=== PATIENT | female | born 1960 | race Caucasian/White ===

== ENCOUNTER 2023-02-13 11:02 | Emergency (ER) | payer BC, SELFPAY ==
[2023-02-13 11:02] VITALS: BP 150/76; PULSE 71; RESP 18; TEMP 36.7; O2SAT 100; BMI 29.8
--- NOTE | 2023-02-13 11:21 | XR_ITS ---
FINAL REPORT CLINICAL HISTORY: Shortness of breath COMPARISON: None FINDINGS: Two views of the chest were obtained. The heart size and pulmonary vascularity are within normal limits. The mediastinum is normal. No acute pulmonary abnormality is identified. There is no pneumothorax. The bony thorax is intact. Postoperative changes in the lower cervical spine and lower lumbar spine. IMPRESSION: No active cardiopulmonary disease. Reviewed, Interpreted and Dictated by Tahir Brooks III, MD Transcribed by Letha Cohn Authenticated and [facility]
--- NOTE | 2023-02-13 11:21 | EXP.UTC ---
Discharge Plan Disposition Patient Disposition: Home, Self-Care Condition: Good Prescriptions Prescriptions: New methylprednisolone 4 mg Tablets,Dose Pack 4 mg PO DIRECTED Qty: 21 0RF guaifenesin [Mucinex] 600 mg tablet extended release 12hr 600 - 1,200 mg PO BIDP PRN (Reason: Congestion) Qty: 30 0RF azithromycin [Zithromax] 250 mg tablet 250 mg PO UD DOSE PK Qty: 6 0RF Rx Instructions: Take two (2) tablets today, then one (1) tablet days #2 thru #5 benzonatate [benzonatate] 100 mg capsule 100 mg PO TIDP PRN (Reason: Cough) Qty: 30 0RF Referrals Follow up/Referrals: Provider,Referral, MD [Primary Care Provider] - See instructions Activity Restrictions/Add. Instructions Additional Instructions/Restrictions: Drink plenty of fluids. Take tylenol or ibuprofen for pain or fever. Take the medications as directed. Follow up with your regular doctor. GO TO THE ER FOR ANY WORSENING SYMPTOMS Clinical Impressions Clinical Impression: Acute bronchitis Instructions Patient Instructions: Acute Bronchitis, DI for Acute Bronchitis Discharge ED [place] Eugenio Rom[place] [facility] [place] General Stated complaint: lung pain Time Seen by Provider: 02/13/23 11:21 History of Present Illness Provider Complaint: She states that for the past 1 week she has had sinus congestion and chest congestion. She denies fever and chills. She states that when she breathes in deeply she has pleuritic type pain. Related Data Previous Rx's Medication Instructions Recorded azithromycin 250 mg tablet 250 mg PO UD DOSE PK #6 tabs 02/13/23 (Zithromax) benzonatate 100 mg capsule 100 mg PO TIDP PRN Cough #30 caps 02/13/23 guaifenesin 600 mg tablet, 600 - 1,200 mg PO BIDP PRN 02/13/23 extended release 12 hr (Mucinex) Congestion #30 tabs methylprednisolone 4 mg tablets in 4 mg PO DIRECTED #21 tabs 02/13/23 a dose pack Allergies Allergy/AdvReac Type Severity Reaction Status Date / Time diclofenac [From Voltaren] Allergy Verified 02/13/23 11:25 prednisone Allergy Verified 02/13/23 11:25 [facility] Disclaimer: The information contained in this section may have been updated after the patient was seen, as this information can be updated by other users. Social History Smoking Status: Former smoker alcohol intake: never current occupational status: retired Travel in the last 8 weeks: None ROS Obtained: Yes All systems reviewed & no additional complaints except as documented Constitutional Constitutional: Denies chills and Denies fever(s) Eyes Eyes: Denies eye discharge ENT Ears, Nose, Mouth, and Throat: Denies dizziness, Denies otalgia and Denies sore throat Cardiovascular Cardiovascular: Denies chest pain Respiratory Respiratory: Denies shortness of breath, Reports chest congestion, Reports cough, Denies stridor and Denies wheezing Gastrointestinal Gastrointestingal: Denies nausea or vomiting Musculoskeletal Musculoskeletal: Reports system reviewed and no additional complaints, except as documented and Denies arthralgias Integumentary/Breasts Skin/Breast: Denies rash Neurologic Neurologic: Denies dizziness and Denies paresthesias Allergic/Immunologic Allergic/Immunologic: Denies wheezing Physical Exam General General appearance: alert and in no apparent distress Head Head exam: atraumatic, normocephalic and normal inspection Eye Eye exam: Present normal appearance, PERRL and EOMI ENT ENT exam: Present normal exam, normal oropharynx, mucous membranes moist, TM's normal bilaterally and normal external ear exam Neck Neck exam: Present normal inspection, full ROM and trachea midline; Absent meningismus or lymphadenopathy Chest Chest inspection: Present normal inspection and symmetric chest wall rise; Absent tenderness Respiratory Respiratory exam: Present normal lung sounds bilaterally; Absent respiratory distress Cardiovascular Cardiovascular exam: Present regular rate and normal
[2023-02-13 11:55] VITALS: BP 150/76; PULSE 71; RESP 18; TEMP 36.7; O2SAT 100
== END 2023-02-13 11:56 | disposition home or self-care (01) ==
PROVIDERS: Emergency Provider Nurse Practitioner Family
DX: J20.9 Acute bronchitis, unspecified (principal); R07.1 Chest pain on breathing; Z87.891 Personal history of nicotine dependence
CPT/HCPCS: 71046; 99204; 99212; G0463

== ENCOUNTER → 2023-03-10 15:04 | Outpatient (CLI) | payer BC, SELFPAY ==
--- NOTE | 2023-03-10 15:07 | XR_ITS ---
FINAL REPORT CLINICAL HISTORY: l wrist pain FINDINGS: Left wrist Three views were obtained. There is no acute fracture or dislocation. The joint spaces appear normal. No soft tissue abnormality is identified. IMPRESSION: No acute process. Reviewed, Interpreted and Dictated by Tahir Brooks III, MD Transcribed by Lali Miller Authenticated and [facility]
[2023-03-10 18:31] LABS: Basophils # 0.1 K/mm3 (0-0.2); Basophils % 0.8 % (0.1-2.0); Eosinophils # 0.2 K/mm3 (0.0-0.4); Hematocrit 43.9 % (37.0-47.0); Hemoglobin 14.4 g/dL (12.2-16.2); Lymphocytes # 2.4 K/mm3 (0.7-4.5); Lymphocytes % 29.9 % (10-50); Mean Corpuscular HGB Conc 32.9 g/dL (31.8-35.4); Mean Corpuscular Volume 82.1 fl (81-99); Mean Platelet Volume 8.6 fl (7.4-10.4); Monocytes # 0.3 K/mm3 (0.1-1.0); Monocytes % 3.7 % (1.7-9.3); Neutrophils % 62.5 % (37.0-80.0); Platelet Count 338 K/mm3 (142-424); Red Blood Count 5.35 M/mm3 (4.20-5.40); Red Cell Distribution Width 14.2 % (11.5-17.5); White Blood Count 7.9 K/mm3 (4.8-10.8)
[2023-03-10 19:07] LABS: Alanine Aminotransferase 14 U/L (12-78); Albumin Level 4.6 g/dl (3.5-5.0); Albumin/Globulin Ratio 1.8 (1.1-1.8); Alkaline Phosphatase 107 U/L (38-126); Anion Gap 13.2 mEq/L (5-15); Aspartate Amino Transferase 28 U/L (14-36); Bilirubin,Total 0.7 mg/dl (0.2-1.3); Blood Urea Nitrogen 19 mg/dl (7-17); Calcium 9.9 mg/dl (8.4-10.2); Carbon Dioxide 27 mmol/L (22.0-30.0); Chloride 105 mmol/L (98-107); Chol/HDL Ratio 3.8 (1-3.5); Cholesterol 312 mg/dl (140-200); Estimated Glomerular Filt Rate 102 ml/min (>60); GFR (African American) 123 ML/MIN (>60); Globulin 2.6 g/dL (1.3-3.2); Glucose 92 mg/dl (74-100); HDL Cholesterol 82 mg/dl (40-60); Potassium 5.2 mmoL/L (3.5-5.1); Sodium 140 mmol/L (136-145); Total Protein,Serum 7.2 g/dl (6.3-8.2); Triglycerides 174 mg/dl (30-150); VLDL Cholesterol 35 mg/dL (0-40)
[2023-03-10 19:18] LABS: Direct LDL Cholesterol 169.16 mg/dL (100-129)
[2023-03-10 19:22] LABS: 25-OH Vitamin D, Total 24.3 ng/mL (30-100)
[2023-03-10 19:36] LABS: Thyroid Stimulating Hormone 3.28 uIU/mL (0.465-4.68)
== END ==
PROVIDERS: PCP Student in an Organized Health Care Education/Training Program; Visit Provider Student in an Organized Health Care Education/Training Program
DX: R07.1 Chest pain on breathing (principal); M25.532 Pain in left wrist; R53.83 Other fatigue; E55.9 Vitamin D deficiency, unspecified; Z79.899 Other long term (current) drug therapy
CPT/HCPCS: 73110; 80053; 80061; 82306; 84443; 85025

== ENCOUNTER → 2023-03-16 15:40 | Outpatient (CLI) | payer BC, SELFPAY ==
--- NOTE | 2023-03-16 15:40 | MM_ITS ---
PROCEDURE INFORMATION: Exam: MG Bilateral Screening 3D Mammography Exam date and time: 03/16/2023 3:49 PM Age: 62 years old Clinical indication: Screening examination TECHNIQUE: Imaging protocol: Bilateral Screening tomosynthesis and 2D mammography including computer-aided detection (CAD) when performed. COMPARISON: MG LUX scrn mammo BI 08/20/2019 8:26 AM FINDINGS: MAMMOGRAPHY: Breast composition: The breasts are heterogeneously dense, which may obscure small masses. Mass: None. Architectural distortion: None. Calcifications: No suspicious calcifications. Asymmetric density: None. Skin thickening: None. Axillary adenopathy: None. IMPRESSION: No mammographic evidence of malignancy. Annual screening is recommended unless otherwise clinically indicated. ASSESSMENT: BI-RADS Category 1: Negative
== END ==
PROVIDERS: PCP Student in an Organized Health Care Education/Training Program; Visit Provider Student in an Organized Health Care Education/Training Program
DX: Z12.31 Encounter for screening mammogram for malignant neoplasm of breast (principal)
CPT/HCPCS: 77063; 77067

== ENCOUNTER 2023-03-24 14:45 | Emergency (ER) | payer BC, SELFPAY ==
[2023-03-24] VITALS (8 sets, daily range): BP systolic 135–175; BP diastolic 64–94; PULSE 65–79; RESP 18–20; TEMP 36.6–36.8; O2SAT 97–100; BMI 28.7
--- NOTE | 2023-03-24 15:10 | HMH.EDGENADL ---
Discharge Plan Disposition Patient Disposition: Home, Self-Care Prescriptions Prescriptions: New doxycycline hyclate 100 mg capsule 100 mg PO BID 7 Days Qty: 14 0RF No Action tizanidine 2 mg tablet 2 mg PO TID citalopram 20 mg tablet 20 mg PO DAILY naproxen 500 mg tablet 500 mg PO BID Qty: 20 0RF sumatriptan succinate 50 mg tablet 50 mg PO PRN Patient Comments: TAKE 1 TABLET BY MOUTH NEEDED FOR HEADACHE albuterol sulfate 90 mcg/actuation HFA aerosol inhaler 2 puff inhalation Q6H PRN pravastatin 40 mg tablet 40 mg PO DAILY Qty: 30 2RF cholecalciferol (vitamin D3) 25 mcg (1,000 unit) capsule 25 mcg PO DAILY Qty: 30 3RF Referrals Follow up/Referrals: Vannesa Mata PA [Primary Care Provider] - See instructions Activity Restrictions/Add. Instructions Additional Instructions/Restrictions: At this time it was felt you are safe to be discharged home. If new or worsening symptoms please do not hesitate to return the emergency department. Please take your medication as prescribed. Please follow-up with your family doctor in 1 week should symptoms persist. Clinical Impressions Clinical Impression: Acute bronchitis Discharge ED Provider: Jae Ch General Adult HPI General Chief complaint: Upper Respiratory Infection Stated complaint: pain when breathes and coughing up blood Time Seen by Provider: 03/24/23 15:04 Mode of Arrival: Ambulatory Source of Information: Patient Limitations: No Limitations Description of Symptoms (Recalled from ER Triage Doc. by RN): pt has been dealing with a cough/bronchitis for the last month has been on a round of mucinex and tessalon pearles, has been seen here in ER and at PCP office. pt states over the last 4 days she has noted red/blood tinge sputum. pcp sent pt here History of Present Illness HPI narrative: Patient is 62-year-old female with past medical history of previous pulmonary nodule, previous bronchitis who presents to the emergency department for evaluation of hemoptysis. Patient states that over the last week she has had a cough with associated pain with taking a deep breath along her inferior thoracic cage. Cough is productive, greenish sputum, tinged blood over the last 4 days. She is concerned because she has a history of a pulmonary nodule that was last mentioned as stable in 2017 per her report. Patient denies other acute complaints at this time. Related Data Home Medications Medication Instructions Recorded Confirmed citalopram 20 mg tablet 20 mg PO DAILY 03/10/23 03/24/23 tizanidine 2 mg tablet 2 mg PO TID 03/10/23 03/24/23 albuterol sulfate 90 mcg/actuation 2 puff inhalation Q6H PRN 03/24/23 03/24/23 aerosol inhaler sumatriptan succinate 50 mg tablet 50 mg PO PRN 03/24/23 03/24/23 Previous Rx's Medication Instructions Recorded naproxen 500 mg tablet 500 mg PO BID #20 tabs 03/10/23 doxycycline hyclate 100 mg capsule 100 mg PO BID 7 days #14 caps 03/24/23 cholecalciferol (vitamin D3) 25 25 mcg PO DAILY #30 caps 03/26/23 mcg (1,000 unit) capsule pravastatin 40 mg tablet 40 mg PO DAILY #30 tabs 03/26/23 Allergies Allergy/AdvReac Type Severity Reaction Status Date / Time diclofenac [From Voltaren] Allergy Verified 03/24/23 14:05 prednisone Allergy Verified 03/24/23 14:05 [facility] Disclaimer: The information contained in this section may have been updated after the patient was seen, as this information can be updated by other users. Social History Smoking Status: Never smoker alcohol intake: never current occupational status: retired Travel in the last 8 weeks: None ROS Obtained: Yes Systems reviewed as appropriate & no additional complaints except as documented Physical Exam General General appearance: alert and in no apparent distress Head Head exam: atraumatic and normocephalic Eye Eye exam: Present PERRL an
--- NOTE | 2023-03-24 15:32 | CT_ITS ---
PROCEDURE INFORMATION: Exam: CTA Chest With Contrast Exam date and time: 03/24/2023 5:22 PM Age: 62 years old Clinical indication: Abnormal findings; Lung mass or nodule; Not specified; Additional info: Previous lung nodule, hemoptysis TECHNIQUE: Imaging protocol: Computed tomographic angiography of the chest with contrast. Exam focused on the arteries. 3D rendering (Not supervised by radiologist): MIP and/or 3D reconstructed images were created by the technologist. Radiation optimization: All CT scans at this facility use at least one of these dose optimization techniques: automated exposure control; mA and/or kV adjustment per patient size (includes targeted exams where dose is matched to clinical indication); or iterative reconstruction. Contrast material: ISOVUE 370; Contrast volume: 100 ml; Contrast route: INTRAVENOUS (IV); REPORTING DATA: Count of CT and Cardiac NM exams in prior 12 months: This patient has received 0 known CTs and 0 known cardiac nuclear medicine studies in the 12 months prior to the current study. COMPARISON: CR XR CHEST 2V 02/13/2023 11:19 AM FINDINGS: Pulmonary arteries: Normal. No pulmonary emboli. Aorta: Mild to moderate atherosclerotic changes of the aorta without aneurysmal dilatation. Lungs: Minimal tree-in-bud opacities within the lateral right middle lobe. No consolidation. No masses. Pleural spaces: Unremarkable. No pneumothorax. No pleural effusion. Heart: Minimal aortic valvular calcification. Trace pericardial effusion. Lymph nodes: Unremarkable. No enlarged lymph nodes. Bones/joints: Lower cervical ACDF. No acute osseous findings. Degenerative changes of the spine and shoulders. Soft tissues: Unremarkable. IMPRESSION: 1. No pulmonary artery embolism. 2. Minimal tree-in-bud opacities within the right middle lobe which may represent an infectious or inflammatory bronchiolitis in the acute setting.
--- NOTE | 2023-03-24 15:51 | ECG_ITS ---
APPROVED REPORT Exam: Resting ECG HR:69 bpm ECG Measurements Heart Rate 69 AXES SD 171 P -5 QRSd 90 QRS 21 QT 394 T 11 QTc 414 Conclusion SINUS RHYTHM NORMAL ECG UNCONFIRMED REPORT Electronically signed by : Momo Ramirez MD 03/25/2023 21:01:54
[2023-03-24 15:55] LABS: Coronavirus 19, PCR Not Detected (NotDetected); Influenza A, PCR Not Detected (NotDetected); Influenza B, PCR Not Detected (NotDetected)
[2023-03-24 15:57] LABS: Basophils # 0.1 K/mm3 (0-0.2); Basophils % 0.8 % (0.1-2.0); Eosinophils # 0.3 K/mm3 (0.0-0.4); Eosinophils % 3.3 % (0.1-12.0); Hematocrit 45.5 % (37.0-47.0); Hemoglobin 14.6 g/dL (12.2-16.2); Lymphocytes # 2.6 K/mm3 (0.7-4.5); Lymphocytes % 28.6 % (10-50); Mean Corpuscular HGB Conc 32.2 g/dL (31.8-35.4); Mean Corpuscular Hemoglobin 26.9 pg (27.0-31.2); Mean Corpuscular Volume 83.5 fl (81-99); Mean Platelet Volume 7.9 fl (7.4-10.4); Monocytes # 0.3 K/mm3 (0.1-1.0); Neutrophils # 5.8 K/mm3 (1.8-7.8); Neutrophils % 64.4 % (37.0-80.0); Platelet Count 317 K/mm3 (142-424); Red Blood Count 5.44 M/mm3 (4.20-5.40); Red Cell Distribution Width 14.2 % (11.5-17.5)
[2023-03-24 16:03] LABS: Chloride 101 mmol/L (98-107); Potassium 4.2 mmoL/L (3.5-5.1); Sodium 137 mmol/L (136-145)
[2023-03-24 16:06] LABS: Alanine Aminotransferase 17 U/L (12-78); Albumin Level 4.2 g/dl (3.5-5.0); Albumin/Globulin Ratio 1.4 (1.1-1.8); Alkaline Phosphatase 111 U/L (38-126); Anion Gap 12.2 mEq/L (5-15); Aspartate Amino Transferase 28 U/L (14-36); Bilirubin,Total 0.7 mg/dl (0.2-1.3); Carbon Dioxide 28 mmol/L (22.0-30.0); Globulin 2.9 g/dL (1.3-3.2); Total Protein,Serum 7.1 g/dl (6.3-8.2)
[2023-03-24 16:07] LABS: Calcium 9.9 mg/dl (8.4-10.2); Glucose 91 mg/dl (74-100)
[2023-03-24 16:23] LABS: Troponin I < 0.01 ng/ml (0.00-0.034)
[2023-03-24 16:27] LABS: Creatinine Clearance Estimated 109 mL/min (50-200); Estimated Glomerular Filt Rate 102 ml/min (>60); GFR (African American) 123 ML/MIN (>60)
[2023-03-24 16:40] LABS: Blood Urea Nitrogen 23 mg/dl (7-17)
[2023-03-24 18:29] LABS: Troponin I < 0.01 ng/ml (0.00-0.034)
== END 2023-03-24 19:01 | disposition home or self-care (01) ==
PROVIDERS: Emergency Provider Emergency Medicine; PCP Student in an Organized Health Care Education/Training Program
DX: J20.9 Acute bronchitis, unspecified (principal); R07.1 Chest pain on breathing; R04.2 Hemoptysis
CPT/HCPCS: 71275; 80053; 84484; 85025; 87636; 93005; 99285; Q9967

== ENCOUNTER 2023-05-01 10:56 | Emergency (ER) | payer BC, SELFPAY ==
--- NOTE | 2023-05-01 10:57 | XR_ITS ---
FINAL REPORT CLINICAL HISTORY: FALL x 10 days ago COMPARISON: None FINDINGS: AP, oblique, and lateral views of the right ankle were obtained. There is no prior exam for comparison. There is no fracture or dislocation. The ankle mortise is intact. Lateral soft tissue swelling is noted. IMPRESSION: No acute osseous abnormality of the right ankle. Reviewed, Interpreted and Dictated by Shelley Cardona MD Transcribed by Kristie Pulliam Authenticated and [facility]
[2023-05-01 11:30] VITALS: BP 138/84; PULSE 70; RESP 18; TEMP 36.8; O2SAT 98; BMI 27.6
--- NOTE | 2023-05-01 11:57 | EXP.UTC ---
Discharge Plan Disposition Patient Disposition: Home, Self-Care Condition: Good Prescriptions Prescriptions: No Action tizanidine 2 mg tablet 2 mg PO TID PRN (Reason: Pain) citalopram 20 mg tablet 20 mg PO DAILY Qty: 30 1RF pravastatin 40 mg tablet 40 mg PO HS Patient Comments: TAKE 1 TABLET BY MOUTH ONCE DAILY sumatriptan succinate [Imitrex] 25 mg Tablet 25 mg PO DAILY PRN (Reason: Migraine Headache) Rx Instructions: do not exceed 8 doses per 24 hrs cholecalciferol (vitamin D3) [Vitamin D3] 25 mcg (1,000 unit) capsule 25 mcg PO DAILY Patient Comments: TAKE 1 CAPSULE BY MOUTH ONCE DAILY Referrals Follow up/Referrals: Vannesa Mata PA [Primary Care Provider] - See instructions Activity Restrictions/Add. Instructions Additional Instructions/Restrictions: *weight bearing as tolerated *RICE, Rest the extremity, Ice 15-20 minutes 3-4 times daily, Compress- wear the fransico wrap as discussed as much as possible to help reduce swelling and pain, Elevate the extremity when at rest *Fransico wrap is for support and help control swelling, use it except in the shower. Be sure that is not to tight but not to loose either *Elevate when resting? *Ibuprofen 600-800mg every 6-8 hours as needed for pain an inflammation. If need something more can take Tylenol in between doses of Ibuprofen to help Immediately follow up with your family doctor for new or worsening of symptoms, or no noticeable improvement over the next 3-5 days Clinical Impressions Clinical Impression: Ankle sprain Qualifiers: Encounter type: initial encounter Involved ligament of ankle: unspecified ligament Laterality: right Qualified Code(s): S93.401A - Sprain of unspecified ligament of right ankle, initial encounter Instructions Patient Instructions: How To Perform RICE (Rest, Ice, Compress, Elevate), How to Apply an Fransico Wrap Discharge ED Provider: Susan Chase [facility] General Stated complaint: [id number]/15@home, pain in Rt ankle Mode of Arrival: Ambulatory Source of Information: Patient Limitations: No Limitations Time Seen by Provider: 05/01/23 11:57 Description of Symptoms (Recalled from Triage Doc. by RN): PATIENT C/O RIGHT ANKLE PAIN AFTER STEPPING IN A HOLE AND ROLLING IT 10 DAYS AGO HEENT Symptoms (Recalled from RN notes): No Resp Symptoms (Recalled from RN notes): No Skin Symptoms (Recalled from RN notes): No MS Symptoms (Recalled from RN notes): Yes Functional Status (Recalled from RN notes): WNL History of Present Illness Provider Complaint: Patient states that she has been having pain in her right ankle for the last 10 days after she stepped a hole and rolled her right ankle States that she has been having pain and swelling ever since Related Data Home Medications Medication Instructions Recorded Confirmed tizanidine 2 mg tablet 2 mg PO TID PRN Pain 03/10/23 05/01/23 cholecalciferol (vitamin D3) 25 25 mcg PO DAILY Supplement 05/01/23 05/01/23 mcg (1,000 unit) capsule (Vitamin D3) pravastatin 40 mg tablet 40 mg PO HS Cholesterol 05/01/23 05/01/23 sumatriptan succinate 25 mg tablet 25 mg PO DAILY PRN Migraine 05/01/23 05/01/23 (Imitrex) Headache Previous Rx's Medication Instructions Recorded citalopram 20 mg tablet 20 mg PO DAILY Depression #30 tabs 04/19/23 Allergies Allergy/AdvReac Type Severity Reaction Status Date / Time diclofenac [From Voltaren] Allergy Verified 03/24/23 14:05 prednisone Allergy Verified 03/24/23 14:05 Worker's Comp Is this a Worker's Comp case?: No [facility] Disclaimer: The information contained in this section may have been updated after the patient was seen, as this information can be updated by other users. Medical History (Updated 05/01/23 @ 12:27 by Susan Chase APRN) Elevated blood pressure reading H/O abnormal mammogram History of colon polyps History of solitary pulmonary nodule HLD (hyperlipidemia) Mood disorder Scaphoid
[2023-05-01 12:26] VITALS: BP 138/84; PULSE 70; RESP 18; TEMP 36.8; O2SAT 98
== END 2023-05-01 12:31 | disposition home or self-care (01) ==
PROVIDERS: Emergency Provider Nurse Practitioner; PCP Student in an Organized Health Care Education/Training Program
DX: S93.401A Sprain of unspecified ligament of right ankle, initial encounter (principal); E78.5 Hyperlipidemia, unspecified; E55.9 Vitamin D deficiency, unspecified; F39 Unspecified mood [affective] disorder; W17.2XXA Fall into hole, initial encounter
CPT/HCPCS: 73610; 99212; 99214; G0463

== ENCOUNTER 2023-06-23 13:30 | Emergency (ER) | payer BC, SELFPAY ==
[2023-06-23 13:45] VITALS: BP 138/88; PULSE 73; RESP 18; TEMP 36.9; O2SAT 99; BMI 29.2
--- NOTE | 2023-06-23 13:51 | XR_ITS ---
FINAL REPORT CLINICAL HISTORY: PAIN AND SWELLING FINDINGS: RIGHT FOOT 3 views of the right foot were obtained. There is no acute fracture or dislocation. Visualized joint spaces are normally aligned. Soft tissues are unremarkable. IMPRESSION: No acute bony abnormality. Reviewed, Interpreted and Dictated by Donn Monroe MD Transcribed by Maria Luisa Phillips Authenticated and [facility]
--- NOTE | 2023-06-23 14:17 | EXP.UTC ---
Discharge Plan Disposition Patient Disposition: Home, Self-Care Condition: Good Prescriptions Prescriptions: No Action tizanidine 2 mg tablet 2 mg PO TID PRN (Reason: Pain) citalopram 20 mg tablet 20 mg PO DAILY Qty: 30 1RF pravastatin 40 mg tablet 40 mg PO HS Patient Comments: TAKE 1 TABLET BY MOUTH ONCE DAILY sumatriptan succinate [Imitrex] 25 mg Tablet 25 mg PO DAILY PRN (Reason: Migraine Headache) Rx Instructions: do not exceed 8 doses per 24 hrs cholecalciferol (vitamin D3) [Vitamin D3] 25 mcg (1,000 unit) capsule 25 mcg PO DAILY Patient Comments: TAKE 1 CAPSULE BY MOUTH ONCE DAILY Referrals Follow up/Referrals: Vannesa Mata PA [Primary Care Provider] - See instructions Alice Maddox DPM [Staff Physician] - See instructions (call office for appointment) Activity Restrictions/Add. Instructions Additional Instructions/Restrictions: *weight bearing as tolerated *RICE, Rest the extremity, Ice 15-20 minutes 3-4 times daily, Compress- wear the fransico wrap as discussed as much as possible to help reduce swelling and pain, Elevate the extremity when at rest *Fransico wrap is for support and help control swelling, use it except in the shower. Be sure that is not to tight but not to loose either *Elevate when resting? *Ibuprofen 600-800mg every 6-8 hours as needed for pain an inflammation. If need something more can take Tylenol in between doses of Ibuprofen to help Immediately follow up with your family doctor for new or worsening of symptoms, or no noticeable improvement over the next 3-5 days Clinical Impressions Clinical Impression: Foot pain Qualifiers: Laterality: right Qualified Code(s): M79.671 - Pain in right foot Instructions Patient Instructions: DI for Foot Pain, How to Apply an Fransico Wrap Discharge ED Provider: Susan Chase [facility] General Stated complaint: [id number] right foot pain Mode of Arrival: Ambulatory Source of Information: Patient Limitations: No Limitations Time Seen by Provider: 06/23/23 14:17 Description of Symptoms (Recalled from Triage Doc. by RN): PATIENT C/O PAIN AND SWELLING IN RIGHT FOOT HEENT Symptoms (Recalled from RN notes): No Resp Symptoms (Recalled from RN notes): No Skin Symptoms (Recalled from RN notes): No MS Symptoms (Recalled from RN notes): Yes Functional Status (Recalled from RN notes): WNL History of Present Illness Provider Complaint: Patient states that she twisted her ankle in Apr and was seen and got xrays and didnt find anything but she wasnt having any pain in her foot States that for the last couple of weeks she has been having pain and swelling in the top of her right foot and hurts when she walks on it States that she doesnt recall doing anything to hurt it or anything so today when she was still having pain she came in to get it checked Related Data Home Medications Medication Instructions Recorded Confirmed tizanidine 2 mg tablet 2 mg PO TID PRN Pain 03/10/23 05/01/23 cholecalciferol (vitamin D3) 25 25 mcg PO DAILY Supplement 05/01/23 05/01/23 mcg (1,000 unit) capsule (Vitamin D3) pravastatin 40 mg tablet 40 mg PO HS Cholesterol 05/01/23 05/01/23 sumatriptan succinate 25 mg tablet 25 mg PO DAILY PRN Migraine 05/01/23 05/01/23 (Imitrex) Headache Previous Rx's Medication Instructions Recorded citalopram 20 mg tablet 20 mg PO DAILY Depression #30 tabs 06/21/23 Allergies Allergy/AdvReac Type Severity Reaction Status Date / Time cephalexin [From Keflex] Allergy Verified 06/23/23 14:04 diclofenac [From Voltaren] Allergy Verified 03/24/23 14:05 fluconazole Allergy Verified 06/23/23 14:04 prednisone Allergy Verified 03/24/23 14:05 Worker's Comp Is this a Worker's Comp case?: No [facility] Disclaimer: The information contained in this section may have been updated after the patient was seen, as this information can be updated by other users. Medical History (Updated 1
[2023-06-23 16:00] VITALS: BP 138/88; PULSE 73; RESP 18; TEMP 36.9; O2SAT 99
== END 2023-06-23 16:02 | disposition home or self-care (01) ==
PROVIDERS: Emergency Provider Nurse Practitioner; PCP Student in an Organized Health Care Education/Training Program
DX: M79.671 Pain in right foot (principal); R22.41 Localized swelling, mass and lump, right lower limb; E78.5 Hyperlipidemia, unspecified; E55.9 Vitamin D deficiency, unspecified
CPT/HCPCS: 73630; 99212; 99214; G0463

== ENCOUNTER 2023-11-23 11:33 | Outpatient (CLI) | payer BC, SELFPAY ==
[2023-11-23 18:21] LABS: Chol/HDL Ratio 4.5 (1-3.5); Cholesterol 306 mg/dl (140-200); HDL Cholesterol 68 mg/dl (40-60); Triglycerides 123 mg/dl (30-150); VLDL Cholesterol 25 mg/dL (0-40)
[2023-11-23 18:31] LABS: Direct LDL Cholesterol 184.57 mg/dL (100-129)
== END 2023-11-23 23:59 ==
LOC: LAB.DROPOF 11-24 11:33
PROVIDERS: PCP Student in an Organized Health Care Education/Training Program; Visit Provider Student in an Organized Health Care Education/Training Program
DX: E78.5 Hyperlipidemia, unspecified (principal)
CPT/HCPCS: 80061

== ENCOUNTER 2023-12-20 16:39 | Emergency (ER) | payer BC, SELFPAY ==
[2023-12-20] VITALS (8 sets, daily range): BP systolic 140–205; BP diastolic 71–103; PULSE 64–80; RESP 13–20; TEMP 36.6–37; O2SAT 95–98; BMI 29.0; BMI 29.5
--- NOTE | 2023-12-20 17:09 | EXP.UTC ---
Discharge Plan Disposition Patient Disposition: Still a Patient Condition: Good Prescriptions Prescriptions: No Action doxycycline hyclate 100 mg tablet 100 mg PO DAILY Qty: 2 0RF amoxicillin-pot clavulanate 875-125 mg tablet 1 tab PO BID 10 Days Qty: 20 0RF ofloxacin 0.3 % drops 10 drp otic (ear) DAILY 7 Days Qty: 5 0RF tizanidine 2 mg tablet 2 mg PO TID PRN (Reason: Pain) atorvastatin 40 mg tablet 40 mg PO DAILY Qty: 90 0RF citalopram 20 mg tablet 20 mg PO DAILY Qty: 30 1RF sumatriptan succinate [Imitrex] 25 mg Tablet 25 mg PO DAILY PRN (Reason: Migraine Headache) Rx Instructions: do not exceed 8 doses per 24 hrs cholecalciferol (vitamin D3) [Vitamin D3] 25 mcg (1,000 unit) capsule 25 mcg PO DAILY Patient Comments: TAKE 1 CAPSULE BY MOUTH ONCE DAILY Referrals Follow up/Referrals: Vannesa Mata PA [Primary Care Provider] - See instructions Discharge ED Provider: Yoselin Brown [facility] General Stated complaint: chronic headache,and swelling in the tenriism Mode of Arrival: Ambulatory Source of Information: Patient Limitations: No Limitations Time Seen by Provider: 12/20/23 17:09 Description of Symptoms (Recalled from Triage Doc. by RN): PATIENT C/O SEVERE HEADACHE TO TEMPORAL AREA X 4 DAYS. SHE STATES THIS HEADACHE IS WORSE THAN HER NORMAL MIGRAINES AND IS WORSE ON THE LEFT SIDE. SHE STATES SHE FEELS THAT HER LEFT ZOROASTRIANISM IS SWOLLEN AND STATES THERE IS A SORE TO THAT AREA. PATIENT ALSO C/O BLURRY VISION, DIZZINESS, NAUSEA AND BODY ACHES. HEENT Symptoms (Recalled from RN notes): Yes Resp Symptoms (Recalled from RN notes): No Skin Symptoms (Recalled from RN notes): No MS Symptoms (Recalled from RN notes): No Functional Status (Recalled from RN notes): WNL History of Present Illness Provider Complaint: Patient states that she typically has migraines but for the last 4 days she has had a severe migraine that is not like others she has had in the past States that typically she has a migraine on one side of her head but this one is all over and in both temples but worse on the left and she feels like her left tenriism is swollen, her vision has been blurry and she just doesnt feel well so today when it wasnt any better and seemed to be getting worse she came in Related Data Home Medications Medication Instructions Recorded Confirmed tizanidine 2 mg tablet 2 mg PO TID PRN Pain 03/10/23 11/23/23 cholecalciferol (vitamin D3) 25 25 mcg PO DAILY Supplement 05/01/23 11/23/23 mcg (1,000 unit) capsule (Vitamin D3) sumatriptan succinate 25 mg tablet 25 mg PO DAILY PRN Migraine 05/01/23 11/23/23 (Imitrex) Headache Previous Rx's Medication Instructions Recorded amoxicillin 875 mg-potassium 1 tab PO BID 10 days #20 tabs 11/23/23 clavulanate 125 mg tablet atorvastatin 40 mg tablet 40 mg PO DAILY #90 tabs 11/23/23 doxycycline hyclate 100 mg tablet 100 mg PO DAILY #2 tabs 11/23/23 ofloxacin 0.3 % ear drops 10 drp otic (ear) DAILY 7 days #5 11/23/23 mL citalopram 20 mg tablet 20 mg PO DAILY Depression #30 tabs 12/13/23 Allergies Allergy/AdvReac Type Severity Reaction Status Date / Time cephalexin [From Keflex] Allergy Verified 11/23/23 11:29 diclofenac [From Voltaren] Allergy Verified 11/23/23 11:29 fluconazole Allergy Verified 11/23/23 11:29 prednisone Allergy Verified 11/23/23 11:29 Worker's Comp Is this a Worker's Comp case?: No [facility] Disclaimer: The information contained in this section may have been updated after the patient was seen, as this information can be updated by other users. Medical History Mood disorder TMJ dysfunction Scaphoid fracture of wrist L wrist 2019 Vitamin D deficiency HLD (hyperlipidemia) Elevated blood pressure reading History of solitary pulmonary nodule History of colon polyps H/O abnormal mammogram Surgical History Hx of lumpectomy 1998 Family History Family/Other No significant family history Social History Smoking Status: Never smoker alcohol intake: never current occupational status: retired Travel in the last 8 weeks: None ROS Obtained: Yes All systems reviewed & no additional complaints except as documented and Yes Systems reviewed as appropriate & no additional complaints except as documented Constitutional Constitutional: Reports system reviewed and no additional complaints, except as documented, Reports as per HPI, Reports body ache and Reports headache(s) Eyes Eyes: Reports system reviewed and no additional complaints, except as documented, Reports as per HPI and Reports blurry vision ENT Ears, Nose, Mouth, and Throat: Reports system reviewed and no additional complaints, except as documented, Reports as per HPI and Reports headache(s) Cardiovascular Cardiovascular: Reports system reviewed and no additional complaints, except as documented and Reports as per HPI Respiratory Respiratory: Reports system reviewed and no additional complaints, except as documented and Reports as per HPI Gastrointestinal Gastrointestingal: Reports system reviewed and no additional complaints, except as documented, as per HPI and nausea Neurologic Neurologic: Reports headache(s) Physical Exam General General appearance: alert and in no apparent distress Expanded Head Exam Head image: 1. abrasion like area noted denies known injury reports sore to the touch Eye Eye exam: Present normal appearance and PERRL Respiratory Respiratory exam: Present normal lung sounds bilaterally; Absent respiratory distress or wheezes Cardiovascular Cardiovascular exam: Present regular rate, normal rhythm and normal heart sounds Neurological Exam Neurological exam: Present alert, oriented X3 and normal gait Medical Decision Making Homar Inquiry Pt receiving controlled substance: No Homar was queried for this patient: No Vital Signs: 12/20/23 17:00 Temperature 98.2 F Temperature Source Oral Pulse Rate [Left Brachial] 74 Respiratory Rate 20 Blood Pressure [Left Arm] 205/103 H Blood Pressure Mean [Left Arm] 137 Blood Pressure Source [Left Arm] Automatic Cuff Blood Pressure Position [Left Arm] Sitting 02 Sat by Pulse Oximetry 98 Oxygen Delivery Method Room Air Medical Decision Narrative: Patient reports worse headache of her life and unlike others she has had in the past with severe pain in her left temporal area and feels like it swollen, having blurry vision and states over doesnt feel right Patient blood pressure found to be elevated discussed with patient and will transfer to the ED for furhter work up and evaluation and she agreed Patient moved to the ED
--- NOTE | 2023-12-20 17:17 | PC.NURSE ---
PT ARRIVED TO ED FROM [facility] VIA WHEELCHAIR
--- NOTE | 2023-12-20 17:27 | CT_ITS ---
PROCEDURE INFORMATION: Exam: CT Head Without Contrast Exam date and time: 12/20/2023 5:49 PM Age: 63 years old Clinical indication: Pain; Headache; Additional info: Headache, new features TECHNIQUE: Imaging protocol: Computed tomography of the head without contrast. Radiation optimization: All CT scans at this facility use at least one of these dose optimization techniques: automated exposure control; mA and/or kV adjustment per patient size (includes targeted exams where dose is matched to clinical indication); or iterative reconstruction. COMPARISON: No relevant prior studies available. FINDINGS: Brain: Normal. No hemorrhage. Unremarkable white matter. No mass effect. Cerebral ventricles: No ventriculomegaly. Paranasal sinuses: Right maxillary sinus inflammatory changes. Mastoid air cells: Visualized mastoid air cells are well aerated. Bones: Postoperative changes bilateral temporomandibular joints with evidence of joint prosthesis. Soft tissues: Unremarkable. IMPRESSION: 1. No evidence of acute osseous injury. 2. Bilateral TMJ arthroplasty
[2023-12-20 17:36] LABS: Basophils # 0.1 K/mm3 (0-0.2); Basophils % 1.6 % (0.1-2.0); Eosinophils # 0.4 K/mm3 (0.0-0.4); Eosinophils % 5.5 % (0.1-12.0); Hemoglobin 15.5 g/dL (12.2-16.2); Lymphocytes # 2.9 K/mm3 (0.7-4.5); Lymphocytes % 37.2 % (10-50); Mean Corpuscular Hemoglobin 28.7 pg (27.0-31.2); Mean Corpuscular Volume 86.7 fl (81-99); Mean Platelet Volume 7.7 fl (7.4-10.4); Monocytes # 0.3 K/mm3 (0.1-1.0); Monocytes % 3.3 % (1.7-9.3); Neutrophils # 4.1 K/mm3 (1.8-7.8); Neutrophils % 52.2 % (37.0-80.0); Platelet Count 320 K/mm3 (142-424); Red Blood Count 5.42 M/mm3 (4.20-5.40); Red Cell Distribution Width 14.2 % (11.5-17.5); White Blood Count 7.8 K/mm3 (4.8-10.8)
[2023-12-20 17:37] LABS: Chloride 101 mmol/L (98-107); Potassium 4.1 mmoL/L (3.5-5.1); Sodium 138 mmol/L (136-145)
[2023-12-20 17:39] LABS: Alanine Aminotransferase 16 U/L (12-78); Aspartate Amino Transferase 35 U/L (14-36); Blood Urea Nitrogen 17 mg/dl (7-17); Creatinine Clearance Estimated 66 mL/min (50-200); Estimated Glomerular Filt Rate 85 ml/min (>60); GFR (African American) 103 ML/MIN (>60)
[2023-12-20 17:40] LABS: Albumin Level 4.8 g/dl (3.5-5.0); Albumin/Globulin Ratio 1.5 (1.1-1.8); Alkaline Phosphatase 79 U/L (38-126); Anion Gap 11.1 mEq/L (5-15); Bilirubin,Total 0.7 mg/dl (0.2-1.3); Calcium 10.3 mg/dl (8.4-10.2); Carbon Dioxide 30 mmol/L (22.0-30.0); Globulin 3.1 g/dL (1.3-3.2); Glucose 99 mg/dl (74-100); Total Protein,Serum 7.9 g/dl (6.3-8.2)
--- NOTE | 2023-12-20 17:41 | ECG_ITS ---
APPROVED REPORT Exam: Resting ECG HR:70 bpm ECG Measurements Heart Rate 70 AXES VT 131 P 74 QRSd 91 QRS 65 QT 382 T 49 QTc 403 Conclusion SINUS RHYTHM NORMAL ECG Electronically signed by : AMY SHIN, 12/20/2023 23:14:57
[2023-12-20] MEDS: PROCHLORPERAZINE 10MG/2ML VIAL 5 MG IV (17:43)
[2023-12-20] MEDS: KETOROLAC 30MG/ML VIAL 15 MG IV (17:43)
[2023-12-20] MEDS: ACETAMINOPHEN 1,000MG/100ML VIAL 1000 MG IV (17:45)
--- NOTE | 2023-12-20 18:05 | PC.NURSE ---
COVID SWAB SENT TO LAB
[2023-12-20 18:07] LABS: Coronavirus 19, PCR Not Detected (NotDetected); Influenza A, PCR Not Detected (NotDetected); Influenza B, PCR Not Detected (NotDetected)
[2023-12-20 18:14] LABS: Erythrocyte Sedimentation Rate 8 mm/hr (0-30)
--- NOTE | 2023-12-20 18:14 | HMH.EDGENADL ---
Discharge Plan Disposition Patient Disposition: Home, Self-Care Condition: Good Prescriptions Prescriptions: No Action doxycycline hyclate 100 mg tablet 100 mg PO DAILY Qty: 2 0RF amoxicillin-pot clavulanate 875-125 mg tablet 1 tab PO BID 10 Days Qty: 20 0RF ofloxacin 0.3 % drops 10 drp otic (ear) DAILY 7 Days Qty: 5 0RF tizanidine 2 mg tablet 2 mg PO TID PRN (Reason: Pain) atorvastatin 40 mg tablet 40 mg PO DAILY Qty: 90 0RF citalopram 20 mg tablet 20 mg PO DAILY Qty: 30 1RF sumatriptan succinate [Imitrex] 25 mg Tablet 25 mg PO DAILY PRN (Reason: Migraine Headache) Rx Instructions: do not exceed 8 doses per 24 hrs cholecalciferol (vitamin D3) [Vitamin D3] 25 mcg (1,000 unit) capsule 25 mcg PO DAILY Patient Comments: TAKE 1 CAPSULE BY MOUTH ONCE DAILY Referrals Follow up/Referrals: Vannesa Mata PA [Primary Care Provider] - See instructions Activity Restrictions/Add. Instructions Additional Instructions/Restrictions: You were evaluated in the emergency department today. Please follow up closely with your primary care provider for reassessment of your high blood pressure. Please follow up closely with an eye doctor. Return to the ER for new or worsening symptoms. Clinical Impressions Clinical Impression: Headache, High blood pressure Instructions Patient Instructions: DI for Migraine, DI for High Blood Pressure, DI for Headache Discharge ED Provider: Yoselin Brown General Adult HPI General Chief complaint: Headache Stated complaint: chronic headache,and swelling in the samaritan Time Seen by Provider: 12/20/23 17:09 Mode of Arrival: Ambulatory Source of Information: Patient Limitations: No Limitations Description of Symptoms (Recalled from ER Triage Doc. by RN): PATIENT C/O SEVERE HEADACHE TO TEMPORAL AREA X 4 DAYS. SHE STATES THIS HEADACHE IS WORSE THAN HER NORMAL MIGRAINES AND IS WORSE ON THE LEFT SIDE. SHE STATES SHE FEELS THAT HER LEFT LATTER DAY IS SWOLLEN AND STATES THERE IS A SORE TO THAT AREA. PATIENT ALSO C/O BLURRY VISION, DIZZINESS, NAUSEA AND BODY ACHES. History of Present Illness HPI narrative: This patient is a 63-year-old female with a history of migraines, hyperlipidemia, and mood disorder presenting to the emergency department for evaluation with concern for severe headache to her bilateral temples. She states the left is worse than the right. She also states she feels like she has blurred vision in both eyes, left worse than right. She notes that she has throbbing and pulsating pain in her temples and she feels that the left samaritan is swollen and tender to palpation. She also complains of nausea and bodyaches in addition to this. She is taking her Imitrex as well as [id number] medications at home with no improvement. She states she has never had a headache like this. Typically, hers are unilateral. Headache is been going on for approximately 4 days. It has been gradual in onset. Patient initially went to [facility] who sent the patient over here for evaluation given her complaints. I had an interactive discussion with the [facility] provider who advised that she was concerned because the patient's blood pressure was high as well. Related Data Home Medications Medication Instructions Recorded Confirmed tizanidine 2 mg tablet 2 mg PO TID PRN Pain 03/10/23 11/23/23 cholecalciferol (vitamin D3) 25 25 mcg PO DAILY Supplement 05/01/23 11/23/23 mcg (1,000 unit) capsule (Vitamin D3) sumatriptan succinate 25 mg tablet 25 mg PO DAILY PRN Migraine 05/01/23 11/23/23 (Imitrex) Headache Previous Rx's Medication Instructions Recorded amoxicillin 875 mg-potassium 1 tab PO BID 10 days #20 tabs 11/23/23 clavulanate 125 mg tablet atorvastatin 40 mg tablet 40 mg PO DAILY #90 tabs 11/23/23 doxycycline hyclate 100 mg tablet 100 mg PO DAILY #2 tabs 11/23/23 ofloxacin 0.3 % ear drops 10 drp otic (ear) DAILY 7 days #5 11/23/23 mL citalopram 20 mg tablet 20 mg PO DAILY Depression #30 tabs 12/13/23 Allergies Allergy/AdvReac Type Severity Reaction Status Date / Time cephalexin [From Keflex] Allergy Verified 12/20/23 17:33 diclofenac [From Voltaren] Allergy Verified 12/20/23 17:33 fluconazole Allergy Verified 12/20/23 17:33 prednisone Allergy Verified 12/20/23 17:33 [facility] Disclaimer: The information contained in this section may have been updated after the patient was seen, as this information can be updated by other users. Medical History Mood disorder TMJ dysfunction Scaphoid fracture of wrist Vitamin D deficiency HLD (hyperlipidemia) Elevated blood pressure reading History of solitary pulmonary nodule History of colon polyps H/O abnormal mammogram Surgical History Hx of lumpectomy Family History Family/Other No significant family history Social History Smoking Status: Never smoker alcohol intake: never current occupational status: retired Travel in the last 8 weeks: None ROS Obtained: Yes All systems reviewed & no additional complaints except as documented Physical Exam General General appearance: alert and in no apparent distress Comment: Uncomfortable appearing Head Head exam: atraumatic and normocephalic Eye Eye exam: Present normal appearance, PERRL, EOMI and other (Tenderness to palpation of the left samaritan. Visual acuity 20/70 in both eyes and 20/70 overall.); Absent scleral icterus, conjunctival redness, conjunctival injection, discharge or nystagmus ENT ENT exam: Present normal exam, normal oropharynx, mucous membranes moist and normal external ear exam Neck Neck exam: Present normal inspection, full ROM and trachea midline; Absent tenderness, meningismus or lymphadenopathy Chest Chest inspection: Present normal inspection and symmetric chest wall rise; Absent tenderness Respiratory Respiratory exam: Present normal lung sounds bilaterally; Absent respiratory distress, wheezes, stridor or accessory muscle use Cardiovascular Cardiovascular exam: Present regular rate and normal rhythm Abdominal Exam Abdominal exam: Present soft; Absent distention, tenderness or guarding Extremities Exam Extremities exam: Present normal inspection, full ROM and normal capillary refill; Absent tenderness or edema Back Exam Back exam: Present normal inspection and full ROM; Absent tenderness Neurological Exam Neurological exam: Present alert, oriented X3, CN II-XII intact and normal gait; Absent motor sensory deficit Psychiatric Psychiatric exam: Present normal affect and normal mood Skin Skin exam: Present warm and dry Medical Decision Making Medical Records Medical records reviewed: Yes I reviewed the patient's medical records. Homar Inquiry Pt receiving controlled substance: No Vital Signs: 12/20/23 17:00 12/20/23 17:16 12/20/23 17:17 Temperature 98.2 F 98.6 F Temperature Source Oral Oral Pulse Rate 80 Pulse Rate [Left Brachial] 74 70 Respiratory Rate 20 13 Blood Pressure 199/95 H Blood Pressure [Left Arm] 205/103 H 195/89 H Blood Pressure Mean [Left Arm] 137 124 Blood Pressure Source [Left Arm] Automatic Cuff Blood Pressure Position [Left Arm] Sitting 02 Sat by Pulse Oximetry 98 98 98 Oxygen Delivery Method Room Air Room Air Room Air 12/20/23 17:20 12/20/23 17:31 12/20/23 18:00 Temperature Temperature Source Pulse Rate 73 75 70 Pulse Rate [Left Brachial] Respiratory Rate Blood Pressure 173/94 H 195/89 H 146/71 H Blood Pressure [Left Arm] Blood Pressure Mean [Left Arm] Blood Pressure Source [Left Arm] Blood Pressure Position [Left Arm] 02 Sat by Pulse Oximetry 98 98 96 Oxygen Delivery Method Room Air Room Air Room Air 12/20/23 18:30 12/20/23 19:26 Temperature 97.9 F Temperature Source Oral Pulse Rate 64 72 Pulse Rate [Left Brachial] Respiratory Rate 16 Blood Pressure 140/72 141/74 H Blood Pressure [Left Arm] Blood Pressure Mean [Left Arm] Blood Pressure Source [Left Arm] Blood Pressure Position [Left Arm] 02 Sat by Pulse Oximetry 95 Oxygen Delivery Method Room Air Room Air Lab Data Lab results reviewed: Yes I reviewed the patient's lab results. Lab Results 12/20/23 17:21: WBC 7.8, RBC 5.42 H, Hgb 15.5, Hct 47.0, MCV 86.7, MCH 28.7, MCHC 33.0, RDW 14.2, Plt Count 320, MPV 7.7, Neut % (Auto) 52.2, Lymph % (Auto) 37.2, [place] % (Auto) 3.3, Eos % (Auto) 5.5, Baso % (Auto) 1.6, Neut # (Auto) 4.1, Lymph # (Auto) 2.9, [place] # (Auto) 0.3, Eos # (Auto) 0.4, Baso # (Auto) 0.1, ESR 8, Sodium 138, Potassium 4.1, Chloride 101, Carbon Dioxide 30, Anion Gap 11.1, BUN 17, Creatinine 0.70, Estimated Creat Clear 66, Estimated GFR 85, Est GFR ( Amer) 103, Glucose 99, Calcium 10.3 H, Total Bilirubin 0.7, AST 35, ALT 16, Alkaline Phosphatase 79, Total Protein 7.9, Albumin 4.8, Globulin 3.1, Albumin/Globulin Ratio 1.5 12/20/23 18:04: SARS-CoV-2 (PCR) Not detected, Influenza A Untype (PCR) Not detected, Influenza Type B (PCR) Not detected 12/20/23 17:21 12/20/23 17:21 Orders (Tests/Meds): ED MEDICATIONS Discontinued Medications Generic Name Dose Route Start Last Admin Trade Name Freq PRN Reason Stop Dose Admin Acetaminophen 1,000 mg 12/20/23 17:31 12/20/23 17:45 Acetaminophen 1,000mg/100ml Vial IV 12/20/23 17:32 1,000 mg ONCE ONE Administration Dexamethasone Sodium Phosphate 10 mg 12/20/23 18:26 12/20/23 18:31 Dexamethasone 4mg/Ml 1ml Vial IV 12/20/23 18:27 10 mg ONCE ONE Administration Magnesium Sulfate 2 gm in 50 mls @ 50 mls/hr 12/20/23 18:26 12/20/23 18:32 Magnesium Sulfate 2gm/50ml Premix IV 12/20/23 19:25 50 mls/hr ONCE ONE Administration Ketorolac Tromethamine 15 mg 12/20/23 17:31 12/20/23 17:43 Ketorolac 30mg/Ml Vial IV 12/20/23 17:32 15 mg ONCE ONE Administration Prochlorperazine Edisylate 5 mg 12/20/23 17:31 12/20/23 17:43 Prochlorperazine 10mg/2ml Vial IV 12/20/23 17:32 5 mg ONCE ONE Administration Tetracaine HCl 1 ml 12/20/23 18:26 12/20/23 18:29 Tetracaine 0.5% Opth Valeria 15ml OP 12/20/23 18:27 1 ml ONCE ONE Administration Protocol ORDERS Category Date Time Status CT head/brain wo con Stat Cat Scan 12/20/23 17:27 Completed Complete Blood Count Auto Diff Stat Lab 12/20/23 17:21 Completed Comprehensive Metabolic Panel Stat Lab 12/20/23 17:21 Completed Erythrocyte Sedimentation Rate Stat Lab 12/20/23 17:21 Completed Rapid PCR Covid and Flu A/B Stat Lab 12/20/23 18:04 Completed ECG Data Tracing #1: I reviewed this ECG and interpreted as documented below: Normal sinus rhythm with a ventricular rate of [address] changes concerning for ischemia. Normal axis and intervals. ECG initial impression date: 12/20/23 ECG initial impression time: 17:43 Medical Decision Narrative: In summary, this patient is a 63-year-old female presenting to the Emergency Department for evaluation of severe bilateral temporal headache as well as blurred vision. Differential diagnoses considered include but are not limited to migraine, tension headache, temporal arteritis, occipital neuralgia, trigeminal neuralgia. Ruling out the most morbid conditions drove assessment. It should be noted patient's history includes hyperlipidemia and migraines which may or may not be at goal therapy. This complicates all aspects of care by increasing patient's risk for morbidity. I reviewed patient's past medical records and noted previous evaluations with elevated blood pressure reading in the past, but she notes that she does not have a history of hypertension and does not take any antihypertensives.. On exam, the patient is uncomfortable appearing with tenderness to palpation over left samaritan, but otherwise she is neurologically intact and ocular exam is reassuring. Diagnosis of SAH considered, however patient's SANDRA has been gradually worsening, and exam is reassuring without focal neurologic deficits, making this less likely. Workup included CBC, CMP, ESR, and CT head without contrast. She was given a migraine cocktail of a bolus of IV fluids, IV Toradol, IV acetaminophen, and IV Compazine. I independently interpreted CT scan prior to the radiologist read and noted acute hemorrhage or space-occupying lesion. Please see their read for final interpretation. Labs were obtained that demonstrated no acute concerning abnormalities with negative ESR. This is reassuring against temporal arteritis. Ocular pressures are normal with an ocular pressure of 14 in the left eye and 13 in the right eye. Visual acuity is 20/70 in each eye as well as 20/70 combined. She does not have her bifocals with her today. On reassessment, patient had great improvement after administration of interventions above. She is feeling much better. She was given IV dexamethasone and magnesium to complete migraine cocktail. After this, she had near resolution of her symptoms. She remained neurologically intact and had no significant temporal tenderness to palpation on reassessment. 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 She was given strict return precautions and was discharged after all questions were answered. Critical Care Critical Care Time Critical Care Time: No
[2023-12-20] MEDS: TETRACAINE 0.5% OPTH SOL 15ML OP (18:29)
[2023-12-20] MEDS: DEXAMETHASONE 4MG/ML 1ML VIAL 10 MG IV (18:31)
[2023-12-20] MEDS: MAGNESIUM SULFATE IN WATER 2 GM/50 ML PIGGYBACK IV (18:32)
== END 2023-12-20 19:27 | disposition home or self-care (01) ==
LOC: UTC 16:42 → ER 17:13
PROVIDERS: Emergency Provider Emergency Medicine; PCP Student in an Organized Health Care Education/Training Program
DX: G44.89 Other headache syndrome (principal); I10 Essential (primary) hypertension; R11.0 Nausea; E78.5 Hyperlipidemia, unspecified
CPT/HCPCS: 70450; 80053; 85025; 85651; 87636; 93005; 96365; 96375; 99285; J0131; J3475

== ENCOUNTER 2023-12-26 10:38 | Outpatient (CLI) | payer BC, SELFPAY ==
--- NOTE | 2023-12-26 10:39 | CA_ITS ---
FINAL REPORT TECHNIQUE: Ultrasound images of the deep venous system were obtained from the left groin to the calf veins. CLINICAL HISTORY: varicose vein FINDINGS: The deep venous system is normally compressible. Normal flow is identified. IMPRESSION: No evidence of left lower extremity DVT. Reviewed, Interpreted and Dictated by Donn Monroe MD Transcribed by Lali Miller Authenticated and . [facility]
== END 2023-12-26 23:59 | disposition home or self-care (01) ==
PROVIDERS: PCP Student in an Organized Health Care Education/Training Program; Visit Provider Student in an Organized Health Care Education/Training Program
DX: I83.92 Asymptomatic varicose veins of left lower extremity (principal)
CPT/HCPCS: 93971

== ENCOUNTER 2023-12-29 16:32 | Outpatient (CLI) | payer BC, SELFPAY ==
[2023-12-29 16:46] LABS: Basophils # 0.1 K/mm3 (0-0.2); Basophils % 0.8 % (0.1-2.0); Eosinophils # 0.2 K/mm3 (0.0-0.4); Eosinophils % 2.2 % (0.1-12.0); Hematocrit 44.2 % (37.0-47.0); Hemoglobin 14.5 g/dL (12.2-16.2); Lymphocytes # 2.6 K/mm3 (0.7-4.5); Lymphocytes % 28.7 % (10-50); Mean Corpuscular HGB Conc 32.8 g/dL (31.8-35.4); Mean Corpuscular Hemoglobin 28.6 pg (27.0-31.2); Mean Corpuscular Volume 87.3 fl (81-99); Mean Platelet Volume 8.1 fl (7.4-10.4); Monocytes # 0.3 K/mm3 (0.1-1.0); Monocytes % 3.4 % (1.7-9.3); Neutrophils # 5.9 K/mm3 (1.8-7.8); Neutrophils % 64.8 % (37.0-80.0); Platelet Count 320 K/mm3 (142-424); Red Blood Count 5.07 M/mm3 (4.20-5.40); Red Cell Distribution Width 13.9 % (11.5-17.5); White Blood Count 9.1 K/mm3 (4.8-10.8)
[2023-12-29 18:45] LABS: Erythrocyte Sedimentation Rate 13 mm/hr (0-30)
== END 2023-12-29 23:59 | disposition home or self-care (01) ==
LOC: LAB 16:33
PROVIDERS: PCP Student in an Organized Health Care Education/Training Program; Visit Provider Student in an Organized Health Care Education/Training Program
DX: R51.9 Headache, unspecified (principal)
CPT/HCPCS: 36415; 85025; 85651; 86140

== ENCOUNTER 2024-01-12 08:36 | Outpatient (CLI) | payer BC, SELFPAY ==
--- NOTE | 2024-01-12 08:38 | CA_ITS ---
FINAL REPORT TECHNIQUE: Color Doppler, duplex Doppler and clark scale sonography of the bilateral neck vasculature was performed. Velocities were measured in the carotid arteries. Stenosis evaluation based on velocity criteria. CLINICAL HISTORY: left carotid bruit, HTN, Headache COMPARISON: None FINDINGS: The peak systolic velocity of the right common carotid artery is 104 cm/sec and internal carotid artery 97 cm/sec. The diastolic velocity in the internal carotid artery is 36 cm/sec. The ICA/CCA ratio is 1.14. Visually, a small amount of plaque is seen. These findings are consistent with less than 50% stenosis. The external carotid artery is patent. The right vertebral artery is patent with antegrade flow. The peak systolic velocity of the left common carotid artery is 83 cm/sec and internal carotid artery 97 cm/sec. The diastolic velocity in the internal carotid artery is 34 cm/sec. The ICA/CCA ratio is 1.36. Visually, a small amount of plaque is seen. These findings are consistent with less than 50% stenosis. The external carotid artery is patent. The left vertebral artery is patent with antegrade flow. IMPRESSION: No evidence of significant carotid stenosis. Bilateral patent vertebral arteries. If indicated, CTA or MRA could further evaluate. Reviewed, Interpreted and Dictated by Tahir Brooks III, MD Transcribed by Kristie Pulliam Authenticated and [facility]
--- NOTE | 2024-01-12 08:38 | CA_ITS ---
FINAL REPORT TECHNIQUE: Grayscale, color Doppler and duplex Doppler ultrasound of the kidneys, aorta and renal arteries was performed. Multiple velocities were measured. CLINICAL HISTORY: HTN FINDINGS: Aorta velocity: 86 cm/sec Right kidney: 9.7 cm. Right intrarenal RI: 0.50 Right renal artery velocity: 183 cm/sec. Right RAR (Renal artery-Aortic Ratio): 2.1 Left Kidney: 10.9 cm. No evidence of hydronephrosis or mass. Left intrarenal RI: 0.63 Left renal artery velocity: 121 cm/sec. Left RAR (Renal Artery-Aortic Ratio): 1.4 IMPRESSION: Less than 60% renal artery stenosis on the right. No evidence of significant renal artery stenosis on the left. CT angiogram or postcontrast MR angiogram would be more sensitive for evaluation of possible renal artery stenosis. Reviewed, Interpreted and Dictated by Tahir Brooks III, MD Transcribed by Lali Miller Authenticated and [facility]
== END 2024-01-12 23:59 | disposition home or self-care (01) ==
LOC: RT 08:37
PROVIDERS: PCP Student in an Organized Health Care Education/Training Program; Visit Provider Student in an Organized Health Care Education/Training Program
DX: R09.89 Other specified symptoms and signs involving the circulatory and respiratory systems (principal); I10 Essential (primary) hypertension
CPT/HCPCS: 93880; 93976

== ENCOUNTER 2024-04-19 14:16 | Outpatient (CLI) | payer BC, SELFPAY ==
[2024-04-19 18:00] LABS: Basophils # 0.1 K/mm3 (0-0.2); Basophils % 1.3 % (0.1-2.0); Eosinophils # 0.2 K/mm3 (0.0-0.4); Eosinophils % 2.8 % (0.1-12.0); Lymphocytes # 2.3 K/mm3 (0.7-4.5); Lymphocytes % 33.9 % (10-50); Mean Corpuscular HGB Conc 31.8 g/dL (31.8-35.4); Mean Corpuscular Hemoglobin 27.7 pg (27.0-31.2); Mean Platelet Volume 8.3 fl (7.4-10.4); Monocytes # 0.3 K/mm3 (0.1-1.0); Monocytes % 3.7 % (1.7-9.3); Neutrophils # 3.9 K/mm3 (1.8-7.8); Neutrophils % 58.4 % (37.0-80.0); Platelet Count 353 K/mm3 (142-424); Red Blood Count 5.06 M/mm3 (4.20-5.40); Red Cell Distribution Width 13.9 % (11.5-17.5); White Blood Count 6.7 K/mm3 (4.8-10.8)
[2024-04-19 18:08] LABS: Albumin Level 4.4 g/dl (3.5-5.0); Chloride 107 mmol/L (98-107); Potassium 4.4 mmoL/L (3.5-5.1); Sodium 136 mmol/L (136-145)
[2024-04-19 18:11] LABS: Alanine Aminotransferase 15 U/L (12-78); Albumin/Globulin Ratio 1.9 (1.1-1.8); Alkaline Phosphatase 78 U/L (38-126); Anion Gap 8.4 mEq/L (5-15); Aspartate Amino Transferase 30 U/L (14-36); Bilirubin,Total 0.7 mg/dl (0.2-1.3); Blood Urea Nitrogen 22 mg/dl (7-17); Calcium 9.2 mg/dl (8.4-10.2); Carbon Dioxide 25 mmol/L (22.0-30.0); Cholesterol 299 mg/dl (140-200); Estimated Glomerular Filt Rate 101 ml/min (>60); GFR (African American) 123 ML/MIN (>60); Globulin 2.3 g/dL (1.3-3.2); Glucose 89 mg/dl (74-100); Total Protein,Serum 6.7 g/dl (6.3-8.2); Triglycerides 94 mg/dl (30-150); VLDL Cholesterol 19 mg/dL (0-40)
[2024-04-19 18:12] LABS: HDL Cholesterol 74 mg/dl (40-60)
[2024-04-19 18:23] LABS: Direct LDL Cholesterol 165.24 mg/dL (100-129)
[2024-04-19 18:28] LABS: 25-OH Vitamin D, Total 33.6 ng/mL (30-100)
[2024-04-19 18:42] LABS: Thyroid Stimulating Hormone 2.04 uIU/mL (0.465-4.68)
[2024-04-19 19:17] LABS: Hemoglobin A1C 5.5 % (4.0-6.0)
== END 2024-04-19 23:59 | disposition home or self-care (01) ==
LOC: LAB.DROPOF 04-22 12:20
PROVIDERS: PCP Student in an Organized Health Care Education/Training Program; Visit Provider Student in an Organized Health Care Education/Training Program
DX: E78.5 Hyperlipidemia, unspecified (principal); I10 Essential (primary) hypertension; E55.9 Vitamin D deficiency, unspecified; Z13.1 Encounter for screening for diabetes mellitus; R39.9 Unspecified symptoms and signs involving the genitourinary system
CPT/HCPCS: 80050; 80053; 80061; 82306; 83036; 83735; 84443; 85025; 87086

== ENCOUNTER 2024-07-03 12:39 | Outpatient (CLI) | payer BC, SELFPAY ==
--- NOTE | 2024-07-03 13:04 | MR_ITS ---
FINAL REPORT TECHNIQUE: Multiplanar and multisequence imaging of the brain was obtained before and after contrast injection. CLINICAL HISTORY: Headache, Dizziness 14 ml prohance FINDINGS: There is no mass effect or midline shift. There are bilateral periventricular and subcortical white matter changes. No hydrocephalus. The cerebellum and brainstem have a normal appearance. There are no areas of restricted diffusion on diffusion weighted images to suggest acute infarct. Soft tissues are without acute abnormality. Post contrast images reveal no pathologic contrast enhancement. IMPRESSION: Periventricular and subcortical white matter changes which are nonspecific but can be seen with small vessel ischemia or demyelinating disease. Reviewed, Interpreted and Dictated by Shelley Cardona MD Transcribed by Lali Miller Authenticated and . [facility]
[2024-07-03 13:10] LABS: Blood Urea Nitrogen 24 mg/dl (7-17); Estimated Glomerular Filt Rate 85 ml/min (>60); GFR (African American) 103 ML/MIN (>60)
[2024-07-03] MEDS: SODIUM CHLORIDE 0.9% 10ML SYR (RAD ONLY) 10 ML IV (14:00)
[2024-07-03] MEDS: GADOTERIDOL INJ 20ML SYRINGE 14 ML IV (14:00)
== END 2024-07-03 23:59 | disposition home or self-care (01) ==
LOC: RAD 12:41
PROVIDERS: PCP Student in an Organized Health Care Education/Training Program; Visit Provider Specialist
DX: G44.86 Cervicogenic headache (principal); H53.8 Other visual disturbances; R42 Dizziness and giddiness; G47.00 Insomnia, unspecified; M26.609 Unspecified temporomandibular joint disorder, unspecified side; I10 Essential (primary) hypertension
CPT/HCPCS: 36415; 70553; 82565; 84520; A9576

== ENCOUNTER 2024-08-27 15:18 | Outpatient (CLI) | payer BC, SELFPAY ==
--- NOTE | 2024-08-27 15:26 | MR_ITS ---
FINAL REPORT CLINICAL HISTORY: neck pain with left arm numbness and pain COMPARISON: None FINDINGS: Multi planar MR imaging was obtained of the cervical spine. There is abnormal decreased signal throughout the cervical discs. The vertebrae are of normal height. There is reversal of the normal lordosis centered at the C3-4 level. The patient has undergone prior anterior cervical fusion at the C4-5 level with extensive magnetic artifact at those levels. The cervical cord demonstrates normal signal and configuration. C2-C3: There is no evidence of significant disc bulge or protrusion. There is no significant facet hypertrophy. C3-C4: A moderate annular bulge is present with moderate canal stenosis and moderate to severe bilateral neural foraminal narrowing. C4-C5: This level has been fused. C5-C6: There is a moderate annular bulge present with moderate bilateral neural foraminal narrowing. C6-C7: There is no evidence of significant disc bulge or protrusion. There is no significant facet hypertrophy. C7-T1: There is no evidence of significant disc bulge or protrusion. There is no significant facet hypertrophy. IMPRESSION: Prior anterior cervical fusion at the C4-5 level as described. C3-4 moderate canal stenosis and moderate to severe bilateral neural foraminal narrowing. Reviewed, Interpreted and Dictated by Donn Monroe MD Transcribed by Kristie Pulliam Authenticated and [facility]
== END 2024-08-27 23:59 | disposition home or self-care (01) ==
PROVIDERS: PCP Student in an Organized Health Care Education/Training Program; Visit Provider Clinical Nurse Specialist Family Health
DX: G95.9 Disease of spinal cord, unspecified (principal); M54.2 Cervicalgia; M54.12 Radiculopathy, cervical region; R20.0 Anesthesia of skin
CPT/HCPCS: 72141

== ENCOUNTER 2024-11-18 15:56 | Outpatient (CLI) | payer BC, SELFPAY ==
[2024-11-18 19:54] LABS: Alanine Aminotransferase 12 U/L (12-78); Albumin Level 4.1 g/dl (3.5-5.0); Albumin/Globulin Ratio 1.6 (1.1-1.8); Alkaline Phosphatase 102 U/L (38-126); Anion Gap 15.2 mEq/L (5-15); Aspartate Amino Transferase 24 U/L (14-36); Bilirubin,Total 0.6 mg/dl (0.2-1.3); Blood Urea Nitrogen 10 mg/dl (7-17); Calcium 9.4 mg/dl (8.4-10.2); Carbon Dioxide 24 mmol/L (22.0-30.0); Chloride 103 mmol/L (98-107); Chol/HDL Ratio 5.3 (1-3.5); Cholesterol 286 mg/dl (140-200); Estimated Glomerular Filt Rate 101 ml/min (>60); GFR (African American) 123 ML/MIN (>60); Globulin 2.6 g/dL (1.3-3.2); Glucose 88 mg/dl (74-100); HDL Cholesterol 54 mg/dl (40-60); Potassium 4.2 mmoL/L (3.5-5.1); Sodium 138 mmol/L (136-145); Total Protein,Serum 6.7 g/dl (6.3-8.2); Triglycerides 182 mg/dl (30-150); VLDL Cholesterol 36 mg/dL (0-40)
[2024-11-18 20:06] LABS: Direct LDL Cholesterol 170.95 mg/dL (100-129)
== END 2024-11-18 23:59 | disposition home or self-care (01) ==
LOC: LAB.DROPOF 11-19 14:26
PROVIDERS: PCP Family Medicine; Visit Provider Family Medicine
DX: E78.5 Hyperlipidemia, unspecified (principal)
CPT/HCPCS: 80053; 80061

== ENCOUNTER 2025-01-10 15:09 | Emergency (ER) | payer BC, SELFPAY ==
--- OUTSIDE RECORDS SUMMARY | 2024-11-13 12:40 | XMS_ITS | Encounter Summary ---
Author Organization [facility] Address [address] [place] [address] Care Team Providers Care Fittings Tightener Name Role Phone Carlo Andra Edinson HAND CEMENTER Unavailable [phone] Oneil Blackmon MD Unavailable Andra Matos HAND CEMENTER Unavailable [phone] Shania Parikh DDS Unavailable + Aldo Pickens DMD Unavailable Kristy Sanchez HAND CEMENTER Primary Care Provider [phone] Reason for Visit * Reason Comments Dysphagia Hoarseness Weight Loss Encounter Details Date Type Department Care Team (Late st Contact Info) Description 11/13/2024 12:40 PM EDT Consult [facility] [address] [place] [address] Ronald Gould MD [address] [place] [address] Dysphagia, unspecified type (Primary Dx); Bilateral temporomandibular joint pain; Trismus Social History Tobacco Use Types Packs/Day Years Used Date Smoking Tobacco: Never Smokeless Tobacco: Never Tobacco Cessation:Counseling Given: Not Answered Comments:Never used Alcohol Use Standard Drinks/Week Comments Yes 2 (1 standard drink = 0.6 oz pur e alcohol) Socially Humiliation, Afraid, Rape, and Kick questionnair e Answer Date Recorded Within the last year, have y ou been afraid of your partner or ex-partner? No 10/31/2024 Within the last year, have y ou been humiliated or emotionally abused in other ways by your partner or ex-partner? No Within the last year, have y ou been kicked, hit, slapped, or otherwise physically hurt by your partner or ex-partner? No 10/31/2024 Within the last year, have y ou been raped or forced to have any kind of sexual activity by your partner or ex-partner? No 10/31/2024 Social Connection and Isolation Panel Answer Date Recorded In a typical week, how many times do you talk on the phone with family, friends, or neighbors? More than three times a week 10/31/2024 How often do you get togethe r with friends or relatives? More than three times a week 10/31/2024 How often do you attend [facility] or hindu services? Never 10/31/2024 Do you belong to any clubs o r organizations such as restorationism groups, unions, fraternal or athletic groups, or school groups? No 10/31/2024 How often do you attend meet ings of the clubs or organizations you belong to? Never 10/31/2024 Are you , , di vorced, , never , or living with a partner? 10/31/2024 AUDIT-C Answer Date Recorded Q1: How often do you have a drink containing alc ohol? Monthly or less 10/31/2024 Q2: How many drinks containi ng alcohol do you have on a typical day when you are drinking? 1 or 2 10/31/2024 Q3: How often do you have si x or more drinks on one occasion? Less than monthly 10/31/2024 Overall Financial Resource Strain (CARDIA) Answe r Date Recorded How hard is it for you to pa y for the very basics like food, housing, medical care, and heating? Somewhat hard 10/31/2024 PHQ-2 Answer Date Recorded Patient Health Questionnaire-2 Score 0 10/31/2024 [facility] [place] [facility] Occupat ional [facility] - Occupational Stress Questionnaire Answer Date Recorded Do you feel stress - tense, restless, nervous, or anxious, or unable to sleep at night because your mind is troubled all the time - these days? To some extent 10/31/2024 Exercise Vital Sign Answer Date Recorde d On average, how many days pe r week do you engage in moderate to strenuous exercise (like a brisk walk)? 4 days 10/31/2024 On average, how many minutes do you engage in exercise at this level? 30 min 10/31/2024 Hunger Vital Sign Answer Date Recorded Within the past 12 months, y ou worried that your food would run out before you got the money to buy more. Never true 11/01/19 25 Within the past 12 months, t he food you bought just didn't last and you didn't have money to get more. Never true 10/31/2024 PRAPARE - Transportation Answer Date Re corded In the past 12 months, has l ack of transportation kept you from medical appointments or from getting medications? No 10/06 In the past 12 months, has l ack of transportation kept you from meetings, work, or from getting things needed for daily living? No 10/31/2024 PHQ-9 Answer Date Recorded Patient Health Questionnaire-9 Score 2 10/31/2024 Housing Stability Vital Sign Answer Vishnu e Recorded In the last 12 months, was t here a time when you were not able to pay the mortgage or rent on time? No 10/31/2024 Number of Times Moved in the Last Year Not on fi le 10/31/2024 At any time in the past 12 m [facility], were you homeless or living in a fdc (including now)? No 10/31/2024 CAGE ASSESSMENT Answer Date Recorded Cage unable to access Not on file 10/30/2024 Maximum number of drinks you had on a given occasion in the last month? 2 drinks 10/30/2024 How many alcoholic Beverages do you typically drink in a week? 0 - 7 per week 10/30/2024 Have you ever felt you should CUT down on your d rinking? 0 10/30/2024 Have you been ANNOYED by peo ple criticizing your drinking? 0 10/30/2024 Have you felt GUILTY about your drinking? 0 10/30/2024 Have you had a drink first t kisha in the morning (EYE-INSTRUMENTATION CHEMIST) to steady your nerves or to get rid of a hangover? 0 10/30/2024 CAGE Questionnaire Score 0 025 Utilities Answer Date Recorded In the past 12 months has th [employer], gas, oil, or water company threatened to shut off services in your home? No 10/31/2024 Comments No Sex and Gender Information Value Date Recorded Sex Assigned at Female 07/15/2021 9:31 AM EST Legal Sex Female 7:39 PM EDT Gender Identity Female 07/15/2021 9:31 AM EST Sexual Orientation Straight 07/15/2021 9: 31 AM EST documented as of this encounter Last Filed Vital Signs Vital Sign Reading Time Taken Comments Blood Pressure 157/91 11/13/2024 12:49 PM EDT Pulse 79 11/13/2024 12:49 PM EDT Temperature - - Respiratory Rate - - Oxygen Saturation - - Inhaled Oxygen Concentration - - Weight 67.6 kg (149 lb) 11/13/2024 12:49 PM EDT Height 154.9 cm (5' 1 ) 11/13/2024 12:49 PM EDT Body Mass Index 28.15 11/13/2024 12:49 PM EDT documented in this encounter Miscellaneous Notes * Progress Notes - Ronald Gould MD - 11/13/2024 12:40 PM EDT I had the pleasure of seeing Jennifer Carrero today, who is a 64 y.o. female that returns to the clinic for follow-up of her swallowing and trismus. She was seen by our ENT team in the ED on 10/30/24 after she had 10/12/24 ACDF and woke up with trismus and worsened swallowing. She has a history of TMJ issues and has bilateral TMJ reconstruction with Dr. Barrios from many years ago. She had issues with trismus for almost a year after that, that finally resolved over time with muscle relaxers. She continues in having trouble with swallowing due to mouth opening. Taking flexeril, but struggling otherwise. Having some changes to her voice, but scope at last visit in the ER showed good vocal fold movement. It did seem like there was a mild amount of posterior pharyngeal wall swelling. Visit Vitals BP (!) 157/91 Pulse 79 Ht 1.549 m (5' 1 ) Wt 67.6 kg (149 lb) BMI 28.15 kg/m?? OB Status Postmenopausal Smoking Status Never BSA 1.71 m?? Allergies[1] entire 14 point ROS was negative with the exception of those listed in the HPI General: patient is awake, nontoxic appearing, and in no acute distress. Skin: No overtly ulcerated, cellulitic, or indurated lesions of the head or neck. Head: Normocephalic and atraumatic. Sinuses are nontender to palpation. Ears: The pinnas are well formed. External auditory canals are nonstenotic without cerumen impaction bilaterally. Tympanic membranes are intact bilaterally without evidence of effusion or active infection appreciated. Eyes: Extraocular muscles are intact. The sclera and conjunctiva are normal. Pupils are equal and reactive to light without evidence of afferent pupillary defect. No ptosis is appreciated. Nose: The nasal dorsum is without scar or deformity. No mucopurulence or polyps are appreciated. The nasal airways are patent bilaterally. Oral cavity: No mucosal masses or lesions are appreciated. Floor of mouth is soft and the tongue has full range of motion. There is severe <0.5cm trismus. There are no fasciculations of the tongue. Oropharynx: No mucosal masses or lesions are appreciated. Base of tongue is soft and the palate elevates symmetrically without draping. The uvula is midline. Neck: The neck is soft and supple. No crepitus, masses, or lymphadenopathy are appreciated. The trachea is in midline. Circulatory: regular rate and rhythm, pulses 2+ bilaterally Pulmonary: no wheezing, no stridor Neuro: CN II-XII intact, gait normal PROCEDURE NOTE: Transnasal Fiberoptic Laryngoscopy with Stroboscopy (52324) PREOPERATIVE DIAGNOSIS: _Dysphonia POSTOPERATIVE DIAGNOSIS: _Same as above PROCEDURE: Informed consent was obtained and all questions regarding the procedure were answered. Under topical anesthesia (2% Lidocaine and Ephedrine), the flexible laryngoscope was introduced and the findings noted. Stroboscopy was performed at various intensities and pitch levels. Following this, the procedure was terminated. The patient tolerated the procedure well without apparent complications and was returned to ambulatory status to be followed as an outpatient. FINDINGS: The nasopharynx, oropharynx and hypopharynx were normal in appearance without suspicious masses or lesions. There is full mobility of bilateral true vocal folds without evidence of lesions or masses.Mucosal wave propagation was symmetric and full at all pitches and intensities. The subglottis is widely patent. There is no evidence of muscle tension dysphonia or glottic gap. There is no pooling of secretions. Posterior pharyngeal wall is still slightly swollen appearing, but could just be her baseline. A/P I discussed with Dr. Barrios over the phone who has seen her in the past for her TMJ issues which I think are giving her the most problems with her swallowing. She will be seen in [facility] next week to evaluate this further and to see if anything else could be done to help. Once she gets better mouth opening, I think her swallowing would be much improved. I think her masseter being tense is making the TMJ issues worse which is making the masseter muscles tense even more. RTC 3 months. Answers submitted by the patient for this visit: Sore Throat Questionnaire (Submitted on 11/06/2024) Chief Complaint: Sore throat Chronicity: new Onset: 1 to 4 weeks ago Progression since onset: waxing and waning Pain worse on: neither Fever: no fever pain severity now: moderate Pain - numeric: 4/10 abdominal pain: No congestion: No cough: No ear pain: No headaches: No neck pain: No stridor: No swollen glands: No trouble swallowing: No vomiting: Yes [1] Allergies Allergen Reactions Cephalexin Rash Cephalosporins Rash Diclofenac Rash patient has taken ketorolac in the past Fluconazole Rash Prednisolone Rash documented in this encounter Plan of Treatment Upcoming Encounters Date Type Department Care Team ([facility] st Contact Info) Description 01/22/2025 2:00 PM EDT Office Visit [place] [facility] [address] [place] [address] Oneil Blackmon MD [address] [place] [address] 03/19/2025 1:15 PM EDT Office Visit [facility] [place] [address] [facility] [place] [address] KarGustavo stafford, DO [address] [place] [address] documented as of this encounter Visit Diagnoses Diagnosis Dysphagia, unspecified type- Primary Bilateral temporomandibular joint pain Trismus Abnormal involuntary movements documented in this encounter Additional Health Concerns Assessment Noted Time PHQ-9 Depression Total Score: 2 11/01/19 1:01 PM EDT A fall risk assessment has been complete d for the patient 10/30/2024 2:57 PM EDT A Body Mass Index follow-up plan has been documented for the patient 11/19/2024 2:00 PM EDT documented as of this encounter Care Teams Fittings Tightener Relationship Specialty Start Date End Date Kristy Sanchez APRN [address] [place] [address] PCP - General 10/31/24 Andra Matos APRN [address] [place] [address] Nurse Practitioner Neurosurgery 07/16/21 Oneil Blackmon MD [address] [place] [address] Surgeon Neurosurgery 08/18/21 Andra Matos APRN [address] [place] [address] Nurse Practitioner Neurosurgery 10/12/21 Shania Parikh DDS [address] [place] [address] Dentist Dentist 06/10/22 Aldo Pickens DMD [address] [place] [address] Dentist 06/10/22 documented as of this encounter
--- OUTSIDE RECORDS SUMMARY | 2024-11-21 13:18 | XMS_ITS | Encounter Summary ---
Author Organization [facility] Address [address] [place] [address] Care Team Providers Care Ladle Cleaner Name Role Phone Andra Matos PERSONAL HEALTH COACH Unavailable [phone] Oneil Blackmon MD Unavailable [phone] Andra Matos PERSONAL HEALTH COACH Unavailable [phone] Shania Parikh DDS Unavailable + Aldo Pickens DMD Unavailable [phone] Kristy Sanchez PERSONAL HEALTH COACH Primary Care Provider [phone] Reason for Referral * Imaging (Routine) - Closed Specialty Diagnoses / Procedures Referred By Contac t Referred To Contact Radiology Diagnoses Chest pain, unspecified type Procedures CT Angio Cardiac Coronary Arteries Clyde Garcia MD [address] [place] [address] Phone: tel: fax: Referral ID Status Reason Start Date Expiration Date Visits Re quested Visits Authorized [id number] Closed 10/03/2024 04/04/2026 1 1 Reason for Visit * Imaging (Routine) - Closed Specialty Diagnoses / Procedures Referred By Contac t Referred To Contact Radiology Diagnoses Chest pain, unspecified type Procedures CT Angio Cardiac Coronary Arteries Clyde Garcia MD [address] [place] [address] Phone: tel: fax: Referral ID Status Reason Start Date Expiration Date Visits Re quested Visits Authorized [id number] Closed 10/03/2024 04/04/2026 1 1 Encounter Details Date Type Department Care Team (Latest Contact Info) Description 11/21/2024 1:18 PM EDT - 11/21/2024 11:59 PM EDT Hospital Encounter [facility] [address] [place] [address] Chest pain, unspecified type Discharge Disposition: Home or Self Care Social History Tobacco Use Types Packs/Day Years Used Date Smoking Tobacco: Never Smokeless Tobacco: Never Comments:Never used Alcohol Use Standard Drinks/Week Comments [...] week 10/31/2024 How often do you attend chur ch or yazdanism services? Never 10/31/2024 Do you belong to any clubs o r organizations such as congregational groups, unions, fraternal or athletic groups, or [...] Recorded Patient Health Questionnaire-2 Score 0 10/31/2024 [facility] of Occupat ional Health - Occupational Stress [...] any time in the past 12 m [facility], were you homeless or living in a long term (including now)? 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 0 10/30/2024 CAGE Questionnaire Score 0 025 Utilities Answer Date Recorded In the past 12 months has [employer], [employer], oil, or water [employer] threatened to shut off services in your [...] Sign Reading Time Taken Comments Blood Pressure 127/76 11/21/2024 3:13 PM EDT Pulse 68 11/21/2024 3:13 PM EDT Temperature - - Respiratory Rate 13 11/21/2024 3:13 PM EDT Oxygen Saturation 96% 11/21/2024 3:13 PM EDT Inhaled Oxygen Concentration - - Weight 68.5 kg (151 lb) 11/21/2024 1:48 PM EDT Height 154.9 cm (5' 1 ) 11/21/2024 1:48 PM EDT Body Mass Index 28.53 11/21/2024 1:48 PM EDT documented in this encounter Medications at Time of Discharge acetaminophen (Tylenol) 325 MG tablet Take by mouth every 6 (six) hours if needed for mild pain. atorvastatin (Lipitor) 80 MG tablet Take 1 tablet (80 mg) by mouth daily. 09/16/2024 butalbital-aceta minophen-caffein e 50-325-40 MG tablet Take 1 tablet by mouth every 4 (four) hours as needed for headaches. 30 tablet 10/13/2024 cholecalciferol (Vitamin D-3) 25 MCG (1000 UT) capsule Take 1 capsule (1,000 Units) by mouth daily. 05/01/2023 citalopram (CeleXA) 20 MG tablet Take 1 tablet (20 mg) by mouth daily. losartan (Cozaar) 50 MG tablet Take 1 tablet (50 mg) by mouth daily. 09/12/2024 methylPREDNISolo ne (Medrol Dospak) 4 MG tablets Follow schedule on package instructions 21 tablet 10/24/2024 naloxone (Narcan) 4 mg/0.1 mL nasal spray 1. Give 1 spray in nostril for no/slow breathing or cannot wake after opioid use 2. Call 911 3. Repeat in other nostril if symptoms continue 1 each 10/13/2024 oxyCODONE (Roxicodone) 5 MG immediate release tablet Take 1 tablet (5 mg) by mouth every 4 (four) hours as needed for moderate pain or severe pain. 55 tablet 10/13/2024 polyethylene glycol (Miralax) 17 g packet Take 17 g by mouth in the morning and 17 g before bedtime. 60 packet 10/13/2024 Qulipta 60 MG tablet Take 60 mg by mouth daily. 06/05/2024 senna-docusate (Miriam-Colace) 8.6-50 MG tablet Take 2 tablets by mouth in the morning and 2 tablets before bedtime. 60 tablet 10/13/2024 ubrogepant (Ubrelvy) 100 MG tablet Take 1 tablet (100 mg) by mouth 1 (one) time as needed. 12/21/2023 cyclobenzaprine (Flexeril) 10 MG tablet Take 1 tablet by mouth 3 (three) times a day as needed for muscle spasms for up to 14 days. 42 tablet 11/13/2024 diazePAM (Valium) 2 MG tablet Take 1 tablet by mouth every 6 hours as needed (Severe muscle spasm). 20 tablet 11/13/2024 5 documented as of this encounter Miscellaneous Notes * Frank MoranBarbara Flores - 11/21/2024 1:52 PM EDT Images from the original note were not included. 1639 Caring for Yourself after Contrast Imaging If you had ORAL contrast: ?? You can go back to your normal diet and activities as tolerated. ?? Drink plenty of fluids, unless told otherwise. If you had IV contrast: ?? You can go back to your normal diet and activities as tolerated. ?? Drink plenty of fluids, unless told otherwise. ?? Leave a bandage on the site for 30 minutes (where the IV was inserted or blood was drawn). If you had Intravesical (bladder) contrast: ?? Return to normal diet and activity. What you need to know about delayed reaction to IV contrast What is IV Contrast? ?? Contrast is a dye that is put into your body through an IV. ?? It is used for imaging scans such as CT scans and MRIs. ?? The contrast makes blood vessels, organs and other parts of your body show up better on the scan. What do I need to do after IV contrast? ?? Drink lots of fluids. This will help flush the contrast out of your system. ?? Drink 2-3 extra glasses or bottles of water within 4 hours of your scan. What is a contrast reaction? ?? A contrast reaction is a bad side effect from the contrast dye. ?? It is rare but it does happen. ?? They can be mild - such as sneezing, itching, or hives. ?? They can be severe - such as trouble breathing, throat swelling, and irregular heart beat. When do these reactions happen? ?? They often happen right after the contrast is injected. ?? Some happen hours after going home. Go to the nearest Emergency Department right away if you have any of these symptoms after you leavethe clinic or hospital. ?? Sneezing ?? Itching in your mouth, throat, eyes, ears, or skin ?? Rash or hives ?? Throwing up or stomach sickness ?? High heart rate or ?racing? of your heart ?? Feeling dizzy or woozy ?? Feeling short of breath or like you can?t take a deep breath ?? Feeling very anxious for no other reason It is very important that these reactions be treated. Tell the doctor or nurse that you are having a reaction to IV contrast dye. Do not ignore any sign of a reaction! All reactions must be assessed by a doctor. Call 911 if you are alone and your reaction is more than mild sneezing or itching. If you have a mild reaction, call to speak with a Radiologist, explain that you havehad a contrast reaction, as this needs to be added to your medical record. documented in this encounter Plan of Treatment Upcoming Encounters Date Type Department Care Team (Late st Contact Info) Description 01/22/2025 2:00 PM EDT Office Visit [facility] [address] [place] [address] Oneil Blackmon MD [address] [place] [address] 03/19/2025 1:15 PM EDT Office Visit [facility] [place] [address] [facility], [address] [place] [address] Gustavo Rodriguez, DO [address] [place] [address] documented as of this encounter Procedures Procedure Name Priority Date/Time Associated Diagnosis Comments CT ANGIO CARDIAC CORONARY ARTERIES Routine 11/21/2024 3:13 PM EDT Chest pain, unspecified type documented in this encounter Results * CT Angio Cardiac Coronary Arteries (11/21/2024 3:13 PM EDT) Anatomical Region Laterality Modality Heart Computed Tomogra phy Impressions 11/21/2024 10:14 PM EDT 1. No evidence of coronary plaque or stenosis. 2. Overall, there is no coronary plaque present (which includes both calcified and non-calcified plaques). No coronary calcification with an Agatston score = 0 using the AJ-130 method. Recommendation: CAD-RADS 0: Reassurance. Consider non-atherosclerotic causes of symptoms. 3. No significant non coronary cardiac findings in particular normal cardiac chambers, non-coronary vessels in the field of view and unremarkable pericardium. 4. Mixed calcified and non-calcified atherosclerotic disease of the aorta 5. Right middle lobe pulmonary nodule cluster similar in appearance to 10/30/24 CT PE Critical Result: No. Communication: Per this written report. Preliminary report signed by Jl Cochran MD on 11/21/2024 3:31 PM By electronically signing this report, I, the attending physician, attest that I have personally reviewed the images/data for the above examination(s) and agree with the final edited report. Drafted by Jl Cochran MD on 11/21/2024 3:17 PM Final report signed by Pepe Mondragon DO on 11/21/2024 10:14 PM Narrative 11/21/2024 10:14 PM EDT CLINICAL INFORMATION: 64 years old Female with a past medical history of HLD, TMJ dysfunction, migraines who presents for coronary CTA for workup of chest pain with clinical concern for myocardial ischemia. Height: 155 cm Weight: 68.5 kg Baseline Heart Rate on Arrival: 87 beats/min Relevant Cardiac Diagnostic Tests: SPECT 10/10/2024 Comparison Imaging: CT angio PE 10/30/2024 SCAN TECHNIQUE: Pre-Medication: The patient received the following medications prior to the Cardiac CT: 50 mg of po metoprolol and 0.8mg sublingual nitroglycerin. The average heart rate at the time of acquisition was 57 bpm (55 bpm to 62 bpm) and regular. Image Acquisition and Reconstruction: A Dual source 192 MDCT scanner ([employer], [employer]) was used for data acquisition. A non-contrast coronary calcium scan was initially performed. Bolus tracking in the ascending aorta with a threshold of 180 HU was performed. Immediately afterwards, ECG synchronized Cardiac CT was then performed from cardiac base to apex using prospective gating. A total of 80 mL Omnipaque 350mgI/mL contrast media was administered followed by a saline flush using a biphasic injection protocol. Transaxial images were reconstructed at 0.75 mm slice thickness. Data was reviewed interactively on an advanced workstation capable of 2 and 3 dimensional displays in all conventional reconstruction formats including multiplanar reformations, maximum intensity projections, curved multiplanar reformations, and volume rendered reconstructions. Selected routine images displaying relevant coronary anatomy and pathology were saved and sent to PACS. Total DLP (Dose-Length Product): 387.23 mGy.cm. Please note: The reported value represents the total of one or more individual components during the CT acquisition on this date and at this time, and as such, the same value may appear in more than one CT report depending on the interpreting/reporting physicians. Technical Quality: Overall image quality is Excellent, with no significant artifacts. Coronary artery opacification is Excellent. FINDINGS: --- Coronary Calcium Scoring --- Left Main= 0 Left Anterior Descending= 0 Left Circumflex= 0 Right Coronary Artery= 0 Total calcium score = 0 using the AJ-130 method (total volume score is 0). The calculated vascular age for this patient is 41 years. --- Coronary CT Angiography --- The coronaries have normal origin and proximal course. The coronary arterial system is right dominant. Left Main: CAD-RADS 0. The left main originates from the left sinus of Valsalva and bifurcates into the left anterior descending and left circumflex arteries. No visible plaque or stenosis. Left Anterior Descending: CAD-RADS 0. The LAD arises from the left main, courses down the anterior interventricular groove, gives off 2 notable diagonal branches, and terminates as a recurrent apical branch. No visible plaque or stenosis. Left Circumflex: CAD-RADS 0. The LCx arises from the left main, gives off 1 notable obtuse marginal branches and 2 notable posterolateral branches, and terminates in the left AV groove. No visible plaque or stenosis. There is a short segment of partial myocardial bridging in the mid segment. Right Coronary Artery: CAD-RADS 0. The RCA originates from the right sinus of Valsalva and is dominant for posterior circulation, gives off acute marginal branches, and distally bifurcates into the posterior descending artery and a branching posterolateral vessel. No visible plaque or stenosis. --- Non Coronary Cardiac Findings --- Normal cardiac chamber size. No significant pericardial effusion, thickening, or calcification. Normal interatrial and interventricular septum. Mild aortic valve calcification. Grossly normal mitral valve. --- Extra Cardiac Structures --- Scattered atherosclerotic (calcified and non-calcified) disease of the partially imaged thoracic aorta without evidence of aneurysm. Central and branch pulmonary arteries in the field of view are unremarkable. Cluster of pulmonary nodules in right middle lobe. No suspicious lesion in the visualized portion of the upper abdomen. Degenerative changes of the thoracic spine. There are no obvious significant extra-cardiac findings in the available limited views of the lungs, mediastinum, and upper abdomen. Procedure Note Pepe Mondragon - 11/21/2024 CLINICAL INFORMATION: 64 years old Female with a past medical history of HLD, TMJ dysfunction,migraines who presents for coronary CTA for workup of chest pain withclinical concern for myocardial ischemia. Height: 155 cm Weight: 68.5 kg Baseline Heart Rate on Arrival: 87 beats/min Relevant Cardiac Diagnostic Tests: SPECT 10/10/2024 Comparison Imaging: CT angio PE 10/30/2024 SCAN TECHNIQUE: Pre-Medication: The patient received the following medications prior to the Cardiac CT: 50mg of po metoprolol and 0.8mg sublingual nitroglycerin. The average heart rate at the time of acquisition was 57 bpm (55 bpm to 62bpm) and regular. Image Acquisition and Reconstruction: A Dual source 192 MDCT scanner ([employer], [employer])was used for data acquisition. A non-contrast coronary calcium scan wasinitially performed. Bolus tracking in the ascending aorta with athreshold of 180 HU was performed. Immediately afterwards, ECGsynchronized Cardiac CT was then performed from cardiac base to apex usingprospective gating. A total of 80 mL Omnipaque 350mgI/mL contrast mediawas administered followed by a saline flush using a biphasic injectionprotocol. Transaxial images were reconstructed at 0.75 mm slice thickness.Data was reviewed interactively on an advanced workstation capable of 2and 3 dimensional displays in all conventional reconstruction formatsincluding multiplanar reformations, maximum intensity projections, curvedmultiplanar reformations, and volume rendered reconstructions. Selectedroutine images displaying relevant coronary anatomy and pathology weresaved and sent to PACS. Total DLP (Dose-Length Product): 387.23 mGy.cm. Please note: The reportedvalue represents the total of one or more individual components during theCT acquisition on this date and at this time, and as such, the same valuemay appear in more than one CT report depending on theinterpreting/reporting physicians. Technical Quality: Overall image quality is Excellent, with no significant artifacts. Coronary artery opacification is Excellent. FINDINGS: --- Coronary Calcium Scoring --- Left Main= 0 Left Anterior Descending= 0 Left Circumflex= 0 Right Coronary Artery= 0 Total calcium score = 0 using the AJ-130 method (total volume score is 0).The calculated vascular age for this patient is 41 years. --- Coronary CT Angiography --- The coronaries have normal origin and proximal course. The coronaryarterial system is right dominant. Left Main: CAD-RADS 0. The left main originates from the left sinus ofValsalva and bifurcates into the left anterior descending and leftcircumflex arteries. No visible plaque or stenosis. Left Anterior Descending: CAD-RADS 0. The LAD arises from the left main,courses down the anterior interventricular groove, gives off 2 notablediagonal branches, and terminates as a recurrent apical branch. No visibleplaque or stenosis. Left Circumflex: CAD-RADS 0. The LCx arises from the left main, gives off1 notable obtuse marginal branches and 2 notable posterolateral branches,and terminates in the left AV groove. No visible plaque or stenosis. Thereis a short segment of partial myocardial bridging in the mid segment. Right Coronary Artery: CAD-RADS 0. The RCA originates from the right sinusof Valsalva and is dominant for posterior circulation, gives off acutemarginal branches, and distally bifurcates into the posterior descendingartery and a branching posterolateral vessel. No visible plaque orstenosis. --- Non Coronary Cardiac Findings --- Normal cardiac chamber size. No significant pericardial effusion, thickening, or calcification. Normal interatrial and interventricular septum. Mild aortic valve calcification. Grossly normal mitral valve. --- Extra Cardiac Structures --- Scattered atherosclerotic (calcified and non-calcified) disease of thepartially imaged thoracic aorta without evidence of aneurysm. Central and branch pulmonary arteries in the field of view areunremarkable. Cluster of pulmonary nodules in right middle lobe. No suspicious lesion in the visualized portion of the upper abdomen. Degenerative changes of the thoracic spine. There are no obvious significant extra-cardiac findings in the availablelimited views of the lungs, mediastinum, and upper abdomen. IMPRESSION: 1. No evidence of coronary plaque or stenosis. 2. Overall, there is no coronary plaque present (which includes bothcalcified and non-calcified plaques). No coronary calcification with anAgatston score = 0 using the AJ-130 method. Recommendation: CAD-RADS 0: Reassurance. Consider non-atheroscleroticcauses of symptoms. 3. No significant non coronary cardiac findings in particular normalcardiac chambers, non-coronary vessels in the field of view andunremarkable pericardium. 4. Mixed calcified and non-calcified atherosclerotic disease of the aorta 5. Right middle lobe pulmonary nodule cluster similar in appearance to10/30/24 CT PE Critical Result: No. Communication: Per this written report. Preliminary report signed by Jl Cochran MD on 11/21/2024 3:31 PM By electronically signing this report, I, the attending physician, attestthat I have personally reviewed the images/data for the aboveexamination(s) and agree with the final edited report. Drafted by Jl Cochran MD on 11/21/2024 3:17 PM Final report signed by Pepe Mondragon DO on 11/21/2024 10:14 PM Clyde Garcia MD IMG CT PROCEDURES Final Result documented in this encounter Visit Diagnoses Diagnosis Chest pain, unspecified type documented in this encounter Administered Medications Inactive Administered Medications - up to 3 most recent administrations Medication Order MAR Action Action Date Dose Rate Site iohexol (OMNIPaque) 350 MG/ML injection 80 mL 80 mL, Intravenous, Once in imaging, 1 dose, Starting on Maribel 11/21/24 at 1352, Until Maribel 11/21/24 at 1513, Routine, Imaging Protocol Orders Given 11/21/2024 3:13 PM EDT 80 mL metoprolol tartrate (Lopressor) tablet 50 mg 50 mg, Oral, Once in imaging, 1 dose, Starting on Maribel 11/21/24 at 1322, Until Maribel 11/21/24 at 1406, Routine, Intraprocedure Given 11/21/2024 2:06 PM EDT 50 mg nitroglycerin (Nitrostat) SL tablet 0.8 mg 0.8 mg, Sublingual, Every 5 min PRN, Starting on Maribel 11/21/24 at 1322, Until Mon11/22/24 at 0121, Routine, Intraprocedure, chest pain, oo Given 11/21/2024 3:03 PM EDT 0.8 mg documented in this encounter Additional Health Concerns Assessment Noted Time PHQ-9 Depression Total Score: 2 11/01/19 25 1:01 PM EDT A fall risk assessment has been complete d for the patient 10/30/2024 2:57 PM EDT A Body Mass Index follow-up plan has been documented for the patient 11/19/2024 2:00 PM EDT documented as of this encounter Care Teams Ladle Cleaner Relationship Specialty Start Date End Date Kristy Sanchez APRN [address] [place] [address] PCP - General 10/31/24 Andra Matos APRN [address] [place] [address] Nurse Practitioner Neurosurgery 07/16/21 Oneil Blackmon MD [address] [place] [address] Surgeon Neurosurgery 08/18/21 Andra Matos APRN [address] [place] [address] Nurse Practitioner Neurosurgery 10/12/21 Shania Parikh DDS [address] [place] [address] Dentist Dentist 06/10/22 Aldo Pickens DMD [address] [place] [address] Dentist 06/10/22 documented as of this encounter
[2025-01-10 15:15] VITALS: BP 115/87; PULSE 95; O2SAT 100
[2025-01-10 15:21] VITALS: BP 115/87; PULSE 95; RESP 19; TEMP 36.6; O2SAT 100; BMI 28.7
--- NOTE | 2025-01-10 15:25 | CT_ITS ---
FINAL REPORT TECHNIQUE: Thin section axial images were obtained from the lung apices through the upper abdomen without contrast. This study was performed with techniques to keep radiation doses as low as reasonably achievable (ALARA). Individualized dose reduction techniques using automated exposure control or adjustment of mA and/or kV according to the patient's size were employed. CLINICAL HISTORY: right lateral chest wall injury COMPARISON: 03/24/2023 FINDINGS: There is no mediastinal, hilar, or axillary lymphadenopathy. No pleural or pericardial effusion. There is a new subpleural left upper lobe nodule measuring 4 mm well-seen on image 43 of series 3. There are small clustered nodules in the posterior right middle lobe well-seen on images 45 through 48 of series 3. This is similar to prior, likely postinflammatory. There is no pneumothorax. The soft tissues of the chest wall are without acute abnormality. Limited, unenhanced evaluation of the upper abdomen is without acute abnormality. There is a right anterolateral fifth rib fracture, likely subacute. This was not on the prior but some callus formation is present. IMPRESSION: Stable right middle lobe clustered nodules, favor postinflammatory. Left upper lobe nodule measures 4 mm. Recommend follow-up after risk stratification as per Fleischner criteria. Right anterolateral fifth rib fracture, likely subacute. Reviewed, Interpreted and Dictated by Shelley Cardona MD Transcribed by Lali Miller Authenticated and [facility]
--- NOTE | 2025-01-10 15:25 | ED_ITS ---
Discharge Plan Disposition Patient Disposition: Home, Self-Care Prescriptions Prescriptions: New hydrocodone-acetaminophen 5-325 mg tablet 1 tab PO Q6H PRN (Reason: pain) 3 Days Qty: 12 0RF No Action atorvastatin 80 mg tablet 80 mg PO DAILY cyclobenzaprine 10 mg tablet 10 mg PO HS Leqvio 284 mg/1.5 mL syringe 284 mg SQ [id number] Qty: 1.5 0RF citalopram 20 mg tablet 20 mg PO DAILY Qty: 90 1RF Rx Instructions: Will need to establish with new PCP for more refills. ubrogepant 100 mg tablet 100 mg PO ONCE PRN (Reason: migraine headache) Qty: 15 4RF losartan 50 mg tablet 50 mg PO DAILY Qty: 30 2RF Qulipta 60 mg tablet 60 mg PO DAILY Qty: 30 2RF Repatha SureClick 140 mg/mL pen injector 140 mg SQ Q2W Qty: 3 2RF Referrals Follow up/Referrals: Zahira Tellez APRN [Primary Care Provider, Family Practice] - See instructions Activity Restrictions/Add. Instructions Additional Instructions/Restrictions: Incidental small pulmonary nodules found on your CT scan of your chest which are likely incidental and not on concerning but you need to follow with your primary care doctor regarding this may need a serial CAT scan to ensure that these are stable. There is 1 small rib fracture please use your incentive spirometer 10 times every hour while awake and take your pain medicine as needed return with any fevers or chills or cough or other concerns. Clinical Impressions Clinical Impression: Chest wall contusion, Closed rib fracture, Pulmonary nodule Print Language Print Language: [place] Timorese Discharge ED Provider: Dinesh Gaona General Adult HPI General Chief complaint: Fall Stated complaint: AO 01/10/25 1400, fell, hit right side of back Time Seen by Provider: 01/10/25 15:21 History of Present Illness HPI narrative: Patient is a 64-year-old female presenting today with right lateral chest wall discomfort after falling and striking the lateral aspect of her thoracic cavity on stairs. She denies any injuries elsewhere. Denies any abdominal pain denies any hematuria. Denies any head or neck or long bone injuries. Not on any anticoagulants or antiplatelets. Took some Advil earlier this morning. Related Data Home Medications ?Medication ?Instructions ?Recorded ?Confirmed atorvastatin 80 mg tablet 80 mg PO DAILY 05/29/2411/05 cyclobenzaprine 10 mg tablet 10 mg PO HS 11/18/2411/05 Previous Rx's ?Medication ?Instructions ?Recorded losartan 50 mg tablet 50 mg PO DAILY #30 tabs 06/08 12/28 atogepant 60 mg tablet (Qulipta) 60 mg PO DAILY #30 ta bs 09/09/24 citalopram 20 mg tablet 20 mg PO DAILY Depression #9 0 tabs 11/18/24 inclisiran 284 mg/1.5 mL 284 mg (1.5 mL) SQ [id number] 2 11/18/24 subcutaneous syringe (Leqvio) doses #1.5 mL ubrogepant 100 mg tablet 100 mg PO ONCE PRN migraine 11/18/24 headache #15 tabs evolocumab 140 mg/mL subcutaneous 140 mg SQ Q2W #3 mL 11/25/24 pen injector (Repatha SureClick) hydrocodone 5 mg-acetaminophen 325 1 tab PO Q6H PRN pa in 3 days #12 01/10/25 mg tablet tabs Allergies Allergy/AdvReac Type Severity Reaction Status Date / Time cephalexin (From Keflex) Allergy Verified 11/18/24 15:33 diclofenac (From Voltaren) Allergy Verified 11/18/24 15:33 fluconazole Allergy Verified 11/18/24 15:33 prednisone Allergy Verified 11/18/24 15:33 PFSH PFSH Disclaimer: The information contained in this section may have been updated after the patient was seen, as this information can be updated by other users. Medical History Insomnia Cervicogenic headache History of TMJ disorder Mood disorder TMJ dysfunction Scaphoid fracture of wrist L wrist 2019 Vitamin D deficiency HLD (hyperlipidemia) Elevated blood pressure reading History of solitary pulmonary nodule History of colon polyps H/O abnormal mammogram Surgical History History of spinal fusion Hx of lumpectomy 1998 Family History Family/Other No significant family history Other Alcoholism Alzheimer's dementia Cancer Heart attack Hyperlipidemia Hypertension Social History Smoking Status: Never smoker alcohol intake: current alcohol intake frequency: other substance use type: denies use current occupational status: retired Travel in the last 8 weeks?: None household members: spouse housing: other details: mobile marital status: number of children: 0 Have you lived/traveled outside US in past 30 days?: No Contact w/someone who lives/traveled outside US past 30 days?: No Exposure to someone with infectious disease in past 14 days?: No Do you have a fever (greater than 100.4 F or 38 C)?: No Have you tested positive for COVID-19?: No Exposed to someone with COVID-19 in past 14 days?: No Do you have a sore throat?: No Do you have a cough?: No Do you have any weakness?: No Do you have any diarrhea?: No Are you experiencing any unusual bleeding?: No Do you have any muscle aches/pain?: No Do you have any abdominal pain?: No Are you experiencing loss of taste or smell?: No Other Medical History Have you received the Pneumonia Vaccine: Yes ROS Obtained: Yes All systems reviewed & no additional complaints except as documented Physical Exam General General appearance: alert Head Head exam: atraumatic and normocephalic Neck Neck exam: Present normal inspection and full ROM; Absent tenderness Chest Chest inspection: Present tenderness (Right lateral inferior rib tenderness no obvious step-offs or deformities) Respiratory Respiratory exam: Present normal lung sounds bilaterally; Absent respiratory distress Cardiovascular Cardiovascular exam: Present regular rate Abdominal Exam Abdominal exam: Present soft; Absent distention or tenderness Neurological Exam Neurological exam: Present alert and oriented X3 Medical Decision Making Medical Records Screening: Per USPSTF and CDC recommendations, given the prevalence of disease in our region, it is our hospital?s policy to screen for HIV and viral Hepatitis for all patients aged 18 and over and those with ongoing risk factors. Homar Inquiry Pt receiving controlled substance: No Vital Signs: 01/10/25 15:15 01/10/25 15:21 01/10/25 15:31 Temperature 97.8 F Temperature Source Oral Pulse Rate 95 H 92 H Pulse Rate [Left Radial] 95 H Respiratory Rate 19 Blood Pressure 115/87 129/85 Blood Pressure [Right Arm] 115/87 Blood Pressure Mean [Right Arm] 96 02 Sat by Pulse Oximetry 100 100 99 01/10/25 16:01 01/10/25 17:00 Temperature Temperature Source Pulse Rate 80 Pulse Rate [Left Radial] Respiratory Rate Blood Pressure 134/95 H 135/80 Blood Pressure [Right Arm] Blood Pressure Mean [Right Arm] 02 Sat by Pulse Oximetry 97 98 Orders (Tests/Meds): ED MEDICATIONS Discontinued Medications Generic Name Dose Route Start Last Admin Trade Name Freq PRN Reason Stop Dose Admin Ketorolac Tromethamine 30 mg 01/10/25 15:25 01/10/25 15:59 Ketorolac 30mg/Ml Vial IM 01/10/25 15:26 30 mg ONCE ONE Administration ORDERS Category Date Time Status CT chest wo con Stat Cat Scan 01/10/25 15:25 Completed Medical Decision Narrative: Patient with above history and physical. Has tenderness on the right lateral chest wall concerning for possible fracture versus contusion versus hemothorax pneumothorax etc. Will get a noncontrasted CT scan for further evaluation and management. Will make sure that she has no gross hematuria from a clinical standpoint. I am Toradol has been administered. Reassessment 5:40 PM patient remains very stable CT scan performed which I personally interpreted I do not see any evidence of any hemothorax or pneumothorax however there is 1 small anterior rib fracture. Some pulmonary nodules were noted by radiology she will follow-up with her primary care doctor regarding this. Pain medicine incentive spirometer were given return precautions emphasized specifically regarding pneumonia type symptoms. Critical Care Critical Care Time Critical Care Time: No
--- OUTSIDE RECORDS SUMMARY | 2025-01-10 15:26 | XMS_ITS | Encounter Summary ---
Author Organization [facility] Address [address] [place] [address] Care Team Providers Care Home Maker Name Role Phone Andra Matos TRAILER PARK MANAGER Unavailable [phone] Oneil Blackmon MD Unavailable [phone] Andra Matos TRAILER PARK MANAGER Unavailable Shania Parikh DDS Unavailable + Aldo Pickens DMD Unavailable Kristy Sanchez TRAILER PARK MANAGER Primary Care Provider [phone] Encounter Details Date Type Department Care Team (Late st Contact Info) Description 11/13/2024 [facility]ill [place] [facility] [address], [address] [place] [address] Andra Matos, TRAILER PARK MANAGER [address] [place] [address] Social History Tobacco Use Types Packs/Day Years [...] 10/31/2024 How often do you attend chur or hindu services? Never 10/31/2024 Do you belong to any clubs o r organizations such as episcopal groups, unions, fraternal or athletic groups, or [...] Recorded Patient Health Questionnaire-2 Score 0 10/31/2024 [facility] [place] of Occupat ional Health - Occupational Stress [...] any time in the past 12 m [facility], were you homeless or [...] drink first t kisha in the morning (EYE-ENGINEER SECOND ASSISTANT) to steady your nerves or to get rid of a hangover? 0 10/30/2024 CAGE Questionnaire Score 0 025 Utilities Answer Date Recorded In the past 12 months has th e [employer], gas, oil, or water company threatened to shut off services in your home? No 10/31/2024 Comments No Sex and Gender Information Value Date Recorded Sex Assigned at Female 07/15/2021 9:31 AM EST Legal Sex Female 7:39 PM EDT Gender Identity Female 07/15/2021 9:31 AM EST Sexual Orientation Straight 07/15/2021 9: 31 AM EST documented as of this encounter Plan of Treatment Upcoming Encounters Date Type Department Care Team (Late st Contact Info) Description 01/22/2025 2:00 PM EDT Office Visit [place] [facility] [address] [place] [address] Oneil Blackmon MD [address] [place] [address] 03/19/2025 1:15 PM EDT Office Visit [facility] [place] [address] [facility], [address] [place] [address] Gustavo Rodriguez, DO [address] [place] [address] documented as of this encounter Visit Diagnoses Not on filedocumented in this encounter Additional Health Concerns Assessment Noted Time PHQ-9 Depression Total Score: 2 11/01/19 1:01 PM EDT A fall risk assessment has been complete d for the patient 10/30/2024 2:57 PM EDT A Body Mass Index follow-up plan has been documented for the patient 11/19/2024 2:00 PM EDT documented as of this encounter Care Teams Home Maker Relationship Specialty Start Date End Date Kristy Sanchez APRN [address] [place] [address] PCP - General 10/31/24 Andra Matos APRN [address] [place] [address] Nurse Practitioner Neurosurgery 07/16/21 Oneil Blackmon MD [address] [place] [address] Surgeon Neurosurgery 08/18/21 Andra Matos APRN [address] [place] [address] Nurse Practitioner Neurosurgery 10/12/21 Shania Parikh DDS [address] [place] [address] Dentist Dentist 06/10/22 Aldo Pickens DMD [address] [place] [address] Dentist 06/10/22 documented as of this encounter
--- OUTSIDE RECORDS SUMMARY | 2025-01-10 15:26 | XMS_ITS | Clinical Summary ---
Author Organization [facility] Address [address] [place] [address] Care Team Providers Care Car Customizer Name Role Phone System, Provider Not In Primary Care Provider Un available Source Comments This information has been disclosed to you from confidential records protectedfrom disclosure by state law. You shall make no further disclosure of thisinformation without the specific, written, and informed release of theindividual to whom it pertains, or as otherwise permitted by law. A generalauthorization for the release of medical or other information is not sufficientfor the purposes of therelease of HIV test results or diagnoses. [id number] Social History Tobacco Use Types Packs/Day Years Used Date Smoking Tobacco: Never Assessed Comments Unknown Sex and Gender Information Value Date Recorded Sex Assigned at Not on file Legal Sex Female 10:49 AM EST Gender Identity Not on file Sexual Orientation Not on file Plan of Treatment Not on file Insurance EXCHANGE Care Teams Car Customizer Relationship Specialty Start Date End Date System, Provider Not In PCP - General 07/22/19
--- OUTSIDE RECORDS SUMMARY | 2025-01-10 15:26 | XMS_ITS | Encounter Summary ---
Author Organization [facility] Address [address] [place] [address] Care Team Providers Care Student Advisor Name Role Phone Andra Matos MANAGER WINTER Unavailable [phone] Oneil Blackmon MD Unavailable [phone] Andra Matos MANAGER WINTER Unavailable [phone] Shania Parikh DDS Unavailable + Aldo Pickens DMD Unavailable [phone] Kristy Sanchez MANAGER WINTER Primary Care Provider [phone] Encounter Details Date Type Department Care Team (Late st Contact Info) Description 11/14/2024 Telephone [facility] [address] [place] [address] Xi Locke, RN [facility] Social History Tobacco Use Types Packs/Day Years [...] often do you attend chur ch or mu-ism services? Never 10/31/2024 Do you belong to any clubs o r organizations such as zoroastrianism groups, unions, fraternal or athletic groups, or [...] Recorded Patient Health Questionnaire-2 Score 0 10/31/2024 [facility] [place] of Occupat ional Health - Occupational Stress [...] any time in the past 12 m [facility], were you homeless or living in a long-term (including now)? No 10/31/2024 CAGE ASSESSMENT Answer [...] drink first t kisha in the morning (EYE-RUSSIAN LANGUAGE INSTRUCTOR) to steady your nerves or to get rid of a hangover? 0 10/30/2024 CAGE Questionnaire Score 0 025 Utilities Answer Date Recorded In the past 12 months has th e electric, gas, oil, or water company threatened to [...] Visit [place] [facility] [address] [place] [address] Oneil Blackmon MD [address] [facility] [place] [address] 03/19/2025 1:15 PM EDT Office Visit [facility] [place] [address] [facility] [facility] [place] [place] [address] Gustavo Rodriguez H, DO [address] [place] [address] documented as of this encounter [...] documented as of this encounter Care Teams Student Advisor Relationship Specialty Start Date End Date Kristy Sanchez APRN [address] [place] [address] PCP - General 10/31/24 Andra Matos APRN [address] [facility] [place] [address] Nurse Practitioner Neurosurgery 07/16/21 Oneil Blackmon MD [address] [place] [address] Surgeon Neurosurgery 08/18/21 Andra Matos APRN [address] [place] [address] Nurse Practitioner Neurosurgery 10/12/21 Shania Parikh DDS [address] [place] [address] Dentist Dentist 06/10/22 Aldo Pickens DMD [address] [place] [address] Dentist 06/10/22 documented as of this encounter
--- OUTSIDE RECORDS SUMMARY | 2025-01-10 15:26 | XMS_ITS | Encounter Summary ---
Author Organization [facility] Address [address] [place] [address] Care Team Providers Care Meter And Service Line Inspector Name Role Phone Andra Matos CUSTOMER ADVISOR SPECIALIST Unavailable [phone] Oneil Blackmon MD Unavailable [phone] Andra Matos CUSTOMER ADVISOR SPECIALIST Unavailable [phone] Shania Parikh DDS Unavailable + Aldo Pickens DMD Unavailable [phone] Pcp, No Primary Care Provider Unavailabl e Kristy Sanchez CUSTOMER ADVISOR SPECIALIST Primary Care Provider [phone] Encounter Details Date Type Department Care Team (Late st Contact Info) Description 03/24/2023 Orders Only External Location [address] [place] [id number] Provider, External Social History Tobacco Use Types Packs/Day Years Used Date Smoking Tobacco: Never Smokeless Tobacco: Never Comments:Never used Alcohol Use Standard Drinks/Week Comments Yes 2 (1 standard drink = 0.6 oz pur e alcohol) Socially CAGE ASSESSMENT Answer Date Recorded Cage unable to access Not on file 03/14/2022 Cage max number of drinks Not on file 2021 Cage Beverages a week Not on file 03/14/2022 Have you ever felt you should CUT down on your d rinking? 0 03/14/2022 Have you been ANNOYED by people criticizing your drinking? 0 03/14/2022 Have you felt GUILTY about your drinking? 0 03/14/2022 Have you had a drink first t kisha in the morning (EYE-COREMAKER HELPER) to steady your nerves or to get rid of a hangover? 0 03/14/2022 CAGE Questionnaire Score 0 022 Comments No Sex and Gender Information Value [...] Visit [place] [facility] [address] [place] [address] Oneil Blackmon MD [address] [place] [address] 03/19/2025 1:15 PM EDT Office Visit [facility] [place] [address] [facility], [address] [place] [id number] Gustavo Rodriguez, DO [address] [place] [address] documented as of this encounter Procedures Procedure Name Priority Date/Time Associated Diagnosis Comments CT THORACIC OUTSIDE IMAGES 03/24/2023 5:22 PM EDT documented in this encounter Results * CT THORACIC OUTSIDE IMAGES (03/24/2023 5:22 PM EDT) Anatomical Region Laterality Modality Computed Tomogra phy 03/24/2023 5:22 PM EDT us External Provider IMG CT PROCEDURES Final Result documented in this encounter Visit Diagnoses Not on filedocumented in this encounter Additional Health Concerns Infection Onset Date Last Indicated Resolved Time COVID-19 Rule-Out 10/30/2024 10/30/2024 10/30/2024 10:20 PM EDT Assessment Noted Time A fall risk assessment has been complete d for the patient 2022 12:59 PM EDT A Body Mass Index follow-up plan has been documented for the patient 03/12/2023 4:04 PM EDT documented as of this encounter Care Teams Meter And Service Line Inspector Relationship Specialty Start Date End Date Pcp, [place] [address] PCP - General Family Medicine 10/30/24 10/30/24 Kristy Sanchez, CUSTOMER ADVISOR SPECIALIST [address] [place] [address] PCP - General 10/31/24 Andra Matos, CUSTOMER ADVISOR SPECIALIST [address] [place] [address] Nurse Practitioner Neurosurgery 07/16/21 Oneil Blackmon MD [address] [place] [address] Surgeon Neurosurgery 08/18/21 Andra Matos, CUSTOMER ADVISOR SPECIALIST [address] [place] [address] Nurse Practitioner Neurosurgery 10/12/21 Shania Parikh DDS [address] [place] [address] Dentist Dentist 06/10/22 Aldo Pickens DMD [address] [place] [address] Dentist 06/10/22 documented as of this encounter
--- OUTSIDE RECORDS SUMMARY | 2025-01-10 15:27 | XMS_ITS | Clinical Summary ---
Author Organization [facility] Address [address] 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 Name Role Phone Andra Matos EDITOR MAP Unavailable [phone] Oneil Blackmon MD Unavailable [phone] Andra Matos EDITOR MAP Unavailable [phone] Shania Parikh DDS Unavailable + Aldo Pickens DMD Unavailable [phone] Kristy Sanchez EDITOR MAP Primary Care Provider [phone] Allergies Active Allergy Reactions Criticality Noted Date Comments Cephalexin Rash Low 01/04/2024 Cephalosporins Rash Low 10/21/2019 Diclofenac Rash Low 10/21/2019 patient has taken ketorolac in the past Fluconazole Rash Low 10/21/2019 Prednisolone Rash Low 10/21/2019 Medications citalopram (CeleXA) 20 MG tablet Take 1 tablet (20 mg) by mouth daily. Active acetaminophen (Tylenol) 325 MG tablet Take by mouth every 6 (six) hours if needed for mild pain. Active ubrogepant (Ubrelvy) 100 MG tablet Take 1 tablet (100 mg) by mouth 1 (one) time as needed. 12/21/19 24 Active cholecalcifero l (Vitamin D-3) 25 MCG (1000 UT) capsule Take 1 capsule (1,000 Units) by mouth daily. 05/01/20 23 Active Qulipta 60 MG tablet Take 60 mg by mouth daily. 06/05/20 24 Active atorvastatin (Lipitor) 80 MG tablet Take 1 tablet (80 mg) by mouth daily. 09/16/19 25 Active losartan (Cozaar) 50 MG tablet Take 1 tablet (50 mg) by mouth daily. 09/12/19 25 Active senna-docusate (Miriam-Colace) 8.6-50 MG tablet Take 2 tablets by mouth in the morning and 2 tablets before bedtime. 60 tablet 10/14/19 25 Active polyethylene glycol (Miralax) 17 g packet Take 17 g by mouth in the morning and 17 g before bedtime. 60 packet 10/14/19 25 Active butalbital-reji taminophen-caf feine 50-325-40 MG tablet Take 1 tablet by mouth every 4 (four) hours as needed for headaches. 30 tablet 10/14/19 25 Active oxyCODONE (Roxicodone) 5 MG immediate release tablet Take 1 tablet (5 mg) by mouth every 4 (four) hours as needed for moderate pain or severe pain. 55 tablet 10/14/19 25 Active naloxone (Narcan) 4 mg/0.1 mL nasal spray 1. Give 1 spray in nostril for no/slow breathing or cannot wake after opioid use 2. Call 911 3. Repeat in other nostril if symptoms continue 1 each 10/14/19 25 Active methylPREDNISo lone (Medrol Dospak) 4 MG tablets Follow schedule on package instructions 21 tablet 10/25/19 25 Active diazePAM (Valium) 2 MG tablet TAKE 1 TABLET BY MOUTH EVERY 6 HOURS NEEDED (SEVERE MUSCLE SPASM) 20 tablet 12/18/19 25 Active cyclobenzaprin e (Flexeril) 10 MG tablet TAKE 1 TABLET BY MOUTH THREE TIMES DAILY NEEDED FOR MUSCLE SPASM FOR UP TO 14 DAYS 42 tablet 12/18/19 25 Active diazePAM (Valium) 2 MG tablet Take 1 tablet by mouth every 6 hours as needed (Severe muscle spasm). 20 tablet 11/14/19 25 025 Discontinued cyclobenzaprin e (Flexeril) 10 MG tablet Take 1 tablet by mouth 3 (three) times a day as needed for muscle spasms for up to 14 days. 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 Resolved Problems Problem Noted Date Diagnosed Date Resolved Date Intervertebral disc disorder s with radiculopathy, lumbar region 08/26/2021 09/03/2021 Overview (08/26/2021): Added automatically from request for surgery [id number] Encounters Date Type Department Care Team Description 01/03/2025 Orders Only [facility] [address], [address] [place] [address] Andra Matos, EDITOR MAP S/P cervical spinal fusion (Primary Dx) 12/16/2024 Refill [facility] [address], [address] [place] [address] Andra Matos, NEFTALI 11/26/2024 Telephone [facility] [address], [address] [place] [address] Oneil Blackmon MD 11/21/2024 1:18 PM EDT - 11/21/2024 11:59 PM EDT Hospital Encounter [facility] [address] [place] [phone] Chest pain, unspecified type Discharge Disposition: Home or Self Care 11/21/2024 Travel 11/16/2024 Travel 11/14/2024 Telephone [facility] [address] [place] [phone] Xi Locke RN 11/13/2024 12:40 PM EDT Consult [facility] Otolaryngology [address] [place] [address] Ronald Gould MD Dysphagia, unspecified type (Primary Dx); Bilateral temporomandibular joint pain; Trismus 11/13/2024 Refill [facility] [address], [address] [place] [address] Andra Matos, EDITOR MAP 11/13/2024 Travel 11/06/2024 Travel 11/01/2024 Travel 10/30/2024 6:39 PM EDT - 11/01/2024 2:13 PM EDT Hospital Encounter [facility] [address] [place] [address] Harleen Oliveira MD Davidson, MD Maureen Jack, MD Augusto Collins, MD Brendan Beaver, MD Lorri Houser Francis, MD Dysphagia, unspecified type (Primary Dx); Trismus; Acute chest pain Discharge Disposition: Home or Self Care 10/30/2024 2:45 PM EDT Office Visit [facility] [address], [address] [place] [address] Oneil Blackmon MD S/P cervical spinal fusion (Primary Dx); Follow-up examination after neurological surgery 10/30/2024 1:47 PM EDT - 10/30/2024 6:38 PM EDT Hospital Encounter [facility] [address], [address] [place] [address] S/P cervical spinal fusion Discharge Disposition: Home or Self Care 10/30/2024 Travel 10/24/2024 Refill [facility] [address], [address] [place] [address] Andra Matos, EDITOR MAP 10/22/2024 Refill [facility] [address], [address] [place] [address] Andra Matos, EDITOR MAP 10/14/2024 Telephone [facility] practice assistant [facility] [address] [place] [address] [address] [place] [address] Yessenia Estevez 10/12/2024 10:45 AM EST Anesthesia Event [facility] [address] [place] [address] You Burk MD [place] Roge Shoshana, EDITOR MAP 10/12/2024 9:30 AM EST - 10/12/2024 1:05 PM EST Surgery [facility] [address] [place] [address] Oneil Blackmon MD C3-C4 ACDF // DISCECTOMY, SPINE, CERVICAL, 1 LEVEL, ANTERIOR APPROACH, WITH FUSION & Hardware Removal 10/12/2024 7:25 AM EST - 10/13/2024 12:32 PM EDT Hospital Encounter [facility] [address] [place] [address] Oneil Blackmon MD Cervical myelopathy ([facility]) Discharge Disposition: Home or Self Care 10/12/2024 Travel 10/11/2024 [facility]phone [facility] [address], [address] [place] [address] Oneil Blackmon MD 10/10/2024 1:27 PM EST - 10/10/2024 11:59 PM EST Hospital Encounter Cardiac Imaging [address] [place] [phone] Discharge Disposition: Home or Self Care 10/10/2024 1:26 PM EST Hospital Encounter Cardiac Imaging [address] [place] [address] Chest pain, unspecified type Discharge Disposition: Home or Self Care 10/10/2024 1:26 PM EST Hospital Encounter Cardiac Imaging [address] [place] [address] Chest pain, unspecified type Discharge Disposition: Home or Self Care 10/10/2024 Travel from Last 3 Months Family History Medical History Relation Name Comments Alcohol abuse Brother Momo Price Cancer Father Ervin Price Hearing loss Father Ervin Price Anesthesia problems Neg Hx Malig Hyperthermia Neg Hx Relation Name Status Comments Brother Momo Price Father Ervin Price Social History Tobacco Use Types Packs/Day Years [...] How often do you attend chur or shinto services? Never 10/31/2024 Do you belong to any clubs o r organizations such as worship groups, unions, fraternal or athletic groups, or [...] Recorded Patient Health Questionnaire-2 Score 0 10/31/2024 English [facility] of Occupat ional Health - Occupational Stress [...] any time in the past 12 [facility], were you homeless or living in a prison (including now)? 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) to steady your nerves or to get [...] Orientation Straight 07/15/2021 9: 31 AM EST Last Filed Vital Signs Vital Sign Reading Time Taken Comments Blood Pressure 127/76 11/21/2024 3:13 PM EDT Pulse 68 11/21/2024 3:13 PM EDT Temperature 36.4 C (97.5 F) 11/01/2024 1:56 PM EDT Respiratory Rate 13 11/21/2024 3:13 PM EDT Oxygen Saturation 96% 11/21/2024 3:13 PM EDT Inhaled Oxygen Concentration - - Weight 68.5 kg (151 lb) 11/21/2024 1:48 PM EDT Height 154.9 cm (5' 1 ) 11/21/2024 1:48 PM EDT Body Mass Index 28.53 11/21/2024 1:48 PM EDT Plan of Treatment Upcoming Encounters Date Type Department Care Team (Late st Contact Info) Description 01/22/2025 2:00 PM EDT Office Visit [facility] [address], [address] [place] [address] Oneil Blackmon MD [address] [place] [address] 03/19/2025 1:15 PM EDT Office Visit [facility] Arthur Lutts [address] [facility], [address] [place] [address] Gustavo Rodriguez H, DO [address] [place] [address] Health Maintenance Due Date Last Done Comments Dental Prophylaxis 1962 Dental X-Ray: Full Mouth 1962 [facility]-/Child/Adol SDOH Screenings 1962 [facility]-DTaP,Tdap,and Td Vaccines (1 - Tdap) 1981 [facility]-Pap Smear 1983 [facility]-Cervical Cancer Screening 1992 [facility]-HPV/Cotest 1992 CT Colonography 2007 Colonoscopy 2007 FIT-DNA 2007 FIT 2007 FOBT 2007 Sigmoidoscopy 2007 [facility]-Colorectal Cancer Screening 2007 [facility]-Breast Cancer Screening 2012 [facility]-Pneumococcal Vaccine: 50+ Years (1 of 1 - PCV) 2012 [facility]-Zoster Vaccines (1 of 2) 2012 Dental Oral Exam 10/01/2023 03/30/2023 Dental X-Ray: Bitewings 03/31/2024 03/30/2023 [id number] Vaccine ( season) 2024 07/14/2023, 05/28/2022, 12/25/2021, Additional history exists [facility]-Influenza Vaccine (Season Ended) 2025 07/14/2023, 05/28/2022, 08/24/2020 [facility]- SDOH Screenings 05/03/2025 [facility]-Adult SDOH Screenings 05/03/2025 10/31/2024 [facility]-Depression Screening 10/31/2025 10/31/2024, 10/06 [facility]-RSV Vaccine: 60+ Years or (1 - 1-dose 75+ series) 2037 [facility]-HIV Screening Completed 10/30/2024 [facility]-Hepatitis C Screening Completed 2024, 09/25/2020, 02/16/2020 [facility]-Obesity Intervention Completed 025, 10/30/2024, 10/30/2024, Additional history exists HPV Vaccines Aged Out No longer eligi ble based on patient's age to complete this topic [facility]-HIB Vaccines Aged Out No longer e ligible based on patient's age to complete this topic [facility]-Hepatitis A Vaccines Aged Out No longer eligible based on patient's age to complete this topic [facility]-IPV Vaccines Aged Out No longer e ligible based on patient's age to complete this topic [facility]-Rotavirus Vaccines Aged Out No lo nger eligible based on patient's age to complete this topic Medical Devices Implanted Type Area Medical Office Technologist Device Identifier Shelf Expiration Date Model / Serial / Lot Large Diameter 14mm - Sn/A - [id number] Implanted:Qty : 3 on 10/12/2024 by Oneil Blackmon MD at [facility] Cage N/A: Spine Cervical [employer] -[id number] 10/12/2025 [id number] / N/A / One Level Plate, 16mm - Sn/A - [id number] Implanted:Qty : 1 on 10/12/2024 by Oneil Blackmon MD at [facility] Plate N/A: Spine Cervical [employer] [id number] 10/12/2025 [id number] / N/A / Pre-Lordosed Jonatan W/ Line 65mm - S. - [id number] Implanted:Qty : 2 on 08/30/2021 by Oneli Blackmon MD at [facility] Jonatan Spine Lumbar [employer] LP-[id number] 08/30/2022 [id number] / . / Expedium 5.50 Polyaxial Screw 7.12t85bw, - S. - [id number] Implanted:Qty : 2 on 08/30/2021 by Oneil Blackmon MD at [facility] Screw Spine Lumbar [employer] LP-[id number] 08/30/2022 [id number] / . / Screw 5.5mm Viper Ti Fen Crtcl Polyax 7mm X 45mm - S. - [id number] Implanted:Qty : 4 on 08/30/2021 by Oneil Blackmon MD at [facility] Screw Spine Lumbar [employer] LP-[id number] 08/30/2022 [id number] / . / Single Inner Setscrew - S. - [id number] Implanted:Qty : 6 on 08/30/2021 by Oneil Blackmon MD at [facility] Screw Spine Lumbar [employer] LP-[id number] 08/30/2022 [id number] / . / Self Drilling Screw 14mm - Sn/A - [id number] Implanted:Qty : 1 on 10/12/2024 by Oneil Blackmon MD at [facility] Screw N/A: Spine Cervical [employer] LP-[id number] 10/12/2025 [id number] / N/A / Plates/Screws Bilateral: Mandible Chip Bone 20cc - [id number] Implanted:Qty : 1 on 08/30/2021 by Oneil Blackmon MD at [facility]-[id number] 05/30/2026 PCAN1/4 / / [id number] Graft Vivigen 5cc - [id number] Implanted:Qty : 1 on 08/30/2021 by Oneil Blackmon MD at [facility]-[id number] 08/11/2022 BL-1500-002 / [id number] / [id number] Graft Vivigen 5cc - [id number] Implanted:Qty : 1 on 08/30/2021 by Oneil Blackmon MD at [facility]-[id number] 08/04/2022 BL-1500-002 / [id number] / [id number] Self Drilling Screw 14mm - [id number] Implanted:Qty : 5 on 03/14/2022 by Oneil Blackmon MD at [facility] Spine Cervical [employer] LP-[id number] / / Large Diameter 14mm - [id number] Implanted:Qty : 1 on 03/14/2022 by Oneil Blackmon MD at [facility] Spine Cervical [employer] LP-[id number] / / Knee Vanguard1 Cervical Preservon 6mm - [id number] - [id number] Implanted:Qty : 1 on 03/14/2022 by Oneil Blackmon MD at [facility] Spine Cervical [facility]-[id number] 09/30/2026 [id number] / [id number] / [id number] Knee Vanguard1 Cervical Preservon 7mm - [id number] - [id number] Implanted:Qty : 1 on 03/14/2022 by Oneil Blackmon MD at [facility] Right: Spine Cervical [facility]-[id number] 12/15/2026 [id number] / [id number] / [id number] Screw Retainer 3.5mm X 12mm - [id number] Implanted:Qty : 2 on 03/14/2022 by Oneil Blackmon MD at [facility] Spine Cervical [employer] -[id number] 03.820.102 / / Nut Retainer - [id number] Implanted:Qty : 2 on 03/14/2022 by Oneil Blackmon MD at [facility] Spine Cervical [employer]uy [employer]ine [place] [address] 03.820.110 / / Plate Two Level 28mm - [id number] Implanted:Qty : 1 on 03/14/2022 by Oneil Blackmon MD at [facility] Spine Cervical [employer] [place] [address] [id number] / / Knee Vanguard1 Cervical Preservon 7mm - [id number] - [id number] Implanted:Qty : 1 on 10/12/2024 by Oneil Blackmon MD at [facility] Spine Cervical [facility]-103769 08/01/2029 [id number] / [id number] / [id number] Tissue Vivigen Formable 1.3cc Sm Pk/4 - [id number] Implanted:Qty : 1 on 10/12/2024 by Oneil Blackmon MD at [facility] N/A: Spine Cervical [facility]-347447 09/23/2025 [id number] / / [id number] Screw Retainer 3.5mm X 14mm - Sn/A - [id number] Implanted:Qty : 2 on 10/12/2024 by Oneil Blackmon MD at [facility] N/A: Spine Cervical [employer] -[id number] 10/12/2025 [id number] / N/A / Nut Retainer - Sn/A - [id number] Implanted:Qty : 2 on 10/12/2024 by Oneil Blackmon MD at [facility] N/A: Spine Cervical [employer] LP-[id number] 10/12/2025 [phone] / N/A / Procedures Procedure Name Priority Date/Time Associated Diagnosis Comments CT ANGIO CARDIAC CORONARY ARTERIES Routine 11/21/2024 3:13 PM EDT Chest pain, unspecified type BASIC METABOLIC PANEL, PLASMA Timed 11/01/2024 1:12 PM EDT CBC WITH AUTO DIFFERENTIAL Routine 11/01/2024 1:12 PM EDT APTT Routine 11/01/2024 1:12 PM EDT PROTHROMBIN TIME(PT) / INR Routine 11/01/2024 1:12 PM EDT POCT GLUCOSE METER UNSOLICITED RESULTS Routine 11/01/2024 11:28 AM EDT FL MODIFIED BARIUM SWALLOW STAT 11/01/2024 9:08 AM EDT POCT GLUCOSE METER UNSOLICITED RESULTS Routine 11/01/2024 6:29 AM EDT POCT GLUCOSE METER UNSOLICITED RESULTS Routine 11/01/2024 1:30 AM EDT POCT GLUCOSE METER UNSOLICITED RESULTS Routine 11/01/2024 12:42 AM EDT URINE KEENE PANEL STAT 10/31/2024 1:54 PM EDT URINALYSIS WITH REFLEX MICROSCOPIC STAT 10/31/2024 1:54 PM EDT URINALYSIS WITH REFLEX MICROSCOPIC AND CULTURE STAT 10/31/2024 1:54 PM EDT BLOOD GAS PANEL, VENOUS STAT 10/31/2024 6:52 AM EDT BASIC METABOLIC PANEL, PLASMA STAT 10/31/2024 6:52 AM EDT CBC W/O DIFFERENTIAL STAT 10/31/2024 6:52 AM EDT ECG ADULT STAT 10/31/2024 6:23 AM EDT TROPONIN T, HIGH SENSITIVITY, 2 HOUR, PLASMA Timed 10/31/2024 5:33 AM EDT TROPONIN T, HIGH SENSITIVITY, 0 HOUR, PLASMA, REFLEX TO 2 HOUR STAT 10/31/2024 3:26 AM EDT ECG ADULT STAT 10/31/2024 3:19 AM EDT STREPTOCOCCUS CULTURE STAT 10/31/2024 1:37 AM EDT GROUP A STREPTOCOCCUS BY PCR STAT 10/31/2024 1:37 AM EDT SARS-COV-2, FLU A, FLU B, AND RSV - RAPID STAT 10/30/2024 9:22 PM EDT TROPONIN T, HIGH SENSITIVITY, 2 HOUR, PLASMA Timed 10/30/2024 8:[address] SOFT TISSUE NECK W IV CONTRAST STAT 10/30/2024 8:[address] ANGIO PULMONARY EMBOLISM STAT 10/30/2024 8:21 PM EDT XR CHEST 1 VIEW STAT 10/30/2024 7:36 PM EDT C-REACTIVE PROTEIN, PLASMA STAT Add-on 10/30/2024 6:38 PM EDT ED HIV 1/2 ANTIBODY/ANTIGEN SCREEN WITH REFLEX TO HIV I/II DIFFERENTIATION STAT 10/30/2024 6:38 PM EDT ED PROTOCOL HIV 1/2 ANTIBODY/ANTIGEN SCREEN W/REFLEX TO HIV 1/2 ANTIBODY DIFFERENTIATION STAT 10/30/2024 6:38 PM EDT HEPATITIS C ANTIBODY - ED W/REFLEX TO HCV QUANT PCR STAT 10/30/2024 6:38 PM EDT TROPONIN T, HIGH SENSITIVITY, 0 HOUR, PLASMA, REFLEX TO 2 HOUR STAT 10/30/2024 6:38 PM EDT CBC WITH AUTO DIFFERENTIAL STAT 10/30/2024 6:38 PM EDT BASIC METABOLIC PANEL, PLASMA STAT 10/30/2024 6:38 PM EDT ECG ADULT STAT 10/30/2024 4:12 PM EDT XR CERVICAL SPINE COMPLETE 4 TO 5 VIEWS Routine 10/30/2024 2:01 PM EDT S/P cervical spinal fusion BASIC METABOLIC PANEL, PLASMA Routine 10/12/2024 11:58 PM EST CBC W/O DIFFERENTIAL Routine 10/12/2024 11:58 PM EST XR CERVICAL SPINE 2 OR 3 VIEWS Routine 10/12/2024 5:10 PM EST FL LESS THAN 1 HOUR (NON-REPORTABLE) Routine 10/12/2024 12:52 PM EST ROUTINE CULTURE AND GRAM STAIN Routine 10/12/2024 11:53 AM EST Cervical myelopathy (CMS/HCC) ANESTHESIA PERIPHERAL IV PLACEMENT Routine 10/12/2024 11:31 AM EST PB ANESTHESIA PLACEHOLDER Routine 10/12/2024 10:52 AM EST OH AN ELECTIVE ENDOTRACHEAL AIRWAY Routine 10/12/2024 10:52 AM EST DISCECTOMY, SPINE, CERVICAL, 1 LEVEL, ANTERIOR APPROACH, WITH FUSION 10/12/2024 10:29 AM EST Cervical myelopathy (CMS/HCC) NM MYOCARDIAL SPECT REGADENOSON STRESS (MULTI STUDY) Routine 10/10/2024 3:18 PM EST Chest pain, unspecified type ECHO, ADULT TRANSTHORACIC COMPLETE Routine 10/10/2024 2:54 PM EST Chest pain, unspecified type BITEWINGS - 4 RADIOGRAPHIC IMAGES Routine 03/30/2023 3:30 PM EDT Encounter for dental examination COMPREHENSIVE ORAL EVALUATION - NEW OR ESTABLISHED PATIENT Routine 03/30/2023 3:30 PM EDT Encounter for dental examination from Last 3 Months or Most Recently Relevant to Health Maintenance Results * CT Angio Cardiac Coronary Arteries [...] 3:17 PM Final report signed by Pepe Monrdagon DO on 11/21/2024 10:14 PM Narrative 11/21/2024 [...] 192 MDCT scanner ([employer], [employer]) was used for data acquisition. A [...] and upper abdomen. Procedure Note Pepe Mondragon DO - 11/21/2024 CLINICAL INFORMATION: 64 years old [...] source 192 MDCT scanner ([employer], [employer])was used for data acquisition. A non-contrast [...] Garcia MD IMG CT PROCEDURES Final Result * (ABNORMAL) APTT (11/01/2024 1:12 PM EDT) aPTT 24(L) 25 - 35 sec 11/01/2024 1:29 PM EDT [facility] Blood Venous blood specimen / Unknown Venipuncture / Unknown 11/01/2024 1:12 PM EDT 11/01/2024 1:16 PM EDT Oneil Blackmon MD LAB BLOOD ORDERABLES Final Re sult Performing Organization Address City/[facility]/ZIP Co de Phone Number [facility] [address] [place] [address] * Prothrombin Time/INR (11/01/2024 1:12 PM EDT) Prothrombin Time 14.2 12.0 - 14.3 sec 11/01/2024 1:29 PM EDT [facility] INR 1.1 0.9 - 1.1 11/01/2024 1:29 PM EDT [facility] Blood Venous blood specimen / Unknown Venipuncture / Unknown 11/01/2024 1:12 PM EDT 11/01/2024 1:16 PM EDT Narrative [facility] - 11/01/2024 1:29 PM EDT OPTIMAL INR RANGES FOR PATIENT ON ORAL ANTICOAGULANT THERAPY Prevention of venous thromboembolism INR 2.0 to 3.0 In patients with heart disease: Atrial fibrillation INR 2.0 to 3.0 Valvular heart disease INR 2.0 to 3.0 Tissue heart valves INR 2.0 to 3.0 Mechanical prosthetic valves INR 2.5 to 3.5 Prevention of recurrent GA INR 2.5 to 3.5 Oneil Blackmon MD LAB BLOOD ORDERABLES Final Re sult Performing Organization Address City/[facility]/[place] [address] * (ABNORMAL) CBC and Differential (11/01/2024 1:12 PM EDT) Only the most recent of2 resultswithin the time period is included. WBC Count 6.69 3.70 - 10.30 10*3/uL LAB HEMATOLOGY METHOD 11/01/2024 1:18 PM EDT [facility] RBC Count 4.39 3.90 - 5.20 10*6/uL LAB HEMATOLOGY METHOD 11/01/2024 1:18 PM EDT [facility] HGB 12.3 11.2 - 15.7 g/dL LAB HEMATOLOGY METHOD 11/01/2024 1:18 PM EDT [facility] HCT 36.5 34.0 - 45.0 % LAB HEMATOLOGY METHOD 11/01/2024 1:18 PM EDT [facility] Platelet Count 332 155 - 369 10*3/uL LAB HEMATOLOGY METHOD 11/01/2024 1:18 PM EDT [facility] MCV 83 79 - 98 fL LAB HEMATOLOGY METHOD 11/01/2024 1:18 PM EDT [facility] MCH 28.0 26.0 - 32.0 pg LAB HEMATOLOGY METHOD 11/01/2024 1:18 PM EDT [facility] MCHC 33.7 30.7 - 35.5 g/dL LAB HEMATOLOGY METHOD 11/01/2024 1:18 PM EDT [facility] RDW 12.9 11.5 - 14.5 % LAB HEMATOLOGY METHOD 11/01/2024 1:18 PM EDT [facility] MPV 8.7(L) 8.8 - 12.5 fL LAB HEMATOLOGY METHOD 11/01/2024 1:18 PM EDT [facility] nRBC 0.0 <=0.0 per 100 WBCs LAB HEMATOLOGY METHOD 11/01/2024 1:18 PM EDT [facility] Differential Type Automated LAB HEMATOLOGY METHOD 11/01/2024 1:18 PM EDT [facility] Neutrophils % 58 % LAB HEMATOLOGY METHOD 11/01/2024 1:18 PM EDT [facility] Lymphocytes % 34 % LAB HEMATOLOGY METHOD 11/01/2024 1:18 PM EDT [facility] Monocytes % 5 % LAB HEMATOLOGY METHOD 11/01/2024 1:18 PM EDT [facility] Eosinophils % 2 % LAB HEMATOLOGY METHOD 11/01/2024 1:18 PM EDT [facility] Basophils % 1 % LAB HEMATOLOGY METHOD 11/01/2024 1:18 PM EDT [facility] Immature Granulocytes % 0 % LAB HEMATOLOGY METHOD 11/01/2024 1:18 PM EDT [facility] Neutrophils Absolute 3.88 1.60 - 6.10 10*3/uL LAB HEMATOLOGY METHOD 11/01/2024 1:18 PM EDT [facility] Lymphocytes Absolute 2.24 1.20 - 3.90 10*3/uL LAB HEMATOLOGY METHOD 11/01/2024 1:18 PM EDT [facility] Monocytes Absolute 0.31 0.30 - 0.90 10*3/uL LAB HEMATOLOGY METHOD 11/01/2024 1:18 PM EDT [facility] Eosinophils Absolute 0.16 0.00 - 0.50 10*3/uL LAB HEMATOLOGY METHOD 11/01/2024 1:18 PM EDT [facility] Basophils Absolute 0.08 0.00 - 0.10 10*3/uL LAB HEMATOLOGY METHOD 11/01/2024 1:18 PM EDT [facility] Immature Granulocytes Absolute 0.02 0.00 - 0.06 10*3/uL LAB HEMATOLOGY METHOD 11/01/2024 1:18 PM EDT [facility] Blood Venous blood specimen / Unknown Venipuncture / Unknown 11/01/2024 1:12 PM EDT 11/01/2024 1:16 PM EDT Narrative [facility] - 11/01/2024 1:18 PM EDT Therapeutic decision making should be based on absolute values, rather than percentages. us Oneil Blackmon MD LAB BLOOD ORDERABLES Final Re sult [facility] [address] [place] [address] * (ABNORMAL) Basic metabolic panel (11/01/2024 1:12 PM EDT) Only the most recent of4 resultswithin the time period is included. Glucose, Plasma 83 74 - 99 mg/dL 11/01/2024 1:34 PM EDT [facility] BUN, Plasma 17 8 - 23 mg/dL 11/01/2024 1:34 PM EDT [facility] Creatinine, Plasma 0.64 0.60 - 1.10 mg/dL 11/01/2024 1:34 PM EDT [facility] BUN/Creatinine Ratio 27 11/01/2024 1:34 PM EDT [facility] Sodium, Plasma 143 136 - 145 mmol/L 11/01/2024 1:34 PM EDT [facility] Potassium, Plasma 3.7 3.6 - 4.9 mmol/L 11/01/2024 1:34 PM EDT [facility] Chloride, Plasma 105 97 - 107 mmol/L 11/01/2024 1:34 PM EDT [facility] CO2, Plasma 25 22 - 29 mmol/L 11/01/2024 1:34 PM EDT [facility] Anion Gap 13 6 - 16 mmol/L 11/01/2024 1:34 PM EDT [facility] Total Calcium, Plasma 8.6(L) 8.9 - 10.2 mg/dL 11/01/2024 1:34 PM EDT [facility] eGFRcr 100.1 mL/min/1.7 3m*2 11/01/2024 1:34 PM EDT [facility] Comment:Reported eGFRcr in m L/min/1.73m2 is based the CKD-EPI 2020 equation that does not use a race coefficient. Blood Venous blood specimen / Unknown Venipuncture / Unknown 11/01/2024 1:12 PM EDT 11/01/2024 1:16 PM EDT Oneil Blackmon MD LAB BLOOD ORDERABLES Final Re sult [facility] [address] [place] [address] * POCT glucose meter (11/01/2024 11:28 AM EDT) Only the most recent of4 resultswithin the time period is included. POCT Glucose 91 74 - 99 mg/dL 11/01/2024 11:30 AM EDT [facility] Comment:Accuracy of a glucos e result obtained from a capillary whole blood specimen relies upon adequate, non-compromised capillary blood flow. If the capillary glucose result is not consistent with the patient's clinical signs and symptoms, glucose testing should be repeated with either an arterial or venous sample on the glucometer or sent to the main labortory for testing. Comment 11/01/2024 11:30 AM EDT [facility] [employer] Operations Vice President ID Solomon Brown 11/02/19 11:30 AM EDT [facility] Device ID [id number] 11/01/2024 11:30 AM EDT [facility] Specimen Type POC Capillary 11/01/2024 11:30 AM EDT [facility] Blood Capillary blood specimen / Unknown 11/01/2024 11:28 AM EDT 11/01/2024 11:30 AM EDT us Joaquin Cardona MD LAB POINT OF CARE TE ST DOCKED DEVICE UNSOLICITED RESULTS Final Result [facility] [address] [place] [address] * [place] Modified Barium Swallow (11/01/2024 9:08 AM EDT) Anatomical Region Laterality Modality Esophagus, stomach and duodenum Digital Radiography Impressions 11/01/2024 11:08 AM EDT No aspiration or laryngeal penetration with any tested consistency was observed within the study's limitations secondary to patient motion. Please see separate note by Speech therapy team for dietary recommendations. CRITICAL RESULT: No. COMMUNICATION: Per this written report. By electronically signing this report, I, the attending physician, attest that I have personally reviewed the images/data for the above examination(s) and agree with the final edited report. Drafted by SUZIE Rosenbaum RT (R) on 11/01/2024 10:36 AM Final report signed by Mike Shaffer MD on 11/01/2024 11:08 AM Narrative 11/01/2024 11:08 AM EDT CLINICAL INDICATION: Dysphagia TECHNIQUE: Modified barium swallow was performed utilizing video fluoroscopy in conjunction with the Speech Pathology team. The patient ingested barium media of varying consistencies. Fluoroscopy Time: 2.7 minutes. COMPARISON: None. FINDINGS: Swallowing: Severely limited examination secondary to patient motion. Thin consistency (IDDSI 0): Within the study's limitations, there is no aspiration or laryngeal penetration by teaspoon, cup, or straw. Pudding consistency (IDDSI 4): Within the limitations, there is no aspiration or laryngeal penetration. Soft cracker consistency (IDDSI 6): Within the limitations, there is no aspiration or laryngeal penetration. Other: Bilateral TMJ arthroplasty. ACDF C3-C4. Dental implants. Procedure Note Mike Shaffer MD - 11/01/2024 CLINICAL INDICATION: Dysphagia TECHNIQUE: Modified barium swallow was performed utilizing video fluoroscopy inconjunction with the Speech Pathology team. The patient ingested bariummedia of varying consistencies. Fluoroscopy Time: 2.7 minutes. COMPARISON: None. FINDINGS: Swallowing: Severely limited examination secondary to patient motion. Thin consistency (IDDSI 0): Within the study's limitations, there is noaspiration or laryngeal penetration by teaspoon, cup, or straw. Pudding consistency (IDDSI 4): Within the limitations, there is noaspiration or laryngeal penetration. Soft cracker consistency (IDDSI 6): Within the limitations, there is noaspiration or laryngeal penetration. Other: Bilateral TMJ arthroplasty. ACDF C3-C4. Dental implants. IMPRESSION: No aspiration or laryngeal penetration with any tested consistency wasobserved within the study's limitations secondary to patient motion. Please see separate note by Speech therapy team for dietaryrecommendations. CRITICAL RESULT: No. COMMUNICATION: Per this written report. By electronically signing this report, I, the attending physician, attestthat I have personally reviewed the images/data for the aboveexamination(s) and agree with the final edited report. Drafted by SUZIE Rosenbaum RT (R) on 11/01/2024 10:36 AM Final report signed by Mike Shaffer MD on 11/01/2024 11:08 AM Eduardo Casas MD IMG FLUOROSCOPY PROCEDURES Fi nal Result * Urine [place] Panel (10/31/2024 1:54 PM EDT) Extra Reflex urine culture not indicated 10/31/2024 11:01 PM EDT [facility] Comment: Previously prelim verified as Specimen evaluation in progress on 10/31/2024 at 1601 EDT. Previously prelim verified as Specimen evaluation in progress on 10/31/2024 at 1701 EDT. Previously prelim verified as Specimen evaluation in progress on 10/31/2024 at 1801 EDT. Previously prelim verified as Specimen evaluation in progress on 10/31/2024 at 1901 EDT. Previously prelim verified as Specimen evaluation in progress on 10/31/2024 at 2001 EDT. Previously prelim verified as Specimen evaluation in progress on 10/31/2024 at 2101 EDT. Previously prelim verified as Specimen evaluation in progress on 10/31/2024 at 2201 EDT. Urine Urine specimen obtained by clean catch procedure / Unknown Non-blood Collection / Unknown 10/31/2024 1:54 PM EDT 10/31/2024 2:18 PM EDT us Jacinto Reddy MD LAB URINE ORDERABLES Final Re sult [facility] [address] [place] [address] * (ABNORMAL) Urinalysis with reflex microscopic (Culture NOT Included) (10/31/2024 1:54 PM EDT) Color, Urine Yellow LAB URINALYSIS - AUTOMATED METHOD 10/31/2024 2:02 PM EDT [facility] Clarity, Urine Clear LAB URINALYSIS - AUTOMATED METHOD 10/31/2024 2:02 PM EDT [facility] Spec [place], Urine >1.030(H) 1.005 - 1.030 LAB URINALYSIS - AUTOMATED METHOD 10/31/2024 2:02 PM EDT [facility] pH, Urine 5.5 5.0 - 8.0 LAB URINALYSIS - AUTOMATED METHOD 10/31/2024 2:02 PM EDT [facility] Protein, Urine 30(A) Negative mg/dL LAB URINALYSIS - AUTOMATED METHOD 10/31/2024 2:02 PM EDT [facility] Glucose, Urine Negative Negative mg/dL LAB URINALYSIS - AUTOMATED METHOD 10/31/2024 2:02 PM EDT [facility] Ketones, Urine 40(A) Negative mg/dL LAB URINALYSIS - AUTOMATED METHOD 10/31/2024 2:02 PM EDT [facility] Blood, Urine Negative Negative LAB URINALYSIS - AUTOMATED METHOD 10/31/2024 2:02 PM EDT [facility] Bilirubin, Urine Negative Negative LAB URINALYSIS - AUTOMATED METHOD 10/31/2024 2:02 PM EDT [facility] Urobilinogen, Urine 1.0 0.2 to 1.0 mg/dL LAB URINALYSIS - AUTOMATED METHOD 10/31/2024 2:02 PM EDT [facility] Leukocytes, Urine Negative Negative LAB URINALYSIS - AUTOMATED METHOD 10/31/2024 2:02 PM EDT [facility] Nitrite, Urine Negative Negative LAB URINALYSIS - AUTOMATED METHOD 10/31/2024 2:02 PM EDT [facility] Urine Urine specimen obtained by clean catch procedure / Unknown Non-blood Collection / Unknown 10/31/2024 1:54 PM EDT 10/31/2024 1:59 PM EDT us Jacinto Reddy MD LAB URINE ORDERABLES Final Re sult [facility] [address] [place] [address] * (ABNORMAL) CBC W/O Differential (10/31/2024 6:52 AM EDT) Only the most recent of2 resultswithin the time period is included. WBC Count 9.27 3.70 - 10.30 10*3/uL LAB HEMATOLOGY METHOD 10/31/2024 7:05 AM EDT [facility] RBC Count 4.86 3.90 - 5.20 10*6/uL LAB HEMATOLOGY METHOD 10/31/2024 7:05 AM EDT [facility] HGB 13.6 11.2 - 15.7 g/dL LAB HEMATOLOGY METHOD 10/31/2024 7:05 AM EDT [facility] HCT 40.6 34.0 - 45.0 % LAB HEMATOLOGY METHOD 10/31/2024 7:05 AM EDT [facility] Platelet Count 431(H) 155 - 369 10*3/uL LAB HEMATOLOGY METHOD 10/31/2024 7:05 AM EDT [facility] MCV 84 79 - 98 fL LAB HEMATOLOGY METHOD 10/31/2024 7:05 AM EDT [facility] MCH 28.0 26.0 - 32.0 pg LAB HEMATOLOGY METHOD 10/31/2024 7:05 AM EDT [facility] MCHC 33.5 30.7 - 35.5 g/dL LAB HEMATOLOGY METHOD 10/31/2024 7:05 AM EDT [facility] RDW 12.9 11.5 - 14.5 % LAB HEMATOLOGY METHOD 10/31/2024 7:05 AM EDT [facility] MPV 9.0 8.8 - 12.5 fL LAB HEMATOLOGY METHOD 10/31/2024 7:05 AM EDT [facility] nRBC 0.0 <=0.0 per 100 WBCs LAB HEMATOLOGY METHOD 10/31/2024 7:05 AM EDT [facility] Blood Venous blood specimen / Unknown Venipuncture / Unknown 10/31/2024 6:52 AM EDT 10/31/2024 7:03 AM EDT us Jacinto Reddy MD LAB BLOOD ORDERABLES Final Re sult [facility] [address] [place] [address] * (ABNORMAL) Blood gas, venous (10/31/2024 6:52 AM EDT) pH, Venous 7.35 7.32 - 7.43 LAB HEMATOLOGY METHOD 10/31/2024 7:08 AM EDT [facility] pCO2, Venous 41 37 - 52 mmHg LAB HEMATOLOGY METHOD 10/31/2024 7:08 AM EDT [facility] pO2, Venous 39 25 - 40 mmHg LAB HEMATOLOGY METHOD 10/31/2024 7:08 AM EDT [facility] SO2, Measured, Venous 73 65 - 80 % LAB HEMATOLOGY METHOD 10/31/2024 7:08 AM EDT [facility] Base Excess, Venous -2.8(L) -2.0 - 3.0 mmol/L LAB HEMATOLOGY METHOD 10/31/2024 7:08 AM EDT [facility] Bicarbonate, Calculated, Venous 23 22 - 26 mmol/L LAB HEMATOLOGY METHOD 10/31/2024 7:08 AM EDT [facility] Hematocrit, Whole Blood 42.9 34.0 - 45.0 % LAB HEMATOLOGY METHOD 10/31/2024 7:08 AM EDT [facility] Sodium, Whole Blood 142 136 - 145 mmol/L LAB HEMATOLOGY METHOD 10/31/2024 7:08 AM EDT [facility] Potassium, Whole Blood 3.5(L) 3.6 - 4.9 mmol/L LAB HEMATOLOGY METHOD 10/31/2024 7:08 AM EDT [facility] Chloride, Whole Blood 104 97 - 107 mmol/L LAB HEMATOLOGY METHOD 10/31/2024 7:08 AM EDT [facility] Glucose, Whole Blood 137(H) 74 - 99 mg/dL LAB HEMATOLOGY METHOD 10/31/2024 7:08 AM EDT [facility] Lactate, Venous, Whole Blood 1.1 0.5 - 2.2 mmol/L LAB HEMATOLOGY METHOD 10/31/2024 7:08 AM EDT [facility] Ionized Calcium, Whole Blood 4.7 4.6 - 5.1 mg/dL LAB HEMATOLOGY METHOD 10/31/2024 7:08 AM EDT [facility] Blood Venous blood specimen / Unknown Venipuncture / Unknown 10/31/2024 6:52 AM EDT 10/31/2024 7:04 AM EDT us Jacinto Reddy MD LAB BLOOD ORDERABLES Final Re sult [facility] [address] [place] [address] * ECG Adult (10/31/2024 6:23 AM EDT) Only the most recent of3 resultswithin the time period is included. EKG DIAGNOSIS CLASS Abnormal MUSE ECG Ventricular Rate 130 BPM MUSE ECG Atrial Rate 130 BPM MUSE ECG OH Interval 140 ms MUSE ECG QRSD Interval 70 ms MUSE ECG QT Interval 306 ms MUSE ECG QTC Interval 450 ms MUSE ECG P Starlight 83 degrees MUSE ECG R Starlight 70 degrees MUSE ECG T Wave Starlight 77 degrees MUSE ECG Diagnosis Sinus tachycardia MUSE ECG Diagnosis T wave abnormality, consider inferolateral ischemia MUSE ECG Diagnosis Abnormal ECG MUSE ECG Diagnosis MUSE ECG Diagnosis Confirmed by Clyde Garcia ([id number]) on 10/31/2024 11:28:10 AM MUSE ECG 10/31/2024 6:23 AM EDT 10/31/2024 11:28 AM EDT us Jacinto Reddy MD ECG ORDERABLES Final Result Performing Organization Address City/[facility] Co de Phone Number MUSE ECG * Troponin T, High Sensitivity, 2 Hour, Plasma (10/31/2024 5:33 AM EDT) Only the most recent of2 resultswithin the time period is included. Troponin T, High Sensitivity, 2 Hour 7 <14 ng/L 10/31/2024 6:23 AM EDT [facility] Blood Venous blood specimen / Unknown Venipuncture / Unknown 10/31/2024 5:33 AM EDT 10/31/2024 5:54 AM EDT us Jacinto Reddy MD LAB BLOOD ORDERABLES Final Re sult Performing Organization Address [facility] de Phone Number [facility] [address] [place] [address] * Troponin T, High Sensitivity, 0 Hour Plasma, Reflex to 2 Hour (10/31/2024 3:26 AM EDT) Only the most recent of2 resultswithin the time period is included. Troponin T, High Sensitivity, 0 Hour 9 <14 ng/L 10/31/2024 4:17 AM EDT [facility] Blood Venous blood specimen / Unknown Venipuncture / Unknown 10/31/2024 3:26 AM EDT 10/31/2024 3:50 AM EDT Jacinto Reddy MD LAB BLOOD ORDERABLES Final Re sult Performing Organization Address [facility] Co de Phone Number [facility] [address] [place] [address] * Group A Streptococcus by PCR (10/31/2024 1:37 AM EDT) Group A Streptococcus PCR Result Not Detected Not Detected 10/31/2024 3:37 AM EDT [facility] Swab Oral swab / Unknown Non-blood Collection / Unknown 10/31/2024 1:37 AM EDT 10/31/2024 3:08 AM EDT us Ulisses Negron MD LAB MICROBIOLOGY - GENERAL O RDERABLES Final Result Performing Organization Address [facility]/ZIP Co de Phone Number [facility] [address] [place] [address] * Streptococcus Culture (10/31/2024 1:37 AM EDT) [facility] Culture Reading Strep A No Streptococcus pyogenes or Streptococcus dysgalactiae isolated 11/01/2024 11:26 AM EDT [facility] Swab Oral swab / Unknown Non-blood Collection / Unknown 10/31/2024 1:37 AM EDT 10/31/2024 3:08 AM EDT Ulisses Negron MD LAB MICROBIOLOGY - GENERAL O RDERABLES Final Result Performing Organization Address City/[facility] Co de Phone Number [facility] [address] [place] [address] * SARS-CoV-2, Flu A, Flu B, and RSV - Rapid (10/30/2024 9:22 PM EDT) [facility] SARS CoV-2/COVID-19 RNA PCR Result Not Detected Not Detected 10/30/2024 10:20 PM EDT [facility] Influenza A Virus PCR Result Not Detected Not Detected 10/30/2024 10:20 PM EDT [facility] Influenza B Virus PCR Result Not Detected Not Detected 10/30/2024 10:20 PM EDT [facility] Respiratory Syncytial Virus (RSV) PCR Result Not Detected Not Detected 10/30/2024 10:20 PM EDT [facility] Swab Nasopharyngeal structure / Unknown Non-blood Collection / Unknown 10/30/2024 9:22 PM EDT 10/30/2024 9:31 PM EDT Narrative [facility] - 10/30/2024 10:20 PM EDT This test is FDA approved for use with nasopharyngeal specimens in Viral Transport Media (VTM). This test is used for clinical purposes. It should not be regarded as investigational or for research. This laboratory is certified under the Clinical Laboratory improvement Amendments of 1988 (CLIA-88 as qualified to perform high complexity clinical laboratory testing. This test was performed on the Xpert Xpress SARS CoV-2 Plus assay test, a PCR- based method. Negative results should be considered presumptive and do not preclude current or future infection obtained through community transmission or other exposures. Negative results must be considered in the context of an individual's recent exposures, history, presence of clinical signs and symptoms consistent with COVID-19. us Harleen Oliveira MD LAB MICROBIOLOGY - GENERAL ORDE [facility] Final Result [facility] [address] [place] [address] * CT Angio Pulmonary Embolism (10/30/2024 8:21 PM EDT) Anatomical Region Laterality Modality Chest Computed Tomogra phy Impressions 10/30/2024 9:13 PM EDT No pulmonary embolism. Scattered areas of nonspecific groundglass opacification in the right upper and middle lobes could be secondary to infectious or inflammatory process. CRITICAL RESULT: No. COMMUNICATION: Per this written report. By electronically signing this report, I, the attending physician, attest that I have personally reviewed the images/data for the above examination(s) and agree with the final edited report. Drafted by Dyllan Griffin MD on 10/30/2024 8:36 PM Final report signed by Nandini Trejo MD on 10/30/2024 9:13 PM Narrative 10/30/2024 9:13 PM EDT CLINICAL INDICATION: Pulmonary embolism (PE) suspected, high prob TECHNIQUE: Imaging of the chest was performed from thoracic inlet through upper abdomen, using spiral technique, following administration of IV contrast, Omnipaque 350, 100 mL per the pulmonary angiogram protocol. In addition, 3D images were created and reviewed. TOTAL DLP (Dose-Length Product): 1001.30 mGy.cm. Please note: The reported value represents the total of one or more individual components during the CT acquisition on this date and at this time, and as such, the same value may appear in more than one CT report depending on the interpreting/reporting physicians. COMPARISON: Outside CT of the chest from 03/24/2023 FINDINGS: Pulmonary Arteries/Vessels: No pulmonary embolism. Right Heart Strain: No evidence of right heart strain. Pleural/Pericardial space: No pneumothorax. No pleural effusions. No pericardial effusion. Lymph Nodes: No lymphadenopathy within the chest. Lungs: The central airways are patent. There are scattered areas of groundglass opacification in the right upper and middle lobe. Minimal bibasilar atelectasis. No suspicious pulmonary nodule.. Mediastinum: Calcifications of the aortic valve. Atherosclerotic calcifications of the aortic arch and descending aorta. Chest wall: No chest wall hematoma or contusion. Please see CT soft tissue neck for evaluation of the cervical soft tissue findings. Bones: C3-4 ACDF with disc spacers at C3-4, C4-5, and C5-6. Diffuse osteopenia. No acute fracture. Upper Abdomen: No evidence of acute process within the partially visualized upper abdomen. Procedure Note Nandini Trejo MD - 10/30/2024 CLINICAL INDICATION: Pulmonary embolism (PE) suspected, high prob TECHNIQUE: Imaging of the chest was performed from thoracic inlet through upperabdomen, using spiral technique, following administration of IV contrast,Omnipaque 350, 100 mL per the pulmonary angiogram protocol. In addition,3D images were created and reviewed. TOTAL DLP (Dose-Length Product): 1001.30 mGy.cm. Please note: The reportedvalue represents the total of one or more individual components during theCT acquisition on this date and at this time, and as such, the same valuemay appear in more than one CT report depending on theinterpreting/reporting physicians. COMPARISON: Outside CT of the chest from 03/24/2023 FINDINGS: Pulmonary Arteries/Vessels: No pulmonary embolism. Right Heart Strain: No evidence of right heart strain. Pleural/Pericardial space: No pneumothorax. No pleural effusions. Nopericardial effusion. Lymph Nodes: No lymphadenopathy within the chest. Lungs: The central airways are patent. There are scattered areas ofgroundglass opacification in the right upper and middle lobe. Minimalbibasilar atelectasis. No suspicious pulmonary nodule.. Mediastinum: Calcifications of the aortic valve. Atheroscleroticcalcifications of the aortic arch and descending aorta. Chest wall: No chest wall hematoma or contusion. Please see CT soft tissueneck for evaluation of the cervical soft tissue findings. Bones: C3-4 ACDF with disc spacers at C3-4, C4-5, and C5-6. Diffuseosteopenia. No acute fracture. Upper Abdomen: No evidence of acute process within the partiallyvisualized upper abdomen. IMPRESSION: No pulmonary embolism. Scattered areas of nonspecific groundglass opacification in the rightupper and middle lobes could be secondary to infectious or inflammatoryprocess. CRITICAL RESULT: No. COMMUNICATION: Per this written report. By electronically signing this report, I, the attending physician, attestthat I have personally reviewed the images/data for the aboveexamination(s) and agree with the final edited report. Drafted by Dyllan Griffin MD on 10/30/2024 8:36 PM Final report signed by Nandini Trejo MD on 10/30/2024 9:13 PM us Rogerio Marino MD IMG CT PROCEDURES Final Result * CT Soft Tissue Neck w IV Contrast (10/30/2024 8:21 PM EDT) Anatomical Region Laterality Modality Neck Computed Tomogra phy Impressions 10/30/2024 9:07 PM EDT 1. Suboptimal examination secondary to significant metallic streak artifact from dental implants and TMJ replacement hardware. 2. Status post C3-4 ACDF and multilevel discectomy and disc spacer placement. Mild prevertebral soft tissue thickening may be related to recent surgery. 3. Soft tissue edema arising from the inferior aspect of the right sublingual gland and extending into the anterolateral right neck, which may be related to recent surgical procedure. 4. Hyperattenuating opacification of the right maxillary sinus, which could represent fungal sinusitis. Overlying osseous thickening suggesting chronicity. CRITICAL RESULT: No. COMMUNICATION: Per this written report. By electronically signing this report, I, the attending physician, attest that I have personally reviewed the images/data for the above examination(s) and agree with the final edited report. Drafted by Dyllan Griffin MD on 10/30/2024 8:44 PM Final report signed by Warren Frey MD on 10/30/2024 9:07 PM Narrative 10/30/2024 9:07 PM EDT CLINICAL INDICATION: oral swelling, dysphagia TECHNIQUE: Helical images were obtained through the neck, and reconstructed in the axial plane on bone and soft tissue algorithm at multiple slice thicknesses. Coronal and sagittal reformatted images were created. 100 mL of Omnipaque 300 were administered intravenously. Total DLP (Dose-Length Product): 1001.30 mGy.cm. Please note: The reported value represents the total of one or more individual components during the CT acquisition on this date and at this time, and as such, the same value may appear in more than one CT report depending on the interpreting/reporting physicians. COMPARISON: CT cervical spine from 02/15/2022 FINDINGS: Diagnostic Quality: Significant metallic streak artifact from dental implants and a TMJ replacement hardware overlies the oropharynx. Soft Tissues: No masses are present within the soft tissues of the neck. Mild soft tissue stranding along the right anterolateral neck is nonspecific and may be related to recent surgery. No organized fluid collection. Lymph Nodes: Within the limitations of the significant metallic streak artifact, there are no pathologically enlarged or suspicious cervical lymph nodes. Pharynx/Larynx: No definite pharyngeal or laryngeal masses are present. The pharynx and larynx appear patent without significant stenosis. No appreciable retropharyngeal collection. No thickening of the epiglottis. Oral Cavity: Evaluation of the oral cavity is severely limited due to the metallic streak artifact. No suspicious masses arising from the floor of the oral cavity. Parapharyngeal Space: Evaluation of the parapharyngeal space is severely limited due to the metallic streak artifact. Within these limitations, there is no obvious mass within the parapharyngeal space. Salivary Glands: The parotid and submandibular glands are normal in size without definite focal lesions.Mild edema along the inferior aspect of the right sublingual gland and extending into the right anterolateral neck as described above. Thyroid: No focal thyroid lesions are present, within the limitations of the study. Orbits/Paranasal Sinuses/Skull Base/Posterior Fossa: No orbital masses are present within the visualized portions of the orbits. Status post bilateral lens surgery. Near-complete opacification of the right maxillary sinus with heterogenous hyperdense internal contents. Mild opacification of the partially visualized left frontal sinus. Within the skull base, there is no focal lesion or destructive process. No abnormality is identified within the posterior fossa. Bones/Spine: Status post C3-4 ACDF with C3-4, C4-5, and C5-6 discectomy and disc spacer placement. Minimal prevertebral thickening, which may be related to recent surgery. Diffuse osteopenia. No acute fracture. No suspicious lytic or sclerotic osseous lesion. Degenerative endplate changes are present at C6-7. Overall mild multilevel facet arthropathy. Thoracic Inlet and Lung Apices: Please see the separate report for the chest CT scan for further discussion of intrathoracic findings. Other Findings: Vasculature patent. Procedure Note Warren Frey MD - 10/30/2024 CLINICAL INDICATION: oral swelling, dysphagia TECHNIQUE: Helical images were obtained through the neck, and reconstructed in theaxial plane on bone and soft tissue algorithm at multiple slicethicknesses. Coronal and sagittal reformatted images were created. 100 mLof Omnipaque 300 were administered intravenously. Total DLP (Dose-Length Product): 1001.30 mGy.cm. Please note: The reportedvalue represents the total of one or more individual components during theCT acquisition on this date and at this time, and as such, the same valuemay appear in more than one CT report depending on theinterpreting/reporting physicians. COMPARISON: CT cervical spine from 02/15/2022 FINDINGS: Diagnostic Quality: Significant metallic streak artifact from dentalimplants and a TMJ replacement hardware overlies the oropharynx. Soft Tissues: No masses are present within the soft tissues of the neck.Mild soft tissue stranding along the right anterolateral neck isnonspecific and may be related to recent surgery. No organized fluidcollection. Lymph Nodes: Within the limitations of the significant metallic streakartifact, there are no pathologically enlarged or suspicious cervicallymph nodes. Pharynx/Larynx: No definite pharyngeal or laryngeal masses are present.The pharynx and larynx appear patent without significant stenosis. Noappreciable retropharyngeal collection. No thickening of the epiglottis. Oral Cavity: Evaluation of the oral cavity is severely limited due to themetallic streak artifact. No suspicious masses arising from the floor ofthe oral cavity. Parapharyngeal Space: Evaluation of the parapharyngeal space is severelylimited due to the metallic streak artifact. Within these limitations,there is no obvious mass within the parapharyngeal space. Salivary Glands: The parotid and submandibular glands are normal in sizewithout definite focal lesions.Mild edema along the inferior aspect of theright sublingual gland and extending into the right anterolateral neck asdescribed above. Thyroid: No focal thyroid lesions are present, within the limitations ofthe study. Orbits/Paranasal Sinuses/Skull Base/Posterior Fossa: No orbital masses arepresent within the visualized portions of the orbits. Status postbilateral lens surgery. Near-complete opacification of the right maxillarysinus with heterogenous hyperdense internal contents. Mild opacificationof the partially visualized left frontal sinus. Within the skull base,there is no focal lesion or destructive process. No abnormality isidentified within the posterior fossa. Bones/Spine: Status post C3-4 ACDF with C3-4, C4-5, and C5-6 discectomyand disc spacer placement. Minimal prevertebral thickening, which may berelated to recent surgery. Diffuse osteopenia. No acute fracture. Nosuspicious lytic or sclerotic osseous lesion. Degenerative endplatechanges are present at C6-7. Overall mild multilevel facet arthropathy. Thoracic Inlet and Lung Apices: Please see the separate report for thechest CT scan for further discussion of intrathoracic findings. Other Findings: Vasculature patent. IMPRESSION: 1. Suboptimal examination secondary to significant metallic streakartifact from dental implants and TMJ replacement hardware. 2. Status post C3-4 ACDF and multilevel discectomy and disc spacerplacement. Mild prevertebral soft tissue thickening may be related torecent surgery. 3. Soft tissue edema arising from the inferior aspect of the rightsublingual gland and extending into the anterolateral right neck, whichmay be related to recent surgical procedure. 4. Hyperattenuating opacification of the right maxillary sinus, whichcould represent fungal sinusitis. Overlying osseous thickening suggestingchronicity. CRITICAL RESULT: No. COMMUNICATION: Per this written report. By electronically signing this report, I, the attending physician, attestthat I have personally reviewed the images/data for the aboveexamination(s) and agree with the final edited report. Drafted by Dyllan Griffin MD on 10/30/2024 8:44 PM Final report signed by Warren Frey MD on 10/30/2024 9:07 PM Masoud Rodas MD IMG CT PROCEDURES Final Result * XR Chest 1 View (10/30/2024 7:36 PM EDT) Anatomical Region Laterality Modality Chest Digital Radiogra phy Impressions 10/30/2024 7:38 PM EDT No acute findings. CRITICAL RESULT: No. COMMUNICATION: Per this written report. Drafted by Warren Frey MD on 10/30/2024 7:37 PM Final report signed by Warren Frey MD on 10/30/2024 7:38 PM Narrative 10/30/2024 7:38 PM EDT CLINICAL INDICATION: cp TECHNIQUE: XR CHEST 1 VIEW COMPARISON: Chest x-rays from 02/16/2020, 09/25/2020. FINDINGS: Stable cardiac size, and similar appearance of cardiac and mediastinal contours. No consolidation, effusion, or pneumothorax. No free subdiaphragmatic gas. No acute osseous findings. Procedure Note Warren Frey MD - 10/30/2024 CLINICAL INDICATION: cp TECHNIQUE: XR CHEST 1 VIEW COMPARISON: Chest x-rays from 02/16/2020, 09/25/2020. FINDINGS: Stable cardiac size, and similar appearance of cardiac and mediastinalcontours. No consolidation, effusion, or pneumothorax. No freesubdiaphragmatic gas. No acute osseous findings. IMPRESSION: No acute findings. CRITICAL RESULT: No. COMMUNICATION: Per this written report. Drafted by Warren Frey MD on 10/30/2024 7:37 PM Final report signed by Warren Frey MD on 10/30/2024 7:38 PM Masoud Rodas MD IMG XR PROCEDURES Final Result * ED HIV 1/2 Antibody/Antigen Screen w/Reflex to HIV 1/2 Differentiation (10/30/2024 6:38 PM EDT) HIV 1 & 2 Antibody/Antigen Screen Non Reactive Non Reactive 10/30/2024 7:54 PM EDT [facility] Comment:Screening for HIV 1 & 2 antibodies, and P24 antigen is NONREACTIVE. No confirmatory testing is required. Blood Venous blood specimen / Unknown Venipuncture / Unknown 10/30/2024 6:38 PM EDT 10/30/2024 7:09 PM EDT Rogerio Marino MD LAB BLOOD ORDERABLES Final Res ult Performing Organization Address [facility] Co de Phone Number [facility] [address] [place] [address] * Hepatitis C Antibody - ED (10/30/2024 6:38 PM EDT) Pathologist [facility] Hepatitis C Antibody Negative Negative 10/30/2024 7:54 PM EDT [facility] Blood Venous blood specimen / Unknown Venipuncture / Unknown 10/30/2024 6:38 PM EDT 10/30/2024 7:09 PM EDT Rogerio Marino MD LAB BLOOD ORDERABLES Final Res ult Performing Organization Address [facility] [place] [address] * C-reactive protein (10/30/2024 6:38 PM EDT) [facility] CRP, Plasma 3.3 <=8.0 mg/L 10/31/2024 2:49 AM EDT [facility] Blood Venous blood specimen / Unknown Venipuncture / Unknown 10/30/2024 6:38 PM EDT 10/30/2024 6:45 PM EDT Narrative [facility] - 10/31/2024 2:49 AM EDT This CRP test is appropriate for assessment of infection, systemic inflammation and/or tissue injury. To assess cardiovascular disease risk order high sensitivity CRP (CRPH). us Ulisses Negron MD LAB BLOOD ORDERABLES Final R esult Performing Organization Address [facility] [place] [address] * XR Cervical Spine Complete 4 To 5 Views (10/30/2024 2:01 PM EDT) Anatomical Region Laterality Modality Spine, C-spine Digital Radiogra phy Impressions 10/30/2024 2:58 PM EDT Redemonstration of C3-C4 ACDF with interbody fusion from C3-C4 through C5-C6 in unchanged alignment with no evidence of hardware loosening or failure. CRITICAL RESULT: No. COMMUNICATION: Per this written report. By electronically signing this report, I, the attending physician, attest that I have personally reviewed the images/data for the above examination(s) and agree with the final edited report. Drafted by Angel Girard MD on 10/30/2024 2:21 PM Final report signed by Ant Pierre on 10/30/2024 2:58 PM Narrative 10/30/2024 2:58 PM EDT CLINICAL INDICATION: fusion TECHNIQUE: XR CERVICAL SPINE COMPLETE 4 TO 5 VIEWS COMPARISON: Cervical spine radiographs 10/12/2024 FINDINGS: No acute fracture. C3-C4 ACDF with interbody fusion from C3-C4 through C5-C6. No evidence of hardware failure or loosening. Straightening of cervical spine. Mild anterior osteophytosis at the inferior cervical spine. Uncovertebral hypertrophy throughout the cervical spine. Mild facet hypertrophy most notable in the mid cervical spine. Bilateral TMJ arthroplasty. Visualized portions of the lung apices are clear. No soft tissue abnormality. Procedure Note Ant Pierre MD - 10/30/2024 CLINICAL INDICATION: fusion TECHNIQUE: XR CERVICAL SPINE COMPLETE 4 TO 5 VIEWS COMPARISON: Cervical spine radiographs 10/12/2024 FINDINGS: No acute fracture. C3-C4 ACDF with interbody fusion from C3-C4 throughC5-C6. No evidence of hardware failure or loosening. Straightening ofcervical spine. Mild anterior osteophytosis at the inferior cervicalspine. Uncovertebral hypertrophy throughout the cervical spine. Mild facethypertrophy most notable in the mid cervical spine. Bilateral TMJarthroplasty. Visualized portions of the lung apices are clear. No softtissue abnormality. IMPRESSION: Redemonstration of C3-C4 ACDF with interbody fusion from C3-C4 throughC5-C6 in unchanged alignment with no evidence of hardware loosening orfailure. CRITICAL RESULT: No. COMMUNICATION: Per this written report. By electronically signing this report, I, the attending physician, attestthat I have personally reviewed the images/data for the aboveexamination(s) and agree with the final edited report. Drafted by Angel Girard MD on 10/30/2024 2:21 PM Final report signed by Ant Pierre on 10/30/2024 2:58 PM us Andra Matos EDITOR MAP IMG XR PROCEDURES Final Resu lt * XR Cervical Spine 2 Views (10/12/2024 5:10 PM EST) Anatomical Region Laterality Modality Spine, C-spine Computed Radiogr aphy Impressions 10/13/2024 8:29 AM EDT Postsurgical changes as above described, without obvious hardware complications. CRITICAL RESULT: No. COMMUNICATION: Per this written report. Drafted by Ba Ruiz MD on 10/13/2024 8:26 AM Final report signed by Ba Ruiz MD on 10/13/2024 8:29 AM Narrative 10/13/2024 8:29 AM EDT CLINICAL INDICATION: Cervical Discectomy / Fusion TECHNIQUE: XR CERVICAL SPINE 2 OR 3 VIEWS COMPARISON: August 09, 2024 FINDINGS: There has be interval ACDF and disc spacer placement at C3-C4. No obvious hardware complications. There is expected postoperative soft tissue air and fluid. A surgical drain is in place. Interval removal of the anterior plate at C4-C6. Redemonstration of interbody fusion at C4-C5 and C5-C6. Unchanged alignment and multilevel degenerative changes in the cervical spine. The rest of the findings findings are grossly unchanged because of the bilateral TMJ arthroplasty. Procedure Note Ba Mcpherson MD - 10/13/2024 CLINICAL INDICATION: Cervical Discectomy / Fusion TECHNIQUE: XR CERVICAL SPINE 2 OR 3 VIEWS COMPARISON: August 09, 2024 FINDINGS: There has be interval ACDF and disc spacer placement at C3-C4. No obvioushardware complications. There is expected postoperative soft tissue airand fluid. A surgical drain is in place. Interval removal of the anterior plate at C4-C6. Redemonstration of interbody fusion at C4-C5 and C5-C6. Unchanged alignment and multilevel degenerative changes in the cervicalspine. The rest of the findings findings are grossly unchanged because of thebilateral TMJ arthroplasty. IMPRESSION: Postsurgical changes as above described, without obvious hardwarecomplications. CRITICAL RESULT: No. COMMUNICATION: Per this written report. Drafted by Ba Ruiz MD on 10/13/2024 8:26 AM Final report signed by Ba Ruiz MD on 58:29 AM Oneil Blackmon MD IMG XR PROCEDURES Final Resul t * FL Less than 1 Hour Intraoperative (10/12/2024 12:52 PM EST) Narrative IMAGING - 10/12/2024 12:52 PM EST Images were obtained for surgical purposes. See Oneil Blackmon's surgical note in the patient's chart for the findings. Oneil Blackmon MD IMG FLUOROSCOPY PROCEDURES Fi nal Result Performing Organization Address City/[facility]/ZIP Co de Phone Number IMAGING * Routine Culture and Gram Stain (10/12/2024 11:53 AM EST) Culture No growth at day 4 10/15/2024 9:57 AM EDT [facility] Foreign Body Topography unknown / Unknown 10/12/2024 11:53 AM EST 10/12/2024 1:30 PM EST Comment:Pre-op diagnosis: Cervical myelopathy (CMS/HCC) [G95.9] Result [facility] Oneil Blackmon MD LAB MICROBIOLOGY - GENERAL OR DERABLES Final Result [facility] [address] [place] [address] * Peripheral IV (10/12/2024 11:31 AM EST) Narrative You Burk MD - 10/12/2024 11:31 AM EST You Burk MD 10/12/2024 11:42 AM Peripheral IV Placement Needle size: 20 G Location: forearm Site prep: alcohol Technique: anatomical landmarks Attempts: 1 us You Burk MD ANESTHESIA ORDERABLES Final Re sult * OH AN ELECTIVE ENDOTRACHEAL AIRWAY, PB ANESTHESIA PLACEHOLDER (10/12/2024 10:52 AM EST) Narrative You Burk MD - 10/12/2024 10:52 AM EST Yuo Burk MD 10/12/2024 11:42 AM Airway Date/Time: 10/12/2024 10:52 AM Urgency: elective Airway not difficult General Information and Staff Patient location during procedure: OR Anesthesiologist: You Burk MD Resident: Stefano Kerr MD Performed: Resident Indications and Patient Condition Indications for airway management: anesthesia Spontaneous Ventilation: absent Preoxygenated: yes Patient position: sniffing Mask difficulty assessment: 2 - vent by mask + OA or adjuvant +/- NMBA Final Airway Details Final airway type: endotracheal airway Successful airway: ETT Cuffed: yes Successful intubation technique: flexible bronchoscopy Endotracheal tube insertion site: oral ETT size (mm): 7.0 Placement verified by: bronchoscopy and capnometry Measured from: lips ETT to lips (cm): 22 Number of attempts at approach: 1 Additional Comments Atraumatic. No change to dentition. Easy mask with OPA and FOB intubation us You Burk MD ANESTHESIA ORDERABLES Final Re sult * NM MYOCARDIAL SPECT REGADENOSON STRESS (MULTI STUDY) (10/10/2024 3:18 PM EST) Target HR 134 bpm MUSE MPHR 158 bpm MUSE Resting HR 89 bpm MUSE Baseline Systolic BP 151 MUSE Baseline Diastolic BP 81 MUSE Pharma PK HR 101 bpm MUSE Pharmacologic Peak BP Systolic 115 mmHg MUSE Pharmacologic Peak BP Diastolic 77 mmHg MUSE Anatomical Region Laterality Modality Nuclear Medicine Narrative 10/10/2024 5:00 PM EST Combined ECG/SPECT: This is a normal nuclear stress test. Stress ECG: No ischemic ST segment changes occurred with stress. Perfusion: SPECT images demonstrate normal myocardial perfusion. Function: Normal left ventricular cavity size. Gated SPECT images demonstrate normal systolic function. Regional wall motion is normal. LV wall thickening appears concordantly normal. LVEF: 80%. There is no previous examination/report available for comparison or correlation. Technical Details A one-day protocol was followed. 6.5 mCi of Tc-99m sestamibi were injected intravenously at rest. After a waiting period of 45-60 minutes, SPECT imaging of the heart was performed in the sitting upright position with three-dimensional tomographic reconstructions. 0.4 mg of regadenoson was infused over 10-12 seconds followed by 20.2 mCi of Tc-99m sestamibi injected intravenously. After a waiting period of 60-90 minutes, post-stress SPECT imaging of the heart was performed in the sitting upright and supine positions with three-dimensional tomographic reconstructions. Gated SPECT data were obtained to calculate left ventricular volumes and ejection fraction post-stress. Motion correction was not applied to the rest and/or post-stress acquisitions. Stress Findings A pharmacological stress test was performed. The pharmacologic test was performed using regadenoson. The patient started with a baseline heart rate of 89bpm, and increased to 101bpm with stress pharmacologic agent. The patient's baseline blood pressure was 151/81, and changed to 115/77 with stress medication. The patient's BP decreased during the pharmacologic stress. The patient experienced level 5 out of 10 atypical chest pain. Patient described as tightness. The patient experienced no other symptoms during the stress test. The patient reached the end of the planned protocol. Stress ECG Baseline ECG: The baseline ECG shows normal sinus rhythm and normal axis. Baseline ECG shows no ST segment deviation. Stress and Recovery ECG: No ischemic ST segment changes occurred. There were no arrhythmias during stress. There were no arrhythmias during recovery. ECG Conclusion: No ischemic ST segment changes occurred with stress. The stress test was performed under direct supervision of the reading run boat operator. Study Impression There is no significant patient motion noted. The SPECT images demonstrate a normal left ventricular cavity size with an estimated left ventricular end-diastolic volume of 49 mL (normal: <149 mL for males, < 102 mL for females, small: <45 mL). There is no stress-induced transient ischemic dilation (TID) of the left ventricular cavity. SPECT images demonstrate normal myocardial perfusion. There is no perfusion defect located in the myocardium. There is regular cardiac rhythm with optimal gating. The gated SPECT images demonstrate normal systolic function. Regional wall motion is normal. LV wall thickening appears concordantly normal. The calculated post- stress LVEF is 80%. Nuclear Conclusion Combined ECG/SPECT: This is a normal nuclear stress test. There is no previous examination/report available for comparison or correlation. us Cylde Garcia MD CV STRESS PROCEDURES Final Res ult * ECHO, ADULT TRANSTHORACIC COMPLETE (10/10/2024 2:54 PM EST) [facility] BSA 1.69 m2 NAYANA ISCV Height 154.9 NAYANA ISCV Weight 69.9 NAYANA ISCV TR Vmax 211.0 cm/s NAYANA ISCV TR Max PG 18 mmHG NAYANA ISCV Asc Ao Diam 22 mm NAYANA ISCV Ao Root Diam 26 mm NAYANA ISCV PA acc time 110 msec NAYANA ISCV mean PAP 30 mmHg NAYANA ISCV PA OH(ACCEL) 28.3 mmHg NAYANA ISCV PA acc slope 540.0 cm/s2 NAYANA ISCV LVIDd 38 mm NAYANA ISCV IVSd 10 mm NAYANA ISCV LVPWd 10 mm NAYANA ISCV LV MASS(C)D 116 g NAYANA ISCV LV RWT 0.53 mm NAYANA ISCV LVIDs 27 mm NAYANA ISCV LA dimension 26 mm NAYANA ISCV LAV(MOD-4ch) 35 mL NAYANA ISCV RA MOD 4Ch 25 mL NAYANA ISCV JOSE ARMANDO 15 mL/m2 NAYANA ISCV RV base 30 mm NAYANA ISCV RV Mid 24 mm NAYANA ISCV LV EDV(MOD-4ch) 55 mL NAYANA ISCV LV ESV(MOD4ch) 17 mL NAYANA ISCV EF(MOD-sp4) 69 % NAYANA ISCV MV E Vmax 47.6 cm/s NAYANA ISCV MV A Vmax 64.8 cm/s NAYANA ISCV MV E/A 0.7 cm/s NAYANA ISCV LV Lat e' Velocity 6.9 cm/s NAYANA ISCV Lat E/e' 6.9 NAYANA ISCV LV Sept e' Danny 6.4 cm/s NAYANA ISCV Sep E/e' 7.4 NAYANA ISCV Avg E/e' 7.2 NAYANA ISCV TAPSE 20 mm NAYANA ISCV RV s' Danny 9.8 cm/s NAYANA ISCV LAV(MOD-bp) Indexed 18 mL/m2 NAYANA ISCV LAV(MOD-2ch) 27 mL NAYANA ISCV LV EDV(MOD-2ch) 59 mL NAYANA ISCV EDV(MOD-bp) 57 mL NAYANA ISCV LV ESV(MOD2ch) 21 mL NAYANA ISCV EF(MOD-sp2) 64 % NAYANA ISCV ESV(MOD-bp) 19 mL NAYANA ISCV EF(MOD-bp) 67 % NAYANA ISCV LVLs ap2 6.2 mm NAYANA ISCV RVSP 21 mmHg NAYANA ISCV RAP systole 3 mmHg NAYANA ISCV Anatomical Region Laterality Modality Echocardiography Narrative 10/10/2024 3:36 PM EST Left Ventricle: Based on the linear dimension and/or 2D volumes, the left ventricle is normal in size. There is normal left ventricular myocardial thickness and mass. The left ventricular systolic function is normal. The LVEF as measured by biplane volume is 67%. The left ventricular filling pressure is normal. Right Ventricle: The right ventricle is normal in size. The right ventricular systolic function is normal. Valves: No significant valvular stenosis or regurgitation. Pericardium: There is a trace pericardial effusion. There is no echocardiographic evidence of cardiac tamponade. There is no recent study available for direct [id number] comparison. Left Ventricle Based on the linear dimension and/or 2D volumes, the left ventricle is normal in size. There is normal left ventricular myocardial thickness and mass. The left ventricular systolic function is normal. The LVEF as measured by biplane volume is 67%. The left ventricular filling pressure is normal. No regional wall motion abnormalities are seen. The septal motion is most consistent with a conduction abnormality. Right Ventricle The right ventricle is normal in size. The right ventricular systolic function is normal. Right ventricular systolic pressure is normal (<35mmHg). Left Atrium The left atrial size is normal with an indexed volume of 16-34 mL/m2. The interatrial septum is intact with no evidence for an atrial septal defect. Right Atrium The right atrial volume index is small (<18mL/m2). IVC/SVC Based on the IVC size and respiratory variation, the estimated right atrial pressure is 3mmHg. Mitral Valve There is mild mitral annular calcification. There is trace mitral regurgitation. There is no mitral stenosis. Tricuspid Valve The tricuspid valve is normal in appearance. There is trace tricuspid regurgitation. There is no tricuspid stenosis. Aortic Valve There is aortic annular calcification present. There is no valvular regurgitation. There is no hemodynamically significant valvular aortic stenosis. Pulmonic Valve The pulmonic valve was not well visualized. There is trace pulmonic regurgitation. There is no pulmonic stenosis. Pericardium There is a trace pericardial effusion. There is no echocardiographic evidence of cardiac tamponade. Great Vessels The aortic root is normal in size. The sinus of Valsalva (aortic root) diameter is 26 mm by leading edge to leading edge method. In the maximally visualized portion, the ascending aorta appears normal in size. The main pulmonary artery is normal in size. Study Details A complete transthoracic echocardiogram using two-dimensional (2D), m-mode, color and spectral flow Doppler imaging was performed. During the study the apical, parasternal, subcostal and suprasternal view was captured. The study was technically difficult due to patient's body habitus. Height: 154.9 cm. Weight: 69.9 kg. BSA: 1.69 m2. Study Recommendation There is no recent study available for direct wlaz-xl-vbde comparison. us Clyde Garcia MD CV ECHO PROCEDURES Final Resul t from Last 3 Months Insurance [facility] Advance Directives * Full Code (Latest Code Status on File) Date Activated Date Inactivated Comments 10/31/2024 1:17 AM 11/01/2024 4:18 PM * Full Code Date Activated Date Inactivated Comments 03/14/2022 12:00 PM 03/15/2022 5:21 PM Question Answer Comments Patient has decision-making capacity? Yes Care Teams [employer] Maintenance Worker Relationship Specialty Start Date End Date Kristy Sanchez, EDITOR MAP [address] [place] [address] PCP - General 10/31/24 Andra Matos, EDITOR MAP [address] [place] [address] Nurse Practitioner Neurosurgery 07/16/21 Oneil Blackmon MD [address] [place] [address] Surgeon Neurosurgery 08/18/21 Andra Matos, EDITOR MAP [address] [place] [address] Nurse Practitioner Neurosurgery 10/12/21 Shania Parikh DDS [address] [place] [address] Dentist Dentist 06/10/22 Aldo Pickens, DMD [address] [place] [address] Dentist 06/10/22
--- OUTSIDE RECORDS SUMMARY | 2025-01-10 15:27 | XMS_ITS | Encounter Summary ---
Author Organization [facility] Address [address] [place] [address] Care Team Providers Care Hall Tender Name Role Phone Andra Matos DIRECT MARKETING EXECUTIVE Unavailable [phone] Oneil Blackmon MD Unavailable [phone] Andra Matos DIRECT MARKETING EXECUTIVE Unavailable [phone] Shania Parikh DDS Unavailable + Aldo Pickens DMD Unavailable [phone] Kristy Sanhcez DIRECT MARKETING EXECUTIVE Primary Care Provider [phone] Encounter Details Date Type Department Care Team (Latest Contact Info) Description 11/21/2024 Travel Social History Tobacco Use Types Packs/Day Years [...] How often do you attend chur or cheondoism services? Never 10/31/2024 Do you belong to any clubs o r organizations such as sikh groups, unions, fraternal or athletic groups, or [...] Recorded Patient Health Questionnaire-2 Score 0 10/31/2024 [facility] of Occupat ional [facility] - Occupational Stress Questionnaire Answer Date Recorded [...] were you homeless or living in a jail (including now)? No 10/31/2024 CAGE ASSESSMENT Answer [...] drink first t kisha in the morning (EYE-WAIST PRESSER) to steady your nerves or to get [...] Visit [place] [facility] [address], [address] [place] [address] Oneil Blackmon MD [address] [place] [address] 03/19/2025 1:15 PM EDT Office Visit [facility] [place] [address] [facility], [address] [place] [address] Gustavo Rodriguez, DO [address] [place] [address] documented as of this encounter [...] documented as of this encounter Care Teams Hall Tender Relationship Specialty Start Date End Date Kristy Sanchez APRN [address] [place] [address] PCP - General 10/31/24 Andra Matos APRN [address] [place] [address] Nurse Practitioner Neurosurgery 07/16/21 Oneil Blackmon MD [address] [place] [address] Surgeon Neurosurgery 08/18/21 Andra Matos APRN [address] [place] [address] Nurse Practitioner Neurosurgery 10/12/21 Shania Parikh DDS [address] [place] [address] Dentist Dentist 06/10/22 Aldo Pickens DMD [address] [place] [address] Dentist 06/10/22 documented as of this encounter
--- OUTSIDE RECORDS SUMMARY | 2025-01-10 15:27 | XMS_ITS | Encounter Summary ---
Author Organization [facility] Address [address] [place] [address] Care Team Providers Care Certified Physical Therapist Assistant Name Role Phone Andra Matos AUTO BODY REPAIR TECHNICIAN Unavailable Oneil Blackmon MD Unavailable [phone] Andra Matos AUTO BODY REPAIR TECHNICIAN Unavailable [phone] Shania Parikh DDS Unavailable + Aldo Pickens DMD Unavailable [phone] Kristy Sanchez AUTO BODY REPAIR TECHNICIAN Primary Care Provider [phone] Encounter Details Date Type Department Care Team (Late st Contact Info) Description 01/03/2025 Orders Only [place] [facility] [address], [address] [place] [address] Andra Matos, AUTO BODY REPAIR TECHNICIAN [address] [place] [address] S/P cervical spinal fusion (Primary Dx) Social History Tobacco Use Types Packs/Day Years [...] often do you attend chur ch or sikhism services? Never 10/31/2024 Do you belong to any clubs o r organizations such as oriental orthodox groups, unions, fraternal or athletic groups, or [...] Recorded Patient Health Questionnaire-2 Score 0 10/31/2024 [facility] of Occupat ional Health - Occupational Stress [...] any time in the past 12 m [facility], were you homeless or living in a usp (including now)? No 10/31/2024 CAGE ASSESSMENT Answer [...] drink first t kisha in the morning (EYE-BITUMASTIC APPLIER) to steady your nerves or to get rid of a hangover? 0 10/30/2024 CAGE Questionnaire Score 0 025 Utilities Answer Date Recorded In the past 12 months has th e electric, gas, oil, or water [employer] threatened to shut off services in your [...] Visit [place] [facility] [address], [address] [place] [address] Oneil Blackmon MD [address] [place] [address] 03/19/2025 1:15 PM EDT Office Visit [facility] [place] [address] [facility], [address] [place] [address] Gustavo Rodriguez H, DO [address] [place] [address] Scheduled Orders Name Type Priority Associated Diagnoses Orde r Schedule XR Cervical Spine 2 or 3 Views Imaging Routine S/P cervical spinal fusion Expected: 02/03/2025 (Approximate), Expires: 07/06/2026 documented as of this encounter Visit Diagnoses Diagnosis S/P cervical spinal fusion- Primary Arthrodesis status documented in this encounter Additional Health Concerns Assessment Noted Time PHQ-9 Depression Total Score: 2 11/01/19 25 1:01 PM EDT A fall risk assessment has been complete d for the patient 10/30/2024 2:57 PM EDT A Body Mass Index follow-up plan has been documented for the patient 11/19/2024 2:00 PM EDT documented as of this encounter Care Teams Certified Physical Therapist Assistant Relationship Specialty Start Date End Date Kristy Sanchez APRN [address] [place] [address] PCP - General 10/31/24 Andra Matos APRN [address] [place] [address] Nurse Practitioner Neurosurgery 07/16/21 Oneil Blackmon MD [address] [place] [address] Surgeon Neurosurgery 08/18/21 Andra Matos APRN [address] [place] [address] Nurse Practitioner Neurosurgery 10/12/21 Shania Parikh DDS [address] [place] [address] Dentist Dentist 06/10/22 Aldo Pickens DMD [address] [place] [address] Dentist 06/10/22 documented as of this encounter
--- OUTSIDE RECORDS SUMMARY | 2025-01-10 15:27 | XMS_ITS | Encounter Summary ---
Author Organization [facility] Address [address] [place] [address] Care Team Providers Care Pega Developer Name Role Phone Andra Matos SPA ASSISTANT MANAGER Unavailable [phone] Oneil Blackmon MD Unavailable [phone] Andra Matos SPA ASSISTANT MANAGER Unavailable [phone] Shania Parikh DDS Unavailable + Aldo Pickens DMD Unavailable [phone] Kristy Sanchez SPA ASSISTANT MANAGER Primary Care Provider [phone] Encounter Details Date Type Department Care Team (Latest Contact Info) Description 11/16/2024 Travel Social History Tobacco Use Types Packs/Day [...] How often do you attend chur or tenriism services? Never 10/31/2024 Do you belong to any clubs o r organizations such as mormon groups, unions, fraternal or athletic groups, or [...] Recorded Patient Health Questionnaire-2 Score 0 10/31/[address] [facility] of Occupat ional [facility] - Occupational Stress Questionnaire Answer Date Recorded [...] any time in the past 12 m [facility], were you homeless or living in a assisted (including now)? No 10/31/2024 CAGE ASSESSMENT Answer [...] drink first t kisha in the morning (EYE-FILM RECORDIST) to steady your nerves or to get [...] Visit [place] [facility] [address] 1[address] [place] [address] Oneil Blackmon MD [address] [place] [address] 03/19/2025 1:15 PM EDT Office Visit [facility] [place] [address] [facility], [address] [place] [address] Gustavo Rodriguez, DO [address] [place] [address] documented as of this encounter [...] documented as of this encounter Care Teams Pega Developer Relationship Specialty Start Date End Date Kristy Sanchez APRN [address] [place] [address] PCP - General 10/31/24 Andra Matos APRN [address] [place] [address] Nurse Practitioner Neurosurgery 07/16/21 Oneil Blackmon MD [address] [place] [address] Surgeon Neurosurgery 08/18/21 Andra Matos APRN [address] [place] [address] Nurse Practitioner Neurosurgery 10/12/21 Shania Parikh DDS [address] [place] [address] Dentist Dentist 06/10/22 Aldo Pickens DMD [address] [place] [address] Dentist 06/10/22 documented as of this encounter
--- OUTSIDE RECORDS SUMMARY | 2025-01-10 15:27 | XMS_ITS | Encounter Summary ---
Author Organization [facility] Address [address] [place] [address] Care Team Providers Care Division Officer Weapons Department Name Role Phone Andra Matos CAR SEALER Unavailable [phone] Oneil Blackmon MD Unavailable [phone] Andra Matos CAR SEALER Unavailable Shania Parikh DDS Unavailable + Aldo Pickens DMD Unavailable [phone] Kristy Sanchez CAR SEALER Primary Care Provider [phone] Reason for Visit * Reason Comments Med Refill Encounter Details Date Type Department Care Team (Late st Contact Info) Description 12/16/2024 Refill [place] [facility] [address], 1[address] [place] [address] Andra Matos, CAR SEALER [address] [place] [address] Social History Tobacco Use Types [...] often do you attend chur ch or restorationism services? Never 10/31/2024 Do you belong to any clubs o r organizations such as cheondoism groups, unions, fraternal or athletic groups, or [...] Recorded Patient Health Questionnaire-2 Score 0 10/31/2024 [facility] [employer] of Occupat ional Health - Occupational Stress [...] any time in the past 12 m [facility], were you homeless or living in a halfway (including now)? No 10/31/2024 CAGE ASSESSMENT Answer [...] drink first t kisha in the morning (EYE-CHIEF LIBRARIAN BRANCH) to steady your nerves or to get rid of a hangover? 0 10/30/2024 CAGE Questionnaire Score 0 025 Utilities Answer Date Recorded In the past 12 months has th e electric, gas, oil, or water [employer] threatened to shut off services in your [...] Description 01/22/2025 2:00 PM EDT [facility] [address], [address] [place] [address] Oneil Blackmon MD [address] [place] [address] 03/19/2025 1:15 PM EDT Office Visit [facility] [employer] [place] [address] [facility], [address] [place] [address] Gustavo Rodriguez, DO [address] [place] [address] documented as of this encounter [...] documented as of this encounter Care Teams Division Officer Weapons Department Relationship Specialty Start Date End Date Kristy Sanchez APRN [address] [place] [address] PCP - General 10/31/24 Andra Matos APRN [address] [place] [address] Nurse Practitioner Neurosurgery 07/16/21 Oneil Blackmon MD [address] [place] [address] Surgeon Neurosurgery 08/18/21 Andra Matos APRN [address] [place] [address] Nurse Practitioner Neurosurgery 10/12/21 Shania Parikh DDS [address] [place] [address] Dentist Dentist 06/10/22 Aldo Pickens DMD [address] [place] [address] Dentist 06/10/22 documented as of this encounter
--- OUTSIDE RECORDS SUMMARY | 2025-01-10 15:27 | XMS_ITS | Encounter Summary ---
Author Organization [facility] Address [address] [place] [address] Care Team Providers Care Internal Combustion Engine Assembler Name Role Phone Andra Matos STEAM TENDER Unavailable [phone] Oneil Blackmon MD Unavailable [phone] Andra Matos STEAM TENDER Unavailable [phone] Shania Parikh DDS Unavailable + Aldo Pickens DMD Unavailable [phone] Pcp, No Primary Care Provider Unavailabl e Kristy Sanchez STEAM TENDER Primary Care Provider [phone] Encounter Details Date Type Department Care Team (Late st Contact Info) Description 10/14/2024 Telephone [facility] speech pathology supervisor [facility] [address] [place] [address] [address] [place] [address] Yessenia Estevez Social History Tobacco Use Types Packs/Day Years Used Date Smoking Tobacco: Never Smokeless Tobacco: Never Comments:Never used Alcohol Use Standard Drinks/Week Comments Yes 2 (1 standard drink = 0.6 oz pur e alcohol) Socially PHQ-2 Answer Date Recorded Patient Health Questionnaire-2 Score 0 04/03/2024 CAGE ASSESSMENT Answer Date Recorded Cage unable [...] drink first t kisha in the morning (EYE-COMPUTER TECHNICIAN) to steady your nerves or to get [...] Description 01/22/2025 2:00 PM EDT Office Visit [place] [facility] [address]st [place] [address] Oneil Blackmon MD [address] [place] [address] 03/19/2025 1:15 PM EDT Office Visit [facility] [place] [address] [facility], [address] [place] [address] Gustavo Rodriguez, DO [address] [place] [address] documented as of this encounter Visit Diagnoses Not on filedocumented in this encounter Additional Health Concerns Infection Onset Date Last Indicated Resolved Time COVID-19 Rule-Out 10/30/2024 10/30/2024 10/30/2024 10:20 PM EDT Assessment Noted Time A fall risk assessment has been complete d for the patient 09/30/2024 12:08 PM EST A Body Mass Index follow-up plan has been documented for the patient 09/30/2024 1:00 PM EST documented as of this encounter Care Teams Internal Combustion Engine Assembler Relationship Specialty Start Date End Date Pcp, No [address] [place] [address] PCP - General Family Medicine 10/30/24 10/30/24 Kristy Sanchez APRN [address] [place] [facility] [address] PCP - General 10/31/24 Andra Matos APRN [address] [place] [address] Nurse Practitioner Neurosurgery 07/16/21 Oneil Blackmon MD [address] [place] [address] Surgeon Neurosurgery 08/18/21 Andra Matos APRN [address] [place] [address] Nurse Practitioner Neurosurgery 10/12/21 Shania Parikh DDS [address] [place] [address] Dentist Dentist 06/10/22 Aldo Pickens DMD [address] [place] [address] Dentist 06/10/22 documented as of this encounter
--- OUTSIDE RECORDS SUMMARY | 2025-01-10 15:27 | XMS_ITS | Encounter Summary ---
Author Organization [facility] Address [address] [place] [address] Care Team Providers Care Information Assurance Analyst Name Role Phone Carlo Andra Neves WELL DIGGER Unavailable Oneil Blackmon MD Unavailable [phone] Andra Matos WELL DIGGER Unavailable Shania Parikh DDS Unavailable + Aldo Pickens DMD Unavailable [phone] Kristy Sanchez WELL DIGGER Primary Care Provider [phone] Encounter Details Date Type Department Care Team (Late st Contact Info) Description 11/26/[address] [facility] [address] [place] [address] Oneil Blackmon MD [address] [place] [address] Social History Tobacco Use Types [...] How often do you attend chur or episcopalian services? Never 10/31/2024 Do you belong to any clubs o r organizations such as catholic groups, unions, fraternal or athletic groups, or [...] Recorded Patient Health Questionnaire-2 Score 0 10/31/2024 [facility] of Occupat ional Health - Occupational Stress [...] any time in the past 12 m [facility], were you homeless or living in a mcc (including now)? No 10/31/2024 CAGE ASSESSMENT Answer [...] drink first t kisha in the morning (EYE-DUST OPERATOR) to steady your nerves or to get rid of a hangover? 0 10/30/2024 CAGE Questionnaire Score 0 025 Utilities Answer Date Recorded In the past 12 months has th e [employer], oil, or water [employer] threatened to shut off services in your home? No 10/31/2024 Comments No Sex and Gender Information Value Date Recorded Sex Assigned at Female 07/15/2021 9:31 AM EST Legal Sex Female 7:39 PM EDT Gender Identity Female 07/15/2021 9:31 AM EST Sexual Orientation Straight 07/15/2021 9: 31 AM EST documented as of this encounter Miscellaneous Notes * Telephone Encounter - Calvin Aden - 11/26/2024 3:42 PM EDT 11/26/2024 - Attempted to contact patient / call went to voicemail - Left message 6wk Post op follow up canceled per patient request & to avoid no-show cancellation on appointment record. Left message for patient to call in to reschedule when possible. * Telephone Encounter - Bibi Serrano - 11/26/2024 1:49 PM EDT Patient Phone Message Reason for Call: Pt calling to r/s appt for tomorrow. She is having car trouble. Please advise Best contact number and optimal time of day to reach caller: [phone]/pt Note: Please do not reply to this message. Follow-up communication and further actions as a result of this message need to be communicated with the patient directly, if the patient is not active onMyChart. If the patient is active on MyChart, they will receive notification of the communication/outcome via [employer]. documented in this encounter Plan of Treatment Upcoming Encounters Date Type Department Care Team (Late st Contact Info) Description 01/22/2025 2:00 PM EDT Office Visit [place] [facility] [address] [place] [address] Oneil Blackmon MD [address] [place] [address] 03/19/2025 1:15 PM EDT Office Visit [facility] [place] [address] [facility], [address] [place] [address] Gustavo Rodriguez, DO [address] [place] [address] documented as of this encounter [...] documented as of this encounter Care Teams Information Assurance Analyst Relationship Specialty Start Date End Date Kristy Sanchez APRN [address] [place] [address] PCP - General 10/31/24 Andra Matos APRN [address] [place] [address] Nurse Practitioner Neurosurgery 07/16/21 Oneil Blackmon MD [address] [place] [address] Surgeon Neurosurgery 08/18/21 Andra Matos APRN [address] [place] [address] Nurse Practitioner Neurosurgery 10/12/21 Shania Parikh DDS [address] [place] [address] Dentist Dentist 06/10/22 Aldo Pickens, DMD [address] [facility] [address] [place] [address] Dentist 06/10/22 documented as of this encounter
--- OUTSIDE RECORDS SUMMARY | 2025-01-10 15:27 | XMS_ITS | Encounter Summary ---
Author Organization [facility] Address [address] [place] [address] Care Team Providers Care Hose Suspender Cutter Name Role Phone Andra Matos PROCESSOR HELPER Unavailable [phone] Oneil Blackmon MD Unavailable [phone] Andra Matos PROCESSOR HELPER Unavailable [phone] Shania Parikh DDS Unavailable + Aldo Pickens DMD Unavailable [phone] Kristy Sanchez PROCESSOR HELPER Primary Care Provider [phone] Encounter Details Date Type Department Care Team (Latest Contact Info) Description 11/13/2024 Travel Social History Tobacco Use Types Packs/Day [...] How often do you attend chur or yarsanism services? Never 10/31/2024 Do you belong to any clubs o r organizations such as synagogue groups, unions, fraternal or athletic groups, or [...] Recorded Patient Health Questionnaire-2 Score 0 10/31/2024 [facility] of Occupat ional [facility] - Occupational Stress Questionnaire Answer Date Recorded [...] any time in the past 12 m [facility], were you homeless or living in a retirement (including now)? No 10/31/2024 CAGE ASSESSMENT Answer [...] drink first t kisha in the morning (EYE-OUTSIDE MAINTENANCE WORKER) to steady your nerves or to get [...] Visit [place] [facility] [address] [place] [address] Oneil Blackmon MD [address] [place] [address] 03/19/2025 1:15 PM EDT Office Visit [facility] [place] [address] [facility], [address] [place] [address] Gustavo Rodriguez, DO [address] [place] [address] documented as of this encounter [...] documented as of this encounter Care Teams Hose Suspender Cutter Relationship Specialty Start Date End Date Kristy Sanchez APRN [address] [place] [address] PCP - General 10/31/24 Andra Matos APRN [address] [place] [address] Nurse Practitioner Neurosurgery 07/16/21 Oneil Blackmon MD [address] [place] [address] Surgeon Neurosurgery 08/18/21 Andra Matos APRN [address] [place] [address] Nurse Practitioner Neurosurgery 10/12/21 Shania Parikh DDS [address] [place] [address] Dentist Dentist 06/10/22 Aldo Pickens DMD [address] [place] [address] Dentist 06/10/22 documented as of this encounter
[2025-01-10 15:31] VITALS: BP 129/85; PULSE 92; O2SAT 99
[2025-01-10] MEDS: KETOROLAC 30MG/ML VIAL 30 MG IM (15:59)
[2025-01-10 16:01] VITALS: BP 134/95; O2SAT 97
[2025-01-10 17:00] VITALS: BP 135/80; PULSE 80; O2SAT 98
[2025-01-10 17:44] VITALS: BP 150/82; PULSE 76; RESP 17; TEMP 37.1; O2SAT 100
== END 2025-01-10 17:45 | disposition home or self-care (01) ==
PROVIDERS: Emergency Provider Student in an Organized Health Care Education/Training Program; PCP Family Medicine
DX: S22.31XA Fracture of one rib, right side, initial encounter for closed fracture (principal); S20.211A Contusion of right front wall of thorax, initial encounter; R91.1 Solitary pulmonary nodule; W19.XXXA Unspecified fall, initial encounter
CPT/HCPCS: 71250; 96372; 99284; J1885

== ENCOUNTER 2025-02-01 10:45 | Inpatient (IN) | payer BC, SELFPAY ==
--- OUTSIDE RECORDS SUMMARY | 2025-01-22 13:26 | XMS_ITS | Encounter Summary ---
Author Organization Healthcare Address [address] [place] [address] Care Team Providers Care Behavioral Modification Assistant Name Role Phone Andar Matos PAINTINGS CONSERVATOR Unavailable [phone] Oneil Blackmon MD Unavailable [phone] Andra Matos PAINTINGS CONSERVATOR Unavailable [phone] Shania Parikh DDS Unavailable + Aldo Pickens DMD Unavailable [phone] Kristy Sanchez PAINTINGS CONSERVATOR Primary Care Provider [phone] Encounter Details Date Type Department Care Team (Latest Contact Info) Description 01/22/2025 1:26 PM EDT - 01/22/2025 11:59 PM EDT [facility] [address], [address] [place] [address] S/P cervical spinal fusion Discharge Disposition: Home or Self Care Social [...] How often do you attend chur or pentecostalism services? Never 10/31/2024 Do you belong to any clubs o r organizations such as restorationist groups, unions, fraternal or athletic groups, or [...] Recorded Patient Health Questionnaire-2 Score 0 10/31/2024 [facility] [place] of Occupat ional Health - Occupational Stress [...] any time in the past 12 m [facility], were you homeless or living in a custodial (including now)? No 10/31/2024 CAGE ASSESSMENT Answer [...] drink first t kisha in the morning (EYE-MARKETING DEVELOPER) to steady your nerves or to get [...] AM EST documented as of this encounter Medications at Time of Discharge acetaminophen (Tylenol) 325 MG tablet Take by mouth every 6 (six) hours if needed for mild pain. atorvastatin (Lipitor) 80 MG tablet Take 1 tablet (80 mg) by mouth daily. 09/16/2024 butalbital-acetam inophen-caffeine 50-325-40 MG tablet Take 1 tablet by mouth every 4 (four) hours as needed for headaches. 30 tablet 10/13/2024 cholecalciferol (Vitamin D-3) 25 MCG (1000 UT) capsule Take 1 capsule (1,000 Units) by mouth daily. 05/01/2023 citalopram (CeleXA) 20 MG tablet Take 1 tablet (20 mg) by mouth daily. cyclobenzaprine (Flexeril) 10 MG tablet TAKE 1 TABLET BY MOUTH THREE TIMES DAILY NEEDED FOR MUSCLE SPASM FOR UP TO 14 DAYS 42 tablet 01/17/2025 diazePAM (Valium) 2 MG tablet TAKE 1 TABLET BY MOUTH EVERY 6 HOURS NEEDED FOR SEVERE MUSCLE SPASM 20 tablet 01/17/2025 losartan (Cozaar) 50 MG tablet Take 1 tablet (50 mg) by mouth daily. 09/12/2024 methylPREDNISolon e (Medrol Dospak) 4 MG tablets Follow schedule [...] Take 60 mg by mouth daily. 06/05/2024 Repatha SureClick 140 MG/ML solution auto-injector autoinjector 01/22/2025 senna-docusate (Miriam-Colace) 8.6-50 MG tablet Take 2 tablets by mouth in the morning and 2 tablets before bedtime. 60 tablet 10/13/2024 ubrogepant (Ubrelvy) 100 MG tablet Take 1 tablet (100 mg) by mouth 1 (one) time as needed. 12/21/2023 documented as of this encounter Plan of Treatment Upcoming Encounters Date Type Department Care Team (Late st Contact Info) Description 03/19/2025 1:15 PM EDT Office Visit [facility] [place] [address], [address] [place] [address] Gustavo Rodriguez, DO [address] [place] [address] documented as of this encounter Procedures Procedure Name Priority Date/Time Associated Diagnosis Comments XR CERVICAL SPINE COMPLETE 4 TO 5 VIEWS Routine 01/22/2025 1:41 PM EDT S/P cervical spinal fusion documented in this encounter Results * XR Cervical Spine Complete 4 To 5 Views (01/22/2025 1:41 PM EDT) Anatomical Region Laterality Modality Spine, C-spine Digital Radiogra phy Impressions 01/22/2025 1:53 PM EDT No evidence of hardware complication. No evidence of dynamic instability. CRITICAL RESULT: No. COMMUNICATION: Per this written report. Drafted by Mary Chairez MD on 01/22/2025 1:48 PM Final report signed by Mary Chairez MD on 01/22/2025 1:53 PM Narrative 01/22/2025 1:53 PM EDT CLINICAL INDICATION: neck pain TECHNIQUE: XR CERVICAL SPINE COMPLETE 4 TO 5 VIEWS COMPARISON: Radiographs from 10/30/2024 FINDINGS: ACDF spanning C3-4 with interbody fusion from C3-4 through C5-6.. No evidence of hardware loosening or failure. Similar straight appearance of the cervical spine. No change in alignment with flexion or extension. Uncovertebral and facet joint hypertrophy greater in the mid cervical spine. Bilateral TMJ arthroplasty. Procedure Note Mary Chairez MD - 01/22/2025 CLINICAL INDICATION: neck pain TECHNIQUE: XR CERVICAL SPINE COMPLETE 4 TO 5 VIEWS COMPARISON: Radiographs from 10/30/2024 FINDINGS: ACDF spanning C3-4 with interbody fusion from C3-4 through C5-6.. Noevidence of hardware loosening or failure. Similar straight appearance ofthe cervical spine. No change in alignment with flexion or extension.Uncovertebral and facet joint hypertrophy greater in the mid cervicalspine. Bilateral TMJ arthroplasty. IMPRESSION: No evidence of hardware complication. No evidence of dynamicinstability. CRITICAL RESULT: No. COMMUNICATION: Per this written report. Drafted by Mary Chairez MD on 01/22/2025 1:48 PM Final report signed by Mary Chairez MD on 01/22/2025 1:53 PM Andra Matos APRN IMG XR PROCEDURES Final Resu lt documented in this encounter Visit Diagnoses Diagnosis S/P cervical spinal fusion Arthrodesis status documented in this encounter Additional Health Concerns Assessment Noted Time PHQ-9 Depression Total Score: 2 11/01/19 25 1:01 PM EDT A fall risk assessment has been complete d for the patient 01/22/2025 1:46 PM EDT A Body Mass Index follow-up plan has been documented for the patient 11/19/2024 2:00 PM EDT documented as of this encounter Care Teams Behavioral Modification Assistant Relationship Specialty Start Date End Date Kristy Sanchez APRN [address] [place] [address] PCP - General 10/31/24 Andra Matos APRN [address] [place] [phone] Nurse Practitioner Neurosurgery 07/16/21 Oneil Blackmon MD [address] [place] [address] Surgeon Neurosurgery 08/18/21 Andra Matos APRN [address] [place] [address] Nurse Practitioner Neurosurgery 10/12/21 Shania Parikh DDS [address] [place] [address] Dentist Dentist 06/10/22 Aldo Pickens DMD [address] [place] [address] Dentist 06/10/22 documented as of this encounter
--- OUTSIDE RECORDS SUMMARY | 2025-01-22 13:26 | XMS_ITS | Encounter Summary ---
Author Organization Healthcare Address [address] [place] [address] Care Team Providers Care Mineral Ore Processing Labourer Name Role Phone Andra Matos SUPERINTENDENT DIVISION Unavailable [phone] Oneil Blackmon MD Unavailable [phone] Andra Matos SUPERINTENDENT DIVISION Unavailable [phone] Shania Parikh DDS Unavailable + Aldo Pickens DMD Unavailable [phone] Kristy Sanchez SUPERINTENDENT DIVISION Primary Care Provider [phone] Encounter Details Date Type Department Care Team (Latest Contact Info) Description 01/22/2025 1:26 PM EDT - 01/22/2025 11:59 PM EDT Hospital Encounter [facility] [address], [address] [place] [address] S/P cervical spinal fusion Discharge Disposition: Home [...] How often do you attend chur or episcopal services? Never 10/31/2024 Do you belong to [...] Recorded Patient Health Questionnaire-2 Score 0 10/31/2024 [facility] [place] of Occupat ional Health - Occupational Stress [...] any time in the past 12 m [facility], were you homeless or living in a fpc (including now)? No 10/31/2024 CAGE ASSESSMENT Answer [...] drink first t kisha in the morning (EYE-ACUTE CARE SURGEON) to steady your nerves or to get [...] 1 tablet (20 mg) by mouth daily. diazePAM (Valium) 2 MG tablet TAKE 1 [...] nostril if symptoms continue 1 each 10/13/2024 polyethylene glycol (Miralax) 17 g packet [...] needed. 12/21/2023 cyclobenzaprine (Flexeril) 10 MG tablet TAKE 1 TABLET BY MOUTH THREE TIMES DAILY NEEDED FOR MUSCLE SPASM FOR UP TO 14 DAYS 42 tablet 01/17/2025 methylPREDNISolon e (Medrol Dospak) 4 MG tablets Follow schedule on package instructions 21 tablet 10/24/2024 oxyCODONE (Roxicodone) 5 MG immediate release tablet Take 1 tablet (5 mg) by mouth every 4 (four) hours as needed for moderate pain or severe pain. 55 tablet 10/13/2024 documented as of this encounter Plan of Treatment Upcoming Encounters Date Type Department Care Team (Late st Contact Info) Description 03/19/2025 1:15 PM EDT Office Visit [facility] [place] [address], [address] [place] [address] Gustavo Rodriguez, DO [address] [place] [address] documented as of this encounter [...] documented as of this encounter Care Teams Mineral Ore Processing Labourer Relationship Specialty Start Date End Date Kristy Sanchez APRN [address] [place] [address] PCP - General 10/31/24 Andra Matos APRN [address] [place] [address] Nurse Practitioner Neurosurgery 07/16/21 Oneil Blackmon MD [address] [place] [address] Surgeon Neurosurgery 08/18/21 Andra Matos APRN [address] [place] [address] Nurse Practitioner Neurosurgery 10/12/21 Shania Parikh DDS [address] [place] [address] Dentist Dentist 06/10/22 Aldo Pickens DMD [address] [place] [address] Dentist 06/10/22 documented as of this encounter
--- OUTSIDE RECORDS SUMMARY | 2025-01-22 14:00 | XMS_ITS | Encounter Summary ---
Author Organization [facility] Address [address] [place] [address] Care Team Providers Care Route Clerk Name Role Phone Carlo Andra Edinson STRATEGIC MANAGER Unavailable [phone] Oneil Blackmon MD Unavailable [phone] Andra Matos STRATEGIC MANAGER Unavailable [phone] Shania Parihk DDS Unavailable + Aldo Pickens DMD Unavailable [phone] Kristy Sanchez STRATEGIC MANAGER Primary Care Provider [phone] Reason for Referral * Imaging (Routine) - Authorized Specialty Diagnoses / Procedures Referred By Contac t Referred To Contact Diagnoses Lumbar radiculopathy Status post lumbar spinal arthrodesis Procedures MR Lumbar Spine wo IV Contrast Oneil Blackmon MD [address] [place] [address] Phone: tel: fax: Referral ID Status Reason Start Date Expiration Date V isits Requested Visits Authorized [id number] Authorized 01/22/2025 07/24/2026 1 1 Encounter Details Date Type Department Care Team (Late st Contact Info) Description 01/22/2025 2:00 PM EDT Office Visit [place] [facility] [address], [address] [place] [address] Oneil Blackmon MD [address] [place] [address] S/P cervical spinal fusion (Primary Dx); Lumbar radiculopathy; Status post lumbar spinal arthrodesis Social History Tobacco Use Types Packs/Day Years [...] How often do you attend chur or zoroastrian services? Never 10/31/2024 Do you belong to any clubs o r organizations such as mosque groups, unions, fraternal or athletic groups, or [...] Recorded Patient Health Questionnaire-2 Score 0 10/31/2024 [facility] of Occupat ional Health - Occupational Stress [...] any time in the past 12 m [facility], were you homeless or living in [...] drink first t kisha in the morning (EYE-TEACHER DANCING) to steady your nerves or to get [...] Sign Reading Time Taken Comments Blood Pressure 104/56 01/22/2025 1:43 PM EDT Pulse - - Temperature - - Respiratory Rate - - Oxygen Saturation - - Inhaled Oxygen Concentration - - Weight 70.1 kg (154 lb 8.7 oz) 01/22/2025 1:43 P M EDT Height 154.9 cm (5' 1 ) 01/22/2025 1:43 PM EDT Body Mass Index 29.2 01/22/2025 1:43 PM EDT documented in this encounter Plan of Treatment Upcoming Encounters Date Type Department Care Team (Late st Contact Info) Description 03/19/2025 1:15 PM EDT Office Visit [facility] [place] [address] [place] [address] Gustavo Rodriguez, DO [address] [place] [address] Scheduled Orders Name Type Priority Associated Diagnoses Orde r Schedule MR Lumbar Spine wo IV Contrast Imaging Routine Lumbar radiculopathy Status post lumbar spinal arthrodesis Expected: 01/22/2025 (Approximate), Expires: 07/26/2026 documented as of this encounter Results * XR Cervical Spine [...] S/P cervical spinal fusion- Primary Arthrodesis status Lumbar radiculopathy Thoracic or lumbosacral neuritis or radiculitis, unspecified Status post lumbar spinal arthrodesis S/P cervical spinal fusion Arthrodesis status documented in this encounter Additional Health Concerns Assessment Noted Time PHQ-9 Depression Total Score: 2 11/01/19 1:01 PM EDT A fall risk assessment has been complete d for the patient 01/22/2025 1:46 PM EDT A Body Mass Index follow-up plan has been documented for the patient 11/19/2024 2:00 PM EDT documented as of this encounter Care Teams Route Clerk Relationship Specialty Start Date End Date Kristy Sanchez APRN [address] [place] [address] PCP - General 10/31/24 Andra Matos APRN [address] [place] [address] Nurse Practitioner Neurosurgery 07/16/21 Oneil Blackmon MD [address] [place] [address] Surgeon Neurosurgery 08/18/21 Andra Matos APRN [address] [place] [address] Nurse Practitioner Neurosurgery 10/12/21 Shania Parikh DDS [address] [place] [address] Dentist Dentist 06/10/22 Aldo Pickens DMD [address] [place] [address] Dentist 06/10/22 documented as of this encounter
--- OUTSIDE RECORDS SUMMARY | 2025-01-22 14:00 | XMS_ITS | Encounter Summary ---
Author Organization [facility] Address [address] [place] [address] Care Team Providers Care [employer] Hat Hydraulic Press Operator Name Role Phone Carlo Andra Edinson HOUSE SUPERINTENDENT Unavailable [phone] Oneil Blackmon MD Unavailable [phone] Andra Matos HOUSE SUPERINTENDENT Unavailable [phone] Shania Parikh DDS Unavailable + Aldo Pickens DMD Unavailable [phone] Kristy Sanchez HOUSE SUPERINTENDENT Primary Care Provider [phone] Reason for Referral * Imaging (Routine) - Authorized Specialty Diagnoses / Procedures Referred By Contac t Referred To Contact Diagnoses Lumbar radiculopathy Status post lumbar spinal arthrodesis Procedures MR Lumbar Spine wo IV Contrast Oneil Blackmon MD [address] [place] [address] Phone: tel: fax: Referral ID Status Reason Start Date Expiration Date V isits Requested Visits Authorized [id number] Authorized 01/22/2025 07/24/2026 1 1 Encounter Details Date Type Department Care Team (Late st Contact Info) Description 01/22/2025 2:00 PM EDT Office Visit [place] [facility] [address] [place] [address] Oneil Blackmon MD [address] [place] [address] S/P cervical spinal fusion (Primary [...] often do you attend chur ch or worship services? Never 10/31/2024 Do you belong to any clubs o r organizations such as adventism groups, unions, fraternal or athletic groups, or [...] Recorded Patient Health Questionnaire-2 Score 0 10/31/2024 [facility] - Occupational Stress [...] time in the past 12 m [facility], were you homeless or living in [...] Have you had a drink first t iksha in the morning (EYE-AERIAL TRAM OPERATOR) to steady your nerves or to [...] requested to obtain this imaging study in [place]. We have placed an order for her to obtain her MRI. She compromised to call our clinic once her lumbar MRI is complete, we will set up her appointment at that point. Akil Terrell MD Resident Physician, PGY-1 Department of Neurosurgery [facility] Cosigned by Oneil Blackmon MD at 02/01/2025 [...] Description 03/19/2025 1:15 PM EDT Office Visit [facility] [place] [address] [facility], [address] [place] [id number] Gustavo Rodriguez, DO [address] [place] [address] [id number] Scheduled Orders Name Type Priority Associated Diagnoses [...] documented as of this encounter Care Teams [employer] Hydraulic Press Operator Relationship Specialty Start Date End Date Kristy Sanchez APRN [address] [place] [address] PCP - General 10/31/24 Andra Matos APRN [address] [place] [address] Nurse Practitioner Neurosurgery 07/16/21 Oneil Blackmon MD [address] [place] [address] Surgeon Neurosurgery 08/18/21 Andra Matos APRN [address] [place] [address] Nurse Practitioner Neurosurgery 10/12/21 Shania Parikh DDS [address] [place] [address] Dentist Dentist 06/10/22 Aldo Pickens DMD [address] [place] [address] Dentist 06/10/22 documented as of this encounter
[2025-02-01] VITALS (16 sets, daily range): BP systolic 115–159; BP diastolic 54–101; PULSE 77–111; RESP 7–20; TEMP 36.4–37.1; O2SAT 96–100; BMI 28.7; BMI 29.0
--- NOTE | 2025-02-01 10:53 | ECG_ITS ---
APPROVED REPORT Exam: Resting ECG HR:106 bpm ECG Measurements Heart Rate 106 AXES DE 144 P 77 QRSd 84 QRS 49 QT 331 T 54 QTc 393 Conclusion SINUS TACHYCARDIA ABNORMAL RHYTHM ECG No STEMI Electronically signed by : CHRISTOPH FARLEY, 02/04/2025 02:28:09
--- NOTE | 2025-02-01 10:56 | PC.NURSE ---
finger stick glucose 134
--- NOTE | 2025-02-01 11:00 | CT_ITS ---
PROCEDURE INFORMATION: Exam: CT Head Without Contrast Exam date and time: 02/01/2025 11:20 AM Age: 64 years old Clinical indication: Injury or trauma; Additional info: Trauma, critical injury suspected TECHNIQUE: Imaging protocol: Computed tomography of the head without contrast. Radiation optimization: All CT scans at this facility use at least one of these dose optimization techniques: automated exposure control; mA and/or kV adjustment per patient size (includes targeted exams where dose is matched to clinical indication); or iterative reconstruction. COMPARISON: MR HEAD/BRAIN WO/W CON 07/03/2024 1:10 PM FINDINGS: Brain: Mild chronic microvascular ischemic changes are noted in the periventricular areas. Cerebral ventricles: No ventriculomegaly. Paranasal sinuses: Moderate mucosal thickening involving the right maxillary sinus. Sclerosis of the right maxillary sinus wall likely represents chronic sinusitis. Mastoid air cells: Visualized mastoid air cells are well aerated. Bones: Evaluation of the skull base is limited due to artifact. Soft tissues: Unremarkable. IMPRESSION: No acute findings. Mild chronic microvascular ischemic changes in the periventricular areas. Moderate mucosal thickening involving the right maxillary sinus. Sclerosis of the right maxillary sinus wall likely represents chronic sinusitis.
--- NOTE | 2025-02-01 11:00 | CT_ITS ---
PROCEDURE INFORMATION: Exam: CTA Head With Contrast, Arteriography Exam date and time: 02/01/2025 11:30 AM Age: 64 years old Clinical indication: Injury or trauma; Additional info: Trauma, critical injury suspected TECHNIQUE: Imaging protocol: Computed tomographic angiography of the head with contrast. Exam focused on the arteries. 3D rendering (Not supervised by radiologist): MIP and/or 3D reconstructed images were created by the technologist. Radiation optimization: All CT scans at this facility use at least one of these dose optimization techniques: automated exposure control; mA and/or kV adjustment per patient size (includes targeted exams where dose is matched to clinical indication); or iterative reconstruction. Contrast material: ISOVUE; Contrast volume: 80 ml; Contrast route: INTRAVENOUS (IV); COMPARISON: CT HEAD/BRAIN WO CON 02/01/2025 11:20 AM FINDINGS: ANTERIOR CIRCULATION: Right internal carotid artery: Intracranial segment is patent with no significant stenosis. No aneurysm. Right middle cerebral artery: No occlusion or significant stenosis. No aneurysm. Right anterior cerebral artery: No occlusion or significant stenosis. No aneurysm. Left internal carotid artery: Intracranial segment is patent with no significant stenosis. No aneurysm. Left middle cerebral artery: No occlusion or significant stenosis. No aneurysm. Left anterior cerebral artery: No occlusion or significant stenosis. No aneurysm. POSTERIOR CIRCULATION: Right vertebral artery: No occlusion or significant stenosis. No aneurysm. Left vertebral artery: No occlusion or significant stenosis. No aneurysm. Basilar artery: No occlusion or significant stenosis. No aneurysm. Right posterior cerebral artery: No occlusion or significant stenosis. No aneurysm. Left posterior cerebral artery: No occlusion or significant stenosis. No aneurysm. Brain: To be discussed in the CT brain report. C3 dislocated distal ventricles: No ventriculomegaly. Bones/joints: Please see the cervical spine for findings in that portion of the body. Soft tissues: Unremarkable. IMPRESSION: No evidence of an acute arterial abnormality/injury. Moderate stenosis proximal left subclavian artery.
--- NOTE | 2025-02-01 11:00 | CT_ITS ---
PROCEDURE INFORMATION: Exam: CTA Chest With Contrast Exam date and time: 02/01/2025 11:33 AM Age: 64 years old Clinical indication: Injury or trauma; Additional info: Trauma, critical injury suspected TECHNIQUE: Imaging protocol: Computed tomographic angiography of the chest with contrast. Exam focused on the arteries. 3D rendering (Not supervised by radiologist): MIP and/or 3D reconstructed images were created by the technologist. Radiation optimization: All CT scans at this facility use at least one of these dose optimization techniques: automated exposure control; mA and/or kV adjustment per patient size (includes targeted exams where dose is matched to clinical indication); or iterative reconstruction. Contrast material: ISOVUE; Contrast volume: 80 ml; Contrast route: INTRAVENOUS (IV); COMPARISON: CT ANGIO CHEST PE PROTOCOL 03/24/2023 5:22 PM FINDINGS: Pulmonary arteries: Normal. No pulmonary emboli. Aorta: Unremarkable. No aortic aneurysm. No aortic dissection. Lungs: Unremarkable. No consolidation. No masses. Pleural spaces: Unremarkable. No pneumothorax. No pleural effusion. Heart: Unremarkable. No cardiomegaly. No pericardial effusion. Lymph nodes: Unremarkable. No enlarged lymph nodes. Bones/joints: Fracture deformity of the right posterior 9th and 12th ribs. Fracture deformity of the T4 and T5 vertebral bodies Soft tissues: Unremarkable. IMPRESSION: 1. No intrathoracic abnormality. 2. Fracture deformity of the right posterior 9th and 12th ribs. Mild superior endplate deformities of T4 and T5
--- NOTE | 2025-02-01 11:00 | CT_ITS ---
PROCEDURE INFORMATION: Exam: CT Cervical Spine Without Contrast Exam date and time: 02/01/2025 11:22 AM Age: 64 years old Clinical indication: Injury or trauma; Additional info: Trauma, critical injury suspected TECHNIQUE: Imaging protocol: Computed tomography of the cervical spine without contrast. Radiation optimization: All CT scans at this facility use at least one of these dose optimization techniques: automated exposure control; mA and/or kV adjustment per patient size (includes targeted exams where dose is matched to clinical indication); or iterative reconstruction. COMPARISON: MR CERVICAL SPINE WO CON 08/27/2024 3:49 PM FINDINGS: Bones/joints: No acute fracture. Normal alignment. No significant disc bulge or herniation. No severe spinal canal stenosis. Multilevel neural foraminal narrowing. Postsurgical changes are seen involving C3-C4, C4-C5 and C5-C6. Lungs: Lung apices are normal. Soft tissues: Unremarkable. IMPRESSION: No acute findings. Postsurgical changes involving C3-C4, C4-C5 and C5-C6.
--- NOTE | 2025-02-01 11:00 | XR_ITS ---
PROCEDURE INFORMATION: Exam: XR Chest Exam date and time: 02/01/2025 11:02 AM Age: 64 years old Clinical indication: Injury or trauma; Other: Thrown off a horse; Other: Pain TECHNIQUE: Imaging protocol: Radiologic exam of the chest. Views: 1 view. COMPARISON: CT CHEST WO CON 01/10/2025 3:40 PM FINDINGS: Lungs: Unremarkable. No consolidation. Pleural spaces: Unremarkable. No pleural effusion. No pneumothorax. Heart/Mediastinum: Unremarkable. No cardiomegaly. Bones/joints: Unremarkable. IMPRESSION: No acute findings.
--- NOTE | 2025-02-01 11:00 | XR_ITS ---
PROCEDURE INFORMATION: Exam: XR Pelvis Exam date and time: 02/01/2025 11:03 AM Age: 64 years old Clinical indication: Injury or trauma; Other: Thrown off a horse; Other: Pain TECHNIQUE: Imaging protocol: Radiologic exam of the pelvis. Views: 1 or 2 view. COMPARISON: US CA RENAL ARTERY DUPLEX 01/12/2024 8:54 AM FINDINGS: Bones/joints: Unremarkable. No acute fracture. Soft tissues: Unremarkable. IMPRESSION: No acute findings. MRI is recommended if continued hip pain is present.
--- NOTE | 2025-02-01 11:00 | CT_ITS ---
PROCEDURE INFORMATION: Exam: CT Thoracic Spine Without Contrast Exam date and time: 02/01/2025 11:23 AM Age: 64 years old Clinical indication: Injury or trauma; Other: Thrown off a horse; Additional info: Trauma, critical injury suspected TECHNIQUE: Imaging protocol: Computed tomography of the thoracic spine without contrast. Radiation optimization: All CT scans at this facility use at least one of these dose optimization techniques: automated exposure control; mA and/or kV adjustment per patient size (includes targeted exams where dose is matched to clinical indication); or iterative reconstruction. COMPARISON: CT CERVICAL SPINE WO CON 02/01/2025 11:22 AM FINDINGS: Bones/joints: Right posterior 12th rib fracture deformity. Fracture deformity of the right posterior 10th rib at the costovertebral junction Fracture deformity of the superior endplate of T4 and T5. No retropulsion into the spinal canal Soft tissues: Unremarkable. IMPRESSION: 1. Fracture deformity of the superior endplate of T4 and T5. No retropulsion into the spinal canal. No significant loss of height. 2. Fracture deformity of the right posterior 12th rib. Fracture deformity of the right posterior 10th rib at the costovertebral junction
--- NOTE | 2025-02-01 11:00 | CT_ITS ---
PROCEDURE INFORMATION: Exam: CTA Neck With Contrast Exam date and time: 02/01/2025 11:30 AM Age: 64 years old Clinical indication: Injury or trauma; Additional info: Trauma, critical injury suspected TECHNIQUE: Imaging protocol: Computed tomographic angiography of the neck with contrast. Exam focused on the cervical segments of the vasculature. 3D rendering (Not supervised by radiologist): MIP and/or 3D reconstructed images were created by the technologist. Radiation optimization: All CT scans at this facility use at least one of these dose optimization techniques: automated exposure control; mA and/or kV adjustment per patient size (includes targeted exams where dose is matched to clinical indication); or iterative reconstruction. Contrast material: ISOVUE; Contrast volume: 80 ml; Contrast route: INTRAVENOUS (IV); COMPARISON: CT CERVICAL SPINE WO CON 02/01/2025 11:22 AM FINDINGS: Right common carotid artery: No stenosis. No dissection or occlusion. Right internal carotid artery: No stenosis of the extracranial segment. No dissection or occlusion. Right external carotid artery: No occlusion or stenosis of the origin. Left common carotid artery: No stenosis. No dissection or occlusion. Left internal carotid artery: No stenosis of the extracranial segment. No dissection or occlusion. Left external carotid artery: No occlusion or stenosis of the origin. Right vertebral artery: No stenosis. No dissection or occlusion. Left vertebral artery: No stenosis. No dissection or occlusion. Left subclavian artery: 50-55% stenosis of the proximal left subclavian artery. Soft tissues: Normal. No significant soft tissue swelling. Bones/joints: Please see the CT scan cervical spine. IMPRESSION: Moderate stenosis left subclavian artery. REFERENCES: NASCET CRITERIA. The degree of stenosis in the cervical segment of the internal carotid artery is based on NASCET criteria. Normal is no stenosis. Mild is less than 50% stenosis. Moderate is 50-69% stenosis. Severe is 70% to 99% stenosis. Total occlusion is no detectable patent lumen.
--- NOTE | 2025-02-01 11:00 | CT_ITS ---
PROCEDURE INFORMATION: Exam: CTA Abdomen and Pelvis With Contrast Exam date and time: 02/01/2025 11:33 AM Age: 64 years old Clinical indication: Injury or trauma; Other: Thrown off a horse; Additional info: Trauma, critical injury suspected TECHNIQUE: Imaging protocol: Computed tomographic angiography of the abdomen and pelvis with contrast. Exam focused on the arteries. 3D rendering (Not supervised by radiologist): MIP and/or 3D reconstructed images were created by the technologist. Radiation optimization: All CT scans at this facility use at least one of these dose optimization techniques: automated exposure control; mA and/or kV adjustment per patient size (includes targeted exams where dose is matched to clinical indication); or iterative reconstruction. Contrast material: ISOVUE; Contrast volume: 80 ml; Contrast route: INTRAVENOUS (IV); COMPARISON: CR XR PELVIS 1-2V 02/01/2025 11:03 AM FINDINGS: Aorta: No aortic aneurysm. No aortic dissection. Celiac trunk and mesenteric arteries: No occlusion or significant stenosis. Renal arteries: No occlusion or significant stenosis. Right iliac arteries: No occlusion or significant stenosis. Left iliac arteries: No occlusion or significant stenosis. Liver: No mass. Gallbladder and biliary ducts: Unremarkable. No calcified stones. No ductal dilation. Pancreas: Unremarkable. No mass. No ductal dilation. Spleen: Unremarkable. No splenomegaly. Adrenal glands: Unremarkable. No mass. Kidneys and ureters: Unremarkable. No solid mass. No hydronephrosis. Stomach and bowel: Unremarkable. No obstruction. No mucosal thickening. Appendix: No evidence of appendicitis. Intraperitoneal space: Unremarkable. No free air. No significant fluid collection. Lymph nodes: Unremarkable. No enlarged lymph nodes. Urinary bladder: Unremarkable. No mass. Reproductive: Unremarkable as visualized. Bones/joints: Right posterior 12th rib fracture deformity. Postop fusion of L2 through L5 levels. Soft tissues: Unremarkable. IMPRESSION: 1. Right posterior 12th rib fracture deformity. Postop fusion changes of L2 through L5. 2. No acute intra abdominal or pelvic abnormality is appreciated 3. Unremarkable CTA examination
--- NOTE | 2025-02-01 11:00 | CT_ITS ---
PROCEDURE INFORMATION: Exam: CT Lumbar Spine Without Contrast Exam date and time: 02/01/2025 11:26 AM Age: 64 years old Clinical indication: Injury or trauma; Other: Thrown off a horse; Additional info: Trauma, critical injury suspected TECHNIQUE: Imaging protocol: Computed tomography of the lumbar spine without contrast. Radiation optimization: All CT scans at this facility use at least one of these dose optimization techniques: automated exposure control; mA and/or kV adjustment per patient size (includes targeted exams where dose is matched to clinical indication); or iterative reconstruction. COMPARISON: CT THORACIC SPINE WO CON 02/01/2025 11:23 AM FINDINGS: Bones/joints: Postop fusion of L2 through L5 levels. Right posterior 12th rib fracture deformity Soft tissues: Unremarkable. IMPRESSION: Postop fusion of L2 through L5 levels. Right posterior 12th rib fracture deformity
--- NOTE | 2025-02-01 11:01 | ED_ITS ---
Discharge Plan Disposition Patient Disposition: Admitted Prescriptions Prescriptions: No Action atorvastatin 80 mg tablet 80 mg PO DAILY cyclobenzaprine 10 mg tablet 10 mg PO HS Leqvio 284 mg/1.5 mL syringe 284 mg SQ [id number] Qty: 1.5 0RF citalopram 20 mg tablet 20 mg PO DAILY Qty: 90 1RF Rx Instructions: Will need to establish with new PCP for more refills. ubrogepant 100 mg tablet 100 mg PO ONCE PRN (Reason: migraine headache) Qty: 15 4RF losartan 50 mg tablet 50 mg PO DAILY Qty: 30 2RF Qulipta 60 mg tablet 60 mg PO DAILY Qty: 30 2RF Repatha SureClick 140 mg/mL pen injector 140 mg SQ Q2W Qty: 3 2RF hydrocodone-acetaminophen 5-325 mg tablet 1 tab PO Q6H PRN (Reason: pain) 3 Days Qty: 12 0RF Referrals Follow up/Referrals: Zahira Tellez APRN [Primary Care Provider, Family Practice] - See instructions Clinical Impressions Clinical Impression: Fall from horse, Right-sided chest pain, Back pain, thoracic, Closed T4 fracture, Closed T5 fracture, Rib fractures Print Language Print Language: Faroese Discharge ED Provider: Dinesh Gaona General Adult HPI General Chief complaint: Trauma Stated complaint: AO thrown from horse 02/01 1015 back pain soa Time Seen by Provider: 02/01/25 10:51 History of Present Illness HPI narrative: 64-year-old female who presents today after being thrown from a bucking horse. She landed directly onto the right side of her body and onto her back. Denies any neurologic complaints. Denies any symptoms other than significant chest pain back pain and difficulty breathing at the moment. Not on any anticoagulants. No loss of consciousness. Denies any extremity injuries. Arrives as a trauma alert. Related Data Home Medications ?Medication ?Instructions ?Recorded ?Confirmed atorvastatin 80 mg tablet 80 mg PO DAILY 05/29/2411/05 cyclobenzaprine 10 mg tablet 10 mg PO HS 11/18/2411/05 Previous Rx's ?Medication ?Instructions ?Recorded losartan 50 mg tablet 50 mg PO DAILY #30 tabs 06/08 12/28 atogepant 60 mg tablet (Qulipta) 60 mg PO DAILY #30 ta bs 09/09/24 citalopram 20 mg tablet 20 mg PO DAILY Depression #9 0 tabs 11/18/24 inclisiran 284 mg/1.5 mL 284 mg (1.5 mL) SQ [id number] 2 11/18/24 subcutaneous syringe (Leqvio) doses #1.5 mL ubrogepant 100 mg tablet 100 mg PO ONCE PRN migraine 11/18/24 headache #15 tabs evolocumab 140 mg/mL subcutaneous 140 mg SQ Q2W #3 mL 11/25/24 pen injector (Repatha SureCoryick) hydrocodone 5 mg-acetaminophen 325 1 tab PO Q6H PRN pa in 3 days #12 01/10/25 mg tablet tabs Allergies Allergy/AdvReac Type Severity Reaction Status Date / Time cephalexin (From Keflex) Allergy Verified 11/18/24 15:33 diclofenac (From Voltaren) Allergy Verified 11/18/24 15:33 fluconazole Allergy Verified 11/18/24 15:33 prednisone Allergy Verified 11/18/24 15:33 PFSH PFSH Disclaimer: The information contained in this section may have been updated after the patient was seen, as this information can be updated by other users. Medical History Insomnia Cervicogenic headache History of TMJ disorder Mood disorder TMJ dysfunction Scaphoid fracture of wrist L wrist 2019 Vitamin D deficiency HLD (hyperlipidemia) Elevated blood pressure reading History of solitary pulmonary nodule History of colon polyps H/O abnormal mammogram Surgical History History of spinal fusion Hx of lumpectomy 1998 Family History Family/Other No significant family history Other Alcoholism Alzheimer's dementia Cancer Heart attack Hyperlipidemia Hypertension Social History Smoking Status: Never smoker alcohol intake: current alcohol intake frequency: other substance use type: denies use current occupational status: retired Travel in the last 8 weeks?: None household members: spouse housing: other details: mobile marital status: number of children: 0 Have you lived/traveled outside US in past 30 days?: No Contact w/someone who lives/traveled outside US past 30 days?: No Exposure to someone with infectious disease in past 14 days?: No Do you have a fever (greater than 100.4 F or 38 C)?: No Have you tested positive for COVID-19?: No Exposed to someone with COVID-19 in past 14 days?: No Do you have a sore throat?: No Do you have a cough?: No Do you have any weakness?: No Do you have any diarrhea?: No Are you experiencing any unusual bleeding?: No Do you have any muscle aches/pain?: No Do you have any abdominal pain?: No Are you experiencing loss of taste or smell?: No Other Medical History Have you received the Pneumonia Vaccine: Yes ROS Obtained: Yes All systems reviewed & no additional complaints except as documented Physical Exam General General appearance: alert and in no apparent distress Head Head exam: atraumatic and normocephalic Neck Neck exam: Present trachea midline; Absent tenderness (Remains in c-collar) Chest Chest inspection: Present tenderness (Right anterior chest wall tenderness) Respiratory Respiratory exam: Present normal lung sounds bilaterally and respiratory distress Cardiovascular Cardiovascular exam: Present regular rate and normal rhythm Abdominal Exam Abdominal exam: Present soft; Absent distention Extremities Exam Extremities exam: Present normal inspection and full ROM; Absent tenderness Back Exam Back exam: Present tenderness (No significant step-offs or deformities however she is significantly tender the mid thoracic region) Neurological Exam Neurological exam: Present alert, oriented X3 and CN II-XII intact; Absent motor sensory deficit Medical Decision Making Medical Records Screening: Per USPSTF and CDC recommendations, given the prevalence of disease in our region, it is our hospital?s policy to screen for HIV and viral Hepatitis for all patients aged 18 and over and those with ongoing risk factors. Homar Inquiry Pt receiving controlled substance: No Vital Signs: 02/01/25 10:59 02/01/25 11:01 02/01/25 11:11 Temperature 98.7 F 98.7 F Temperature Source Oral Oral Pulse Rate 96 H Pulse Rate [Right] 111 H 111 H Respiratory Rate 20 19 20 Blood Pressure 117/65 Blood Pressure [Left Arm] 150/82 H 141/94 H Blood Pressure [Right Arm] 141/94 H 150/83 H Blood Pressure Mean 87 Blood Pressure Mean [Left Arm] 104 109 Blood Pressure Mean [Right Arm] 109 105 Blood Pressure Source [Left Arm] Manual Cuff/ Auscultation Automatic Cuff Blood Pressure Source [Right Arm] Automatic Cuff Manual Cuff/ Auscultation Blood Pressure Position [Left Arm] Supine Blood Pressure Position [Right Arm] Supine 02 Sat by Pulse Oximetry 98 100 98 Oxygen Delivery Method Room Air Room Air Room Air 02/01/25 11:42 02/01/25 12:00 02/01/25 12:31 Temperature Temperature Source Pulse Rate 95 H 92 H 83 Pulse Rate [Right] Respiratory Rate 17 16 7 L Blood Pressure 138/76 137/68 159/95 H Blood Pressure [Left Arm] Blood Pressure [Right Arm] Blood Pressure Mean 86 90 Blood Pressure Mean [Left Arm] Blood Pressure Mean [Right Arm] Blood Pressure Source [Left Arm] Blood Pressure Source [Right Arm] Blood Pressure Position [Left Arm] Blood Pressure Position [Right Arm] 02 Sat by Pulse Oximetry 100 100 98 Oxygen Delivery Method Room Air Room Air Room Air 02/01/25 13:01 02/01/25 13:29 02/01/25 14:00 Temperature Temperature Source Pulse Rate 93 H 88 86 Pulse Rate [Right] Respiratory Rate 17 16 12 Blood Pressure 156/88 H 134/82 Blood Pressure [Left Arm] Blood Pressure [Right Arm] Blood Pressure Mean 110 Blood Pressure Mean [Left Arm] Blood Pressure Mean [Right Arm] Blood Pressure Source [Left Arm] Blood Pressure Source [Right Arm] Blood Pressure Position [Left Arm] Blood Pressure Position [Right Arm] 02 Sat by Pulse Oximetry 100 99 98 Oxygen Delivery Method Room Air Room Air 02/01/25 14:31 02/01/25 15:01 Temperature Temperature Source Pulse Rate 89 85 Pulse Rate [Right] Respiratory Rate 16 17 Blood Pressure 143/101 H 130/88 Blood Pressure [Left Arm] Blood Pressure [Right Arm] Blood Pressure Mean 115 102 Blood Pressure Mean [Left Arm] Blood Pressure Mean [Right Arm] Blood Pressure Source [Left Arm] Blood Pressure Source [Right Arm] Blood Pressure Position [Left Arm] Blood Pressure Position [Right Arm] 02 Sat by Pulse Oximetry 98 100 Oxygen Delivery Method Room Air Room Air Lab Data Lab results reviewed: Yes I reviewed the patient's lab results. Lab Results 02/01/25 10:55: WBC 8.6, RBC 5.17, Hgb 14.4, Hct 43.0, MCV 83.2, MCH 27.9, MCHC 33.5, RDW 13.3, Plt Count 362, MPV 9.3, Neut % (Auto) 61.3, Lymph % (Auto) 29.3, Graves % (Auto) 4.7, Eos % (Auto) 3.0, Baso % (Auto) 0.9, Neut # (Auto) 5.3, Lymph # (Auto) 2.5, Graves # (Auto) 0.4, Eos # (Auto) 0.3, Baso # (Auto) 0.1, PT 10.6, INR 0.95, APTT 21.5 L, Sodium 140, Potassium 4.0, Chloride 105, Carbon Dioxide 25, Anion Gap 14.0, BUN 24 H, Creatinine 0.70, Estimated GFR 85, Est GFR ( Amer) 103, Glucose 126 H, Calcium 10.5 H, Total Bilirubin 1.0, AST 36, ALT 16, Alkaline Phosphatase 95, Troponin I < 0.01, Total Protein 7.8, Albumin 4.9, Globulin 2.9, Albumin/Globulin Ratio 1.7 02/01/25 14:02: Troponin I < 0.01 02/01/25 10:55 02/01/25 10:55 Orders (Tests/Meds): ED MEDICATIONS Generic Name Dose Route Start Last Admin Trade Name Freq PRN Reason Stop Dose Admin Cyclobenzaprine HCl 5 mg 02/01/25 15:33 Cyclobenzaprine 10mg Tablet PO 02/01/25 15:34 ONCE ONE Ketorolac Tromethamine 15 mg 02/01/25 15:33 Ketorolac 30mg/Ml Vial IV 02/01/25 15:34 ONCE ONE Sodium Chloride 10 ml 02/01/25 11:00 Sodium Chloride 0.9% 10ml Flush Syringe IV 03/03/25 10:59 NEEDED PRN Maintain IV Site Discontinued Medications Generic Name Dose Route Start Last Admin Trade Name Freq PRN Reason Stop Dose Admin Lactated Ringer's 1,000 mls @ 999 mls/hr 02/01/25 11:00 02/01/25 11:10 Lactated Ringer's 1000 Ml Bag IV 02/01/25 12:00 999 mls/hr .Q1H1M FIORDALIZA Administration Iopamidol 160 ml 02/01/25 11:29 02/01/25 11:30 Iopamidol-370 (76%);100ml Bottle IV 02/01/25 11:30 160 ml ONCE ONE Administration Morphine Sulfate 4 mg 02/01/25 11:00 02/01/25 11:09 Morphine 4mg/Ml Syringe IV 02/01/25 11:01 4 mg ONCE ONE Administration Morphine Sulfate 4 mg 02/01/25 13:02 02/01/25 13:06 Morphine 4mg/Ml Syringe IV 02/01/25 13:03 4 mg ONCE ONE Administration Sodium Chloride 10 ml 02/01/25 11:29 02/01/25 11:30 Sodium Chloride 0.9% 10ml Syr (Rad Only) IV 02/01/25 11:30 10 ml ONCE ONE Administration Sodium Chloride 100 ml 02/01/25 11:29 02/01/25 11:30 0.9 % Sodium Chloride 50 Ml Vial IV 02/01/25 11:30 100 ml ONCE ONE Administration ORDERS Category Date Time Status CT angio abd/pel - TRAUMA Stat Cat Scan 02/01/25 11:[address] angio chest - dissection Stat Cat Scan 02/01/25 11:[address] angio head Stat Cat Scan 02/01/25 11:[address] angio neck Stat Cat Scan 02/01/25 11:[address] cervical spine wo con Stat Cat Scan 02/01/25 11:[address] head/brain wo con Stat Cat Scan 02/01/25 11:[address] lumbar spine wo con Stat Cat Scan 02/01/25 11:[address] thoracic spine wo con Stat Cat Scan 02/01/25 11:00 Completed Surgery Consult (on-call) [Consult to On-Call Gen'l Cons 02/01/25 15:33 Ordered Surgeon] [CONS] Routine POCUS Point of Care (ER Only) Stat Exams 02/01/25 10:51 Completed XR chest portable Stat Exams 02/01/25 11:00 Completed XR pelvis 1-2V Stat Exams 02/01/25 11:00 Completed Activated Partial Thrombo Time Stat Lab 02/01/25 10:55 Completed Complete Blood Count Auto Diff AMLAB Lab 02/02/25 06:00 Ordered Complete Blood Count Auto Diff Stat Lab 02/01/25 10:55 Completed Comprehensive Metabolic Panel AMLAB Lab 02/02/25 06:00 Ordered Comprehensive Metabolic Panel Stat Lab 02/01/25 10:55 Completed HIV Combo Routine Lab 02/01/25 15:33 Ordered Hepatitis C Ab Qual. W/ RFX Routine Lab 02/01/25 15:33 Ordered Magnesium AMLAB Lab 02/02/25 06:00 Ordered Prothrombin Time INR Stat Lab 02/01/25 10:55 Completed Troponin I Q3H Lab 02/01/25 14:02 Completed Troponin I Q3H Lab 02/01/25 17:00 Ordered Troponin I Stat Lab 02/01/25 10:55 Completed Medical Decision Narrative: 64-year-old with above history and physical presented today as a trauma alert. Primary assessment was unremarkable. E-FAST was negative. I suspect patient may have rib or lung injuries and possible thoracic injury. Will get full trauma scans given the mechanism and the significant pain that she is in. Morphine will be administered in addition to IV fluids and I will reassess shortly. Reassessment 3:[address] scans were performed I personally interpreted which shows a right 9th and 12th rib fracture and T4-T5 superior endplate fractures left superior plate fractures are no significant height loss no retropulsion no multiple column injuries that are stable. Additionally no evidence of any pneumothorax or hemothorax or any other injury needing surgical intervention. I went and cleared the patient c-collar tried to get her to sit up but she is in severe pain. She requested to be admitted for pain control. I spoke both with Dr. Reddy with surgery as well as with Dr. Cain. Given the fact that the patient does not need a surgical intervention both are comfortable with keeping in the hospital for pain control. She was also given incentive spirometer. She was admitted for further evaluation and management. Procedures Miscellaneous Procedure Procedure Performed: Limited EFAST ultrasound Indication: Blunt trauma Views: [LUQ, RUQ, Pelvis, Limited Cardiac, Limited Thoracic] Interpretation: Peritoneal Free Fluid: Absent Pericardial effusion: Absent Right thoracic free Fluid: Absent Left thoracic Free Fluid: Absent Right lung pneumothorax: Absent Left Lung pneumothorax: Absent Impression: Negative EFAST ultrasound Images were saved to permanent archive The study was technically adequate CPT 24065-66 (limited cardiac) 18703-94 (limited abdominal) 44603-72 (chest) This study was performed by me, and I personally interpreted all images/videos. Based on my clinical judgement, these images were adequate and did not necessitate further imaging. Critical Care Critical Care Time Critical Care Time: Yes Attestation: On , the high probability of a clinically significant, sudden or life threatening deterioration of the following system(s) required my full and direct attention, intervention and personal management. The time I documented below is in addition to time spent performing reported procedures but includes the following listed in this critical care notation. Total Time Total Critical Care Time: 35
[2025-02-01] MEDS: MORPHINE 4MG/ML SYRINGE 4 MG IV ×2 (11:09→13:06)
--- OUTSIDE RECORDS SUMMARY | 2025-02-01 11:09 | XMS_ITS | Encounter Summary ---
Author Organization [facility] Address [address] [place] [address] Care Team Providers Care Cooperative Education Coordinator Name Role Phone Andra Matos FINANCIAL DIRECTOR Unavailable Oneil Blackmon MD Unavailable [phone] Andra Matos FINANCIAL DIRECTOR Unavailable [phone] Shania Parikh DDS Unavailable + Aldo Pickens DMD Unavailable [phone] Kristy Sanchez FINANCIAL DIRECTOR Primary Care Provider [phone] Reason for Visit * Reason Comments Med Refill Encounter Details Date Type Department Care Team (Late st Contact Info) Description 12/16/2024 Refill [place] [facility] [address] [place] [address] Andra Matos, FINANCIAL DIRECTOR [address] [place] [address] Social History Tobacco Use Types [...] often do you attend chur ch or jehovah's witness services? Never 10/31/2024 Do you belong to any clubs o r organizations such as congregation groups, unions, fraternal or athletic groups, or [...] Recorded Patient Health Questionnaire-2 Score 0 10/31/2024 [facility] [place] of Occupat ional Health - Occupational Stress [...] were you homeless or living in a [place] facility (including now)? No 10/31/2024 CAGE ASSESSMENT Answer [...] first t kisha in the morning (EYE-INSTRUMENTATION CONTROLS ENGINEER) to steady your nerves or to get [...] Description 03/19/2025 1:15 PM EDT Office Visit [facility] [place] [facility] [address], [address] [place] [address] Gustavo Rodriguez, DO [address] [place] [address] documented as of this encounter [...] documented as of this encounter Care Teams Cooperative Education Coordinator Relationship Specialty Start Date End Date Kristy Sanchez APRN [address] [place] [address] PCP - General 10/31/24 Andra Matos APRN [address] [place] [address] Nurse Practitioner Neurosurgery 07/16/21 Oneil Blackmon MD [address] [place] [address] Surgeon Neurosurgery 08/18/21 Andra Matos APRN [address] [place] [address] Nurse Practitioner Neurosurgery 10/12/21 Shania Parikh DDS [address] [place] [address] Dentist Dentist 06/10/22 Aldo Pickens DMD [address] [place] [address] Dentist 06/10/22 documented as of this encounter
--- OUTSIDE RECORDS SUMMARY | 2025-02-01 11:09 | XMS_ITS | Encounter Summary ---
Author Organization Healthcare Address [address] [place] [address] Care Team Providers Care Mental Health Program Specialist Name Role Phone Andra Matos LOCKSMITH Unavailable [phone] Oneil Blackmon MD Unavailable [phone] Andra Matos LOCKSMITH Unavailable [phone] Shania Parikh DDS Unavailable + Aldo Pickens DMD Unavailable [phone] Pcp, No Primary Care Provider Unavailabl e Kristy Sanchez LOCKSMITH Primary Care Provider [phone] Encounter Details Date Type Department Care Team (Late st Contact Info) Description 10/14/2024 Telephone [facility] report analyst [facility] [address] [place] [address] [address] [place] [address] Yessenia Estevez Social History Tobacco [...] drink first t kisha in the morning (EYE-SUPERVISOR KNITTING) to steady your nerves or to get [...] Description 03/19/2025 1:15 PM EDT Office Visit [facility] [place] [address], [address] [place] [id number] Gustavo Rodriguez, [address] [place] [address] documented as of this encounter [...] documented as of this encounter Care Teams Mental Health Program Specialist Relationship Specialty Start Date End Date Pcp, No [address] [place] [address] PCP - General Family Medicine 10/30/24 10/30/24 Kristy Sanchez APRN [address] [place] [address] PCP - General 10/31/24 Andra Matos APRN [address] [place] [id number] Nurse Practitioner Neurosurgery 07/16/21 Oneil Blackmon MD [address] [place] [address] Surgeon Neurosurgery 08/18/21 Andra Matos APRN [address] [place] [address] Nurse Practitioner Neurosurgery 10/12/21 Shania Parikh DDS [address] [place] [address] Dentist Dentist 06/10/22 Aldo Pickens DMD [address] [place] [address] Dentist 06/10/22 documented as of this encounter
--- OUTSIDE RECORDS SUMMARY | 2025-02-01 11:09 | XMS_ITS | Encounter Summary ---
Author Organization [facility] Address [address] [place] [address] Care Team Providers Care Warp Preparer Name Role Phone Andra Matos BREEDER HEN SERVICE TECHNICIAN Unavailable Oneil Blackmon MD Unavailable [phone] Andra Matos BREEDER HEN SERVICE TECHNICIAN Unavailable Shania Parikh DDS Unavailable + Aldo Pickens DMD Unavailable [phone] Kristy Sanchez BREEDER HEN SERVICE TECHNICIAN Primary Care Provider Reason for Visit * Reason Comments Med Refill Encounter Details Date Type Department Care Team (Late st Contact Info) Description 01/16/2025 Refill [place] [facility] [address] [place] [address] Andra Matos, BREEDER HEN SERVICE TECHNICIAN [address] [place] [address] Social History Tobacco Use Types [...] often do you attend chur ch or jainism services? Never 10/31/2024 Do you belong to any clubs o r organizations such as orthodoxy groups, unions, fraternal or athletic groups, or [...] Recorded Patient Health Questionnaire-2 Score 0 10/31/2024 [facility] of Occupat ional Health - Occupational Stress [...] any time in the past 12 m [facility], were you homeless or living in a alf (including now)? No 10/31/2024 CAGE ASSESSMENT Answer [...] drink first t kisha in the morning (EYE-OPENER TENDER) to steady your nerves or to get [...] Description 03/19/2025 1:15 PM EDT Office Visit [facility] [address], [address] [place] [address] Gustavo Rodriguez, DO [address] [place] [address] documented as of this encounter [...] documented as of this encounter Care Teams Warp Preparer Relationship Specialty Start Date End Date Kristy Sanchez APRN [address] [place] [address] PCP - General 10/31/24 Andra Matos APRN [address] [place] [address] Nurse Practitioner Neurosurgery 07/16/21 Oneil Blackmon MD [address] [place] [address] Surgeon Neurosurgery 08/18/21 Andra Matos APRN [address] [place] [address] Nurse Practitioner Neurosurgery 10/12/21 Shania Parikh DDS [address] [place] [address] Dentist Dentist 06/10/22 Aldo Pickens DMD [address] [place] [address] Dentist 06/10/22 documented as of this encounter
--- OUTSIDE RECORDS SUMMARY | 2025-02-01 11:09 | XMS_ITS | Encounter Summary ---
Author Organization [facility] Address [address] [place] [address] Care Team Providers Care Child Psychologist Name Role Phone Andra Matos AWNING SPREADER Unavailable [phone] Oneil Blackmon MD Unavailable [phone] Andra Matos AWNING SPREADER Unavailable [phone] Shania Parikh DDS Unavailable + Aldo Pickens DMD Unavailable [phone] Kristy Sanchez AWNING SPREADER Primary Care Provider [phone] Encounter Details Date Type Department Care Team (Latest Contact Info) Description 01/17/2025 Travel Social History Tobacco Use Types Packs/Day [...] any clubs o r organizations such as christianity groups, unions, fraternal or athletic groups, or [...] Recorded Patient Health Questionnaire-2 Score 0 10/31/2024 [facility] of Occupat ional [facility] - Occupational Stress Questionnaire Answer Date Recorded [...] any time in the past 12 m [facility], were you homeless or living in a penitentiary (including now)? No 10/31/2024 CAGE ASSESSMENT Answer [...] drink first t kisha in the morning (EYE-BRAILLE AND TALKING BOOKS CLERK) to steady your nerves or to get [...] Description 03/19/2025 1:15 PM EDT Office Visit [facility] [address], [address] [place] [address] JonnyGustavo stafford, DO [address] [place] [address] documented as of this encounter [...] documented as of this encounter Care Teams Child Psychologist Relationship Specialty Start Date End Date Kristy Sanchez APRN [address] [place], [place] [id number] PCP - General 10/31/24 Andra Matos APRN [address] [place] [address] Nurse Practitioner Neurosurgery 07/16/21 Oneil Blackmon MD [address] [place] [address] Surgeon Neurosurgery 08/18/21 Andra Matos APRN [address] [place] [address] Nurse Practitioner Neurosurgery 10/12/21 Shania Parikh DDS [address] [place] [address] Dentist Dentist 06/10/22 Aldo Pickens, DMD [address] [place] [address] Dentist 06/10/22 documented as of this encounter
--- OUTSIDE RECORDS SUMMARY | 2025-02-01 11:09 | XMS_ITS | Clinical Summary ---
Author Organization [facility] Address [address] [place] [address] Care Team Providers Care Director Of Athletics Name Role Phone System, Provider Not In [...] therelease of HIV test results or diagnoses. [id number] Social History Tobacco Use Types Packs/Day Years Used Date Smoking Tobacco: Never Assessed Comments Unknown Sex and Gender Information Value Date Recorded Sex Assigned at Not on file Legal Sex Female 10:49 AM EST Gender Identity Not on file Sexual Orientation Not on file Plan of Treatment Not on file Insurance EXCHANGE Care Teams Director Of Athletics Relationship Specialty Start Date End Date System, Provider Not In PCP - General 07/22/19
--- OUTSIDE RECORDS SUMMARY | 2025-02-01 11:09 | XMS_ITS | Encounter Summary ---
Author Organization [facility] Address [address] [place] [address] Care Team Providers Care Children Teacher Name Role Phone Andra Matos ORDER ENTRY Unavailable Oneil Blackmon MD Unavailable [phone] Andra Matos ORDER ENTRY Unavailable Shania Parikh DDS Unavailable + Aldo Pickens DMD Unavailable Kristy Sanchez ORDER ENTRY Primary Care Provider [phone] Encounter Details Date Type Department Care Team (Late st Contact Info) Description 01/03/2025 Orders Only [place] [facility] [address] [place] [address] Andra Matos, ORDER ENTRY [address] [place] [address] S/P cervical spinal fusion (Primary [...] often do you attend chur ch or mandaen services? Never 10/31/2024 Do you belong to any clubs o r organizations such as gnosticism groups, unions, fraternal or athletic groups, or [...] Questionnaire-2 Score 0 10/31/2024 [facility] [place] of Occupat ional Health - Occupational Stress [...] in the past 12 m [facility], were you homeless or living in a intermediate (including now)? No 10/31/2024 CAGE ASSESSMENT Answer [...] drink first t kisha in the morning (EYE-HUMAN RESOURCES COORDINATOR) to steady your nerves or to get [...] Description 03/19/2025 1:15 PM EDT Office Visit [facility] [place] [address], [address] [place] [address] Gustavo Rodriguez, DO [address] [place] [address] Scheduled Orders Name Type Priority [...] documented as of this encounter Care Teams Children Teacher Relationship Specialty Start Date End Date Kristy Sanchez APRN [address] [place] [address] PCP - General 10/31/24 Andra Matos APRN [address] [place] [id number] Nurse Practitioner Neurosurgery 07/16/21 Oneil Blackmon MD [address] [place] [phone] Surgeon Neurosurgery 08/18/21 Andra Matos APRN [address] [place] [address] Nurse Practitioner Neurosurgery 10/12/21 Shania Parikh DDS [address] [place] [address] Dentist Dentist 06/10/22 Aldo Pickens DMD [address] [place] [address] Dentist 06/10/22 documented as of this encounter
--- OUTSIDE RECORDS SUMMARY | 2025-02-01 11:09 | XMS_ITS | Encounter Summary ---
Author Organization [facility] Address [address] [place] [address] Care Team Providers Care Clinical Data Analyst Name Role Phone Andra Matos RESEARCH ENGINEER [employer] Unavailable [phone] Oneil Blackmon MD Unavailable [phone] Andra Matos RESEARCH ENGINEER [employer] Unavailable [phone] Shania Parikh DDS Unavailable + Aldo Pickens DMD Unavailable [phone] Kristy Sanchez RESEARCH ENGINEER [employer]QUIP[employer] Primary Care Provider [phone] Encounter Details Date Type Department Care Team (Latest Contact Info) Description 01/22/2025 Travel Social History Tobacco Use Types Packs/Day [...] How often do you attend chur or roman catholic services? Never 10/31/2024 Do you belong to any clubs o r organizations such as temple groups, unions, fraternal or athletic groups, or [...] Recorded Patient Health Questionnaire-2 Score 0 10/31/2024 [facility] of Occupat ional [facility] - Occupational Stress Questionnaire Answer Date Recorded [...] time in the past 12 m [facility], were you homeless or living in a longterm (including now)? No 10/31/2024 CAGE ASSESSMENT Answer [...] drink first t kisha in the morning (EYE-AGRICULTURE LABORER) to steady your nerves or to get [...] Description 03/19/2025 1:15 PM EDT Office Visit [facility] [place] [address], [address] [place] [address] JonnyGustavo stafford, DO [address] [place] [address] documented as of this encounter [...] documented as of this encounter Care Teams Clinical Data Analyst Relationship Specialty Start Date End Date Kristy Sanchez APRN [address] [place], [place] [id number] PCP - General 10/31/24 Andra Matos APRN [address] [place] [address] Nurse Practitioner Neurosurgery 07/16/21 Oneil Blackmon MD [address] [place] [address] Surgeon Neurosurgery 08/18/21 Andra Matos APRN [address] [place] [address] Nurse Practitioner Neurosurgery 10/12/21 Shania Parikh DDS [address] [place] [address] Dentist Dentist 06/10/22 Aldo Pickens, DMD [address] [place] [address] Dentist 06/10/22 documented as of this encounter
--- OUTSIDE RECORDS SUMMARY | 2025-02-01 11:09 | XMS_ITS | Clinical Summary ---
Author Organization [facility] Address [address] [place] [address] Care Team Providers Care Studio Operations Engineer In Charge Name Role Phone Andra Matos YARD WORKER Unavailable [phone] Oneil Blackmon MD Unavailable [phone] Andra Matos YARD WORKER Unavailable [phone] Shania Parikh DDS Unavailable + Aldo Pickens DMD Unavailable [phone] Kristy Sanchez YARD WORKER Primary Care Provider [phone] Allergies Active Allergy Reactions Criticality Noted Date [...] (one) time as needed. 12/21/19 24 Active cholecalciferol (Vitamin D-3) 25 MCG (1000 UT) capsule Take 1 capsule (1,000 Units) by mouth daily. 05/01/20 23 Active Qulipta 60 MG tablet Take 60 mg by mouth daily. 06/05/20 24 Active atorvastatin (Lipitor) 80 MG tablet Take 1 tablet (80 mg) by mouth daily. 09/16/19 Active losartan (Cozaar) 50 MG tablet Take 1 tablet (50 mg) by mouth daily. 09/12/19 Active senna-docusate (Miriam-Colace) 8.6-50 MG tablet Take 2 tablets by mouth in the morning and 2 tablets before bedtime. 60 tablet 10/14/19 Active polyethylene glycol (Miralax) 17 g packet Take 17 g by mouth in the morning and 17 g before bedtime. 60 packet 10/14/19 25 Active butalbital-acet aminophen-caffe ine 50-325-40 MG tablet Take 1 tablet by mouth every 4 (four) hours as needed for headaches. 30 tablet 10/14/19 Active oxyCODONE (Roxicodone) 5 MG immediate release tablet Take 1 tablet (5 mg) by mouth every 4 (four) hours as needed for moderate pain or severe pain. 55 tablet 10/14/19 Active Additional Information Patient not taking.Reported on 01/22/2025 naloxone (Narcan) 4 mg/0.1 mL nasal spray 1. Give 1 spray in nostril for no/slow breathing or cannot wake after opioid use 2. Call 911 3. Repeat in other nostril if symptoms continue 1 each 10/14/19 Active methylPREDNISol one (Medrol Dospak) 4 MG tablets Follow schedule on package instructions 21 tablet 10/25/19 Active Additional Information Patient not taking.Reported on 01/22/2025 cyclobenzaprine (Flexeril) 10 MG tablet TAKE 1 TABLET BY MOUTH THREE TIMES DAILY NEEDED FOR MUSCLE SPASM FOR UP TO 14 DAYS 42 tablet 01/18/20 25 Active Additional Information Patient not taking.Reported on 01/22/2025 diazePAM (Valium) 2 MG tablet TAKE 1 TABLET BY MOUTH EVERY 6 HOURS NEEDED FOR SEVERE MUSCLE SPASM 20 tablet 01/18/20 Active Repatha SureClick 140 MG/ML solution auto-injector autoinjector 01/23/20 Active diazePAM (Valium) 2 MG tablet TAKE 1 TABLET BY MOUTH EVERY 6 HOURS NEEDED (SEVERE MUSCLE SPASM) 20 tablet 12/18/19 25 2024 Discontinued cyclobenzaprine (Flexeril) 10 MG tablet TAKE 1 TABLET BY MOUTH THREE TIMES DAILY NEEDED FOR MUSCLE SPASM FOR UP TO 14 DAYS 42 tablet 12/18/19 25 2024 Discontinued Active Problems Problem Noted Date Diagnosed Date Dysphagia, unspecified type 11/01/2024 Periodontitis 08/09/2023 Myelopathy concurrent with a nd due to spinal stenosis of cervical region 03/14/2022 Cervical myelopathy 03/09/2022 Overview (03/09/2022): Added automatically from request for surgery [id number] Back pain 07/16/2021 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 Resolved Problems Problem Noted Date Diagnosed Date Resolved Date Intervertebral disc disorder s with radiculopathy, lumbar region 08/26/2021 09/03/2021 Overview (08/26/2021): Added automatically from request for surgery [id number] Encounters Date Type Department Care Team Description 01/22/2025 2:00 PM EDT Office Visit [facility] [address] [place] [address] Oneil Blackmon MD S/P cervical spinal fusion (Primary Dx); Lumbar radiculopathy; Status post lumbar spinal arthrodesis 01/22/2025 1:26 PM EDT - 01/22/2025 11:59 PM EDT Hospital Encounter [facility] [address] [place] [address] S/P cervical spinal fusion Discharge Disposition: Home or Self Care 01/22/2025 Travel 01/17/2025 Travel 01/16/2025 Refill [facility] [address] [place] [address] Andra Matos APRN 01/03/2025 Orders Only [facility] [address], [address] [place] [address] Andra Matos APRN S/P cervical spinal fusion (Primary Dx) 12/16/2024 Refill [facility] [address], [address] [place] [address] Andra Matos, YARD WORKER 11/26/2024 Telephone [facility] [address] [place] [address] Oneil Blackmon MD 11/21/2024 1:18 PM EDT - 11/21/2024 11:59 PM EDT Hospital Encounter [facility] [address] [place] [address] Chest pain, unspecified type Discharge Disposition: Home or Self Care 11/21/2024 Travel 11/16/2024 Travel 11/14/2024 Telephone [facility] [address] [place] [address] Xi Locke RN 11/13/2024 12:40 PM EDT Consult [facility] [place] [address] Ronald Gould MD Dysphagia, unspecified type (Primary Dx); Bilateral temporomandibular joint pain; Trismus 11/13/2024 Refill [facility] [address], [address] [place] [address] Andra Matos, YARD WORKER 11/13/2024 Travel 11/06/2024 Travel 11/01/2024 Travel 10/30/2024 6:39 PM EDT - 11/01/2024 2:13 PM EDT Hospital Encounter [facility] [address] [place] [address] Harleen Oliveira MD Davidson, MD Maureen Jack, MD Augusto Collins, MD Brendan Beaver, MD Lorri Houser Francis, MD Dysphagia, unspecified type (Primary Dx); Trismus; Acute chest pain Discharge Disposition: Home or Self Care from Last 3 Months Family History Medical History Relation Name Comments Alcohol abuse Brother 1 Momo Carbajal Migraines Brother 2 Mernix Alzheimer's disease Father Ervin Carbajal COPD Father Ervin Carbajal Cancer Father Ervin Carbajal Hearing loss Father Ervin Carbajal Alzheimer's disease Mother Lisa carbajal Anesthesia problems Neg Hx Malig Hyperthermia Neg Hx Relation Name Status Comments Brother 1 Momo Carbajal Brother 2 Mernix Alive Father Ervin Carbajal Mother Lisa carbajal Alive Social History Tobacco Use Types Packs/Day Years [...] week 10/31/2024 How often do you attend [facility] or yarsani services? Never 10/31/2024 Do you belong to any clubs o r organizations such as scientology groups, unions, fraternal or athletic groups, or [...] Recorded Patient Health Questionnaire-2 Score 0 10/31/2024 [facility] - Occupational Stress Questionnaire Answer Date [...] time in the past 12 m [facility], were you homeless or living in [...] drink first t kisha in the morning (EYE-QUALITY WORKER) to steady your nerves or to get rid of a hangover? 0 10/30/2024 CAGE Questionnaire Score 0 025 Utilities Answer Date Recorded In the past 12 months has e electric, gas, oil, or water company [...] Pressure 104/56 01/22/2025 1:43 PM EDT Pulse 68 11/21/2024 3:13 PM EDT Temperature 36.4 C (97.5 F) 11/01/2024 1:56 PM EDT Respiratory Rate 13 11/21/2024 3:13 PM EDT Oxygen Saturation 96% 11/21/2024 3:13 PM EDT Inhaled Oxygen Concentration - - Weight 70.1 kg (154 lb 8.7 oz) 01/22/2025 1:43 P M EDT Height 154.9 cm (5' 1 ) 01/22/2025 1:43 PM EDT Body Mass Index 29.2 01/22/2025 1:43 PM EDT Plan of Treatment Upcoming Encounters Date Type Department Care Team ([facility] st Contact Info) Description 03/19/2025 1:15 PM EDT Office Visit [facility] [place] [address] [facility], [address] [place] [address] Gustavo Rodriguez, DO [address] [place] [address] Health Maintenance Due Date Last Done Comments [...] 10/01/2023 03/30/2023 Dental X-Ray: Bitewings 03/31/2024 03/30/2023 [id number] Vaccine ( season) 2024 07/14/2023, 05/28/2022, 12/25/2021, [...] this topic Medical Devices Implanted Type Area Bicycle Fitter Device Identifier Shelf Expiration Date Model / Serial / Lot Large Diameter 14mm - Sn/A - [id number] Implanted:Qty : 3 on 10/12/2024 by Oneil Blackmon MD at [facility] Cage N/A: Spine Cervical [employer] [id number] 10/12/2025 [id number] / N/A / One Level Plate, 16mm - Sn/A - [id number] Implanted:Qty : 1 on 10/12/2024 by Oneil Blackmon MD at [facility] Plate N/A: Spine Cervical [employer] [id number] 10/12/2025 [id number] / N/A / Pre-Lordosed Jonatan W/ Line 65mm - S. - [id number] Implanted:Qty : 2 on 08/30/2021 by Oneil Blackmon MD at [facility] Jonatan Spine Lumbar [employer] LP-[id number] 08/30/2022 [id number] / . / Expedium 5.50 Polyaxial Screw 7.46h27pk, - S. - [id number] Implanted:Qty : 2 on 08/30/2021 by Oneil Blackmon MD at [facility] Screw Spine Lumbar [employer] [id number] 08/30/2022 [id number] / . / Screw 5.5mm Viper Ti Fen Crtcl Polyax 7mm X 45mm - S. - [id number] Implanted:Qty : 4 on 08/30/2021 by Oneil Blackmon MD at [facility] Screw Spine Lumbar [employer] LP-[id number] 08/30/2022 [id number] / . / Single Inner Setscrew - S. - [id number] Implanted:Qty : 6 on 08/30/2021 by Oneil Blackmon MD at [facility] Screw Spine Lumbar [employer] [id number] 08/30/2022 [id number] / . / Self Drilling Screw 14mm - Sn/A - [id number] Implanted:Qty : 1 on 10/12/2024 by Oneil Blackmon MD at [facility] Screw N/A: Spine Cervical [employer] [id number] 10/12/2025 [id number] / N/A / Plates/Screws Bilateral: Mandible Chip Bone 20cc - [id number] Implanted:Qty : 1 on 08/30/2021 by Oneil Blackmon MD at [id number] 05/30/2026 PCAN1/4 / / [id number] Graft Vivigen 5cc - [id number] Implanted:Qty : 1 on 08/30/2021 by Oneil Blackmon MD at [id number] 08/11/2022 BL-1500-002 / [id number] / [id number] Graft Vivigen 5cc - [id number] Implanted:Qty : 1 on 08/30/2021 by Oneil Blackmon MD at [id number] 08/04/2022 BL-1500-002 / [id number] / [id number] Self Drilling Screw 14mm - [id number] Implanted:Qty : 5 on 03/14/2022 by Oneil Blackmon MD at [facility] Spine Cervical [employer] -[id number] / / Large Diameter 14mm - [id number] Implanted:Qty : 1 on 03/14/2022 by Oneil Blackmon MD at [facility] Spine Cervical [employer] [id number] / / Knee Vanguard1 Cervical Preservon 6mm - [id number] - [id number] Implanted:Qty : 1 on 03/14/2022 by Oneil Blackmon MD at [facility] Spine Cervical [facility]-[id number] 09/30/2026 [id number] / [id number] / [id number] Knee Vanguard1 Cervical Preservon 7mm - [id number] - [id number] Implanted:Qty : 1 on 03/14/2022 by Oneil Blackmon MD at [facility] Right: Spine Cervical [facility]-[id number] 12/15/2026 [id number] / [id number] / [id number] Screw Retainer 3.5mm X 12mm - [id number] Implanted:Qty : 2 on 03/14/2022 by Oneil Blackmon MD at [facility] Spine Cervical [employer] -[id number] 03.820.102 / / Nut Retainer - [id number] Implanted:Qty : 2 on 03/14/2022 by Oneil Blackmon MD at [facility] Spine Cervical [employer] -[id number] 03.820.110 / / Plate Two Level 28mm - [id number] Implanted:Qty : 1 on 03/14/2022 by Oneil Blackmon MD at [facility] Spine Cervical [employer] -[id number] / / Knee Vanguard1 Cervical Preservon 7mm - [id number] - [id number] Implanted:Qty : 1 on 10/12/2024 by Oneil Blackmon MD at [facility]ine [facility]ervical [facility]-[id number] 08/01/2029 [id number] / [id number] / [id number] Tissue Vivigen Formable 1.3cc Sm Pk/4 - [id number] Implanted:Qty : 1 on 10/12/2024 by Oneil Blackmon MD at [facility] N/A: Spine Cervical [facility]-[id number] 09/23/2025 [id number] / / [id number] Screw Retainer 3.5mm X 14mm - Sn/A - [id number] Implanted:Qty : 2 on 10/12/2024 by Oneil Blackmon MD at [facility] N/A: Spine Cervical [employer] -[id number] 10/12/2025 [phone] / N/A / Nut Retainer - Sn/A - [id number] Implanted:Qty : 2 on 10/12/2024 by Oneil Blackmon MD at [facility] N/A: Spine Cervical [employer] LP-[id number] 10/12/2025 [phone] / N/A / Procedures Procedure Name Priority Date/Time Associated Diagnosis Comments XR CERVICAL SPINE COMPLETE 4 TO 5 VIEWS Routine 01/22/2025 1:41 PM EDT S/P cervical spinal fusion CT ANGIO CARDIAC CORONARY ARTERIES Routine 11/21/2024 [...] UNSOLICITED RESULTS Routine 11/01/2024 12:42 AM EDT HEPATITIS C ANTIBODY - ED W/REFLEX TO HCV QUANT PCR STAT 10/30/2024 6:38 PM EDT ED HIV 1/2 ANTIBODY/ANTIGEN SCREEN WITH REFLEX TO HIV I/II DIFFERENTIATION STAT 10/30/2024 6:38 PM EDT BITEWINGS - 4 RADIOGRAPHIC IMAGES Routine 03/30/2023 3:30 PM EDT Encounter for dental examination COMPREHENSIVE ORAL EVALUATION - NEW OR ESTABLISHED PATIENT Routine 03/30/2023 3:30 PM EDT Encounter for dental examination from Last 3 Months or Most Recently Relevant to Health Maintenance Results * XR Cervical Spine Complete 4 [...] Mary Chairez MD on 01/22/2025 1:53 PM us Andra L Gilbert YARD WORKER IMG XR PROCEDURES Final Resu lt * CT Angio Cardiac Coronary Arteries (11/21/2024 [...] source 192 MDCT scanner ([employer], [employer]) was used for data acquisition. A [...] Pepe Mondragon DO on 11/21/2024 10:14 PM us Clyde Garcia MD IMG CT PROCEDURES Final Result * (ABNORMAL) APTT (11/01/2024 1:12 PM EDT) aPTT 24(L) 25 - 35 sec 11/01/2024 1:29 PM EDT [facility] Blood Venous blood specimen / Unknown Venipuncture / Unknown 11/01/2024 1:12 PM EDT 11/01/2024 1:16 PM EDT Oneil Blackmon MD LAB BLOOD ORDERABLES Final Re sult [facility] [address] [place] [address] * Prothrombin Time/INR (11/01/2024 1:12 PM EDT) Prothrombin Time 14.2 12.0 - 14.3 sec 11/01/2024 1:29 PM EDT [facility] INR 1.1 0.9 - 1.1 11/01/2024 1:29 PM EDT [facility] Blood Venous blood specimen / Unknown Venipuncture / Unknown 11/01/2024 1:12 PM EDT 11/01/2024 1:16 PM EDT Narrative [facility] - 11/01/2024 1:29 PM EDT OPTIMAL INR RANGES FOR PATIENT ON ORAL ANTICOAGULANT THERAPY Prevention of venous thromboembolism INR 2.0 to 3.0 In patients with heart disease: Atrial fibrillation INR 2.0 to 3.0 Valvular heart disease INR 2.0 to 3.0 Tissue heart valves INR 2.0 to 3.0 Mechanical prosthetic valves INR 2.5 to 3.5 Prevention of recurrent OK INR 2.5 to 3.5 Oneil Blackmon MD LAB BLOOD ORDERABLES Final Re sult [facility] [address] [place] [address] * (ABNORMAL) CBC and Differential (11/01/2024 1:12 PM EDT) WBC Count 6.69 3.70 - 10.30 10*3/uL LAB HEMATOLOGY METHOD 11/01/2024 1:18 PM EDT [facility] RBC Count 4.39 3.90 - 5.20 10*6/uL LAB HEMATOLOGY METHOD 11/01/2024 1:18 PM EDT [facility] HGB 12.3 11.2 - 15.7 g/dL LAB HEMATOLOGY METHOD 11/01/2024 1:18 PM EDT [facility] HCT 36.5 34.0 - 45.0 % LAB HEMATOLOGY METHOD 11/01/2024 1:18 PM EDT [facility] Platelet Count 332 155 - 369 10*3/uL LAB HEMATOLOGY METHOD 11/01/2024 1:18 PM EDT [facility] MCV 83 79 - 98 fL LAB HEMATOLOGY METHOD 11/01/2024 1:18 PM EDT [facility] MCH 28.0 26.0 - 32.0 pg LAB HEMATOLOGY METHOD 11/01/2024 1:18 PM EDT [facility] MCHC 33.7 30.7 - 35.5 g/dL LAB HEMATOLOGY METHOD 11/01/2024 1:18 PM EDT [facility] RDW 12.9 11.5 - 14.5 % LAB HEMATOLOGY METHOD 11/01/2024 1:18 PM EDT [facility] MPV 8.7(L) 8.8 - 12.5 fL LAB HEMATOLOGY METHOD 11/01/2024 1:18 PM EDT [facility] nRBC 0.0 <=0.0 per 100 WBCs LAB HEMATOLOGY METHOD 11/01/2024 1:18 PM EDT [facility] Differential Type Automated LAB HEMATOLOGY METHOD 11/01/2024 1:18 PM EDT [facility] Neutrophils % 58 % LAB HEMATOLOGY METHOD 11/01/2024 1:18 PM EDT [facility] Lymphocytes % 34 % LAB HEMATOLOGY METHOD 11/01/2024 1:18 PM EDT [facility] Monocytes % 5 % LAB HEMATOLOGY METHOD 11/01/2024 1:18 PM EDT [facility] Eosinophils % 2 % LAB HEMATOLOGY METHOD 11/01/2024 1:18 PM EDT [facility] Basophils % 1 % LAB HEMATOLOGY METHOD 11/01/2024 1:18 PM EDT [facility] Immature Granulocytes % 0 % LAB HEMATOLOGY METHOD 11/01/2024 1:18 PM EDT [facility] Neutrophils Absolute 3.88 1.60 - 6.10 10*3/uL LAB HEMATOLOGY METHOD 11/01/2024 1:18 PM EDT [facility] Lymphocytes Absolute 2.24 1.20 - 3.90 10*3/uL LAB HEMATOLOGY METHOD 11/01/2024 1:18 PM EDT [facility] Monocytes Absolute 0.31 0.30 - 0.90 10*3/uL LAB HEMATOLOGY METHOD 11/01/2024 1:18 PM EDT [facility] Eosinophils Absolute 0.16 0.00 - 0.50 10*3/uL LAB HEMATOLOGY METHOD 11/01/2024 1:18 PM EDT [facility] Basophils Absolute 0.08 0.00 - 0.10 10*3/uL LAB HEMATOLOGY METHOD 11/01/2024 1:18 PM EDT [facility] Immature Granulocytes Absolute 0.02 0.00 - 0.06 10*3/uL LAB HEMATOLOGY METHOD 11/01/2024 1:18 PM EDT [facility] Blood Venous blood specimen / Unknown Venipuncture / Unknown 11/01/2024 1:12 PM EDT 11/01/2024 1:16 PM EDT Narrative [facility] - 11/01/2024 1:18 PM EDT Therapeutic decision making should be based on absolute values, rather than percentages. Oneil Blackmon MD LAB BLOOD ORDERABLES Final Re sult [facility] [address] [place] [address] * (ABNORMAL) Basic metabolic panel (11/01/2024 1:12 PM EDT) Glucose, Plasma 83 74 - 99 mg/dL 11/01/2024 1:34 PM EDT [facility] BUN, Plasma 17 8 - 23 mg/dL 11/01/2024 1:34 PM EDT [facility] Creatinine, Plasma 0.64 0.60 - 1.10 mg/dL 11/01/2024 1:34 PM EDT [facility] BUN/Creatinine Ratio 27 11/01/2024 1:34 PM EDT [facility] Sodium, Plasma 143 136 - 145 mmol/L 11/01/2024 1:34 PM EDT [facility] Potassium, Plasma 3.7 3.6 - 4.9 mmol/L 11/01/2024 1:34 PM EDT [facility] Chloride, Plasma 105 97 - 107 mmol/L 11/01/2024 1:34 PM EDT [facility] CO2, Plasma 25 22 - 29 mmol/L 11/01/2024 1:34 PM EDT [facility] Anion Gap 13 6 - 16 mmol/L 11/01/2024 1:34 PM EDT [facility] Total Calcium, Plasma 8.6(L) 8.9 - 10.2 mg/dL 11/01/2024 1:34 PM EDT [facility] eGFRcr 100.1 mL/min/1.7 3m*2 11/01/2024 1:34 PM EDT [facility] Comment:Reported eGFRcr in m L/min/1.73m2 is based the CKD-EPI 2020 equation that does not use a race coefficient. Blood Venous blood specimen / Unknown Venipuncture / Unknown 11/01/2024 1:12 PM EDT 11/01/2024 1:16 PM EDT us Oneil Blackmon MD LAB BLOOD ORDERABLES Final Re sult [facility] [address] [place] [address] * POCT glucose meter (11/01/2024 11:28 AM EDT) Only the most recent of4 resultswithin the time period is included. POCT Glucose 91 74 - 99 mg/dL 11/01/2024 11:30 AM EDT [facility] Comment:Accuracy of a glucos e result [...] Comment 11/01/2024 11:30 AM EDT [facility] Social And Political Studies Professor ID Solomon Brown 11/02/19 11:30 AM EDT [facility] Device ID [id number] 11/01/2024 11:30 AM EDT [facility] Specimen Type POC Capillary 11/01/2024 11:30 AM EDT [facility] Blood Capillary blood specimen / Unknown 11/01/2024 11:28 AM EDT 11/01/2024 11:30 AM EDT us Joaquin Cardona MD LAB POINT OF CARE TE ST DOCKED DEVICE UNSOLICITED RESULTS Final Result [facility] [address] [place] [address] * [place] Modified Barium Swallow (11/01/2024 9:08 AM EDT) [...] final edited report. Drafted by SUZIE Rosenbaum (R) on 11/01/2024 10:36 AM Final report [...] signing this report, I, the attending physician, amanuel I have personally reviewed the images/data for the aboveexamination(s) and agree with the final edited report. Drafted by SUZIE Rosenbaum RT (R) on 11/01/2024 10:36 AM Final report signed by Mike Shaffer MD on 11/01/2024 11:08 AM Edurado Casas MD IMG FLUOROSCOPY PROCEDURES Fi nal Result * ED HIV 1/2 Antibody/Antigen Screen w/Reflex to HIV 1/2 Differentiation (10/30/2024 6:38 PM EDT) HIV 1 & 2 Antibody/Antigen Screen Non Reactive Non Reactive 10/30/2024 7:54 PM EDT [facility] Comment:Screening for HIV 1 & 2 antibodies, and P24 antigen is NONREACTIVE. No confirmatory testing is required. Blood Venous blood specimen / Unknown Venipuncture / Unknown 10/30/2024 6:38 PM EDT 10/30/2024 7:09 PM EDT us Rogerio Marino MD LAB BLOOD ORDERABLES Final Res ult [facility] [address] [place] [address] * Hepatitis C Antibody - ED (10/30/2024 6:38 PM EDT) Hepatitis C Antibody Negative Negative 10/30/2024 7:54 PM EDT [facility] Blood Venous blood specimen / Unknown Venipuncture / Unknown 10/30/2024 6:38 PM EDT 10/30/2024 7:09 PM EDT us Rogerio Marino MD LAB BLOOD ORDERABLES Final Res ult [facility] [address] [place] [address] from Last 3 Months or Most Recently Relevant to Health Maintenance Insurance [facility] Advance Directives * Full Code (Latest Code Status on File) Date Activated Date Inactivated Comments 10/31/2024 1:17 AM 11/01/2024 4:18 PM * Full Code Date Activated Date Inactivated Comments 03/14/2022 12:00 PM 03/15/2022 5:21 PM Question Answer Comments Patient has decision-making capacity? Yes Care Teams Studio Operations Engineer In Charge Relationship Specialty Start Date End Date Kristy Sanchez APRN [address] [place] [address] PCP - General 10/31/24 Andra Matos APRN [address] [place] [address] Nurse Practitioner Neurosurgery 07/16/21 Oneil Blackmon MD [address] [place] [address] Surgeon Neurosurgery 08/18/21 Andra Matos APRN [address] [place] [address] Nurse Practitioner Neurosurgery 10/12/21 Shania Parikh DDS [address] [place] [address] Dentist Dentist 06/10/22 Aldo Pickens DMD [address] [place] [address] Dentist 06/10/22
--- OUTSIDE RECORDS SUMMARY | 2025-02-01 11:09 | XMS_ITS | Encounter Summary ---
Author Organization Healthcare Address [address] [place] [address] Care Team Providers Care Area Attendant Name Role Phone Andra Matos EMBEDDED SOFTWARE MANAGER Unavailable [phone] Oneil Blackmon MD Unavailable [phone] Andra Matos EMBEDDED SOFTWARE MANAGER Unavailable [phone] Shania Parikh DDS Unavailable + Aldo Pickens DMD Unavailable [phone] Pcp, No Primary Care Provider Unavailabl e Kristy Sanchez EMBEDDED SOFTWARE MANAGER Primary Care Provider [phone] Encounter Details Date Type Department Care Team (Late st Contact Info) Description 03/24/2023 Orders Only External Location [address] [place] [id number] Provider, External Social History Tobacco Use Types [...] drink first t kisha in the morning (EYE-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 PROFESSOR) to steady your nerves or to get [...] Description 03/19/2025 1:15 PM EDT Office Visit [facility] [address], [address] [place] [address] Gustavo Rodriguez, [address] [place] [address] documented as of this encounter [...] documented as of this encounter Care Teams Area Attendant Relationship Specialty Start Date End Date Pcp, No [address] [place] [address] PCP - General Family Medicine 10/30/24 10/30/24 Kristy Sanchez, EMBEDDED SOFTWARE MANAGER [address] [place] [address] PCP - General 10/31/24 Andra Matos APRN [address] [place] [address] Nurse Practitioner Neurosurgery 07/16/21 Oneil Blackmon MD [address] [place] [address] Surgeon Neurosurgery 08/18/21 Andra Matos APRN [address] [place] [address] Nurse Practitioner Neurosurgery 10/12/21 Shania Parikh DDS [address] [place] [address] Dentist Dentist 06/10/22 Aldo Pickens DMD [address] [place] [address] Dentist 06/10/22 documented as of this encounter
[2025-02-01 11:10] LABS: Basophils # 0.1 K/mm3 (0-0.2); Basophils % 0.9 % (0.1-2.0); Eosinophils # 0.3 Kmm3 (0.0-0.4); Hemoglobin 14.4 g/dL (12.2-16.2); Immature Granulocytes # 0.07 10^3uL; Immature Granulocytes % 0.8 %; Lymphocytes # 2.5 K/mm3 (0.7-4.5); Lymphocytes % 29.3 % (10-50); Mean Corpuscular HGB Conc 33.5 g/dL (31.8-35.4); Mean Corpuscular Hemoglobin 27.9 pg (27.0-31.2); Mean Corpuscular Volume 83.2 fl (81-99); Mean Platelet Volume 9.3 fl (7.4-10.4); Monocytes # 0.4 K/mm3 (0.1-1.0); Monocytes % 4.7 % (1.7-9.3); Neutrophils # 5.3 K/mm3 (1.8-7.8); Neutrophils % 61.3 % (37.0-80.0); Nucleated Red Blood Cells # 0 10^3/uL; Nucleated Red Blood Cells % 0 %; Platelet Count 362 K/mm3 (142-424); Red Blood Count 5.17 M/mm3 (4.20-5.40); Red Cell Distribution Width 13.3 % (11.5-17.5); Red Cell Distribution Width-SD 40.9 fL; White Blood Count 8.6 K/mm3 (4.8-10.8)
[2025-02-01] MEDS: LACTATED RINGERS 1000ML 1,000 ML 999 ML IV (11:10)
[2025-02-01 11:12] LABS: Alanine Aminotransferase 16 U/L (12-78); Albumin Level 4.9 g/dl (3.5-5.0); Albumin/Globulin Ratio 1.7 (1.1-1.8); Alkaline Phosphatase 95 U/L (38-126); Aspartate Amino Transferase 36 U/L (14-36); Blood Urea Nitrogen 24 mg/dl (7-17); Calcium 10.5 mg/dl (8.4-10.2); Carbon Dioxide 25 mmol/L (22.0-30.0); Chloride 105 mmol/L (98-107); Estimated Glomerular Filt Rate 85 ml/min (>60); GFR (African American) 103 ML/MIN (>60); Globulin 2.9 g/dL (1.3-3.2); Glucose 126 mg/dl (74-100); Sodium 140 mmol/L (136-145); Total Protein,Serum 7.8 g/dl (6.3-8.2)
--- NOTE | 2025-02-01 11:21 | PC.NURSE ---
pt in CT scan
[2025-02-01 11:24] LABS: Troponin I < 0.01 ng/ml (0.00-0.034)
[2025-02-01] MEDS: IOPAMIDOL-370 (76%);100ML BOTTLE 160 ML IV (11:30)
[2025-02-01] MEDS: SODIUM CHLORIDE 0.9% 10ML SYR (RAD ONLY) 10 ML IV (11:30)
[2025-02-01] MEDS: 0.9 % SODIUM CHLORIDE 50 ML VIAL 100 ML IV (11:30)
[2025-02-01 11:33] LABS: Activated Partial Thrombo Time 21.5 seconds (22.8-30.6); INR 0.95 (0.9-1.1); Prothrombin Time 10.6 seconds (10.1-12.5)
--- NOTE | 2025-02-01 11:38 | PC.NURSE ---
back from CT
[2025-02-01 14:43] LABS: Troponin I < 0.01 ng/ml (0.00-0.034)
--- NOTE | 2025-02-01 15:25 | PC.NURSE ---
C-Collar removed per Dr. Gaona. Patient given Incentive Spirometer given, patient teaching on use complete. Patient verbalized understanding.
[2025-02-01] MEDS: KETOROLAC 30MG/ML VIAL 15 MG IV (16:25)
[2025-02-01] MEDS: CYCLOBENZAPRINE 10MG TABLET 5 MG PO (16:25)
--- NOTE | 2025-02-01 16:30 | PC.NURSE ---
Patient report called to PETTY Torres
--- NOTE | 2025-02-01 17:04 | PC.NURSE ---
Pt arrived to Med/Surg floor @1702
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
[2025-02-01 17:55] LABS: HIV Combo NEGATIVE (Negative)
[2025-02-01 17:58] LABS: Troponin I < 0.01 ng/ml (0.00-0.034)
--- NOTE | 2025-02-01 18:01 | P.HP_ITS ---
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 She was riding her horse earlier today when it got spooked and bucked her off. She landed on her right side and had immediate right sided rib and back pain. Has had previous injuries necessitating fusion of her C-spine and L-spine. Denies any loss of consciousness, no focal neurologic deficits, denies any numbness or tingling anywhere. Does have diffuse pain, especially in her back and her abdomen. Denies nausea, vomiting, diarrhea or shortness of breath aside. Does have pain with deep inspiration and so is not taking deep breaths. Not on any anticoagulation. Workup in the ER found to have endplate deformity of T4 and 5 along with right-sided rib fractures. Attempted to discharge patient home but due to severity of pain, requested admission for further management. On my evaluation, patient is hemodynamically stable on room air. Cooperative on exam but having difficulty with deep breathing. States she deals with pain frequently due to her previous injuries and trauma but current pain is uncontrollable. Responding well to combo of Toradol and morphine. [facility] Disclaimer: The information contained in this section may have been updated after the patient was seen, as this information can be updated by other users. Medical History HLD (hyperlipidemia) Insomnia Cervicogenic headache History of TMJ disorder Mood disorder TMJ dysfunction Scaphoid fracture of wrist Vitamin D deficiency HLD (hyperlipidemia) Elevated blood pressure reading History of solitary pulmonary nodule History of colon polyps H/O abnormal mammogram Surgical History H/O spinal fusion History of spinal fusion Hx of lumpectomy Family History Family/Other No significant family history Other Alcoholism Alzheimer's dementia Cancer Heart attack Hyperlipidemia Hypertension Social History Smoking Status: Never smoker alcohol intake: current alcohol intake frequency: other substance use type: denies use current occupational status: retired Travel in the last 8 weeks?: None household members: spouse housing: other details: mobile marital status: number of children: 0 Have you lived/traveled outside US in past 30 days?: No Contact w/someone who lives/traveled outside US past 30 days?: No Exposure to someone with infectious disease in past 14 days?: No Do you have a fever (greater than 100.4 F or 38 C)?: No Have you tested positive for COVID-19?: No Exposed to someone with COVID-19 in past 14 days?: No Do you have a sore throat?: No Do you have a cough?: No Do you have any weakness?: No Are you experiencing any nausea/vomitting?: No Do you have any diarrhea?: No Are you experiencing any unusual bleeding?: No Do you have any muscle aches/pain?: No Do you have any abdominal pain?: No Are you experiencing loss of taste or smell?: No Other Medical History Have you received the Flu Vaccine for this season: Yes Have you received the Pneumonia Vaccine: No Review of Systems Review of Systems Review of systems (narrative): 14 point review of systems performed, pertinent positives and negatives as per HPI Meds Home Medications and Allergies Home Medications ?Medication ?Instructions ?Recorded ?Confirmed ?Type atorvastatin 80 mg tablet 80 mg PO DAILY 05/29/2401/06 History losartan 50 mg tablet 50 mg PO DAILY #30 tabs 06/0802/01/25 Rx atogepant 60 mg tablet (Qulipta) 60 mg PO DAILY #30 ta bs 09/09/24 02/01/25 Rx citalopram 20 mg tablet 20 mg PO DAILY Depression #9 0 tabs 11/18/24 02/01/25 Rx cyclobenzaprine 10 mg tablet 10 mg PO HS 11/18/2401/06 History ubrogepant 100 mg tablet 100 mg PO ONCE PRN migraine 11/18/24 02/01/25 Rx headache #15 tabs evolocumab 140 mg/mL subcutaneous 140 mg SQ Q2W #3 mL 11/25/24 02/01/25 Rx pen injector (Angel Pete) hydrocodone 5 mg-acetaminophen 325 1 tab PO Q6H PRN pa in 3 days #12 01/10/25 02/01/25 Rx mg tablet tabs New Prescriptions to Start Prescriptions: Allergies Allergy/AdvReac Type Severity Reaction Status Date / Time cephalexin (From Keflex) Allergy Verified 11/18/24 15:33 diclofenac (From Voltaren) Allergy Verified 11/18/24 15:33 fluconazole Allergy Verified 11/18/24 15:33 prednisone Allergy Verified 11/18/24 15:33 Exam Data for Last 24 hours Vital signs and Labs for Last 24 Hours: Temp Pulse Resp BP Pulse Ox O2 Del Method 98.7 F 89 17 132/78 97 Room Air 02/01/25 16:58 02/01/25 16:58 02/01/25 16:58 02/01/25 16:58 02/01/25 16:31 02/01/25 16:58 Laboratory Results - last 24 hr 02/01/25 10:55: WBC 8.6, RBC 5.17, Hgb 14.4, Hct 43.0, MCV 83.2, MCH 27.9, MCHC 33.5, RDW 13.3, Plt Count 362, MPV 9.3, Neut % (Auto) 61.3, Lymph % (Auto) 29.3, [place] % (Auto) 4.7, Eos % (Auto) 3.0, Baso % (Auto) 0.9, Neut # (Auto) 5.3, Lymph # (Auto) 2.5, [place] # (Auto) 0.4, Eos # (Auto) 0.3, Baso # (Auto) 0.1, PT 10.6, INR 0.95, APTT 21.5 L, Sodium 140, Potassium 4.0, Chloride 105, Carbon Dioxide 25, Anion Gap 14.0, BUN 24 H, Creatinine 0.70, Estimated GFR 85, Est GFR ( Amer) 103, Glucose 126 H, Calcium 10.5 H, Total Bilirubin 1.0, AST 36, ALT 16, Alkaline Phosphatase 95, Troponin I < 0.01, Total Protein 7.8, Albumin 4.9, Globulin 2.9, Albumin/Globulin Ratio 1.7, HIV Ag/Ab Combo Qual Negative 02/01/25 14:02: Troponin I < 0.01 02/01/25 17:28: Troponin I < 0.01 I & O for Last 24 hours: Intake & Output 01/29/25 01/30/25 01/31/25 02/01/25 23:59 23:59 23:59 23:59 Weight 69.626 kg Constitutional Constitutional: mild distress and cooperative *Routine HEENT Exam Head: Present normocephalic and atraumatic Eye: Present EOMI and PERRL ENT: Present mucous membranes moist *Routine Neck Exam Neck: Absent lymphadenopathy Comments: Stiff due to fusion of C-spine Routine Chest/Breast/Axilla Exam Comments: Tender to palpation along right side of chest worse in the lower thorax *Routine Respiratory Exam Respiratory: Present CTA bilaterally; Absent rhonchi, wheezes or crackles Comments: Pain with deep inspiration *Routine Cardiovascular Exam Cardiovascular: Present RRR *Routine Abdominal Exam Abdominal: Present soft, normoactive bowel sounds and tenderness (Left lower abdomen) *Routine Rectal Exam Rectal:: deferred *Routine Genitalia Exam Genitalia:: deferred *Routine Extremities Exam Extremities: Absent cyanosis, clubbing or edema Comments: Bruising above left knee and on bilateral shins in various stages of healing *Routine Skin Exam Skin: Present warm; Absent rash Comments: Abrasion on right forearm *Routine Neurological Exam Neurological: Present alert, oriented X3 and moving all extremities; Absent sensory deficit, motor deficit or altered mental status Assessment and Plan *Assessment and plan (1) Back pain, thoracic: Status: Acute Category: Medical Code(s): M54.6 - Pain in thoracic spine (2) Rib fractures: Status: Acute Category: Medical Code(s): S22.49XA - Multiple fractures of ribs, unspecified side, initial encounter for closed fracture (3) Closed T5 fracture: Status: Acute Category: Medical Code(s): S22.059A - Unspecified fracture of T5-T6 vertebra, initial encounter for closed fracture (4) Closed T4 fracture: Status: Acute Category: Medical Code(s): S22.049A - Unspecified fracture of fourth thoracic vertebra, initial encounter for closed fracture (5) Episodic migraine: Status: Chronic Category: Medical Code(s): G43.909 - Migraine, unspecified, not intractable, without status migrainosus (6) Essential hypertension: Status: Chronic Category: Medical Code(s): I10 - Essential (primary) hypertension (7) HLD (hyperlipidemia): Status: Chronic Qualifiers: Hyperlipidemia type: unspecified Qualified Code(s): E78.5 - Hyperlipidemia, unspecified Category: Medical Code(s): E78.5 - Hyperlipidemia, unspecified Plan 64-year-old female who was riding her horse today and was thrown off the horse when it got spooked. Presented to the ER because of back pain. In the ER, workup concerning for endplate deformity of T4 and 5. Has multiple rib fractures on right side. Due to intractable pain, had discussion with ER physician request admission for further management of pain as patient is unable to ambulate due to severity of back and rib pain. I decided to admit for furthe r pain control. Initiating IV Toradol and oral opiates. Monitoring for toxicity. Problems addressed as follows: Intractable back pain, traumatic Close T4 and 5 endplate fractures Right rib fractures -Per my review of CT of the spine, has impacted fracture of T4 and 5 - Per my review of chest CT has right sided 9th and 12th rib fractures - Patient has history of L-spine fusion and C-spine fusion. Takes opiates occasionally at home, predominantly controls pain with NSAIDs - Initiate Toradol 30 mg IV every 6 hours as needed, initiate oxycodone 5 mg p.o. every 4 hours as needed for severe breakthrough pain. Receiving morphine IV for severe breakthrough pain if unable to tolerate oral. Monitor for toxicity. - Surgery consulted due to nature of trauma, appreciate their recommendations and assistance with management - Initiate tizanidine 4 mg as needed 3 times a day for muscle spasm - White count 8.6, hemoglobin 14.4. Kidney function normal with BUN 24, creatinine 0.7. Repeat CBC, CMP, magnesium ordered for the morning. Chronic migraine: Continue Qulipta daily 60 mg Continue citalopram 20 mg daily for mood Continue losartan 50 mg daily for hypertension Holding statin setting, to decrease risk for muscle injury Full code PLOV Regular diet
[2025-02-01 18:03] LABS: Hepatitis C Ab Qual. W/ RFX NEGATIVE (Negative)
--- NOTE | 2025-02-01 20:05 | HMH.PTEV ---
Physical Therapy Evaluation Rehab PT IP Evaluation Start: 02/01/25 18:13 Freq: ONCE Status: Active Protocol: Document 02/01/25 19:52 PDESEROUX (Rec: 02/01/25 20:05 [email or web address] [id number]) Subjective/History History History Pt. is a 64 year old female w/ a PMH of S/P cervical and lumbar spine fusions, hyperlipidemia, cervicogenic headaches, and Vit. D deficiency who presents to [facility] 2nd floor Inpatient setting post getting bucked off of her horse. Pt. reports she was riding her horse earlier today and something spooked her horse causing pt. to be thrown from off of the back of the horse landing of her back side. Pt. c/o the P! is severe rating a 9/10 a rest. Pt. reports PLOF as IND. w/ ADLs. Subjective Subjective Pt. reports, I have two rib fractures. Pt.'s was bedside during Inpatient PT evaluation. New diagnosis of No cancer in past 12 months? [facility] How much help from another person do you currently need... Turning from your None back to your side while in a flat bed without using bedrails? Moving from lying on None back to sitting on the side of a flat bed without using bedrails? Moving to and from a None bed to a chair ( including a wheelchair)? Standing up from a None chair using your arms? (e.g., wheelchair, bedside chair) Walking in hospital None room? Climbing 3-5 steps None with a railing? Mobility Score 24 Mobility Level [facility] Mobility Walk 250 feet or more Mobility Calculator Rehab PT IP Eval Objective Appearance Patient Behavior Appropriate,Cooperative Patient Orientation Person,Place,Time,Situation Difficulty following none instructions Speech Pattern Clear,Appropriate,Coherent Ambulation Patient Able to Yes Ambulate Ambulation Observation IP General Gait No Deviations/Normal Pattern Observation Ambulation Distance 40 (feet) Ambulation Assistive None Device Ambulation Ability Supervision/Stand by Balance Ability to Arise Able, w/o using arms Sitting Balance Steady, safe Standing Balance Narrow stance w/o support Dynamic Sitting Normal Balance Ability Dynamic Standing Normal Balance Ability Transfers Bed Transfer Ability Supervision/Stand by Chair Transfer Supervision/Stand by Ability Sit to Stand Bed Supervision/Stand by Transfer Ability Sit to Stand Chair Supervision/Stand by Transfer Ability Pain Medial Back Pain Intensity 9 ROM RLE PT ROM Status WFL LLE PT ROM Status WFL MMT RLE PT MMT WFL LLE PT MMT WFL Rehab PT IP prob,goals,plan Problems Date of Evaluation: 02/01/25 Rehab Potential Rehab Potential Innapropriate for Skilled Therapy Discharge Plan PT Discharge Plan Pt. is currently at baseline status for functional mobility and most appropriate to discharge home w/ assistance from family once deemed medically stably by MD. Eval Complexity Eval Charge Codes 66679 - Low Complexity PHYSICIAN CERTIFICATION: I certify the specified therapy services for Jennifer Carrero are required, authorized, and reviewed every 30 days.
[2025-02-01] MEDS: OXYCODONE 5MG W/APAP 325MG TABLET 1 EACH PO (20:43)
[2025-02-01] MEDS: TIZANIDINE 4MG TABLET 2 MG PO (20:43)
[2025-02-01] MEDS: KETOROLAC 30MG/ML VIAL 30 MG IV (21:38)
[2025-02-02] MEDS: MORPHINE 2MG/ML SYRINGE 2 MG IV ×2 (01:47→08:42)
[2025-02-02 04:00] VITALS: BP 96/51; PULSE 79; RESP 16; TEMP 36.6; O2SAT 97
[2025-02-02] MEDS: OXYCODONE 7.5MG W/APAP 325MG TABLET 1 EACH PO ×3 (05:24→20:00)
--- NOTE | 2025-02-02 05:33 | PC.NURSE ---
Pt. a&0 x4. Ambulates in room with assistance. Complained of pain throughout shift, medicated per mar. Call light in reach.
[2025-02-02] MEDS: KETOROLAC 30MG/ML VIAL 30 MG IV ×2 (06:17→15:02)
[2025-02-02 06:29] LABS: Basophils # 0.1 K/mm3 (0-0.2); Basophils % 0.8 % (0.1-2.0); Eosinophils # 0.3 Kmm3 (0.0-0.4); Hematocrit 36.9 % (37.0-47.0); Immature Granulocytes # 0.01 10^3uL; Immature Granulocytes % 0.2 %; Lymphocytes # 2.1 K/mm3 (0.7-4.5); Lymphocytes % 34.2 % (10-50); Mean Corpuscular HGB Conc 31.4 g/dL (31.8-35.4); Mean Corpuscular Hemoglobin 26.7 pg (27.0-31.2); Mean Corpuscular Volume 84.8 fl (81-99); Mean Platelet Volume 9.3 fl (7.4-10.4); Monocytes # 0.4 K/mm3 (0.1-1.0); Monocytes % 5.8 % (1.7-9.3); Neutrophils # 3.4 K/mm3 (1.8-7.8); Nucleated Red Blood Cells # 0 10^3/uL; Nucleated Red Blood Cells % 0 %; Platelet Count 234 K/mm3 (142-424); Red Blood Count 4.35 M/mm3 (4.20-5.40); Red Cell Distribution Width 13.6 % (11.5-17.5); Red Cell Distribution Width-SD 42.3 fL; White Blood Count 6.2 K/mm3 (4.8-10.8)
[2025-02-02 06:49] LABS: Albumin Level 3.6 g/dl (3.5-5.0); Chloride 101 mmol/L (98-107); Potassium 3.7 mmoL/L (3.5-5.1); Sodium 134 mmol/L (136-145)
[2025-02-02 06:50] LABS: Hemoglobin 11.6 g/dL (12.2-16.2)
[2025-02-02 06:52] LABS: Alanine Aminotransferase 11 U/L (12-78); Albumin/Globulin Ratio 1.6 (1.1-1.8); Alkaline Phosphatase 81 U/L (38-126); Anion Gap 9.7 mEq/L (5-15); Aspartate Amino Transferase 29 U/L (14-36); Bilirubin,Total 0.8 mg/dl (0.2-1.3); Blood Urea Nitrogen 15 mg/dl (7-17); Calcium 8.5 mg/dl (8.4-10.2); Carbon Dioxide 27 mmol/L (22.0-30.0); Creatinine Clearance Estimated 64 mL/min (50-200); Estimated Glomerular Filt Rate 101 ml/min (>60); GFR (African American) 123 ML/MIN (>60); Globulin 2.3 g/dL (1.3-3.2); Glucose 92 mg/dl (74-100); Total Protein,Serum 5.9 g/dl (6.3-8.2)
[2025-02-02 06:53] LABS: Magnesium 2.2 mg/dl (1.6-2.3)
[2025-02-02 08:00] VITALS: BP 100/54; PULSE 78; RESP 14; TEMP 36.4; O2SAT 99
[2025-02-02] MEDS: ENOXAPARIN 40MG/0.4ML SYRINGE 40 MG SUBCUT (08:41)
[2025-02-02] MEDS: CITALOPRAM 20MG TABLET 20 MG PO (08:41)
[2025-02-02 12:00] VITALS: BP 102/56; PULSE 73; RESP 16; TEMP 36.5; O2SAT 97
--- NOTE | 2025-02-02 12:18 | EXP.SURG.CON ---
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 She was riding her horse earlier today when it got spooked and bucked her off. She landed on her right side and had immediate right sided rib and back pain. Has had previous injuries necessitating fusion of her C-spine and L-spine. Denies any loss of consciousness, no focal neurologic deficits, denies any numbness or tingling anywhere. Does have diffuse pain, especially in her back and her abdomen. Denies nausea, vomiting, diarrhea or shortness of breath aside. Does have pain with deep inspiration and so is not taking deep breaths. Not on any anticoagulation. Workup in the ER found to have endplate deformity of T4 and 5 along with right-sided rib fractures. Attempted to discharge patient home but due to severity of pain, requested admission for further management. On my evaluation, patient is hemodynamically stable on room air. Cooperative on exam but having difficulty with deep breathing. States she deals with pain frequently due to her previous injuries and trauma but current pain is uncontrollable. Responding well to combo of Toradol and morphine. Ms. Fierro is a 64-year-old female who fell yesterday while riding her horse. She landed on her right side, where she noticed rib and back pain. She has had equestrian injuries before, including C-spine and L-spine injuries requiring fusion. She had a full radiologic panel in the emergency room, including a FAST exam. The only injuries uncovered were superior endplate fractures of T4 and T5 vertebrae, and right posterior 12th rib fracture and right 10th rib fracture at the costovertebral junction. She notes that she also has some bruising on her left hand, but and plain film x-ray was normal. Since her fall and this morning, she does not have any new complaints, just the back and rib pain. She actually has fairly good pulmonary toilet, and her incentive spirometry effort is 1500 mL. [facility] Disclaimer: The information contained in this section may have been updated after the patient was seen, as this information can be updated by other users. Medical History HLD (hyperlipidemia) Insomnia Cervicogenic headache History of TMJ disorder Mood disorder TMJ dysfunction Scaphoid fracture of wrist Vitamin D deficiency HLD (hyperlipidemia) Elevated blood pressure reading History of solitary pulmonary nodule History of colon polyps H/O abnormal mammogram Surgical History H/O spinal fusion History of spinal fusion Hx of lumpectomy Family History Family/Other No significant family history Other Alcoholism Alzheimer's dementia Cancer Heart attack Hyperlipidemia Hypertension Social History Smoking Status: Never smoker alcohol intake: current alcohol intake frequency: other substance use type: denies use current occupational status: retired Travel in the last 8 weeks?: None household members: spouse housing: other details: mobile marital status: number of children: 0 Have you lived/traveled outside US in past 30 days?: No Contact w/someone who lives/traveled outside US past 30 days?: No Exposure to someone with infectious disease in past 14 days?: No Do you have a fever (greater than 100.4 F or 38 C)?: No Have you tested positive for COVID-19?: No Exposed to someone with COVID-19 in past 14 days?: No Do you have a sore throat?: No Do you have a cough?: No Do you have any weakness?: No Are you experiencing any nausea/vomitting?: No Do you have any diarrhea?: No Are you experiencing any unusual bleeding?: No Do you have any muscle aches/pain?: No Do you have any abdominal pain?: No Are you experiencing loss of taste or smell?: No Meds Home Medications and Allergies Home Medications ?Medication ?Instructions ?Recorded ?Confirmed ?Type atorvastatin 80 mg tablet 80 mg PO DAILY 05/29/24 02/01/25 History losartan 50 mg tablet 50 mg PO DAILY #30 tabs 07/01/24 02/01/25 Rx atogepant 60 mg tablet (Qulipta) 60 mg PO DAILY #30 tabs 09/09/24 02/01/25 Rx citalopram 20 mg tablet 20 mg PO DAILY Depression #90 tabs 11/18/24 02/01/25 Rx cyclobenzaprine 10 mg tablet 10 mg PO TIDP PRN Muscle Spasm 11/18/24 02/02/25 History evolocumab 140 mg/mL subcutaneous 140 mg SQ Q2W #3 mL 11/25/24 02/01/25 Rx pen injector (Repatha SureClick) ubrogepant 100 mg tablet (Ubrelvy) 100 mg PO DAILYP PRN Migraine 02/02/25 02/02/25 History Headache New Prescriptions to Start Prescriptions: Allergies Allergy/AdvReac Type Severity Reaction Status Date / Time cephalexin (From Keflex) Allergy Verified 11/18/24 15:33 diclofenac (From Voltaren) Allergy Verified 11/18/24 15:33 fluconazole Allergy Verified 11/18/24 15:33 prednisone Allergy Verified 11/18/24 15:33 Exam (Inpt) Vital signs and Labs for Last 24 Hours: Temp Pulse Resp BP Pulse Ox O2 Del Method 97.5 F L 78 14 100/54 L 99 Room Air 02/02/25 08:00 02/02/25 08:00 02/02/25 08:00 02/02/25 08:00 02/02/25 08:00 02/02/25 11:00 Laboratory Results - last 24 hr 02/01/25 10:55: HCV Ab TESSIE w/Rflx PCR Qn Negative, HIV Ag/Ab Combo Qual Negative 02/01/25 14:02: Troponin I < 0.01 02/01/25 17:28: Troponin I < 0.01 02/02/25 06:15: WBC 6.2 D, RBC 4.35, Hgb 11.6 L D, Hct 36.9 L, MCV 84.8, MCH 26.7 L, MCHC 31.4 L, RDW 13.6, Plt Count 234 D, MPV 9.3, Neut % (Auto) 54.0, Lymph % (Auto) 34.2, [place] % (Auto) 5.8, Eos % (Auto) 5.0, Baso % (Auto) 0.8, Neut # (Auto) 3.4, Lymph # (Auto) 2.1, [place] # (Auto) 0.4, Eos # (Auto) 0.3, Baso # (Auto) 0.1, Sodium 134 L, Potassium 3.7, Chloride 101, Carbon Dioxide 27, Anion Gap 9.7, BUN 15 D, Creatinine 0.60, Estimated Creat Clear 64, Estimated GFR 101, Est GFR ( Amer) 123, Glucose 92 D, Calcium 8.5, Magnesium 2.2, Total Bilirubin 0.8, AST 29, ALT 11 L D, Alkaline Phosphatase 81, Total Protein 5.9 L, Albumin 3.6 D, Globulin 2.3, Albumin/Globulin Ratio 1.6 I & O for Labs for Last 24 Hours: Intake & Output 01/30/25 01/31/25 02/01/25 02/02/25 23:59 23:59 23:59 23:59 Intake Total 360 / 600 480 / 480 Output Total 0 / 0 Balance 360 / 600 480 / 480 Weight 153 lb 8 oz 159 lb 3 oz Constitutional: no acute distress Head: Present normocephalic and atraumatic; Absent abrasion, laceration, hematoma, Lopez's sign, scalp tenderness or facial swelling ENT exam ED: Present normal exam, normal oropharynx, mucous membranes moist and normal external ear exam Neck: Present normal inspection and trachea midline; Absent tenderness Respiratory: Present CTA bilaterally; Absent accessory muscle use Cardiac: Present Reg Rate and Rhythm GI: Present soft and normal bowel sounds; Absent distention, tenderness, guarding, rebound or trauma Rectal (female): Present deferred (female): Present deferred Extremities: Present normal inspection; Absent tenderness, edema, calf tenderness or cyanosis Comment:: No tenderness over any joints. No bony deformities. Skin: Present intact; Absent cyanosis, erythema or rash Neuro: Present Cranial Nerve 2-12 Intact, Motor Function Intact, Coordination Normal, alert, awake, oriented x 3, tone normal and moves all extremities; Absent Weakness, Essential Tremor or No Lateralizing Findings Comment:: Normal sensory function on exam, although patient does report decreased sensation on lateral right thigh that is chronic Results Labs 02/02/25 06:15 02/02/25 06:15 Labs: Laboratory Results - last 24 hr 02/01/25 10:55: HCV Ab TESSIE w/Rflx PCR Qn Negative, HIV Ag/Ab Combo Qual Negative 02/01/25 14:02: Troponin I < 0.01 02/01/25 17:28: Troponin I < 0.01 02/02/25 06:15: WBC 6.2 D, RBC 4.35, Hgb 11.6 L D, Hct 36.9 L, MCV 84.8, MCH 26.7 L, MCHC 31.4 L, RDW 13.6, Plt Count 234 D, MPV 9.3, Neut % (Auto) 54.0, Lymph % (Auto) 34.2, [place] % (Auto) 5.8, Eos % (Auto) 5.0, Baso % (Auto) 0.8, Neut # (Auto) 3.4, Lymph # (Auto) 2.1, [place] # (Auto) 0.4, Eos # (Auto) 0.3, Baso # (Auto) 0.1, Sodium 134 L, Potassium 3.7, Chloride 101, Carbon Dioxide 27, Anion Gap 9.7, BUN 15 D, Creatinine 0.60, Estimated Creat Clear 64, Estimated GFR 101, Est GFR ( Amer) 123, Glucose 92 D, Calcium 8.5, Magnesium 2.2, Total Bilirubin 0.8, AST 29, ALT 11 L D, Alkaline Phosphatase 81, Total Protein 5.9 L, Albumin 3.6 D, Globulin 2.3, Albumin/Globulin Ratio 1.[address] scan - abdomen: report reviewed and image reviewed CT scan - chest: report reviewed and image reviewed Additional studies: All CT scan reports and images were reviewed Assessment and Plan *Assessment and plan (1) Rib fractures: Status: Acute Category: Medical Code(s): S22.49XA - Multiple fractures of ribs, unspecified side, initial encounter for closed fracture Plan: 64-year-old female who fell from a horse, suffering right 10th and 12th rib fractures, and superior endplate spinal fractures of T4 and T5 Will need pain control and pulmonary toilet. She is already on a muscle relaxer, Toradol, and narcotic. She was post to have an outpatient MRI for ongoing back pain and spine issues tomorrow anyway. Hopefully she will be able to make that study or possibly have it transferred to an inpatient study. We discussed following up with her regular spine surgeon at after hospital discharge. No new injuries uncovered on tertiary survey. She may go home when pain control is adequate. (2) Closed T5 fracture: Status: Acute Category: Medical Code(s): S22.059A - Unspecified fracture of T5-T6 vertebra, initial encounter for closed fracture (3) Closed T4 fracture: Status: Acute Category: Medical Code(s): S22.049A - Unspecified fracture of fourth thoracic vertebra, initial encounter for closed fracture
--- NOTE | 2025-02-02 14:03 | EXP.OP.NOTE ---
Date of procedure: 02/02/25 Pre-op Diagnosis:: Right lower quadrant pain Post-op Diagnosis:: Large bowel obstruction (cecum Procedure performed:: Diagnostic laparoscopy converted to exploratory laparotomy, ileocecectomy Surgeon:: Lisseth Reddy MD Anesthesia: GETA Estimated blood loss (mL): 100
[2025-02-02] MEDS: LIDOCAINE 5% TRANSDERMAL PATCH 1 EACH TD (14:51)
[2025-02-02] MEDS: POLYETHYLENE GLYCOL 3350 17 GM PACKET PO (14:51)
[2025-02-02 16:00] VITALS: BP 114/59; PULSE 74; RESP 16; TEMP 36.4; O2SAT 95
--- NOTE | 2025-02-02 16:01 | PC.NURSE ---
pt is A&Ox4. pt has had complaints of pain several times throughout the day. MD has started a lidocaine patch to help with it, pt states patch has helped. pt states she has been using the incentive spirometer throughout the day. pt has had no other complaints or needs. pt is resting and has her call light within reach.
--- NOTE | 2025-02-02 17:36 | P.PN_ITS ---
Subjective *Date: 02/02/25 *Time: 18:15 Interval history: Still having significant pain and spite of IV Dilaudid, IV Toradol, and muscle relaxers. Stable on room air. No nausea or vomiting. No bowel movement since admission. Has been at bedside. Medical Exam Vital signs and Labs for Last 24 Hours: Vital Signs Temp Pulse Resp BP Pulse Ox O2 Del Method 02/02/25 17:00 Room Air 02/02/25 15:00 Room Air 02/02/25 13:10 Room Air 02/02/25 12:00 97.7 F 73 16 102/56 L 97 Room Air 02/02/25 11:00 Room Air 02/02/25 09:00 Room Air 02/02/25 08:00 99 Room Air 02/02/25 08:00 97.5 F L 78 14 100/54 L 99 Room Air 02/02/25 06:26 Room Air 02/02/25 05:00 Room Air 02/02/25 04:00 97.8 F 79 16 96/51 L 97 Room Air 02/02/25 03:00 Room Air 02/02/25 01:00 Room Air 02/01/25 23:00 Room Air 02/01/25 21:00 Room Air 02/01/25 20:00 Room Air 02/01/25 20:00 97.5 F L 77 14 120/54 L 96 Room Air 02/01/25 19:00 Room Air Intake and Output 02/02/25 02/02/25 02/02/25 07:59 15:59 23:59 Intake Total 240 / 840 600 / 840 Output Total 0 / 0 0 / 0 Balance 240 / 840 600 / 840 Intake: Intake, Oral Amount 240 / 840 600 / 840 Output: Output, Urine Amount 0 / 0 0 / 0 Other: Number of Voids 1 1 Number of Unmeasured Voids 1 1 Weight 72.206 kg Patient Weight 02/02/25 23:59 Weight 72.206 kg Laboratory Results - last 24 hr 02/01/25 10:55: HCV Ab TESSIE w/Rflx PCR Qn Negative, HIV Ag/Ab Combo Qual Negative 02/01/25 17:28: Troponin I < 0.01 02/02/25 06:15: WBC 6.2 D, RBC 4.35, Hgb 11.6 L D, Hct 36.9 L, MCV 84.8, MCH 26.7 L, MCHC 31.4 L, RDW 13.6, Plt Count 234 D, MPV 9.3, Neut % (Auto) 54.0, Lymph % (Auto) 34.2, [place] % (Auto) 5.8, Eos % (Auto) 5.0, Baso % (Auto) 0.8, Neut # (Auto) 3.4, Lymph # (Auto) 2.1, [place] # (Auto) 0.4, Eos # (Auto) 0.3, Baso # (Auto) 0.1, Sodium 134 L, Potassium 3.7, Chloride 101, Carbon Dioxide 27, Anion Gap 9.7, BUN 15 D, Creatinine 0.60, Estimated Creat Clear 64, Estimated GFR 101, Est GFR ( Amer) 123, Glucose 92 D, Calcium 8.5, Magnesium 2.2, Total Bilirubin 0.8, AST 29, ALT 11 L D, Alkaline Phosphatase 81, Total Protein 5.9 L, Albumin 3.6 D, Globulin 2.3, Albumin/Globulin Ratio 1.6 I & O for Labs for Last 24 Hours: Intake & Output 01/30/25 01/31/25 02/01/25 02/02/25 23:59 23:59 23:59 23:59 Intake Total 360 / 600 840 / 840 Output Total 0 / 0 Balance 360 / 600 840 / 840 Weight 69.626 kg 72.206 kg Constitutional: Present moderate distress, obese and cooperative Head: Present atraumatic and normocephalic ENT: Present normal exam Respiratory: Present normal respiratory effort; Absent rhonchi, wheezes or crackles Comment:: Pain with deep inspiration Cardiac: Present Reg Rate and Rhythm GI: Present normal bowel sounds; Absent tenderness Extremities: Present normal inspection and full ROM; Absent tenderness Comment:: Small bruises on legs as previously mentioned Skin: Present intact; Absent erythema Neuro: Present Grossly Intact, alert, awake, oriented x 3 and moves all extremities Assessment and Plan *Assessment and plan (1) Back pain, thoracic: Status: Acute Category: Medical Code(s): M54.6 - Pain in thoracic spine (2) Rib fractures: Status: Acute Category: Medical Code(s): S22.49XA - Multiple fractures of ribs, unspecified side, initial encounter for closed fracture (3) Closed T5 fracture: Status: Acute Category: Medical Code(s): S22.059A - Unspecified fracture of T5-T6 vertebra, initial encounter for closed fracture (4) Closed T4 fracture: Status: Acute Category: Medical Code(s): S22.049A - Unspecified fracture of fourth thoracic vertebra, initial encounter for closed fracture (5) Episodic migraine: Status: Chronic Category: Medical Code(s): G43.909 - Migraine, unspecified, not intractable, without status migrainosus (6) Essential hypertension: Status: Chronic Category: Medical Code(s): I10 - Essential (primary) hypertension (7) HLD (hyperlipidemia): Status: Chronic Qualifiers: Hyperlipidemia type: unspecified Qualified Code(s): E78.5 - Hyperlipidemia, unspecified Category: Medical Code(s): E78.5 - Hyperlipidemia, unspecified Plan 64-year-old female who was riding her horse today and was thrown off the horse when it got spooked. Presented to the ER because of back pain. In the ER, workup concerning for endplate deformity of T4 and 5. Has multiple rib fractures on right side. Due to intractable pain, had discussion with ER physician request admission for further management of pain as patient is unable to ambulate due to severity of back and rib pain. I decided to admit for further pain control. Still having significant pain, able to ambulate to bathroom but is most comfortable lying down. Will try to get in chair for meals. Continues to require patient management. Problems addressed as follows: Intractable back pain, traumatic Close T4 and 5 endplate fractures Right rib fractures - Patient has history of L-spine fusion and C-spine fusion. Takes opiates occasionally at home, predominantly controls pain with NSAIDs -Continue Toradol 30 mg IV every 6 hours as needed. Increase oxycodone to 7.5 mg as needed every 4 hours. Continue morphine for breakthrough. Monitor for toxicity. - Seen by surgery today, discussed case, will need pain control and pulmonary toilet. Recommend initiating oral opiate therapy to try and transition off IV. Recommend trying to pursue her previously scheduled MRI tomorrow if possible. No new injuries uncovered on tertiary survey. Discharge home when pain control is adequate -Tizanidine 4 mg as needed 3 times a day. Initiate lidocaine patch topically. - White count normal at 6.2, hemoglobin 11.6. Repeat CBC, CMP, magnesium ordered for the morning. Monitoring kidney function while on IV Toradol kidney function stable with BUN 15, creatinine point Chronic migraine: Continue Qulipta daily 60 mg Continue citalopram 20 mg daily for mood Continue losartan 50 mg daily for hypertension Holding statin setting, to decrease risk for muscle injury Full code PLOV Regular diet
--- OUTSIDE RECORDS SUMMARY | 2025-02-02 18:27 | XMS_ITS | Encounter Summary ---
Author Organization [facility] Address [address] [place] [address] Care Team Providers Care Oral Surgeon Name Role Phone Andra Matos POTTERY KILN BUILDER Unavailable [phone] Oneil Blackmon MD Unavailable [phone] Andra Matos POTTERY KILN BUILDER Unavailable [phone] Shania Parikh DDS Unavailable + Aldo Pickens DMD Unavailable [phone] Kristy Sanchez POTTERY KILN BUILDER Primary Care Provider [phone] Encounter Details Date Type Department Care Team [...] How often do you attend chur or anglican services? Never 10/31/2024 Do you belong to [...] Recorded Patient Health Questionnaire-2 Score 0 10/31/2024 [facility] - Occupational Stress Questionnaire Answer Date [...] in the past 12 m [facility], were you homeless or living in a [...] drink first t kisha in the morning (EYE-PAINT TRIMMER PIPE BOWLS) to steady your nerves or to get [...] Description 03/19/2025 1:15 PM EDT Office Visit [facility] [place] [address], [address] [place] [address] JonnyGustavo stafford, DO [address] [place] [address] documented as of this encounter [...] documented as of this encounter Care Teams Oral Surgeon Relationship Specialty Start Date End Date Kristy Sanchez APRN [address] [place] [address] PCP - General 10/31/24 Andra Matos APRN [address] [place] [address] Nurse Practitioner Neurosurgery 07/16/21 Oneil Blackmon MD [address] [place] [address] Surgeon Neurosurgery 08/18/21 Andra Matos APRN [address] [place] [address] Nurse Practitioner Neurosurgery 10/12/21 Shania Parikh DDS [address] [place] [address] Dentist Dentist 06/10/22 Aldo Pickens, DMD [address] [place] [address] Dentist 06/10/22 documented as of this encounter
--- OUTSIDE RECORDS SUMMARY | 2025-02-02 18:27 | XMS_ITS | Clinical Summary ---
Author Organization [facility] Address [address] [place] [address] Care Team Providers Care Cash Register Mechanic Name Role Phone System, Provider Not In [...] therelease of HIV test results or diagnoses. [id number] Social History Tobacco Use Types Packs/Day Years Used Date Smoking Tobacco: Never Assessed Comments Unknown Sex and Gender Information Value Date Recorded Sex Assigned at Not on file Legal Sex Female 10:49 AM EST Gender Identity Not on file Sexual Orientation Not on file Plan of Treatment Not on file Insurance EXCHANGE Care Teams Cash Register Mechanic Relationship Specialty Start Date End Date System, Provider Not In PCP - General 07/22/19
--- OUTSIDE RECORDS SUMMARY | 2025-02-02 18:27 | XMS_ITS | Encounter Summary ---
Author Organization Healthcare Address [address] [place] [address] Care Team Providers Care Medical Practice Assistant Name Role Phone Andra Matos RESEARCH CHIEF ENGINEER Unavailable [phone] Oneil Blackmon MD Unavailable [phone] Andra Matos RESEARCH CHIEF ENGINEER Unavailable [phone] Shania Parikh DDS Unavailable + Aldo Pickens DMD Unavailable [phone] Pcp, No Primary Care Provider Unavailabl e Kristy Sanchez RESEARCH CHIEF ENGINEER Primary Care Provider [phone] Encounter Details Date Type Department Care Team (Late st Contact Info) Description 03/24/2023 Orders Only External Location [address] [place] [id number] Provider, External Social History Tobacco Use Types [...] drink first t kisha in the morning (EYE-TAX COMPLIANCE AGENT) to steady your nerves or to [...] Description 03/19/2025 1:15 PM EDT Office Visit [facility] [place] [address], [address] [place] [address] Gustavo Rodriguez, [address] [place] [address] documented as of this encounter [...] documented as of this encounter Care Teams Medical Practice Assistant Relationship Specialty Start Date End Date Pcp, No [address] [place] [address] PCP - General Family Medicine 10/30/24 10/30/24 Kristy Sanchez, RESEARCH CHIEF ENGINEER [address] [place] [address] PCP - General 10/31/24 Andra Matos APRN [address] [place] [address] Nurse Practitioner Neurosurgery 07/16/21 Oneil Blackmon MD [address] [place] [address] Surgeon Neurosurgery 08/18/21 Andra Matos APRN [address] [place] [address] Nurse Practitioner Neurosurgery 10/12/21 Shania Parikh DDS [address] [place] [address] Dentist Dentist 06/10/22 Aldo Pickens DMD [address] [place] [address] Dentist 06/10/22 documented as of this encounter
--- OUTSIDE RECORDS SUMMARY | 2025-02-02 18:28 | XMS_ITS | Encounter Summary ---
Author Organization [facility] Address [address] [place] [address] Care Team Providers Care Pin Drafting Machine Operator Name Role Phone Andra Matos SNOWMAKER Unavailable Oneil Blackmon MD Unavailable [phone] Andra Matos SNOWMAKER Unavailable Shania Parikh DDS Unavailable + Aldo Pickens DMD Unavailable Kristy Sanchez SNOWMAKER Primary Care Provider [phone] Reason for Visit * Reason Comments Med Refill Encounter Details Date Type Department Care Team (Late st Contact Info) Description 01/16/2025 Refill [place] [facility] [address] [place] [address] Andra Matos, SNOWMAKER [address] [place] [address] Social History Tobacco Use Types [...] any clubs o r organizations such as adventist groups, unions, fraternal or athletic groups, or [...] Recorded Patient Health Questionnaire-2 Score 0 10/31/2024 [facility] - Occupational Stress [...] time in the past 12 m [facility], were you homeless or living in a group home (including now)? No 10/31/2024 CAGE ASSESSMENT Answer [...] drink first t kisha in the morning (EYE-PROVIDER RELATIONS REP) to steady your nerves or to get [...] Description 03/19/2025 1:15 PM EDT Office Visit [facility] [place] [address], [address] [place] [address] Gustavo Rodriguez, DO [address] [place] [address] documented as of this encounter [...] documented as of this encounter Care Teams Pin Drafting Machine Operator Relationship Specialty Start Date End Date Kristy Sanchez APRN [address] [place] [address] PCP - General 10/31/24 Andra Matos APRN [address] [place] [address] Nurse Practitioner Neurosurgery 07/16/21 Oneil Blackmon MD [address] [place] [address] Surgeon Neurosurgery 08/18/21 Andra Matos APRN [address] [place] [address] Nurse Practitioner Neurosurgery 10/12/21 Shania Parikh DDS [address] [place] [address] Dentist Dentist 06/10/22 Aldo Pickens DMD [address] [place] [address] Dentist 06/10/22 documented as of this encounter
--- OUTSIDE RECORDS SUMMARY | 2025-02-02 18:28 | XMS_ITS | Clinical Summary ---
Author Organization [facility] Address [address] [place] [address] Care Team Providers Care Transportation Associate Name Role Phone Andra Matos WOOD GRINDER Unavailable [phone] Oneil Blackmon MD Unavailable [phone] Andra Matos WOOD GRINDER Unavailable [phone] Shania Parikh DDS Unavailable + Aldo Pickens DMD Unavailable [phone] Kristy Sanchez WOOD GRINDER Primary Care Provider [phone] Allergies Active Allergy Reactions Criticality Noted Date [...] (03/09/2022): Added automatically from request for surgery [id number] Back pain 07/16/2021 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 Resolved Problems Problem Noted Date Diagnosed Date Resolved Date Intervertebral disc disorder s with radiculopathy, lumbar region 08/26/2021 09/03/2021 Overview (08/26/2021): Added automatically from request for surgery [id number] Encounters Date Type Department Care Team Description 01/22/2025 2:00 PM EDT Office Visit [facility] [address], [address] [place] [phone] Oneil Blackmon MD S/P cervical spinal fusion (Primary Dx); Lumbar radiculopathy; Status post lumbar spinal arthrodesis; Follow-up examination after neurological surgery 01/22/2025 1:26 PM EDT - 01/22/2025 11:59 PM EDT Hospital Encounter [facility] Radiology [address], [address] [place] [phone] S/P cervical spinal fusion Discharge Disposition: Home or Self Care 01/22/2025 Travel 01/17/2025 Travel 01/16/2025 Refill [facility] [address], [address] [place] [phone] Andra Matos APRN 01/03/2025 Orders Only [facility] [address], [address] [place] [phone] Andra Matos APRN S/P cervical spinal fusion (Primary Dx) 12/16/[address] [facility] [address], [address]st [place] [address] Andra Matos, WOOD GRINDER 11/26/2024 Telephone [facility] [address], 1st [place] [phone] Oneil Blackmon MD 11/21/2024 1:18 PM EDT - 11/21/2024 11:59 PM EDT Hospital Encounter [facility] [address] [place] [phone] Chest pain, unspecified type Discharge Disposition: Home or Self Care 11/21/2024 Travel 11/16/2024 Travel 11/14/2024 Telephone [facility] [address] [place] [phone] Xi Locke RN 11/13/2024 12:40 PM EDT Consult [facility] Otolaryngology [address], 3rd [place] [phone] Ronald Gould MD Dysphagia, unspecified type (Primary Dx); Bilateral temporomandibular joint pain; Trismus 11/13/2024 Refill [facility] [address], 1st [place] [address] Andra Matos, WOOD GRINDER 11/13/2024 Travel 11/06/2024 Travel from Last 3 Months Family History [...] week 10/31/2024 How often do you attend [facility] or anglican services? Never 10/31/2024 Do you belong to any clubs o r organizations such as scientologist groups, unions, fraternal or athletic groups, or [...] Patient Health Questionnaire-2 Score 0 10/31/2024 [facility] Occupat ional Health - Occupational [...] drink first t kisha in the morning (EYE-CARGO ROUTER) to steady your nerves or to get [...] 03/19/2025 1:15 PM EDT Office Visit [facility] [address] [facility], [address] [place] [phone] Gustavo Rodriguez, DO [address] [place] [address] Health Maintenance Due Date Last Done Comments Dental Prophylaxis 1960 Dental X-Ray: Full Mouth 1962 [facility]-Infant/Child/Adol SDOH Screenings 1962 [facility]-DTaP,Tdap,and Td Vaccines (1 [...] 10/01/2023 03/30/2023 Dental X-Ray: Bitewings 03/31/2024 03/30/2023 [id number] Vaccine ( season) 2024 07/14/2023, 05/28/2022, 12/25/2021, Additional history exists [facility]-Influenza Vaccine (Season Ended) 2025 07/14/2023, 05/28/2022, 08/24/2020 [facility]- SDOH Screenings 05/03/2025 [facility]-Adult SDOH Screenings 05/03/2025 10/31/2024 [facility]-Depression Screening 10/31/2025 10/31/2024, 10/06 [facility]-RSV Vaccine: 60+ Years or (1 - 1-dose 75+ series) 2037 [facility]-HIV Screening Completed 10/30/2024 [facility]-Hepatitis C Screening Completed 2024, 09/25/2020, 02/16/2020 [facility]-Obesity Intervention Completed 025, 11/13/2024, 10/30/2024, Additional history exists HPV Vaccines Aged [...] this topic Medical Devices Implanted Type Area Community Relations Representative Device Identifier Shelf Expiration Date Model / Serial / Lot Large Diameter 14mm - Sn/A - [id number] Implanted:Qty : 3 on 10/12/2024 by Oneil Blackmon MD at [facility] Cage N/A: Spine Cervical DePuy Spine [employer] [id number] 10/12/2025 [id number] / N/A / One Level Plate, 16mm - Sn/A - [id number] Implanted:Qty : 1 on 10/12/2024 by Oneil Blackmon MD at [facility] Plate N/A: Spine Cervical De[employer] -[id number] 10/12/2025 [id number] / N/A / Pre-Lordosed Jonatan W/ Line 65mm - S. - [id number] Implanted:Qty : 2 on 08/30/2021 by Oneil Blackmon MD at [facility] Jonatan Spine Lumbar DePuy Spine [employer] LP-[id number] 08/30/2022 [id number] / . / Expedium 5.50 Polyaxial Screw 7.73t94jn, - S. - [id number] Implanted:Qty : 2 on 08/30/2021 by Oneil Blackmon MD at [facility] Screw Spine Lumbar DePuy Spine [employer] [id number] 08/30/2022 [id number] / . / Screw 5.5mm Viper Ti Fen Crtcl Polyax 7mm X 45mm - S. - [id number] Implanted:Qty : 4 on 08/30/2021 by Oneil Blackmon MD at [facility] Screw Spine Lumbar De[employer] Spine [employer] LP-[id number] 08/30/2022 [id number] / . / Single Inner Setscrew - S. - [id number] Implanted:Qty : 6 on 08/30/2021 by Oneil Blackmon MD at [facility] Screw Spine Lumbar De[employer] Spine [employer] LP-[id number] 08/30/2022 [id number] / . / Self Drilling Screw 14mm - Sn/A - [id number] Implanted:Qty : 1 on 10/12/2024 by Oneil Blackmon MD at [facility] Screw N/A: Spine Cervical De[employer] Spine [employer] LP-[id number] 10/12/2025 [id number] / N/A / Plates/Screws Bilateral: Mandible Chip Bone 20cc - [id number] Implanted:Qty : 1 on 08/30/2021 by Oneil Blackmon MD at [facility]197966 05/30/2026 PCAN1/4 / / [id number] Graft Vivigen 5cc - [id number] Implanted:Qty : 1 on 08/30/2021 by Oneil Blackmon MD at [facility]598661 08/11/2022 BL-1500-002 / [id number] / [id number] Graft Vivigen 5cc - [id number] Implanted:Qty : 1 on 08/30/2021 by Oneil Blackmon MD at [facility]135927 08/04/2022 BL-1500-002 / [id number] / [id number] Self Drilling Screw 14mm - [id number] Implanted:Qty : 5 on 03/14/2022 by Oneil Blackmon MD at [facility] Spine Cervical DePuy Spine Sales -[id number] / / Large Diameter 14mm - [id number] Implanted:Qty : 1 on 03/14/2022 by Oneil Blackmon MD at [facility] Spine Cervical DePuy Spine Sales -[id number] / / Knee Vanguard1 Cervical Preservon 6mm - [id number] - [id number] Implanted:Qty : 1 on 03/14/2022 by Oneil Blackmon MD at [facility] Spine [facility]537521 09/30/2026 [id number] / [id number] / [id number] Knee Vanguard1 Cervical Preservon 7mm - [id number] - [id number] Implanted:Qty : 1 on 03/14/2022 by Oneil Blackmon MD at [facility] Right: Spine Cervical [facility]-[id number] 12/15/2026 [id number] / [id number] / [id number] Screw Retainer 3.5mm X 12mm - [id number] Implanted:Qty : 2 on 03/14/2022 by Oneil Blackmon MD at [facility] Spine Cervical DePuy Spine Sales -[id number] 03.820.102 / / Nut Retainer - [id number] Implanted:Qty : 2 on 03/14/2022 by Oneil Blackmon MD at [facility] Spine Cervical DePuy Spine Sales -[id number] 03.820.110 / / Plate Two Level 28mm - [id number] Implanted:Qty : 1 on 03/14/2022 by Oneli Blackmon MD at [facility] Spine Cervical DePuy Spine Sales -[id number] / / Knee Vanguard1 Cervical Preservon 7mm - [id number] - [id number] Implanted:Qty : 1 on 10/12/2024 by Oneil Blackmon MD at [facility] Spine [facility]ervical [facility]330174 08/01/2029 [id number] / [id number] / [id number] Tissue Vivigen Formable 1.3cc Sm Pk/4 - [id number] Implanted:Qty : 1 on 10/12/2024 by Oneil Blackmon MD at [facility] N/A: Spine Cervical [facility]-905445 09/23/2025 [id number] / / [id number] Screw Retainer 3.5mm X 14mm - Sn/A - [id number] Implanted:Qty : 2 on 10/12/2024 by Oneil Blackmon MD at [facility] N/A: Spine Cervical DePuy Spine [facility]-[id number] 10/12/2025 03.820.103 / N/A / Nut Retainer - Sn/A - [id number] Implanted:Qty : 2 on 10/12/2024 by Oneil Blackmon MD at [facility] N/A: Spine Cervical DePuy Spine [facility]-[id number] 10/12/2025 03.820.110 / N/A / Procedures Procedure Name Priority Date/Time Associated Diagnosis Comments XR CERVICAL SPINE COMPLETE 4 TO 5 VIEWS Routine 01/22/2025 1:41 PM EDT S/P cervical spinal fusion CT ANGIO CARDIAC CORONARY ARTERIES Routine 11/21/2024 3:13 PM EDT Chest pain, unspecified type HEPATITIS C ANTIBODY - ED W/REFLEX TO [...] MD on 01/22/2025 1:53 PM us Andra Matos WOOD GRINDER IMG XR PROCEDURES Final Resu lt * [...] source 192 MDCT scanner (Somatom Force, Siem[employer])was used for data acquisition. A non-contrast [...] MD IMG CT PROCEDURES Final Result * ED HIV 1/2 Antibody/Antigen Screen w/Reflex to HIV 1/2 Differentiation (10/30/2024 6:38 PM EDT) HIV 1 & 2 Antibody/Antigen Screen Non Reactive Non Reactive 10/30/2024 7:54 PM EDT [facility] Comment:Screening for HIV 1 & 2 antibodies, and P24 antigen is NONREACTIVE. No confirmatory testing is required. Blood Venous blood specimen / Unknown Venipuncture / Unknown 10/30/2024 6:38 PM EDT 10/30/2024 7:09 PM EDT Rogerio Marino MD LAB BLOOD ORDERABLES Final Res ult [facility] [address] [place] [address] * Hepatitis C Antibody - ED (10/30/2024 6:38 PM EDT) [facility] Hepatitis C Antibody Negative Negative 10/30/2024 7:54 PM EDT [facility] Blood Venous blood specimen / Unknown Venipuncture / Unknown 10/30/2024 6:38 PM EDT 10/30/2024 7:09 PM EDT Rogerio Marino MD LAB BLOOD ORDERABLES Final Res ult Performing Organization Address [facility] Co de Phone Number [facility] [address] [place] [address] from Last 3 Months or Most Recently Relevant to Health Maintenance Insurance [facility] Advance Directives * Full Code (Latest Code Status on File) Date Activated Date Inactivated Comments 10/31/2024 1:17 AM 11/01/2024 4:18 PM * Full Code Date Activated Date Inactivated Comments 03/14/2022 12:00 PM 03/15/2022 5:21 PM Question Answer Comments Patient has decision-making capacity? Yes Care Teams Transportation Associate Relationship Specialty Start Date End Date Kristy Sanchez APRN [address] [place] [id number] PCP - General 10/31/24 Andra Matos APRN [address] [place] [address] Nurse Practitioner Neurosurgery 07/16/21 Oneil Blackmon MD [address] [place] [address] Surgeon Neurosurgery 08/18/21 Andra Matos APRN [address] [place] [address] Nurse Practitioner Neurosurgery 10/12/21 Shania Parikh DDS [address] [facility] [address] [place] [address] Dentist Dentist 06/10/22 Aldo Pickens DMD [address] [facility] [address] [place] [address] Dentist 06/10/22
--- OUTSIDE RECORDS SUMMARY | 2025-02-02 18:28 | XMS_ITS | Encounter Summary ---
Author Organization [facility] Address [address] [place] [address] Care Team Providers Care Stripe Marker Name Role Phone Andra Matos RETANNER Unavailable Oneil Blackmon MD Unavailable [phone] Andra Matos RETANNER Unavailable [phone] Shania Parikh DDS Unavailable + Aldo Pickens DMD Unavailable [phone] Kristy Sanchez RETANNER Primary Care Provider [phone] Reason for Visit * Reason Comments Med Refill Encounter Details Date Type Department Care Team (Late st Contact Info) Description 12/16/2024 Refill [place] [facility] [address] 1st [place] [address] Andra Matos, RETANNER [address] [place] [address] Social History Tobacco Use Types [...] often do you attend chur ch or hinduism services? Never 10/31/2024 Do you belong to any clubs o r organizations such as anabaptist groups, unions, fraternal or athletic groups, or [...] Recorded Patient Health Questionnaire-2 Score 0 10/31/2024 [facility] [place] of Occupat ional Health - Occupational Stress [...] any time in the past 12 m [facility], were you homeless or living in [...] drink first t kisha in the morning (EYE-STONEMASON) to steady your nerves or to get [...] Description 03/19/2025 1:15 PM EDT Office Visit [facility] [place] [address], [address] [place] [address] Gustavo Rodriguez, DO [address] [place] [address] documented as of this encounter [...] documented as of this encounter Care Teams Stripe Marker Relationship Specialty Start Date End Date Kristy Sanchez APRN [address] [place] [address] PCP - General 10/31/24 Andra Matos APRN [address] [place] [address] Nurse Practitioner Neurosurgery 07/16/21 Oneil Blackmon MD [address] [place] [address] Surgeon Neurosurgery 08/18/21 Andra Matos APRN [address] [place] [address] Nurse Practitioner Neurosurgery 10/12/21 Shania Parikh DDS [address] [place] [address] Dentist Dentist 06/10/22 Aldo Pickens DMD [address] [place] [address] Dentist 06/10/22 documented as of this encounter
--- OUTSIDE RECORDS SUMMARY | 2025-02-02 18:28 | XMS_ITS | Encounter Summary ---
Author Organization [facility] Address [address] [place] [address] Care Team Providers Care Apron Man Name Role Phone Andra Matos CYBER INCIDENT RESPONDER Unavailable [phone] Oneil Blackmon MD Unavailable [phone] Andra Matos CYBER INCIDENT RESPONDER Unavailable Shania Parikh DDS Unavailable + Aldo Pickens DMD Unavailable [phone] Kristy Sanchez CYBER INCIDENT RESPONDER Primary Care Provider [phone] Encounter Details Date Type Department Care Team (Late st Contact Info) Description 01/03/2025 Orders Only [place] [facility] [address], [address] [place] [address] Andra Matos, CYBER INCIDENT RESPONDER [address] [place] [address] S/P cervical spinal fusion (Primary [...] often do you attend chur ch or advent services? Never 10/31/2024 Do you belong to any clubs o r organizations such as hoahaoism groups, unions, fraternal or athletic groups, or [...] Recorded Patient Health Questionnaire-2 Score 0 10/31/2024 [facility] [place] of Occupat ional Health - Occupational Stress [...] any time in the past 12 m [facility], were you homeless or living in [...] drink first t kisha in the morning (EYE-RN DIABETES) to steady your nerves or to get [...] Description 03/19/2025 1:15 PM EDT Office Visit [facility] [place] [address] [facility], [address] [place] [address] Gustavo Rodriguez, DO [address] [place] [address] Scheduled Orders Name Type Priority [...] documented as of this encounter Care Teams Apron Man Relationship Specialty Start Date End Date Kristy Sanchez APRN [address] [place] [address] PCP - General 10/31/24 Andra Matos APRN [address] [place] [address] Nurse Practitioner Neurosurgery 07/16/21 Oneil Blackmon MD [address] [place] [address] Surgeon Neurosurgery 08/18/21 Andra Matos APRN [address] [place] [address] Nurse Practitioner Neurosurgery 10/12/21 Shania Parikh DDS [address] [place] [address] Dentist Dentist 06/10/22 Aldo Pickens DMD [address] [place] [address] Dentist 06/10/22 documented as of this encounter
--- OUTSIDE RECORDS SUMMARY | 2025-02-02 18:28 | XMS_ITS | Encounter Summary ---
Author Organization Address [address] [place] [address] Care Team Providers Care Terminal Gauger Name Role Phone Andra Matos RENTAL SALES AGENT Unavailable [phone] Oneil Blackmon MD Unavailable [phone] Andra Matos RENTAL SALES AGENT Unavailable [phone] Shania Parikh DDS Unavailable + Aldo Pickens DMD Unavailable [phone] Kristy Sanchez RENTAL SALES AGENT Primary Care Provider [phone] Encounter Details Date Type Department Care Team [...] How often do you attend chur or oriental orthodox services? Never 10/31/2024 Do you belong to any clubs o r organizations such as caodaism groups, unions, fraternal or athletic groups, or [...] Recorded Patient Health Questionnaire-2 Score 0 10/31/2024 [facility] of Occupat ional [facility] - Occupational Stress Questionnaire Answer Date [...] were you homeless or living in a fci (including now)? No 10/31/2024 CAGE ASSESSMENT Answer [...] drink first t kisha in the morning (EYE-NEWS CAMERAMAN) to steady your nerves or to get [...] Description 03/19/2025 1:15 PM EDT Office Visit [facility] [place] [address] [facility], [address] [place] [address] JonnyGustavo stafford, DO [address] [place] [address] documented as of this encounter [...] documented as of this encounter Care Teams Terminal Gauger Relationship Specialty Start Date End Date Kristy Sanchez APRN [address] [place], [place] [id number] PCP - General 10/31/24 Andra Matos APRN [address] [place] [address] Nurse Practitioner Neurosurgery 07/16/21 Oneil Blackmon MD [address] [place] [address] Surgeon Neurosurgery 08/18/21 Andra Matos APRN [address] [place] [address] Nurse Practitioner Neurosurgery 10/12/21 Shania Parikh DDS [address] [place] [address] Dentist Dentist 06/10/22 Aldo Pickens, DMD [address] [place] [address] Dentist 06/10/22 documented as of this encounter
--- OUTSIDE RECORDS SUMMARY | 2025-02-02 18:28 | XMS_ITS | Encounter Summary ---
Author Organization Healthcare Address [address] [place] [address] Care Team Providers Care Foreign Language Instructor Name Role Phone Andra Matos EMBROIDERY SPECIALIST Unavailable [phone] Oneil Blackmon MD Unavailable [phone] Andra Matos EMBROIDERY SPECIALIST Unavailable [phone] Shania Parikh DDS Unavailable + Aldo Pickens DMD Unavailable [phone] Pcp, No Primary Care Provider Unavailabl e Kristy Sanchez EMBROIDERY SPECIALIST Primary Care Provider [phone] Encounter Details Date Type Department Care Team (Late st Contact Info) Description 10/14/2024 Telephone [facility] tobacco stripper [facility] [address] [place] [address] [address] [place] [address] Yessenia Estevez Social History Tobacco [...] drink first t kisha in the morning (EYE-TAIL DOGGER) to steady your nerves or to get [...] Description 03/19/2025 1:15 PM EDT Office Visit [facility] [place] [address] [facility], [address] [place] [address] Gustavo Rodriguez, [address] [place] [address] documented as of this encounter [...] documented as of this encounter Care Teams Foreign Language Instructor Relationship Specialty Start Date End Date Pcp, No [address] [place] [address] PCP - General Family Medicine 10/30/24 10/30/24 Kristy Sanchez APRN [address] [place] [address] PCP - General 10/31/24 Andra Matos APRN [address] [place] [phone] Nurse Practitioner Neurosurgery 07/16/21 Oneil Blackmon MD [address] [place] [address] Surgeon Neurosurgery 08/18/21 Andra Matos APRN [address] [place] [address] Nurse Practitioner Neurosurgery 10/12/21 Shania Parikh DDS [address] [place] [address] Dentist Dentist 06/10/22 Aldo Pickens DMD [address] [place] [address] Dentist 06/10/22 documented as of this encounter
--- NOTE | 2025-02-02 19:15 | PC.NURSE ---
lidocaine patch is placed between the shoulders/ upper back. pt states the patch is helping
[2025-02-02 20:00] VITALS: BP 110/59; PULSE 75; RESP 17; TEMP 36.5; O2SAT 97
[2025-02-02] MEDS: TIZANIDINE 4MG TABLET 2 MG PO (20:00)
[2025-02-02] MEDS: SENNOSIDES 8.6MG/DOCUSATE 50MG TABLET 1 TAB PO (20:00)
--- NOTE | 2025-02-02 23:19 | PC.NURSE ---
Addendum entered by Meaghan Juarez RN 02/02/25 23:41: Notified Destiny Cazares MD of pt's bp 99/55 prior to administering morphine. Original Note: patient complaining of right side chest pain when breathing in, lung sounds diminished on right side, notified Jeffy Cazares MD, MD to order morphine q4 for pain and stated pain was probably due to rib fractures
[2025-02-02] MEDS: MORPHINE 4MG/ML SYRINGE 4 MG IV (23:32)
[2025-02-03] VITALS: BP 103/59; PULSE 74; RESP 14; TEMP 36.6; O2SAT 100
[2025-02-03 04:00] VITALS: BP 105/68; PULSE 73; RESP 16; TEMP 36.6; O2SAT 97; BMI 29.7
[2025-02-03] MEDS: TIZANIDINE 4MG TABLET 2 MG PO (05:15)
[2025-02-03] MEDS: KETOROLAC 30MG/ML VIAL 30 MG IV (05:15)
--- NOTE | 2025-02-03 05:22 | PC.NURSE ---
Pt. is a&ox4. Pt. has complained of pain throughout shift, treated per oct. Pt. was encouraged to use IS. Lidocaine patch was removed. Bed is low, locked and call light is in reach.
--- NOTE | 2025-02-03 05:52 | PC.NURSE ---
Passed water, wiped and cleared bedside table off.
[2025-02-03 06:45] LABS: Basophils # 0.1 K/mm3 (0-0.2); Basophils % 0.9 % (0.1-2.0); Eosinophils # 0.3 Kmm3 (0.0-0.4); Eosinophils % 4.3 % (0.1-12.0); Hematocrit 37.5 % (37.0-47.0); Hemoglobin 11.7 g/dL (12.2-16.2); Immature Granulocytes # 0.02 10^3uL; Immature Granulocytes % 0.3 %; Lymphocytes # 1.6 K/mm3 (0.7-4.5); Lymphocytes % 26.9 % (10-50); Mean Corpuscular HGB Conc 31.2 g/dL (31.8-35.4); Mean Corpuscular Hemoglobin 27.1 pg (27.0-31.2); Mean Corpuscular Volume 86.8 fl (81-99); Mean Platelet Volume 9.7 fl (7.4-10.4); Monocytes # 0.3 K/mm3 (0.1-1.0); Monocytes % 5.8 % (1.7-9.3); Neutrophils # 3.6 K/mm3 (1.8-7.8); Neutrophils % 61.8 % (37.0-80.0); Nucleated Red Blood Cells # 0 10^3/uL; Nucleated Red Blood Cells % 0 %; Platelet Count 234 K/mm3 (142-424); Red Blood Count 4.32 M/mm3 (4.20-5.40); Red Cell Distribution Width 13.3 % (11.5-17.5); Red Cell Distribution Width-SD 42.4 fL; White Blood Count 5.9 K/mm3 (4.8-10.8)
[2025-02-03 06:49] LABS: Chloride 100 mmol/L (98-107); Potassium 4.3 mmoL/L (3.5-5.1); Sodium 135 mmol/L (136-145)
[2025-02-03 06:52] LABS: Anion Gap 9.3 mEq/L (5-15); Blood Urea Nitrogen 17 mg/dl (7-17); Carbon Dioxide 30 mmol/L (22.0-30.0); Creatinine Clearance Estimated 66 mL/min (50-200); Estimated Glomerular Filt Rate 101 ml/min (>60); GFR (African American) 123 ML/MIN (>60)
[2025-02-03 06:53] LABS: Calcium 8.2 mg/dl (8.4-10.2); Glucose 93 mg/dl (74-100)
--- NOTE | 2025-02-03 07:42 | EXP.DC.SUM ---
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 She was riding her horse earlier today when it got spooked and bucked her off. She landed on her right side and had immediate right sided rib and back pain. Has had previous injuries necessitating fusion of her C-spine and L-spine. Denies any loss of consciousness, no focal neurologic deficits, denies any numbness or tingling anywhere. Does have diffuse pain, especially in her back and her abdomen. Denies nausea, vomiting, diarrhea or shortness of breath aside. Does have pain with deep inspiration and so is not taking deep breaths. Not on any anticoagulation. Workup in the ER found to have endplate deformity of T4 and 5 along with right-sided rib fractures. Attempted to discharge patient home but due to severity of pain, requested admission for further management. On my evaluation, patient is hemodynamically stable on room air. Cooperative on exam but having difficulty with deep breathing. States she deals with pain frequently due to her previous injuries and trauma but current pain is uncontrollable. Responding well to combo of Toradol and morphine.. Hospital Course Hospital Course Hospital Course: 64-year-old female who was riding her horse today and was thrown off the horse when it got spooked. Presented to the ER because of back pain. In the ER, workup concerning for endplate deformity of T4 and 5. Has multiple rib fractures on right side. Due to intractable pain, had discussion with ER physician request admission for further management of pain as patient is unable to ambulate due to severity of back and rib pain. I decided to admit for further pain control. Gradually achieved level of pain control with manageable with oral regimen. Stable discharge home with outpatient follow-up with her back surgeon refused her C-spine and L-spine. Problems addressed as follows: Intractable back pain, traumatic Close T4 and 5 endplate fractures Right rib fractures - Patient has history of L-spine fusion and C-spine fusion. Takes opiates occasionally at home, predominantly controls pain with NSAIDs. Imaging obtained in the ER showing T4 and 5 endplate deformities. Found to have right-sided rib 10 and 12 fractures. Pain gradually tolerable with oral regimen. Will continue oxycodone and Toradol at discharge. Continue stool softener to decrease risk for constipation from opiates. Ambulating with assistance. MRI of L-spine obtained prior to discharge. Recommend follow-up with her spine surgeon Dr. Blackmon in the coming weeks to evaluate her back and potential pinched nerve in the L-spine. Continue oxycodone 7.5 mg as needed every 4-6 hours. Continue Toradol for 3 more days as needed every 6 hours. Continue muscle relaxer, has cyclobenzaprine at home. - Has been assisting with ambulation and ADLs. Patient able to ambulate to and from the bathroom. Has walker at home. Stable to discharge on room air. Continue incentive spirometry. Goal 1500 mL with inspiration Chronic migraine: Continue Qulipta daily 60 mg Continue citalopram 20 mg daily for mood Continue losartan 50 mg daily for hypertension Holding statin setting, to decrease risk for muscle injury Total time spent on discharge 32 minutes in counseling, documentation, chart review, and direct care with patient. Exam Data for Last 24 hours Vital signs and Labs for Last 24 Hours: Temp Pulse Resp BP Pulse Ox O2 Del Method 97.8 F 73 16 105/68 L 97 Room Air 02/03/25 04:00 02/03/25 04:00 02/03/25 04:00 02/03/25 04:00 02/03/25 04:00 02/03/25 06:31 Laboratory Results - last 24 hr 02/03/25 05:56: WBC 5.9, RBC 4.32, Hgb 11.7 L, Hct 37.5, MCV 86.8, MCH 27.1, MCHC 31.2 L, RDW 13.3, Plt Count 234, MPV 9.7, Neut % (Auto) 61.8, Lymph % (Auto) 26.9, Villalba % (Auto) 5.8, Eos % (Auto) 4.3, Baso % (Auto) 0.9, Neut # (Auto) 3.6, Lymph # (Auto) 1.6, Villalba # (Auto) 0.3, Eos # (Auto) 0.3, Baso # (Auto) 0.1, Sodium 135 L, Potassium 4.3, Chloride 100, Carbon Dioxide 30, Anion Gap 9.3, BUN 17, Creatinine 0.60, Estimated Creat Clear 66, Estimated GFR 101, Est GFR ( Amer) 123, Glucose 93, Calcium 8.2 L I & O for Last 24 hours: Intake & Output 01/31/25 02/01/25 02/02/25 02/03/25 23:59 23:59 23:59 23:59 Intake Total 360 / 600 1200 / 1320 120 / 120 Output Total 0 / 0 0 / 0 Balance 360 / 600 1200 / 1320 120 / 120 Weight 69.626 kg 72.206 kg 71.532 kg Constitutional Constitutional: mild distress and cooperative *Routine HEENT Exam Head: Present normocephalic Eye: Present EOMI and PERRL ENT: Present mucous membranes moist *Routine Neck Exam Neck: Absent full ROM or lymphadenopathy Routine Chest/Breast/Axilla Exam Chest wall: Present tenderness (Along the right lower rib cage) Comments: No visible bruising *Routine Respiratory Exam Respiratory: Present CTA bilaterally; Absent rhonchi, wheezes or crackles Comments: Pain with deep inspiration *Routine Cardiovascular Exam Cardiovascular: Present RRR *Routine Abdominal Exam Abdominal: Present soft and normoactive bowel sounds; Absent tenderness *Routine Rectal Exam Patient deferred: visual exam *Routine Exam Patient deferred: external exam *Routine Extremities Exam Extremities: Absent cyanosis, clubbing or edema Routine Back/Spine/Pelvis Exam Back/Spine: Absent full ROM (Tender over mid T-spine.) *Routine Skin Exam Skin: Present intact, warm and ecchymosis (Predominantly on legs, worse on the left); Absent rash *Routine Neurological Exam Neurological: Present alert, oriented X3 and moving all extremities; Absent altered mental status Results Data Completed and Pending Labs on day of discharge: Labs from last 24 hours 02/03/25 05:56 WBC 5.9 RBC 4.32 Hgb 11.7 L Hct 37.5 MCV 86.8 MCH 27.1 MCHC 31.2 L RDW 13.3 Plt Count 234 MPV 9.7 Neut % (Auto) 61.8 Lymph % (Auto) 26.9 Villalba % (Auto) 5.8 Eos % (Auto) 4.3 Baso % (Auto) 0.9 Neut # (Auto) 3.6 Lymph # (Auto) 1.6 Villalba # (Auto) 0.3 Eos # (Auto) 0.3 Baso # (Auto) 0.1 Sodium 135 L Potassium 4.3 Chloride 100 Carbon Dioxide 30 Anion Gap 9.3 BUN 17 Creatinine 0.60 Estimated Creat Clear 66 Estimated GFR 101 Est GFR ( Amer) 123 Glucose 93 Calcium 8.2 L DS: Diagnosis Discharge Diagnosis (1) Back pain, thoracic: Status: Acute Code(s): M54.6 - Pain in thoracic spine (2) Rib fractures: Status: Acute Code(s): S22.49XA - Multiple fractures of ribs, unspecified side, initial encounter for closed fracture (3) Closed T5 fracture: Status: Acute Code(s): S22.059A - Unspecified fracture of T5-T6 vertebra, initial encounter for closed fracture (4) Closed T4 fracture: Status: Acute Code(s): S22.049A - Unspecified fracture of fourth thoracic vertebra, initial encounter for closed fracture (5) Episodic migraine: Status: Chronic Code(s): G43.909 - Migraine, unspecified, not intractable, without status migrainosus (6) Essential hypertension: Status: Chronic Code(s): I10 - Essential (primary) hypertension (7) HLD (hyperlipidemia): Status: Chronic Code(s): E78.5 - Hyperlipidemia, unspecified Qualifiers: Hyperlipidemia type: unspecified Qualified Code(s): E78.5 - Hyperlipidemia, unspecified Meds Home Medications and Allergies Home Medications ?Medication ?Instructions ?Recorded ?Confirmed ?Type atorvastatin 80 mg tablet 80 mg PO DAILY 05/29/24 02/01/25 History losartan 50 mg tablet 50 mg PO DAILY #30 tabs 07/01/24 02/01/25 Rx atogepant 60 mg tablet (Qulipta) 60 mg PO DAILY #30 tabs 09/09/24 02/01/25 Rx citalopram 20 mg tablet 20 mg PO DAILY Depression #90 tabs 11/18/24 02/01/25 Rx cyclobenzaprine 10 mg tablet 10 mg PO TIDP PRN Muscle Spasm 11/18/24 02/02/25 History evolocumab 140 mg/mL subcutaneous 140 mg SQ Q2W #3 mL 11/25/24 02/01/25 Rx pen injector (Repatha SureClick) ubrogepant 100 mg tablet (Ubrelvy) 100 mg PO DAILYP PRN Migraine 02/02/25 02/02/25 History Headache ketorolac 10 mg tablet 10 mg PO Q6HP PRN Moderate To 02/03/25 Rx Severe Pain (4-10) 3 days #12 tabs lidocaine 5 % topical patch 1 patch transdermal Q24H 30 days 02/03/25 Rx #30 ea oxycodone-acetaminophen 7.5 mg-325 1 tab PO Q4HP PRN Mild To Moderate 02/03/25 Rx mg tablet Pain (1-6) 3 days #17 tabs sennosides 8.6 mg-docusate sodium 1 tab PO BID PRN Constipation 30 02/03/25 Rx 50 mg tablet (Stimulant Laxative days #30 tabs Plus) New Prescriptions to Start Prescriptions: ketorolac Payton,Eugenio lidocaine Eugenio Cain oxycodone-acetaminophen Payton,Eugenio sennosides-docusate sodium [Stimulant Laxative Plus] Eugenio Cain Allergies Allergy/AdvReac Type Severity Reaction Status Date / Time cephalexin (From Keflex) Allergy Verified 11/18/24 15:33 diclofenac (From Voltaren) Allergy Verified 11/18/24 15:33 fluconazole Allergy Verified 11/18/24 15:33 prednisone Allergy Verified 11/18/24 15:33 Discharge Plan Disposition Patient Disposition: Home, Self-Care Condition: Fair Discharge Order Discharge Orders: Discharge Order (Routine); Ordered 02/03/25 Ordered By: Eugenio Cain Follow up Plan Follow up with: Zahira Tellez APRN [Primary Care Provider, Family Practice] - 02/10/25 2:20 pm Oneil Blackmon MD [Referring, Neurosurgery] - Enter time for follow up Referral Note: Back injury Prescriptions/Medication Reconciliation: New sennosides-docusate sodium [Stimulant Laxative Plus] 8.6-50 mg Tablet 1 tab PO BID PRN (Reason: Constipation) 30 Days Qty: 30 0RF ketorolac 10 mg tablet 10 mg PO Q6HP PRN (Reason: Moderate To Severe Pain (4-10)) 3 Days Qty: 12 0RF Rx Instructions: Tolerated IV formulation while admitted without side effects lidocaine 5 % Adhesive Patch,Medicated 1 patch transdermal Q24H 30 Days Qty: 30 0RF oxycodone-acetaminophen 7.5-325 mg Tablet 1 tab PO Q4HP PRN (Reason: Mild To Moderate Pain (1-6)) 3 Days Qty: 17 0RF Continued atorvastatin 80 mg tablet 80 mg PO DAILY cyclobenzaprine 10 mg tablet 10 mg PO TIDP PRN (Reason: Muscle Spasm) citalopram 20 mg tablet 20 mg PO DAILY Qty: 90 1RF losartan 50 mg tablet 50 mg PO DAILY Qty: 30 2RF Qulipta 60 mg tablet 60 mg PO DAILY Qty: 30 2RF Repatha SureClick 140 mg/mL pen injector 140 mg SQ Q2W Qty: 3 2RF Ubrelvy 100 mg tablet 100 mg PO DAILYP PRN (Reason: Migraine Headache) Problem Reconciliation Problems Reviewed?: Yes Patient Discharge Instructions ACTIVITY: Continue current activity and Ambulate as tolerated DIET: continue same diet Patient Instructions: Vertebral Compression Fracture, DI for Rib Fracture Print Language: Nigerien Providers Primary Care Provider: Zahira Tellez Admit Provider: Eugenio Cain Attending Provider: Eugenio Cain
[2025-02-03 08:00] VITALS: BP 98/60; PULSE 78; RESP 16; TEMP 36.5; O2SAT 92
[2025-02-03] MEDS: MORPHINE 4MG/ML SYRINGE 4 MG IV (08:36)
[2025-02-03] MEDS: SENNOSIDES 8.6MG/DOCUSATE 50MG TABLET 1 TAB PO (08:37)
[2025-02-03] MEDS: CITALOPRAM 20MG TABLET 20 MG PO (08:37)
[2025-02-03] MEDS: ENOXAPARIN 40MG/0.4ML SYRINGE 40 MG SUBCUT (08:37)
--- NOTE | 2025-02-03 10:16 | MR_ITS ---
FINAL REPORT CLINICAL HISTORY: lower back pain fall off of horse yesterday back pain FINDINGS: Multiplanar MR imaging of the lumbar spine was performed without contrast. There is magnetic susceptibility artifact associated with posterior fusion hardware bridging L2-L5. On the sagittal T2-weighted images, multilevel disc degeneration is seen. The vertebral alignment is normal. There is no evidence of fracture. No bony mass is identified. The conus is seen at approximately the L1 level and has an unremarkable appearance. L1-2: Moderate diffuse disc bulge with moderate central canal stenosis and bilateral neuroforaminal narrowing. L2-3: There is no significant canal stenosis or neural foraminal narrowing. L3-4: There is no significant canal stenosis or neural foraminal narrowing. L4-5: There is interbody fusion graft without significant canal stenosis or neural foraminal narrowing. L5-S1: There is no significant canal stenosis or neural foraminal narrowing. IMPRESSION: Fusion of L2-L5. Moderate disc bulge at L1-2 with moderate canal stenosis and bilateral neuroforaminal narrowing. No acute bony abnormality. Reviewed, Interpreted and Dictated by Donn Monroe MD Transcribed by Maria Luisa Phillips Authenticated and [facility]
[2025-02-03] MEDS: OXYCODONE 7.5MG W/APAP 325MG TABLET 1 EACH PO (10:26)
--- NOTE | 2025-02-03 10:35 | PC.NURSE ---
went to MRI
--- NOTE | 2025-02-03 11:09 | PC.NURSE ---
back from MRI
--- NOTE | 2025-02-05 10:39 | SW/DCPLANNER ---
Spoke with patient on the phone. Patient stated that she is doing well. Patient stated that she is aware of her upcoming appointments. Patient stated that she was able to get her new medicine picked up from clinic pharmacy. Patient stated that she has no concerns or questions at this time. Shea Arreaga
== END 2025-02-03 14:21 | disposition home or self-care (01) | DRG 184 ==
LOC: ER 15:36 → 2ND 16:13
PROVIDERS: Admitting Provider Internal Medicine Adolescent Medicine; Emergency Provider Student in an Organized Health Care Education/Training Program; PCP Family Medicine; Visit Provider Internal Medicine Adolescent Medicine
DX: S22.41XA Multiple fractures of ribs, right side, initial encounter for closed fracture (principal); S22.049A Unspecified fracture of fourth thoracic vertebra, initial encounter for closed fracture; S22.059A Unspecified fracture of T5-T6 vertebra, initial encounter for closed fracture; G43.909 Migraine, unspecified, not intractable, without status migrainosus; I10 Essential (primary) hypertension; E78.5 Hyperlipidemia, unspecified; F39 Unspecified mood [affective] disorder; V80.010A Animal-rider injured by fall from or being thrown from horse in noncollision accident, initial encounter; Y93.52 Activity, horseback riding; Z79.899 Other long term (current) drug therapy; Z88.1 Allergy status to other antibiotic agents; Z88.8 Allergy status to other drugs, medicaments and biological substances
CPT/HCPCS: 36415; 70450; 70496; 70498; 71045; 71275; 72125; 72128; 72131; 72148; 72170; 73120; 74174; 80048; 80053; 83735; 84484; 85025; 85610; 85730; 86803; 87389; 93005; 97161; J1650; J1885; J2270; J7120; Q9967

== ENCOUNTER 2025-03-13 14:42 | Outpatient (CLI) | payer BC, SELFPAY ==
--- OUTSIDE RECORDS SUMMARY | 2025-01-22 13:26 | XMS_ITS | Encounter Summary ---
Author Organization Healthcare Address [address] [place] [address] Care Team Providers Care Painter Mirror Name Role Phone Andra Matos HORTICULTURAL SPECIALTY GROWER INSIDE Unavailable [phone] Oneil Blackmon MD Unavailable [phone] Andra Matos HORTICULTURAL SPECIALTY GROWER INSIDE Unavailable [phone] Shania Parikh DDS Unavailable + Aldo Pickens DMD Unavailable [phone] Kristy Sanchez HORTICULTURAL SPECIALTY GROWER INSIDE Primary Care Provider [phone] Encounter Details Date Type Department Care Team (Latest Contact Info) Description 01/22/2025 1:26 PM EDT - 01/22/2025 11:59 PM EDT [facility] Encounter [facility] [address], [address] [place] [phone] S/P cervical spinal fusion Discharge Disposition: Home [...] How often do you attend chur or christianity services? Never 10/31/2024 Do you belong to [...] Recorded Patient Health Questionnaire-2 Score 0 10/31/2024 [facility] [place] of Occupat ional Health - Occupational Stress [...] any time in the past 12 m [facility], were you homeless or living in a [...] drink first t kisha in the morning (EYE-RESIDENTIAL LEASING AGENT) to steady your nerves or to get [...] tablet (50 mg) by mouth daily. 09/12/2024 naloxone (Narcan) 4 mg/0.1 mL nasal spray [...] mouth 1 (one) time as needed. 12/21/2023 methylPREDNISolon e (Medrol Dospak) 4 MG tablets Follow schedule on package instructions 21 tablet 10/24/2024 documented as of this encounter Plan of Treatment Upcoming Encounters Date Type Department Care Team (Late st Contact Info) Description 04/02/2025 2:30 PM EDT Office Visit [place] [facility] [address], [address] [place] [address] Oneil Blackmon MD [address] [place] [address] 06/25/2025 3:00 PM EST Office Visit [facility] [place] [address], [address] [place] [address] Gustavo Rodriguez H, DO [address] [place] [address] documented as of this encounter [...] plan has been documented for the patient 02/01/2025 11:34 PM EDT documented as of this encounter Care Teams Painter Mirror Relationship Specialty Start Date End Date Kristy Sanchez APRN [address] [place] [address] PCP - General 10/31/24 Andra Matos APRN [address] [place] [address] Nurse Practitioner Neurosurgery 07/16/21 Oneil Blackmon MD [address] [place] [address] Surgeon Neurosurgery 08/18/21 Andra Matos APRN [address] [place] [address] Nurse Practitioner Neurosurgery 10/12/21 Shania Parikh DDS [address] [place] [address] Dentist Dentist 06/10/22 Aldo Pickens DMD [address] [place] [address] Dentist 06/10/22 documented as of this encounter
--- OUTSIDE RECORDS SUMMARY | 2025-01-22 14:00 | XMS_ITS | Encounter Summary ---
Author Organization [facility] Address [address] [place] [address] Care Team Providers Care Clearing Distribution Clerk Name Role Phone Carlo Andra Edinson SYSTEMS SPEC Unavailable [phone] Oneil Blackmon MD Unavailable [phone] Andra Matos SYSTEMS SPEC Unavailable [phone] Shania Parikh DDS Unavailable + Aldo Pickens DMD Unavailable [phone] Kristy Sanchez SYSTEMS SPEC Primary Care Provider [phone] Reason for Referral * Imaging (Routine) - Authorized Specialty Diagnoses / Procedures Referred By Contac t Referred To Contact Diagnoses Lumbar radiculopathy Status post lumbar spinal arthrodesis Procedures MR Lumbar Spine wo IV Contrast Oneil Blackmon MD [address] [place] [address] Phone: tel: fax: Referral ID Status Reason Start Date Expiration Date V isits Requested Visits Authorized [id number] Authorized 01/22/2025 07/24/2026 1 1 Encounter Details Date Type Department Care Team (Late st Contact Info) Description 01/22/2025 2:00 PM EDT Office Visit [place] [facility] [address] [place] [address] Oneil Blackmon MD [address] [place] [address] S/P cervical spinal fusion (Primary Dx); Lumbar radiculopathy; Status post lumbar spinal arthrodesis; Follow-up examination after neurological surgery Social History Tobacco Use Types Packs/Day Years [...] Recorded Patient Health Questionnaire-2 Score 0 10/31/2024 [facility] of Occupat ional Health - [...] any time in the past [address] [facility], were you homeless or living in a residential (including now)? No 10/31/2024 CAGE ASSESSMENT Answer [...] drink first t kisha in the morning (EYE-UNLOADING CHECKER) to steady your nerves or to get [...] 1:43 PM EDT documented in this encounter Miscellaneous Notes * Progress Notes - Akil Montanez MD - 01/22/2025 2:00 PM EDT We had the pleasure of seeing your patient in our clinic today for continued Neurosurgical evaluation. Chief Complaint 3-month follow up visit History Of Present Illness Jennifer Carrero is a 64 y.o. female with a past medical history of L2-L3 TLIF with fusion extension to L4 on 08/2021 and C4-C6 ACDF on 03/2022, who presents for 6 week follow-up evaluation after C3-C4 ACDF with removal of prior C4-C6 ACDF hardware back on 10/12/2024. Today, the patient discloses that her preoperative symptoms have resolved. She does not present anyneck pain, numbness in upper extremities or weakness anymore. Her balance remains stable and deniesany problems with bowel or bladder control. Unfortunately, she states that she sustained a fall about 2 weeks ago. She fractured her ribs in the right side but states that workup was negative for spine fractures. She has noted ongoing numbnessin the lateral aspect of the right lower extremity as well as intermittent numbness of the right foot. Social History Reviewed and noncontributory except as mentioned in HPI Medications Relevant meds were reviewed and mentioned in HPI Allergies Cephalexin, Cephalosporins, Diclofenac, Fluconazole, and Prednisolone Review of Systems 14 point review of systems was performed and was negative except as noted per HPI. Physical Exam GCS (EMV): 465 Awake, alert, oriented x3 Follows commands appropriately Speech clear PERRL, EOMI JO symmetrically, no drift Strength 5/5 throughout Sensation intact No Benavides, no clonus Imaging We personally reviewed flexion/extension films of cervical spine today demonstrating stable hardware placement without evidence of hardware loosening or failure. There is no dynamic translation on flexion/extension. Assessment and Plan Jennifer Carrero is a 64 y.o. female with a past medical history of L2-L3 TLIF with fusion extension to L4 on 08/2021 and C4-C6 ACDF on 03/2022, who presents for 12 week follow-up evaluation after C3-C4 ACDF with removal of prior C4-C6 ACDF hardware back on 10/12/2024. Today, she discloses that she is doing clinically much better regarding her cervical symptoms after surgery. However, she stillhas low back pain and right lower extremity numbness since her fall 2 weeks ago. In this setting, we will obtain a lumbar spine MRI without contrast as soon as possible. She requested to obtain this imaging study in [place]. We have placed an order for her to obtain her MRI. She compromised to call our clinic once her lumbar MRI is complete, we will set up her appointment at that point. Akil Terrell MD Resident Physician, PGY-1 Department of Neurosurgery [facility] Cosigned by Oneil Blackmon MD at 02/01/2025 11:33 PM EDT Associated attestation - Oneil Blackmon MD - 02/01/2025 11:33 PM EDT I saw and evaluated the patient with the resident/fellow. I discussed the case with the resident/fellow and agree with the findings and plan as documented. documented in this encounter Plan of Treatment Upcoming Encounters Date Type Department Care Team (Late st Contact Info) Description 04/02/2025 2:30 PM EDT Office Visit [place] [facility] [address] [place] [address] Oneil Blackmon MD [address] [place] [address] 06/25/2025 3:00 PM EST Office Visit [facility] [place] [address], [address] [place] [address] Gustavo Rodriguez, DO [address] [place] [address] Scheduled Orders Name Type Priority [...] radiculitis, unspecified Status post lumbar spinal arthrodesis Follow-up examination after neurological surgery S/P cervical spinal fusion Arthrodesis status documented [...] documented as of this encounter Care Teams Clearing Distribution Clerk Relationship Specialty Start Date End Date Kristy Sanchez APRN [address] [place] [address] PCP - General 10/31/24 Andra Matos APRN [address] [place] [address] Nurse Practitioner Neurosurgery 07/16/21 Oneil Blackmon MD [address] [place] [address] Surgeon Neurosurgery 08/18/21 Andra Matos APRN [address] [place] [address] Nurse Practitioner Neurosurgery 10/12/21 Shania Parikh DDS [address] [place] [address] Dentist Dentist 06/10/22 Aldo Pickens DMD [address] [place] [address] Dentist 06/10/22 documented as of this encounter
--- OUTSIDE RECORDS SUMMARY | 2025-02-13 10:10 | XMS_ITS | Encounter Summary ---
Author Organization Healthcare Address [address] [place] [address] Care Team Providers Care Plastic Shaper Name Role Phone JedbrandonAndra [employer] Unavailable [phone] Oneil Blackmon MD Unavailable [phone] Andra Matos [employer] Unavailable [phone] Shania Parikh DDS Unavailable + Aldo Pickens DMD Unavailable [phone] Kristy Sanchez [employer] Primary Care Provider [phone] Encounter Details Date Type Department Care Team (Latest Contact Info) Description 02/13/2025 10:10 AM EDT - 02/13/2025 10:34 AM EDT Hospital Encounter [facility] [address] [place] [id number] S/P cervical spinal fusion Discharge Disposition: Home [...] How often do you attend chur or rastafari services? Never 10/31/2024 Do you belong to [...] Patient Health Questionnaire-2 Score 0 10/31/2024 [facility] [place] of Occupat ional Health - Occupational Stress [...] in the past 12 m [facility], were you homeless or living in a [...] drink first t kisha in the morning (EYE-WARE FINISHER) to steady your nerves or to get [...] tablet (80 mg) by mouth daily. 09/16/2024 butalbital-acetami nophen-caffeine 50-325-40 MG tablet Take 1 tablet by [...] FOR SEVERE MUSCLE SPASM 20 tablet 01/17/2025 HYDROcodone-acetam inophen ([place]) 5-325 MG tablet 02/11/2025 losartan (Cozaar) 50 MG tablet Take 1 [...] Visit [place] [facility] [address] [place] [address] Oneil Blackmon MD [address] [place] [address] 06/25/2025 3:00 PM EST Office Visit [facility] [place] [address], [address] [place] [id number] Gustavo Rodriguez H, DO [address] [place] [address] documented as of this encounter Procedures Procedure Name Priority Date/Time Associated Diagnosis Comments XR LUMBAR SPINE 2 OR 3 VIEWS Routine 02/13/2025 10:22 AM EDT S/P cervical spinal fusion documented in this encounter Results * XR Lumbar Spine 2 or 3 Views (02/13/2025 10:22 AM EDT) Anatomical Region Laterality Modality Spine, L-spine Digital Radiogra phy Impressions 02/13/2025 12:28 PM EDT Grossly similar alignment of the cervical and thoracic spine with multilevel degenerative changes. Lumbar spinal posterior instrumentation. Similar appearance of the hardware Grade 1 L1 on L2 retrolisthesis with 3 mm increase in extension, and interval worsening of the neural foraminal disc space narrowing. Close attention on follow-up is recommended. CRITICAL RESULT: No. COMMUNICATION: Per this written report. By electronically signing this report, I, the attending physician, attest that I have personally reviewed the images/data for the above examination(s) and agree with the final edited report. Drafted by Charu Cortez MD on 02/13/2025 10:26 AM Final report signed by Ba Ruiz MD on 02/13/2025 12:28 PM Narrative 02/13/2025 12:28 PM EDT CLINICAL INDICATION: back pain TECHNIQUE: XR LUMBAR SPINE 2 OR 3 VIEWS, XR SCOLIOSIS ENTIRE SPINE 2 OR 3 VIEWS COMPARISON: Radiographs: Cervical spine, 01/22/2025, 10/30/2024. Lumbar spine, 10/12/2021, 08/31/2021. MRI lumbar spine, 04/09/2021. FINDINGS: Lumbar spine: Redemonstration of L2-5 posterior instrumentation. Similar appearance of the hardware. Similar demineralization. Grade 1 L1 on L2 retrolisthesis with associated neural foraminal narrowing, with roughly 3 mm increase noted in extension. Multilevel endplate sclerosis, facet hypertrophy, and disc space narrowing most prominent at L3-S1 levels. Whole spine: Mandibular and cervical spinal hardware is present. Diffuse osteopenia. Grossly similar alignment of the cervical spine. Multilevel degenerative changes of the cervical and thoracic spine, including endplate sclerosis, osteophytosis, and facet arthropathy. The rest of the findings are grossly unchanged. Procedure Note Cam Ruiz, Ba Shah MD - 02/13/2025 CLINICAL INDICATION: back pain TECHNIQUE: XR LUMBAR SPINE 2 OR 3 VIEWS, XR SCOLIOSIS ENTIRE SPINE 2 OR 3 VIEWS COMPARISON: Radiographs: Cervical spine, 01/22/2025, 10/30/2024. Lumbar spine, 10/12/2021,08/31/2021. MRI lumbar spine, 04/09/2021. FINDINGS: Lumbar spine: Redemonstration of L2-5 posterior instrumentation. Similarappearance of the hardware. Similar demineralization. Grade 1 L1 on [id number] with associated neural foraminal narrowing, with roughly 3mm increase noted in extension. Multilevel endplate sclerosis, facethypertrophy, and disc space narrowing most prominent at L3-S1 levels. Whole spine: Mandibular and cervical spinal hardware is present. Diffuseosteopenia. Grossly similar alignment of the cervical spine. Multileveldegenerative changes of the cervical and thoracic spine, includingendplate sclerosis, osteophytosis, and facet arthropathy. The rest of thefindings are grossly unchanged. IMPRESSION: Grossly similar alignment of the cervical and thoracic spine withmultilevel degenerative changes. Lumbar spinal posterior instrumentation. Similar appearance of thehardware Grade 1 L1 on L2 retrolisthesis with 3 mm increase in extension, andinterval worsening of the neural foraminal disc space narrowing. Closeattention on follow-up is recommended. CRITICAL RESULT: No. COMMUNICATION: Per this written report. By electronically signing this report, I, the attending physician, amanuel I have personally reviewed the images/data for the aboveexamination(s) and agree with the final edited report. Drafted by Charu Cortez MD on 02/13/2025 10:26 AM Final report signed by Ba Ruiz MD on 2:28 PM Andra Matos APRN IMG XR PROCEDURES Final Resu lt documented in this encounter Visit Diagnoses Diagnosis S/P cervical spinal fusion Arthrodesis status documented in this encounter Additional Health Concerns Assessment Noted Time PHQ-9 Depression Total Score: 2 11/01/19 25 1:01 PM EDT A fall risk assessment has been complete d for the patient 02/13/2025 11:14 AM EDT A Body Mass Index follow-up plan has been documented for the patient 02/14/2025 4:04 PM EDT documented as of this encounter Care Teams Plastic Shaper Relationship Specialty Start Date End Date Kristy Sanchez APRN [address] [place] [address] PCP - General 10/31/24 Andra Matos APRN [address] [place] [address] Nurse Practitioner Neurosurgery 07/16/21 Oneil Blackmon MD [address] [place] [address] Surgeon Neurosurgery 08/18/21 Andra Matos APRN [address] [place] [address] Nurse Practitioner Neurosurgery 10/12/21 Shania Parikh DDS [address] [place] [address] Dentist Dentist 06/10/22 Aldo Pickens DMD [address] [place] [address] Dentist 06/10/22 documented as of this encounter
--- OUTSIDE RECORDS SUMMARY | 2025-02-13 10:10 | XMS_ITS | Encounter Summary ---
Author Organization [facility] Address [address] [place] [address] Care Team Providers Care Oakes Machine Operator Name Role Phone Andra Matos HAMMER RUNNER Unavailable [phone] Oneil Blackmon MD Unavailable [phone] Andra Matos HAMMER RUNNER Unavailable [phone] Shania Parikh DDS Unavailable + Aldo Pickens DMD Unavailable [phone] Kristy Sanchez HAMMER RUNNER Primary Care Provider [phone] Encounter Details Date Type Department Care Team (Latest Contact Info) Description 02/13/2025 10:10 AM EDT [facility] [address], [address] [place] [address] S/P cervical spinal fusion Discharge Disposition: Home [...] How often do you attend chur or spiritism services? Never 10/31/2024 Do you belong to [...] Recorded Patient Health Questionnaire-2 Score 0 10/31/2024 [facility] - Occupational Stress Questionnaire Answer [...] were you homeless or living in a chcf (including now)? No 10/31/2024 CAGE ASSESSMENT Answer [...] drink first t kisha in the morning (EYE-LINE RUNNER) to steady your nerves or to get [...] MUSCLE SPASM 20 tablet 01/17/2025 HYDROcodone-acetam inophen ([place]) 5-325 MG tablet 02/11/2025 losartan (Cozaar) 50 [...] Visit [place] [facility] [address], [address] [place] [address] Oneil Blackmon MD [address] [place] [address] 06/25/2025 3:00 PM EST Office Visit [facility] [place] [address] [facility], [address] [place] [address] Gustavo Rodriguez H, DO [address] [place] [address] documented as of this encounter Procedures Procedure Name Priority Date/Time Associated Diagnosis Comments XR SCOLIOSIS ENTIRE SPINE 2 OR 3 VIEWS Routine 02/13/2025 10:22 AM EDT S/P cervical spinal fusion documented in this encounter Results * XR Scoliosis Entire Spine 2 or 3 Views (02/13/2025 10:22 AM EDT) Anatomical Region Laterality Modality Spine Digital Radiogra phy Impressions 02/13/2025 12:28 PM [...] hardware. Similar demineralization. Grade 1 L1 on [id number] with associated neural foraminal narrowing, with roughly [...] documented as of this encounter Care Teams Oakes Machine Operator Relationship Specialty Start Date End Date Kristy Sanchez APRN [address] [place] [address] PCP - General 10/31/24 Andra Matos APRN [address] [place] [address] Nurse Practitioner Neurosurgery 07/16/21 Oneil Blackmon MD [address] [place] [address] Surgeon Neurosurgery 08/18/21 Andra Matos APRN [address] [place] [address] Nurse Practitioner Neurosurgery 10/12/21 Shania Parikh DDS [address] [place] [address] Dentist Dentist 06/10/22 Aldo Pickens DMD [address] [place] [address] Dentist 06/10/22 documented as of this encounter
--- OUTSIDE RECORDS SUMMARY | 2025-02-13 10:35 | XMS_ITS | Encounter Summary ---
Author Organization [facility] Address [address] [place] [address] Care Team Providers Care Raised Printer Name Role Phone JedbrandonAndra CARTRIDGE LOADER Unavailable [phone] Oneil Blackmon MD Unavailable [phone] Andra Matos CARTRIDGE LOADER Unavailable [phone] Shania Parikh DDS Unavailable + Aldo Pickens DMD Unavailable [phone] Kristy Sanchez CARTRIDGE LOADER Primary Care Provider [phone] Encounter Details Date Type Department Care Team (Latest Contact Info) Description 02/13/2025 10:35 AM EDT - 02/13/2025 11:59 PM EDT Hospital Encounter [facility] [address], [address] [place] [phone] S/P cervical spinal fusion; Back pain Discharge Disposition: Home or Self Care Social [...] Recorded Patient Health Questionnaire-2 Score 0 10/31/2024 [facility] [place] [facility] ional Health - Occupational Stress [...] any time in the past 12 m [facility], were you homeless or living in a skilled nursing (including now)? No 10/31/2024 CAGE ASSESSMENT Answer [...] drink first t kisha in the morning (EYE-ESCROW CLOSER) to steady your nerves or to get [...] FOR SEVERE MUSCLE SPASM 20 tablet 01/17/2025 HYDROcodone-aceta minophen ([place]) 5-325 MG tablet 02/11/2025 losartan (Cozaar) 50 MG tablet Take 1 tablet (50 mg) by mouth daily. 09/12/2024 methylPREDNISolon e (Medrol Dospak) 4 MG tablets Follow schedule on package instructions 21 tablet 02/13/2025 naloxone (Narcan) 4 mg/0.1 mL nasal spray [...] Visit [place] [facility] [address], [address] [place] [address] Oneil Blackmon MD [address] [place] [address] 06/25/2025 3:00 PM EST Office Visit [facility] [place] [address] [facility], [address] [place] [address] Gustavo Rodriguez H, DO [address] [place] [address] documented as of this encounter Procedures Procedure Name Priority Date/Time Associated Diagnosis Comments XR THORACIC SPINE 2 VIEWS Routine 02/13/2025 10:51 AM EDT Back pain XR CERVICAL SPINE 2 OR 3 VIEWS Routine 02/13/2025 10:51 AM EDT S/P cervical spinal fusion documented in this encounter Results * XR Thoracic Spine 2 Views (02/13/2025 10:51 AM EDT) Anatomical Region Laterality Modality Spine, T-spine Digital Radiogra phy Impressions 02/13/2025 11:42 AM EDT 1. Anterior cervical discectomy and fusion at C3-C4 without hardware complication. 2. Chronic sequelae of anterior cervical discectomy and fusion at C4-C5 and C5- C6. 3. Compression deformity at T4 and T5 with unchanged loss of vertebral body height. CRITICAL RESULT: No. COMMUNICATION: Per this written report. Drafted by Darinel Guzman MD on 02/13/2025 11:38 AM Final report signed by Darinel Guzman MD on 02/13/2025 11:42 AM Narrative 02/13/2025 11:42 AM EDT CLINICAL INDICATION: neck pain TECHNIQUE: XR CERVICAL SPINE 2 OR 3 VIEWS, XR THORACIC SPINE 2 VIEWS COMPARISON: None. FINDINGS: 3 views of the cervical spine show anterior cervical discectomy and fusion at C3-C4. Chronic sequelae of anterior cervical discectomy and fusion at C4-C5 and C5-C6. No hardware complication. Vertebral alignment is normal. No fracture or bone destruction. Sequelae of bilateral TMJ arthroplasty. 2 views of the thoracic spine show compression deformity at T4 and T5 with unchanged loss of vertebral body height. No fracture or bone destruction. No paraspinal mass. Cardiac silhouette and lung in the [id number]-rd-awuo are normal. Posterior lumbar spinal fusion, incompletely evaluated. Procedure Note Darinel Guzman MD - 02/13/2025 CLINICAL INDICATION: neck pain TECHNIQUE: XR CERVICAL SPINE 2 OR 3 VIEWS, XR THORACIC SPINE 2 VIEWS COMPARISON: None. FINDINGS: 3 views of the cervical spine show anterior cervical discectomy and fusionat C3- C4. Chronic sequelae of anterior cervical discectomy and fusion atC4-C5 and C5-C6. No hardware complication. Vertebral alignment is normal.No fracture or bone destruction. Sequelae of bilateral TMJ arthroplasty. 2 views of the thoracic spine show compression deformity at T4 and T5 withunchanged loss of vertebral body height. No fracture or bone destruction.No paraspinal mass. Cardiac silhouette and lung in the acnkk-hv-dtor arenormal. Posterior lumbar spinal fusion, incompletely evaluated. IMPRESSION: 1.Anterior cervical discectomy and fusion at C3-C4 without hardwarecomplication. 2.Chronic sequelae of anterior cervical discectomy and fusion at C4-C5and C5-C6. 3.Compression deformity at T4 and T5 with unchanged loss of vertebralbody height. CRITICAL RESULT: No. COMMUNICATION: Per this written report. Drafted by Darinel Guzman MD on 02/13/2025 11:38 AM Final report signed by Darinel Guzman MD on 02/13/2025 11:42 AM Andra Matos CARTRIDGE LOADER IMG XR PROCEDURES Final Resu lt * XR Cervical Spine 2 or 3 Views (02/13/2025 10:51 AM EDT) Anatomical Region Laterality Modality Spine, C-spine Digital Radiogra phy Impressions 02/13/2025 11:42 AM EDT 1. Anterior cervical discectomy and fusion at C3-C4 without hardware complication. 2. Chronic sequelae of anterior cervical discectomy and fusion at C4-C5 and C5- C6. 3. Compression deformity at T4 and T5 with unchanged loss of vertebral body height. CRITICAL RESULT: No. COMMUNICATION: Per this written report. Drafted by Darinel Guzman MD on 02/13/2025 11:38 AM Final report signed by Darinel Guzman MD on 02/13/2025 11:42 AM Narrative 02/13/2025 11:42 AM EDT CLINICAL INDICATION: neck pain TECHNIQUE: XR CERVICAL SPINE 2 OR 3 VIEWS, XR THORACIC SPINE 2 VIEWS COMPARISON: None. FINDINGS: 3 views of the cervical spine show anterior cervical discectomy and fusion at C3-C4. Chronic sequelae of anterior cervical discectomy and fusion at C4-C5 and C5-C6. No hardware complication. Vertebral alignment is normal. No fracture or bone destruction. Sequelae of bilateral TMJ arthroplasty. 2 views of the thoracic spine show compression deformity at T4 and T5 with unchanged loss of vertebral body height. No fracture or bone destruction. No paraspinal mass. Cardiac silhouette and lung in the [id number]-gz-dsgw are normal. Posterior lumbar spinal fusion, incompletely evaluated. Procedure Note Darinel Guzman MD - 02/13/2025 CLINICAL INDICATION: neck pain TECHNIQUE: XR CERVICAL SPINE 2 OR 3 VIEWS, XR THORACIC SPINE 2 VIEWS COMPARISON: None. FINDINGS: 3 views of the cervical spine show anterior cervical discectomy and fusionat C3- C4. Chronic sequelae of anterior cervical discectomy and fusion atC4-C5 and C5-C6. No hardware complication. Vertebral alignment is normal.No fracture or bone destruction. Sequelae of bilateral TMJ arthroplasty. 2 views of the thoracic spine show compression deformity at T4 and T5 withunchanged loss of vertebral body height. No fracture or bone destruction.No paraspinal mass. Cardiac silhouette and lung in the wgoxw-jq-vpcc arenormal. Posterior lumbar spinal fusion, incompletely evaluated. IMPRESSION: 1.Anterior cervical discectomy and fusion at C3-C4 without hardwarecomplication. 2.Chronic sequelae of anterior cervical discectomy and fusion at C4-C5and C5-C6. 3.Compression deformity at T4 and T5 with unchanged loss of vertebralbody height. CRITICAL RESULT: No. COMMUNICATION: Per this written report. Drafted by Darinel Guzman MD on 02/13/2025 11:38 AM Final report signed by Darinel Guzman MD on 02/13/2025 11:42 AM Andra Matos APRN IMG XR PROCEDURES Final Resu lt documented in this encounter Visit Diagnoses Diagnosis S/P cervical spinal fusion Arthrodesis status Back pain Unspecified backache documented in this encounter Additional Health Concerns Assessment Noted Time PHQ-9 Depression Total Score: 2 11/01/19 25 1:01 PM EDT A fall risk assessment has been complete d for the patient 02/13/2025 11:14 AM EDT A Body Mass Index follow-up plan has been documented for the patient 02/14/2025 4:04 PM EDT documented as of this encounter Care Teams Raised Printer Relationship Specialty Start Date End Date Kristy Sanchez APRN [address] [place] [address] PCP - General 10/31/24 Andra Matos APRN [address] [place] [address] Nurse Practitioner Neurosurgery 07/16/21 Oneil Blackmon MD [address] [place] [address] Surgeon Neurosurgery 08/18/21 Andra Matos APRN [address] [place] [address] Nurse Practitioner Neurosurgery 10/12/21 Shania Parikh DDS [address] [place] [address] Dentist Dentist 06/10/22 Aldo Pickens DMD [address] [place] [address] Dentist 06/10/22 documented as of this encounter
--- OUTSIDE RECORDS SUMMARY | 2025-02-13 12:00 | XMS_ITS | Encounter Summary ---
Author Organization [facility] Address [address] [place] [address] Care Team Providers Care Washroom Attendant Name Role Phone Andra Matos MENTAL HEALTH ASSISTANT Unavailable [phone] Oneil Blackmon MD Unavailable [phone] Andra Matos MENTAL HEALTH ASSISTANT Unavailable Shania Parikh DDS Unavailable + Aldo Pickens DMD Unavailable [phone] Kritsy Sanchez MENTAL HEALTH ASSISTANT Primary Care Provider [phone] Encounter Details Date Type Department Care Team (Latest Contact Info) Description 02/13/2025 12:00 PM EDT [facility] [address], [address] [place] [address] Andra Matos, MENTAL HEALTH ASSISTANT [address] [place] [address] Lumbar radiculopathy (Primary Dx); Neck pain; Status post lumbar spinal arthrodesis; Cervical radiculopathy; Cervicalgia; Arm numbness; Closed fracture of thoracic vertebra, unspecified fracture morphology, unspecified thoracic vertebral level, initial encounter ([facility]); S/P cervical spinal fusion Social History Tobacco Use Types Packs/Day Years [...] week 10/31/2024 How often do you attend [facility] or zoroastrian services? Never 10/31/2024 Do you [...] 0 10/31/2024 [facility] - Occupational [...] any time in the past [address] [facility], were you homeless or living in [...] drink first t kisha in the morning (EYE-VETERINARY SCIENCE TEACHER) to steady your nerves or to get [...] Sign Reading Time Taken Comments Blood Pressure 134/90 02/13/2025 11:16 AM EDT Pulse - - Temperature - - Respiratory Rate - - Oxygen Saturation - - Inhaled Oxygen Concentration - - Weight 70.7 kg (155 lb 13.8 oz) 025 11:16 AM EDT Height 154.9 cm (5' 1 ) 02/13/2025 11:1 6 AM EDT Body Mass Index 29.45 02/13/2025 11:16 AM EDT documented in this encounter Miscellaneous Notes * Progress Notes - Andra Matos, NEFTALI - 02/13/2025 12:00 PM EDT We had the pleasure of seeing your patient in our clinic today for continued Neurosurgical evaluation. Chief Complaint: Back pain, right leg pain, thoracic fracture after fall off horse History Of Present Illness Jennifer Carrero is a 64 y.o. female with history of an L2-L3 TLIF fusion extension on 08/30/2021with Dr. Blackmon. Patient then had a C4-C6 ACDF 03/14/[address] Blackmon. Patient then had a C3-C4 ACDF 10/12/[address] Blackmon. Patient presents today with multiple issues. She had a recent fall from her horse. She states that she was noting or horse when it got spooked and run away. She was seen at her local ER diagnosed with multiple thoracic fractures. Patient states that since then her lumbar radicular pain, which we ordered an MRI for, has worsened. She states she has right leg pain affecting the lateral portion of the leg into the foot. Patient presents with updated CT scans andMRI imaging Past Medical History[1] Surgical History[2] Family History[3] Social History[4] Current Outpatient Medications Medication Instructions acetaminophen (Tylenol) 325 MG tablet Every 6 hours PRN atorvastatin (LIPITOR) 80 mg, Daily lgdkkcwqpy-zvshsnskmfpkc-hxzdbeuz 50-325-40 MG tablet 1 tablet, Oral, Every 4 hours PRN cholecalciferol (VITAMIN D-3) 1,000 Units, Daily citalopram (CELEXA) 20 mg, Daily cyclobenzaprine (Flexeril) 10 MG tablet TAKE 1 TABLET BY MOUTH THREE TIMES DAILY NEEDED FOR MUSCLE SPASM FOR UP TO 14 DAYS diazePAM (Valium) 2 MG tablet TAKE 1 TABLET BY MOUTH EVERY 6 HOURS NEEDED FOR SEVERE MUSCLE SPASM HYDROcodone-acetaminophen (Maben) 5-325 MG tablet losartan (COZAAR) 50 mg, Daily methylPREDNISolone (Medrol Dospak) 4 MG tablets Follow schedule on package instructions naloxone (NARCAN) 4 mg, Nasal, As needed oxyCODONE (ROXICODONE) 5 mg, Oral, Every 4 hours PRN polyethylene glycol (MIRALAX) 17 g, Oral, 2 times daily Qulipta 60 mg, Daily Repatha SureClick 140 MG/ML solution auto-injector autoinjector senna-docusate (Miriam-Colace) 8.6-50 MG tablet 2 tablets, Oral, 2 times daily ubrogepant (UBRELVY) 100 mg, Once as needed Allergies Cephalexin, Cephalosporins, Diclofenac, Fluconazole, and Prednisolone Review of Systems 14 point review of systems was performed and was negative except as noted per HPI. Visit Vitals BP (!) 134/90 Ht 1.549 m (5' 1 ) Wt 70.7 kg (155 lb 13.8 oz) BMI 29.45 kg/m?? OB Status Postmenopausal Smoking Status Never BSA 1.74 m?? General Physical Exam Constitutional No acute distress. Patient is appropriate historian and cooperative throughout exam.Well nourished, well groomed. Alert and oriented x4. Head Normocephalic and atraumatic. Eyes Pupils are equal, round, and reactive to light. Neck No tracheal deviation or JVD noted. Previous surgical scars noted Cardiovascular Minimal to no peripheral edema, intact distal pulses Pulmonary/Chest No increased effort noted, no shortness of breath Neurological Alert and oriented to person, place, and time Skin Skin is warm and dry Psychiatric Normal mood and affect, behavior and judgment MUSCULOSKELETAL EXAM: Upper Extremity Motor Strength Right Left C5: Deltoid 12/09 12/09 C6: Biceps 12/09 12/09 C7: Triceps 12/09 12/09 C8: Data Migration Consultant 12/09 12/09 T1: Intrinsics 12/09 12/09 Lower Extremity Motor Strength Right Left L2: Hip flexion (Iliopsoas) 12/09 12/09 L3: Knee extension (Quad) 12/09 12/09 L4: Ankle DF (TA) 12/09 12/09 L5: Great Toe DF (EHL) 12/09 12/09 S1: Ankle Pf, Foot Eversion (Peroneal longus/brevis) 12/09 12/09 S2: Great toe flexion (FHL), Knee flexion 12/09 12/09 Sensation Right Left L2: Proximal anterior thigh Normal Normal L3: Mid anterior thigh Normal Normal L4: Medial leg/foot, great toe (Saphenous n.) Normal Normal L5: Dorsum of mid foot Normal Normal S1: Lateral leg/foot, little toe, Back of leg (Sural n.) Normal Normal Reflexes Right Left C5: Biceps 2/4 2/4 C6: Brachialis 2/4 2/4 C7: Triceps 2/4 2/4 L4: Patellar 2/4 2/4 S1: Achilles 2/4 2/4 SLR Negative Negative Clonus Negative Negative Hoffmans Negative Negative Imaging I personally reviewed patient's CT scan and x-rays from today of the thoracic spine showing fractures at T4-T5. These appear to be stable. Patient had MRI showing L2-L5 fusion with disc protrusion L1-L2 with bilateral neural foraminal narrowing Assessment and Plan Jennifer Carrero is a 64 y.o. female with stable appearing thoracic fractures and some adjacent segment noted above her L2-L5 fusion. We discussed at this time no emergent surgical intervention is warranted. Patient and I discussed a round of steroids to see if this helps with some of her soreness from her fall. Patient has no red flag signs or symptoms however we did discuss them and when to contact us or seek emergency medical care. Patient will follow up with Dr. Blackmon in several weeks. Patient was given appointment reminder. Patient was instructed to contact me with any issues or concerns. Andra Matos APRN [facility] Department of Neurosurgery This note was dictated using voice to text software and may contain errors 40 minutes was spent reviewing previous documentation and imaging, completion of today's documentation, hngu-fb-oehd visit, care coordination and planning [1] Past Medical History: Diagnosis Date Anxiety Arm pain, right Back pain Cervical myelopathy (CMS/HCC) 2021 Chronic pain disorder April 12 2017 Coronary artery disease Aug 2023 Decreased ROM of neck 2021 Degenerative disc disease, cervical 2020 Degenerative disc disease, lumbar 2005 Dental abscess Dental disease 2001 TMJ Dental disease 03/[address], missing teeth Depression 2012 After loosing al members of family Dizziness 03 08 25 Dysphagia 03 08 25 Eating disorder Exercise tolerance finding 03/10/2022 Can climb 1 flight of stairs w/o SOB Halitosis Hard to intubate 04/12/2017 Needs to be nasal intubated History of throat problem 10 12 2024 HL (hearing loss) 08 25 Hoarseness 08 25 Hyperlipidemia Hypertension Hypertension 2023 Jaw pain Joint pain TMJ/back Limited mandible ROM 2021 S/P TMJ replacement, opens ~20mm per patient Low back pain 2006 Lumbosacral disc disease Migraines Muscle pain, myofascial Apr 12 2017 Neck pain Neuropathic pain 2006 Numbness and tingling in both hands PONV (postoperative nausea and vomiting) Radiculopathy 2006 Rib pain Spinal headache 2001 During viral meningitis Spinal stenosis 2006 TMJ dysfunction 2009 Trigeminal neuralgia 2016 [2] Past Surgical History: Procedure Laterality Date ANTERIOR CERVICAL DISCECTOMY W/ FUSION 2021 BACK SURGERY BREAST LUMPECTOMY 1998 Removed a small nodule of right breast COLONOSCOPY 03/15/2021 All qas ok DENTAL SURGERY EPIDURAL BLOCK INJECTION 2005 EYE SURGERY Bilateral 2023 HERNIA REPAIR LAMINECTOMY LAPAROSCOPIC INGUINAL HERNIA REPAIR LUMBAR DISCECTOMY 2016 LUMBAR FUSION LUMBAR LAMINECTOMY 2006 NECK SURGERY 8 8 2021 ORTHOPEDIC SURGERY 1982 OTHER SURGICAL HISTORY Hamstring surgery RADIOFREQUENCY ABLATION 2015 SPINAL CORD STIMULATOR IMPLANT SPINAL FUSION 2005 2016 2021 TEMPOROMANDIBULAR JOINT SURGERY Bilateral Joint Replacement TRIGGER POINT INJECTION 2015 [3] Family History Problem Relation Name Age of Onset Hearing loss Father Ervin Price Cancer Father Ervin Price COPD Father Ervin Price Alzheimer's disease Father Ervin Albert Alcohol abuse Brother Momo Price Alzheimer's disease Mother Lisa price Migraines Brother Hair Anesthesia problems Neg Hx Malig Hyperthermia Neg Hx [4] Social History Tobacco Use Smoking status: Never Smokeless tobacco: Never Tobacco comments: Never used Vaping Use Vaping status: Never Used Substance Use Topics Alcohol use: Yes Alcohol/week: 2.0 standard drinks of alcohol Types: 2 Glasses of wine per week Comment: Socially Drug use: Never documented in this encounter Plan of Treatment Upcoming Encounters Date Type Department Care Team (Late st Contact Info) Description 04/02/2025 2:30 PM EDT Office Visit [place] [facility] [address], 1st [place] [address] Oneil Blackmon MD [address] [place] [address] 06/25/2025 3:00 PM EST Office Visit [facility] [place] [address] [facility], [address] [place] [address] Gustavo Rodriguez H, DO [address] [place] [address] documented as of this encounter Results * XR Cervical Spine 2 or 3 [...] mass. Cardiac silhouette and lung in the eayfp-hk-tgut are normal. Posterior lumbar spinal fusion, incompletely [...] mass. Cardiac silhouette and lung in the jsjxq-qj-owre arenormal. Posterior lumbar spinal fusion, incompletely evaluated. [...] MD on 02/13/2025 11:42 AM Andra Matos MENTAL HEALTH ASSISTANT IMG XR PROCEDURES Final Resu lt * XR Lumbar Spine 2 or 3 [...] the findings are grossly unchanged. Procedure Note Ba Mcpherson MD - 02/13/2025 CLINICAL INDICATION: back pain TECHNIQUE: XR LUMBAR SPINE 2 OR 3 VIEWS, XR SCOLIOSIS ENTIRE SPINE 2 OR 3 VIEWS COMPARISON: Radiographs: Cervical spine, 01/22/2025, 10/30/2024. Lumbar spine, 10/12/2021,08/31/2021. MRI lumbar spine, 04/09/2021. FINDINGS: Lumbar spine: Redemonstration of L2-5 posterior instrumentation. Similarappearance of the hardware. Similar demineralization. Grade 1 L1 on [id number] with associated neural foraminal narrowing, with roughly [...] report signed by Ba Ruiz MD on 512:28 PM us Andra Matos MENTAL HEALTH ASSISTANT IMG XR PROCEDURES Final Resu lt * XR Scoliosis Entire Spine 2 or [...] hardware. Similar demineralization. Grade 1 L1 on [id number] with associated neural foraminal narrowing, with roughly [...] documented in this encounter Visit Diagnoses Diagnosis Lumbar radiculopathy- Primary Thoracic or lumbosacral neuritis or radiculitis, unspecified Neck pain Cervicalgia Status post lumbar spinal arthrodesis Cervical radiculopathy Brachial neuritis or radiculitis nos Cervicalgia Arm numbness Disturbance of skin sensation Closed fracture of thoracic vertebra, unspecified fracture morphology, unspecified thoracic vertebral level, initial encounter ([facility]) S/P cervical spinal fusion Arthrodesis status S/P cervical spinal fusion Arthrodesis status S/P cervical spinal fusion Arthrodesis status S/P cervical spinal fusion Arthrodesis status Back [...] documented as of this encounter Care Teams Washroom Attendant Relationship Specialty Start Date End Date Kristy Sanchez APRN [address] [place] [address] PCP - General 10/31/24 Andra Matos APRN [address] [place] [address] Nurse Practitioner Neurosurgery 07/16/21 Oneil Blackmon MD [address] [place] [address] Surgeon Neurosurgery 08/18/21 Andra Matos APRN [address] [place] [address] Nurse Practitioner Neurosurgery 10/12/21 Shania Parikh DDS [address] [place] [address] Dentist Dentist 06/10/22 Aldo Pickens DMD [address] [place] [address] Dentist 06/10/22 documented as of this encounter
[2025-03-13 20:21] LABS: Albumin Level 4.7 g/dl (3.5-5.0); Chloride 101 mmol/L (98-107); Sodium 137 mmol/L (136-145)
[2025-03-13 20:22] LABS: Potassium 5.4 mmoL/L (3.5-5.1)
[2025-03-13 20:24] LABS: Alanine Aminotransferase 12 U/L (12-78); Albumin/Globulin Ratio 2.0 (1.1-1.8); Alkaline Phosphatase 139 U/L (38-126); Anion Gap 13.4 mEq/L (5-15); Aspartate Amino Transferase 27 U/L (14-36); Bilirubin,Total 0.8 mg/dl (0.2-1.3); Blood Urea Nitrogen 23 mg/dl (7-17); Carbon Dioxide 28 mmol/L (22.0-30.0); Creatinine,Serum 0.60 mg/dl (0.52-1.04); Estimated Glomerular Filt Rate 101 ml/min (>60); GFR (African American) 123 ML/MIN (>60); Globulin 2.4 g/dL (1.3-3.2); Total Protein,Serum 7.1 g/dl (6.3-8.2)
[2025-03-13 20:25] LABS: Calcium 9.7 mg/dl (8.4-10.2); Cholesterol 195 mg/dl (140-200); Glucose 93 mg/dl (74-100); HDL Cholesterol 79 mg/dl (40-60); Triglycerides 122 mg/dl (30-150)
--- OUTSIDE RECORDS SUMMARY | 2025-03-14 10:06 | XMS_ITS | Encounter Summary ---
Author Organization [facility] Address [address] [place] [address] Care Team Providers Care Delivery Director Name Role Phone Andra Matos OIL TESTER Unavailable [phone] Oneil Blackmon MD Unavailable [phone] Andra Matos OIL TESTER Unavailable [phone] Shania Parikh DDS Unavailable + Aldo Pickens DMD Unavailable [phone] Kristy Sanchez OIL TESTER Primary Care Provider Encounter Details Date Type [...] How often do you attend ch[facility] or methodist services? Never 10/31/2024 Do you belong to any clubs o r organizations such as sabianism groups, unions, fraternal or athletic groups, or [...] Patient Health Questionnaire-2 Score 0 10/31/2024 [facility] Occupat ional [facility] - Occupational Stress Questionnaire Answer [...] any time in the past 12 m [facility], were you homeless or living in a correction (including now)? No 10/31/2024 CAGE ASSESSMENT Answer [...] drink first t kisha in the morning (EYE-NET UI DEVELOPER) to steady your nerves or to [...] Visit [place] [facility] [address], [address] [place] [address] Oneil Blackmon MD [address] [place] [address] 06/25/2025 3:00 PM EST Office Visit [facility] [place] [address] [facility] [facility], [address] [place] [address] Gustavo Rodriguez, DO [address] [place] [address] documented as of this encounter [...] documented as of this encounter Care Teams Delivery Director Relationship Specialty Start Date End Date Kristy Sanchez APRN [address] [place] [address] PCP - General 10/31/24 Andra Matos APRN [address] [place] [address] Nurse Practitioner Neurosurgery 07/16/21 Oneil Blackmon MD [address] [place] [address] Surgeon Neurosurgery 08/18/21 Andra Matos APRN [address] [place] [address] Nurse Practitioner Neurosurgery 10/12/21 Shania Parikh DDS [address] [place] [address] Dentist Dentist 06/10/22 Aldo Pickens DMD [address] [place] [address] Dentist 06/10/22 documented as of this encounter
--- OUTSIDE RECORDS SUMMARY | 2025-03-14 10:06 | XMS_ITS | Encounter Summary ---
Author Organization [facility] Address [address] [place] [address] Care Team Providers Care President Financial Institution Name Role Phone Andra Matos SULFONATOR OPERATOR Unavailable [phone] Oneil Blackmon MD Unavailable [phone] Andra Matos SULFONATOR OPERATOR Unavailable [phone] Shania Parikh DDS Unavailable + Aldo Pickens DMD Unavailable [phone] Kristy Sanchez SULFONATOR OPERATOR Primary Care Provider [phone] Encounter Details Date Type Department Care Team [...] How often do you attend chur or muslim services? Never 10/31/2024 Do you belong to any clubs o r organizations such as rastafari groups, unions, fraternal or athletic groups, or [...] Recorded Patient Health Questionnaire-2 Score 0 10/31/2024 [facility] - Occupational Stress Questionnaire Answer Date [...] any time in the past 12 m [facility], were you homeless or living in [...] drink first t kisha in the morning (EYE-MAC ARTIST) to steady your nerves or to get [...] Visit [place] [facility] [address], [address] [place] [address] Oneil Blackmon MD [address] [place] [address] 06/25/2025 3:00 PM EST Office Visit [facility] [place] [address] [facility], [address] [place] [address] Gustavo Rodriguez, DO [address] [place] [address] documented as of this encounter [...] documented as of this encounter Care Teams President Financial Institution Relationship Specialty Start Date End Date Kristy Sanchez APRN [address] [place] [address] PCP - General 10/31/24 Andra Matos APRN [address] [place] [address] Nurse Practitioner Neurosurgery 07/16/21 Oneil Blackmon MD [address] [place] [address] Surgeon Neurosurgery 08/18/21 Andra Matos APRN [address] [place] [address] Nurse Practitioner Neurosurgery 10/12/21 Shania Parikh DDS [address] [place] [address] Dentist Dentist 06/10/22 Aldo Pickens DMD [address] [place] [address] Dentist 06/10/22 documented as of this encounter
--- OUTSIDE RECORDS SUMMARY | 2025-03-14 10:06 | XMS_ITS | Encounter Summary ---
Author Organization Healthcare Address [address] [place] [address] Care Team Providers Care Cable Installation Technician Name Role Phone Andra Matos INSPECTING AND TESTING LEAD HAND Unavailable [phone] Oneil Blackmon MD Unavailable [phone] Andra Matos INSPECTING AND TESTING LEAD HAND Unavailable [phone] Shania Parikh DDS Unavailable + Aldo Pickens DMD Unavailable [phone] Kristy Sanchez INSPECTING AND TESTING LEAD HAND Primary Care Provider [phone] Encounter Details Date Type Department Care Team (Late st Contact Info) Description 02/01/2025 Orders Only External Location [address] [place] [address] Provider, External Social History Tobacco Use Types [...] any clubs o r organizations such as orthodox groups, unions, fraternal or athletic groups, [...] Recorded Patient Health Questionnaire-2 Score 0 10/31/2024 [facility] - Occupational [...] time in the past 12 m [facility], were you homeless or living in a [...] drink first t kisha in the morning (EYE-INFORMATION TECHNOLOGY ASSISTANT) to steady your nerves or to [...] Visit [place] [facility] [address], [address] [place] [address] Oneil Blackmon MD [address] [place] [address] 06/25/2025 3:00 PM EST Office Visit [facility] [place] [facility] [address], [address] [place] [address] Gustavo Rodriguez H, DO [address] [place] [address] documented as of this encounter Procedures Procedure Name Priority Date/Time Associated Diagnosis Comments CT NEURO OUTSIDE IMAGES 02/01/2025 11:20 AM EDT documented in this encounter Results * CT NEURO OUTSIDE IMAGES (02/01/2025 11:20 AM EDT) Anatomical Region Laterality Modality Computed Tomogra phy 02/01/2025 11:2 0 AM EDT us External Provider IMG CT PROCEDURES [...] documented as of this encounter Care Teams Cable Installation Technician Relationship Specialty Start Date End Date Kristy Sanchez APRN [address] [place] [address] PCP - General 10/31/24 Andra Matos APRN [address] [place], [place] [address] Nurse Practitioner Neurosurgery 07/16/21 Oneil Blackmon MD [address] [place] [address] Surgeon Neurosurgery 08/18/21 Andra Matos APRN [address] [place], [place] [address] Nurse Practitioner Neurosurgery 10/12/21 Shania Parikh DDS [address] [place] [address] Dentist Dentist 06/10/22 Aldo Pickens DMD [address] [place] [address] Dentist 06/10/22 documented as of this encounter
--- OUTSIDE RECORDS SUMMARY | 2025-03-14 10:06 | XMS_ITS | Encounter Summary ---
Author Organization Healthcare Address [address] [place] [address] Care Team Providers Care Retail Team Member Name Role Phone Andra Matos WEBFOCUS DEVELOPER Unavailable [phone] Oneil Blackmon MD Unavailable [phone] Andra Matos WEBFOCUS DEVELOPER Unavailable [phone] Shania Parikh DDS Unavailable + Aldo Pickens DMD Unavailable [phone] Kristy Sanchez WEBFOCUS DEVELOPER Primary Care Provider [phone] Encounter Details Date Type Department Care Team (Late st Contact Info) Description 02/01/2025 Orders Only External Location [address] [place] [address] Provider, External Social History Tobacco Use Types [...] How often do you attend chur or amish services? Never 10/31/2024 Do you belong to [...] Patient Health Questionnaire-2 Score 0 10/31/2024 [facility] Occupat ional Health - Occupational Stress [...] any time in the past 12 m [facility], were you homeless or living [...] drink first t kisha in the morning (EYE-INTERNAL COMMUNICATIONS SPECIALIST) to steady your nerves or to get [...] Visit [place] [facility] [address], [address] [place] [address] Oneil Blackmon MD [address] [place] [address] 06/25/2025 3:00 PM EST Office Visit [facility] [place] [facility] [address], [address] [place] [address] Gustavo Rodriguez, DO [address] [place] [address] documented as of this encounter Procedures Procedure Name Priority Date/Time Associated Diagnosis Comments CT NEURO OUTSIDE IMAGES 02/01/2025 11:23 AM EDT documented in this encounter Results * CT NEURO OUTSIDE IMAGES (02/01/2025 11:23 AM EDT) Anatomical Region Laterality Modality Computed Tomogra phy 02/01/2025 11:2 3 AM EDT us External Provider IMG CT [...] documented as of this encounter Care Teams Retail Team Member Relationship Specialty Start Date End Date Kristy Sanchez APRN [address] [place] [address] PCP - General 10/31/24 Andra Matos APRN [address] [place], [place] [address] Nurse Practitioner Neurosurgery 07/16/21 Oneil Blackmon MD [address] [place] [address] Surgeon Neurosurgery 08/18/21 Andra Matos APRN [address] [place], [place] [address] Nurse Practitioner Neurosurgery 10/12/21 Shania Parikh DDS [address] [place] [address] Dentist Dentist 06/10/22 Aldo Pickens DMD [address] [place] [address] Dentist 06/10/22 documented as of this encounter
--- OUTSIDE RECORDS SUMMARY | 2025-03-14 10:06 | XMS_ITS | Encounter Summary ---
Author Organization Healthcare Address [address] [place] [address] Care Team Providers Care Photographic Double Name Role Phone Andra Matos AUTOMATION DESIGN ENGINEER Unavailable [phone] Oneil Blackmon MD Unavailable [phone] Andra Matos AUTOMATION DESIGN ENGINEER Unavailable [phone] Shania Parikh DDS Unavailable + Aldo Pickens DMD Unavailable [phone] Kristy Sanchez AUTOMATION DESIGN ENGINEER Primary Care Provider [phone] Encounter Details Date Type Department Care Team (Late st Contact Info) Description 02/01/2025 Orders Only External Location [address] [place] [address] Provider, External Social History Tobacco Use Types [...] How often do you attend chur or christian services? Never 10/31/2024 Do you belong to any clubs o r organizations such as latter day groups, unions, fraternal or athletic groups, or [...] Recorded Patient Health Questionnaire-2 Score 0 10/31/2024 [facility] - Occupational [...] in the past 12 m [facility], were you homeless or living [...] first t kisha in the morning (EYE-CHIEF OPERATIONS OFFICER) to steady your nerves or to get [...] Visit [place] [facility] [address], [address] [place] [address] Oneil Blackmon MD [address] [place] [address] 06/25/2025 3:00 PM EST Office Visit [facility] [place] [facility] [address] [facility] [facility], [address] [place] [address] Gustavo Rodriguez, DO [address] [place] [address] documented as of this encounter Procedures Procedure Name Priority Date/Time Associated Diagnosis Comments CT NEURO OUTSIDE IMAGES 02/01/2025 11:26 AM EDT documented in this encounter Results * CT NEURO OUTSIDE IMAGES (02/01/2025 11:26 AM EDT) Anatomical Region Laterality Modality Computed Tomogra phy 02/01/2025 11:2 6 AM EDT us External Provider IMG CT [...] documented as of this encounter Care Teams Photographic Double Relationship Specialty Start Date End Date Kristy Sanchez APRN [address] [place] [address] PCP - General 10/31/24 Andra Matos APRN [address] [place], [place] [address] Nurse Practitioner Neurosurgery 07/16/21 Oneil Blackmno MD [address] [place] [address] Surgeon Neurosurgery 08/18/21 Andra Matos APRN [address] [place], [place] [address] Nurse Practitioner Neurosurgery 10/12/21 Shania Parikh DDS [address] [place] [address] Dentist Dentist 06/10/22 Aldo Pickens DMD [address] [place] [address] Dentist 06/10/22 documented as of this encounter
--- OUTSIDE RECORDS SUMMARY | 2025-03-14 10:06 | XMS_ITS | Encounter Summary ---
Author Organization Healthcare Address [address] [place] [address] Care Team Providers Care Electronic Operator Name Role Phone Andra Matos ADMINISTRATIVE VOLUNTEER Unavailable [phone] Oneil Blackmon MD Unavailable [phone] Andra Matos ADMINISTRATIVE VOLUNTEER Unavailable [phone] Shania Parikh DDS Unavailable + Aldo Pickens DMD Unavailable [phone] Pcp, No Primary Care Provider Unavailabl e Kristy Sanchez ADMINISTRATIVE VOLUNTEER Primary Care Provider [phone] Encounter Details Date Type Department Care Team (Late st Contact Info) Description 03/24/2023 Orders Only External Location [address] [place] [id number] Provider, External Social History Tobacco Use Types [...] drink first t kisha in the morning (EYE-BUSINESS OFFICE COORDINATOR) to steady your nerves or to [...] Visit [place] [facility] [address], [address] [place] [address] Oneil Blackmon MD [address] [place] [address] 06/25/2025 3:00 PM EST Office Visit [facility] [place] [address] [facility] [address] [facility] [address], [address] [place] [address] Gustavo Rodriguez, DO [address] [place] [address] documented as of this encounter [...] documented as of this encounter Care Teams Electronic Operator Relationship Specialty Start Date End Date Pcp, [place] [address] PCP - General Family Medicine 10/30/24 10/30/24 Kristy Sanchez, ADMINISTRATIVE VOLUNTEER [address] [place] [address] PCP - General 10/31/24 Andra Matos, ADMINISTRATIVE VOLUNTEER [address] [place] [address] Nurse Practitioner Neurosurgery 07/16/21 Oneil Blackmon MD [address] [place] [address] Surgeon Neurosurgery 08/18/21 Andra Matos, ADMINISTRATIVE VOLUNTEER [address] [place] [address] Nurse Practitioner Neurosurgery 10/12/21 Shania Parikh DDS [address] [place] [address] Dentist Dentist 06/10/22 Aldo Pickens DMD [address] [place] [address] Dentist 06/10/22 documented as of this encounter
--- OUTSIDE RECORDS SUMMARY | 2025-03-14 10:06 | XMS_ITS | Encounter Summary ---
Author Organization [facility] Address [address] [place] [address] Care Team Providers Care Suction Roller Name Role Phone Andra Matos ROAD REPAIRER Unavailable [phone] Oneil Blackmon MD Unavailable [phone] REPAIRER Unavailable [phone] Shania Parikh DDS Unavailable + Aldo Pickens DMD Unavailable [phone] REPAIRER Primary Care Provider [phone] Encounter Details Date Type Department Care Team (Latest Contact Info) Description 02/13/2025 Travel Social History Tobacco Use Types Packs/Day [...] [facility] Occupat ional [facility] - Occupational Stress Questionnaire Answer Date [...] were you homeless or living in a care home (including now)? No 10/31/2024 CAGE ASSESSMENT [...] drink first t kisha in the morning (EYE-HOME ATTENDANT) to steady your nerves or to get [...] Visit [place] [facility] [address], [address] [place] [address] Oneil Blackmon MD [address] [place] [address] 06/25/2025 3:00 PM EST Office Visit [facility] [place] [address] [place] [facility] [address], [address] [place] [address] Gustavo Rodriguez, DO [address] [place] [address] documented as of this encounter [...] documented as of this encounter Care Teams Suction Roller Relationship Specialty Start Date End Date Kristy Sanchez APRN [address] [place] [address] PCP - General 10/31/24 Andra Matos APRN [address] [place] [address] Nurse Practitioner Neurosurgery 07/16/21 Oneil Blackmon MD [address] [place] [address] Surgeon Neurosurgery 08/18/21 Andra Matos APRN [address] [place] [address] Nurse Practitioner Neurosurgery 10/12/21 Shania Parikh DDS [address] [place] [address] Dentist Dentist 06/10/22 Aldo Pickens DMD [address] [place] [address] Dentist 06/10/22 documented as of this encounter
--- OUTSIDE RECORDS SUMMARY | 2025-03-14 10:06 | XMS_ITS | Encounter Summary ---
Author Organization Healthcare Address [address] [place] [address] Care Team Providers Care Maintenance Electrician Name Role Phone Andra Matos SCIENTIST/ENGINEER Unavailable [phone] Oneil Blackmon MD Unavailable [phone] Andra Matos SCIENTIST/ENGINEER Unavailable [phone] Shania Parikh DDS Unavailable + Aldo Pickens DMD Unavailable [phone] Kristy Sanchez SCIENTIST/ENGINEER Primary Care Provider [phone] Encounter Details Date Type Department Care Team (Late st Contact Info) Description 02/03/2025 Orders Only External Location [address] [place] [address] Provider, External Social History Tobacco Use Types [...] How often do you attend chur or synagogue services? Never 10/31/2024 Do you belong to any clubs o r organizations such as jainism groups, unions, fraternal or athletic groups, or [...] Recorded Patient Health Questionnaire-2 Score 0 10/31/2024 [facility] of Occupat ional Health - Occupational [...] any time in the past 12 m [facility], were you homeless or living in [...] drink first t kisha in the morning (EYE-TRANSFER COORDINATOR) to steady your nerves or to [...] Visit [place] [facility] [address], 1st [place] [address] Oneil Blackmon MD [address] [place] [address] 06/25/2025 3:00 PM EST Office Visit [facility] [place] [facility] [address], [address] [place] [address] Gustavo Rodriguez, DO [address] [place] [address] documented as of this encounter Procedures Procedure Name Priority Date/Time Associated Diagnosis Comments MR NEURO OUTSIDE IMAGES 02/03/2025 10:35 AM EDT documented in this encounter Results * MR NEURO OUTSIDE IMAGES (02/03/2025 10:35 AM EDT) Anatomical Region Laterality Modality Magnetic Resonan ce 02/03/2025 10:3 5 AM EDT us External Provider IMG MRI PROCEDURES Final Resul t documented in this encounter Visit Diagnoses Not [...] documented as of this encounter Care Teams Maintenance Electrician Relationship Specialty Start Date End Date Kristy Sanchez APRN [address] [place] [address] PCP - General 10/31/24 Andra Matos APRN [address] [place], [place] [address] Nurse Practitioner Neurosurgery 07/16/21 Oneil Blackmon MD [address] [place] [address] Surgeon Neurosurgery 08/18/21 Andra Matos APRN [address] [place] [address] Nurse Practitioner Neurosurgery 10/12/21 Shania Parikh DDS [address] [place] [address] Dentist Dentist 06/10/22 Aldo Pickens DMD [address] [place] [address] Dentist 06/10/22 documented as of this encounter
--- OUTSIDE RECORDS SUMMARY | 2025-03-14 10:06 | XMS_ITS | Encounter Summary ---
Author Organization [facility] Address [address] [place] [address] Care Team Providers Care Manager Of Engineering Name Role Phone Carlo Andra Neves CENTRAL OFFICE MAINTAINER Unavailable [phone] Oneil Blackmon MD Unavailable Andra Matos CENTRAL OFFICE MAINTAINER Unavailable [phone] Shania Parikh DDS Unavailable + Aldo Pickens DMD Unavailable [phone] Kristy Sanchez CENTRAL OFFICE MAINTAINER Primary Care Provider [phone] Encounter Details Date Type Department Care Team (Late st Contact Info) Description 02/04/2025 Telephone [place] [facility] [address], [address] [place] [address] Oneil Blackmon MD [address] [place] [address] Social History Tobacco Use Types [...] How often do you attend chur or zoroastrianism services? Never 10/31/2024 Do you belong to any clubs o r organizations such as pentecostalism groups, unions, fraternal or athletic groups, or [...] Recorded Patient Health Questionnaire-2 Score 0 10/31/2024 [facility] Occupat ional Health - Occupational Stress [...] time in the past 12 m [facility], were you homeless or living in a [...] drink first t kisha in the morning (EYE-DAIRY TESTER) to steady your nerves or to get rid of a hangover? 0 10/30/2024 CAGE Questionnaire Score 0 025 Utilities Answer Date Recorded In the past 12 months has th e [employer], oil, or water Plei threatened to shut off services in your home? No 10/31/2024 Comments No Sex and Gender Information Value Date Recorded Sex Assigned at Female 07/15/2021 9:31 AM EST Legal Sex Female 7:39 PM EDT Gender Identity Female 07/15/2021 9:31 AM EST Sexual Orientation Straight 07/15/2021 9: 31 AM EST documented as of this encounter Miscellaneous Notes * Telephone Encounter - Calvin Aden - 02/04/2025 1:57 PM EDT Images from the original note were not included. documented in this encounter Plan of Treatment Upcoming Encounters Date Type Department Care Team (Late st Contact Info) Description 04/02/2025 2:30 PM EDT Office Visit [place] [facility] [address], [address] [place] [address] Oneil Blackmon MD [address] [place] [address] 06/25/2025 3:00 PM EST Office Visit [facility] [place] [address], [address] [place] [address] Gustavo Rodriguez H, DO [address] [place] [address] documented as of this encounter [...] documented as of this encounter Care Teams Manager Of Engineering Relationship Specialty Start Date End Date Kristy Sanchez APRN [address] [place] [address] PCP - General 10/31/24 Andra Matos APRN [address] [place] [address] Nurse Practitioner Neurosurgery 07/16/21 Oneil Blackmon MD [address] [place] [address] Surgeon Neurosurgery 08/18/21 Andra Matos APRN [address] [place] [address] Nurse Practitioner Neurosurgery 10/12/21 Shania Parikh DDS [address] [place] [address] Dentist Dentist 06/10/22 Aldo Pickens DMD [address] [place] [address] Dentist 06/10/22 documented as of this encounter
--- OUTSIDE RECORDS SUMMARY | 2025-03-14 10:06 | XMS_ITS | Clinical Summary ---
Author Organization [facility] Address [address] [place] [address] Care Team Providers Care Siderographer Name Role Phone Andra Matos DISTRICT FIRE CHIEF Unavailable [phone] Oneil Blackmon MD Unavailable [phone] Andra Matos DISTRICT FIRE CHIEF Unavailable [phone] Shania Parikh DDS Unavailable + Aldo Pickens DMD Unavailable [phone] Kristy Sanchez DISTRICT FIRE CHIEF Primary Care Provider [phone] Allergies Active Allergy Reactions Criticality Noted Date [...] before bedtime. 60 packet 10/14/19 25 Active butalbital-aceta minophen-caffein e 50-325-40 MG tablet Take 1 tablet by mouth every 4 (four) hours as needed for headaches. 30 tablet 10/14/19 25 Active oxyCODONE (Roxicodone) 5 MG immediate release tablet Take 1 tablet (5 mg) by mouth every 4 (four) hours as needed for moderate pain or severe pain. 55 tablet 10/14/19 25 Active Additional Information Patient not taking.Reported on 02/13/2025 naloxone (Narcan) 4 mg/0.1 mL nasal spray 1. Give 1 spray in nostril for no/slow breathing or cannot wake after opioid use 2. Call 911 3. Repeat in other nostril if symptoms continue 1 each 10/14/19 25 Active cyclobenzaprine (Flexeril) 10 MG tablet TAKE 1 TABLET BY MOUTH THREE TIMES DAILY NEEDED FOR MUSCLE SPASM FOR UP TO 14 DAYS 42 tablet 01/18/20 25 Active Additional Information Patient taking differently: As needed, Reported on 02/13/2025 diazePAM (Valium) 2 MG tablet TAKE 1 TABLET BY MOUTH EVERY 6 HOURS NEEDED FOR SEVERE MUSCLE SPASM 20 tablet 01/18/20 25 Active Repatha SureClick 140 MG/ML solution auto-injector autoinjector 01/23/20 25 Active HYDROcodone-acet aminophen (Lyons) 5-325 MG tablet 02/12/20 25 Active methylPREDNISolo ne (Medrol Dospak) 4 MG tablets Follow schedule on package instructions 21 tablet 02/14/20 25 Active methylPREDNISolo ne (Medrol Dospak) 4 MG tablets Follow schedule on package instructions 21 tablet 10/25/19 25 025 Discontin ued(Reord er) Active Problems Problem Noted Date Diagnosed Date Dysphagia, unspecified type 11/01/2024 Periodontitis 08/09/2023 Myelopathy concurrent with a nd due to spinal stenosis of cervical region 03/14/2022 Cervical myelopathy 03/09/2022 Overview (03/09/2022): Added automatically from request for surgery [id number] Back pain 07/16/2021 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 [address], [address] [place] [phone] Andra Matos APRN Lumbar radiculopathy (Primary Dx); Neck pain; Status post lumbar spinal arthrodesis; Cervical radiculopathy; Cervicalgia; Arm numbness; Closed fracture of thoracic vertebra, unspecified fracture morphology, unspecified thoracic vertebral level, initial encounter ([facility] S/P cervical spinal fusion 02/13/2025 10:35 AM EDT - 02/13/2025 11:59 PM EDT Hospital Encounter [facility] [address], [address] [place] [phone] S/P cervical spinal fusion; Back pain Discharge Disposition: Home or Self Care 02/13/2025 10:10 AM EDT - 02/13/2025 10:34 AM EDT Hospital Encounter [facility] [address], [address] [place] [address] S/P cervical spinal fusion Discharge Disposition: Home or Self Care 02/13/2025 10:10 AM EDT Hospital Encounter [facility] [address], [address] [place] [phone] S/P cervical spinal fusion Discharge Disposition: Home or Self Care 02/13/2025 Travel 02/10/2025 Travel 02/04/2025 Telephone [facility] [address], [address] [place] [address] Oneil Blackmon MD 02/03/2025 Orders Only External Location [address] [place] [address] Provider, External 02/03/2025 Telephone [facility] [address], [address] [place] [address] Oneil Blackmon MD 02/01/2025 Orders Only External Location [address] [place] [address] Provider, External 02/01/2025 Orders Only External Location [address] [place] [address] Provider, External 02/01/2025 Orders Only External Location [address] [place] [address] Provider, External 02/01/2025 Orders Only External Location [address] [place] [address] Provider, External 02/01/2025 Orders Only External Location [address] [place] [address] Provider, External 01/22/2025 2:00 PM EDT Office Visit [facility] [address], [address] [place] [phone] Oneil Blackmon MD S/P cervical spinal fusion (Primary Dx); Lumbar radiculopathy; Status post lumbar spinal arthrodesis; Follow-up examination after neurological surgery 01/22/2025 1:26 PM EDT - 01/22/2025 11:59 PM EDT Hospital Encounter [facility] [address], [address] [place] [address] S/P cervical spinal fusion Discharge Disposition: Home or Self Care 01/22/2025 Travel 01/17/2025 Travel 01/16/2025 Refill [facility] [address], [address] [place] [address] Andra Matos, DISTRICT FIRE CHIEF 01/03/2025 Orders Only [facility] [address], [address] [place] [address] Andra Matos, DISTRICT FIRE CHIEF S/P cervical spinal fusion (Primary Dx) 12/16/2024 Refill [facility] [address], [address] [place] [address] Andra Matos, DISTRICT FIRE CHIEF from Last 3 Months Family History Medical [...] often do you attend chur ch or congregation services? Never 10/31/2024 Do you belong to any clubs o r organizations such as jew groups, unions, fraternal or athletic groups, or [...] Recorded Patient Health Questionnaire-2 Score 0 10/31/2024 [facility] Occupat ional Health - Occupational [...] any time in the past 12 m [facility], were you homeless or [...] drink first t kisha in the morning (EYE-ADJUSTER AND INSPECTOR) to steady your nerves or to get [...] Pressure 134/90 02/13/2025 11:16 AM EDT Pulse 68 11/21/2024 3:13 PM EDT Temperature 36.4 C (97.5 F) 11/01/2024 1:56 PM EDT Respiratory Rate 13 11/21/2024 3:13 PM EDT Oxygen Saturation 96% 11/21/2024 3:13 PM EDT Inhaled Oxygen Concentration - - Weight 70.7 kg (155 lb 13.8 oz) 025 11:16 AM EDT Height 154.9 cm (5' 1 ) 02/13/2025 11:1 6 AM EDT Body Mass Index 29.45 02/13/2025 11:16 AM EDT Plan of Treatment Upcoming Encounters Date Type Department Care Team (Late st Contact Info) Description 04/02/2025 2:30 PM EDT Office Visit [place] [facility] [address], [address] [place] [address] Oneil Blackmon MD [address] [place] [address] 06/25/2025 3:00 PM EST Office Visit [facility] [place] [address] [facility], [address] [place] [address] Gustavo Rodriguez H, DO [address] [place] [address] Health Maintenance Due Date Last [...] 10/01/2023 03/30/2023 Dental X-Ray: Bitewings 03/31/2024 03/30/2023 [id number] Vaccine ( season) 2024 07/14/2023, 05/28/2022, 12/25/2021, Additional history exists [facility]-Influenza Vaccine (#1) 04/07/202507/14, 05/28/2022, 08/24/2020 [facility]- SDOH Screenings 05/03/2025 [facility]-Adult SDOH Screenings 05/03/2025 10/31/2024 [facility]-Depression Screening 10/31/2025 10/31/2024, 10/06 [facility]-RSV Vaccine: 60+ Years or (1 - 1-dose 75+ series) 2037 [facility]-HIV Screening Completed 10/30/2024 [facility]-Hepatitis C Screening Completed 2024, 09/25/2020, 02/16/2020 [facility]-Obesity Intervention Completed 025, 01/22/2025, 11/13/2024, Additional history exists HPV Vaccines Aged Out [...] this topic Medical Devices Implanted Type Area Education Associate Device Identifier Shelf Expiration Date Model / Serial / Lot Large Diameter 14mm - Sn/A - [id number] Implanted:Qty : 3 on 10/12/2024 by Oneil Blackmon MD at [facility] Cage N/A: Spine Cervical De[employer] Spine [employer] [id number] 10/12/2025 [id number] / N/A / One Level Plate, 16mm - Sn/A - [id number] Implanted:Qty : 1 on 10/12/2024 by Oneil Blackmon MD at [facility] Plate N/A: Spine Cervical De[employer] Spine [employer] LP-[id number] 10/12/2025 [id number] / N/A / Pre-Lordosed Jonatan W/ Line 65mm - S. - [id number] Implanted:Qty : 2 on 08/30/2021 by Oneil Blackmon MD at [facility] Jonatan Spine Lumbar [employer] Spine [employer] LP-[id number] 08/30/2022 [id number] / . / Expedium 5.50 Polyaxial Screw 7.00v38in, - S. - [id number] Implanted:Qty : 2 on 08/30/2021 by Oneil Blackmon MD at [facility] Screw Spine Lumbar De[employer] Spine [employer] LP-[id number] 08/30/2022 [id number] / . / Screw 5.5mm Viper Ti Fen Crtcl Polyax 7mm X 45mm - S. - [id number] Implanted:Qty : 4 on 08/30/2021 by Oneil Blackmon MD at [facility] Screw Spine Lumbar [employer] Sp[employer] LP-[id number] 08/30/2022 [id number] / . / Single Inner Setscrew - S. - [id number] Implanted:Qty : 6 on 08/30/2021 by Oneil Blackmon MD at [facility] Screw Spine Lumbar De[employer] Spine [employer] LP-[id number] 08/30/2022 [id number] / . / Self Drilling Screw 14mm - Sn/A - [id number] Implanted:Qty : 1 on 10/12/2024 by Oneil Blackmon MD at [facility] Screw N/A: Spine Cervical De[employer] Sp[employer] LP-[id number] 10/12/2025 [id number] / N/A / Plates/Screws Bilateral: Mandible Chip Bone 20cc - [id number] Implanted:Qty : 1 on 08/30/2021 by Oneil Blackmon MD at [id number] 05/30/2026 PCAN1/4 / / [id number] Graft Vivigen 5cc - [id number] Implanted:Qty : 1 on 08/30/2021 by Oneil Blackmon MD at [facility]-[id number] 08/11/2022 BL-1500-002 / [id number] / [id number] Graft Vivigen 5cc - [id number] Implanted:Qty : 1 on 08/30/2021 by Oneil Blackmon MD at [facility]-[id number] 08/04/2022 BL-1500-002 / [id number] / [id number] Self Drilling Screw 14mm - [id number] Implanted:Qty : 5 on 03/14/2022 by Oneil Blackmon MD at [facility] Spine Cervical DePuy Spine Sales -[id number] / / Large Diameter 14mm - [id number] Implanted:Qty : 1 on 03/14/2022 by Oneil Blackmon MD at [facility] Spine Cervical DePuy Spine Sales -[id number] / / Knee Vanguard1 Cervical Preservon 6mm - [id number] - [id number] Implanted:Qty : 1 on 03/14/2022 by Oneil Blackmon MD at [facility] Spine Cervical [facility]-[id number] 09/30/2026 [id number] / [id number] / [id number] Knee Vanguard1 Cervical Preservon 7mm - [id number] - [id number] Implanted:Qty : 1 on 03/14/2022 by Oneil Blackmon MD at [facility] Right: Spine Cervical [facility]-630846 12/15/2026 [id number] / [id number] / [id number] Screw Retainer 3.5mm X 12mm - [id number] Implanted:Qty : 2 on 03/14/2022 by Oneil Blackmon MD at [facility] Spine Cervical [employer]ine Sales -[id number] 03.820.102 / / Nut Retainer - [id number] Implanted:Qty : 2 on 03/14/2022 by Oneil Blackmon MD at [facility] Spine Cervical De[employer] Spine Sales -[id number] 03.820.110 / / Plate Two Level 28mm - [id number] Implanted:Qty : 1 on 03/14/2022 by Oneil Blackmon MD at [facility] Spine Cervical [employer]ine Sales -[id number] / / Knee Vanguard1 Cervical Preservon 7mm - [id number] - [id number] Implanted:Qty : 1 on 10/12/2024 by Oneil Blackmon MD at [facility] Spine Cervical [id number] 08/01/2029 [id number] / [id number] / [id number] Tissue Vivigen Formable 1.3cc Sm Pk/4 - [id number] Implanted:Qty : 1 on 10/12/2024 by Oneil Blackmon MD at [facility] N/A: Spine Cervical [facility]-257550 09/23/2025 [id number] / / [id number] Screw Retainer 3.5mm X 14mm - Sn/A - [id number] Implanted:Qty : 2 on 10/12/2024 by Oneil Blackmon MD at [facility] N/A: Spine Cervical DePuy Spine [employer] -[id number] 10/12/2025 03.820.103 / N/A / Nut Retainer - Sn/A - [id number] Implanted:Qty : 2 on 10/12/2024 by Oneil Blackmon MD at [facility] N/A: Spine Cervical DePuy Spine [employer] Data -[id number] 10/12/2025 03.820.110 / N/A / Procedures Procedure Name Priority Date/Time Associated Diagnosis Comments XR THORACIC SPINE 2 VIEWS Routine 02/13/2025 10:51 AM EDT Back pain XR CERVICAL SPINE 2 OR 3 VIEWS Routine 02/13/2025 10:51 AM EDT S/P cervical spinal fusion XR LUMBAR SPINE 2 OR 3 VIEWS Routine 02/13/2025 10:22 AM EDT S/P cervical spinal fusion XR SCOLIOSIS ENTIRE SPINE 2 OR 3 VIEWS Routine 02/13/2025 10:22 AM EDT S/P cervical spinal fusion MR NEURO OUTSIDE IMAGES 02/04/20 10:[address] NEURO OUTSIDE IMAGES 02/02/20 11:[address] NEURO OUTSIDE IMAGES 02/02/20 11:[address] NEURO OUTSIDE IMAGES 02/02/20 11:[address] NEURO OUTSIDE IMAGES 02/02/20 11:[address] NEURO OUTSIDE IMAGES 02/02/20 11:20 AM EDT XR CERVICAL SPINE COMPLETE 4 TO 5 VIEWS Routine 01/22/2025 1:41 PM EDT S/P cervical spinal fusion HEPATITIS C ANTIBODY - ED W/REFLEX TO [...] Relevant to Health Maintenance Results * XR Thoracic Spine 2 Views [...] mass. Cardiac silhouette and lung in the hetzm-sb-dcox are normal. Posterior lumbar spinal fusion, incompletely [...] mass. Cardiac silhouette and lung in the zsyok-cr-oesq arenormal. Posterior lumbar spinal fusion, incompletely evaluated. [...] MD on 02/13/2025 11:42 AM Andra Matos DISTRICT FIRE CHIEF IMG XR PROCEDURES Final Resu lt * [...] mass. Cardiac silhouette and lung in the pjshj-sr-dabu are normal. Posterior lumbar spinal fusion, incompletely [...] mass. Cardiac silhouette and lung in the lnvmq-mk-wfez arenormal. Posterior lumbar spinal fusion, incompletely evaluated. [...] Darinel Guzman MD on 02/13/2025 11:42 AM us Andra Matos DISTRICT FIRE CHIEF IMG XR PROCEDURES Final Resu lt * [...] hardware. Similar demineralization. Grade 1 L1 on H5jdlvkvegosjhzm with associated neural foraminal narrowing, with roughly [...] Ruiz MD on 2:28 PM Andra Matos DISTRICT FIRE CHIEF IMG XR PROCEDURES Final Resu lt * [...] hardware. Similar demineralization. Grade 1 L1 on S0qdgkxqwobaxwcf with associated neural foraminal narrowing, with roughly [...] by Ba Ruiz MD on 2:28 PM us Andra Matos DISTRICT FIRE CHIEF IMG XR PROCEDURES Final Resu lt * MR NEURO OUTSIDE IMAGES (02/03/2025 10:35 AM EDT) Anatomical Region Laterality Modality Magnetic Resonan ce 02/03/2025 10:3 5 AM EDT us External Provider IMG MRI PROCEDURES Final Resul t * CT NEURO OUTSIDE IMAGES (02/01/2025 11:30 AM EDT) Only the most recent of5 resultswithin the time period is included. Anatomical Region Laterality Modality Computed Tomogra phy 02/01/2025 11:3 0 AM EDT us External Provider IMG CT PROCEDURES Final Result * XR Cervical Spine Complete 4 To [...] on 01/22/2025 1:53 PM us Andra Matos DISTRICT FIRE CHIEF IMG XR PROCEDURES Final Resu lt * ED HIV 1/2 Antibody/Antigen Screen w/Reflex to HIV 1/2 Differentiation (10/30/2024 6:38 PM EDT) HIV 1 & 2 Antibody/Antigen Screen Non Reactive Non Reactive 10/30/2024 7:54 PM EDT [facility] Comment:Screening for HIV 1 & 2 antibodies, and P24 antigen is NONREACTIVE. No confirmatory testing is required. Blood Venous blood specimen / Unknown Venipuncture / Unknown 10/30/2024 6:38 PM EDT 10/30/2024 7:09 PM EDT Rogerio Marino MD LAB BLOOD ORDERABLES Final Res ult [facility] [address] [place] [address] * Hepatitis C Antibody - ED (10/30/2024 6:38 PM EDT) Hepatitis C Antibody Negative Negative 10/30/2024 7:54 PM EDT [facility] Blood Venous blood specimen / Unknown Venipuncture / Unknown 10/30/2024 6:38 PM EDT 10/30/2024 7:09 PM EDT Rogerio Marino MD LAB BLOOD ORDERABLES Final Res ult Performing Organization Address City/[facility]/ZIP Co de Phone Number [facility] [address] [place] [address] from Last 3 Months or Most Recently Relevant to Health Maintenance Insurance [facility] Advance Directives * Full Code (Latest Code Status on File) Date Activated Date Inactivated Comments 10/31/2024 1:17 AM 11/01/2024 4:18 PM * Full Code Date Activated Date Inactivated Comments 03/14/2022 12:00 PM 03/15/2022 5:21 PM Question Answer Comments Patient has decision-making capacity? Yes Care Teams Siderographer Relationship Specialty Start Date End Date Kristy Sanchez APRN [address] [place] [address] PCP - General 10/31/24 Andra Matos APRN [address] [place] [address] Nurse Practitioner Neurosurgery 07/16/21 Oneil Blackmon MD [address] [place] [address] Surgeon Neurosurgery 08/18/21 Andra Matos DISTRICT FIRE CHIEF [address] [place] [address] Nurse Practitioner Neurosurgery 10/12/21 Shania Parikh DDS [address] [place] [address] Dentist Dentist 06/10/22 Aldo Pickens DMD [address] [facility] [address] [place] [address] Dentist 06/10/22
--- OUTSIDE RECORDS SUMMARY | 2025-03-14 10:06 | XMS_ITS | Encounter Summary ---
Author Organization [facility] Address [address] [place] [address] Care Team Providers Care Coremaker Floor Name Role Phone Andra Matos GEOMATICS PROFESSOR Unavailable Oneil Blackmon MD Unavailable [phone] Andra Matos GEOMATICS PROFESSOR Unavailable Shania Parikh DDS Unavailable + Aldo Pickens DMD Unavailable Kristy Sanchez GEOMATICS PROFESSOR Primary Care Provider [phone] Reason for Visit * Reason Comments Med Refill Encounter Details Date Type Department Care Team (Late st Contact Info) Description 01/16/2025 Refill [place] [facility] [address], [address] [place] [address] Andra Matos, GEOMATICS PROFESSOR [address] [place] [address] Social History Tobacco Use Types [...] often do you attend chur ch or caodaism services? Never 10/31/2024 Do you belong to [...] Patient Health Questionnaire-2 Score 0 10/31/2024 [facility] [place] of Occupat ional Health - Occupational Stress [...] any time in the past 12 m [facility], were you homeless or living in a snf (including now)? No 10/31/2024 CAGE ASSESSMENT Answer [...] drink first t kisha in the morning (EYE-STUDENT AFFAIRS DEAN) to steady your nerves or to get rid of a hangover? 0 10/30/2024 CAGE Questionnaire Score 0 025 Utilities Answer Date Recorded In the past 12 months has th e electric, gas, oil, or water [employer] threatened to shut off services in your [...] Description 04/02/2025 2:30 PM EDT Office Visit [place] [facility] [address], [address] [place] [address] Oneil Blackmon MD [address] [place] [address] 06/25/2025 3:00 PM EST Office Visit [facility] [place] [address], [address] [place] [address] Gustavo Rodriguez, DO [address] [place] [address] documented as of this encounter [...] documented as of this encounter Care Teams Coremaker Floor Relationship Specialty Start Date End Date Kristy Sanchez APRN [address] [place] [address] PCP - General 10/31/24 Andra Matos APRN [address] [place] [address] Nurse Practitioner Neurosurgery 07/16/21 Oneil Blackmon MD [address] [place] [address] Surgeon Neurosurgery 08/18/21 Andra Matos APRN [address] [place] [address] Nurse Practitioner Neurosurgery 10/12/21 Shania Parikh DDS [address] [place] [address] Dentist Dentist 06/10/22 Aldo Pickens DMD [address] [place] [address] Dentist 06/10/22 documented as of this encounter
--- OUTSIDE RECORDS SUMMARY | 2025-03-14 10:06 | XMS_ITS | Clinical Summary ---
Author Organization [facility] Address [address] [place] [address] Care Team Providers Care Vba Developer Name Role Phone System, Provider Not In [...] therelease of HIV test results or diagnoses. [id number] Social History Tobacco Use Types Packs/Day Years Used Date Smoking Tobacco: Never Assessed Comments Unknown Sex and Gender Information Value Date Recorded Sex Assigned at Not on file Legal Sex Female 10:49 AM EST Gender Identity Not on file Sexual Orientation Not on file Plan of Treatment Not on file Insurance EXCHANGE Care Teams Vba Developer Relationship Specialty Start Date End Date System, Provider Not In PCP - General 07/22/19
--- OUTSIDE RECORDS SUMMARY | 2025-03-14 10:06 | XMS_ITS | Encounter Summary ---
Author Organization Healthcare Address [address] [place] [address] Care Team Providers Care Welding Equipment Repairer Name Role Phone Andra Matos MITER CUTTER Unavailable [phone] Oneil Blackmon MD Unavailable [phone] Andra Matos MITER CUTTER Unavailable [phone] Shania Parikh DDS Unavailable + Aldo Pickens DMD Unavailable [phone] Kristy Sanchez MITER CUTTER Primary Care Provider [phone] Encounter Details Date Type Department Care Team (Late st Contact Info) Description 02/01/2025 Orders Only External Location [address] [place] [address] Provider, External Social History Tobacco Use Types [...] How often do you attend chur or quaker services? Never 10/31/2024 Do you belong to [...] Recorded Patient Health Questionnaire-2 Score 0 10/31/2024 [facility] of Occupat ional Health - Occupational Stress [...] any time in the past 12 m [facility], were you homeless or living in [...] drink first t kisha in the morning (EYE-SAP TECHNICAL ARCHITECT) to steady your nerves or to get [...] Visit [place] [facility] [address], [address] [place] [address] Oneil Blackmon MD [address] [place] [address] 06/25/2025 3:00 PM EST Office Visit [facility] [place] [address] [facility], [address] [place] [address] Gustavo Rodriguez, DO [address] [place] [address] documented as of this encounter Procedures Procedure Name Priority Date/Time Associated Diagnosis Comments CT NEURO OUTSIDE IMAGES 02/01/2025 11:22 AM EDT documented in this encounter Results * CT NEURO OUTSIDE IMAGES (02/01/2025 11:22 AM EDT) Anatomical Region Laterality Modality Computed Tomogra phy 02/01/2025 11:2 2 AM EDT us External Provider IMG CT [...] documented as of this encounter Care Teams Welding Equipment Repairer Relationship Specialty Start Date End Date Kristy Sanchez APRN [address] [place] [address] PCP - General 10/31/24 Andra Matos APRN [address] [place], [place] [address] Nurse Practitioner Neurosurgery 07/16/21 Oneil Blackmon MD [address] [place] [address] Surgeon Neurosurgery 08/18/21 Andra Matos APRN [address] [place], [place] [address] Nurse Practitioner Neurosurgery 10/12/21 Shania Parikh DDS [address] [place] [address] Dentist Dentist 06/10/22 Aldo Pickens DMD [address] [place] [address] Dentist 06/10/22 documented as of this encounter
--- OUTSIDE RECORDS SUMMARY | 2025-03-14 10:06 | XMS_ITS | Encounter Summary ---
Author Organization Healthcare Address [address] [place] [address] Care Team Providers Care Infection Prevention Coordinator Name Role Phone Andra Matos CAMP TENDER Unavailable [phone] Oneil Blackmon MD Unavailable [phone] Andra Matos CAMP TENDER Unavailable [phone] Shania Parikh DDS Unavailable + Aldo Pickens DMD Unavailable [phone] Kristy Sanchez CAMP TENDER Primary Care Provider [phone] Encounter Details Date Type Department Care Team (Late st Contact Info) Description 02/01/2025 Orders Only External Location [address] [place] [address] Provider, External Social History Tobacco Use Types [...] any clubs o r organizations such as mormonism groups, unions, fraternal or athletic groups, or [...] drink first t kisha in the morning (EYE-CHANNEL SALES MANAGER) to steady your nerves or to get [...] Visit [place] [facility] [address], [address] [place] [address] Oneil Blackmon MD [address] [place] [address] 06/25/2025 3:00 PM EST Office Visit [facility] [place] [facility] [address] [facility], [address] [place] [address] Gustavo Rodriguez H, DO [address] [place] [address] documented as of this encounter Procedures Procedure Name Priority Date/Time Associated Diagnosis Comments CT NEURO OUTSIDE IMAGES 02/01/2025 11:30 AM EDT documented in this encounter Results * CT NEURO OUTSIDE IMAGES (02/01/2025 11:30 AM EDT) Anatomical Region Laterality Modality Computed [...] documented as of this encounter Care Teams Infection Prevention Coordinator Relationship Specialty Start Date End Date Kristy Sanchez APRN [address] [place] [address] PCP - General 10/31/24 Andra Matos APRN [address] [place], [place] [address] Nurse Practitioner Neurosurgery 07/16/21 Oneil Blackmon MD [address] [place] [address] Surgeon Neurosurgery 08/18/21 Andra Matos APRN [address] [place], [place] [address] Nurse Practitioner Neurosurgery 10/12/21 Shania Parikh DDS [address] [place] [address] Dentist Dentist 06/10/22 Aldo Pickens DMD [address] [place] [address] Dentist 06/10/22 documented as of this encounter
--- OUTSIDE RECORDS SUMMARY | 2025-03-14 10:06 | XMS_ITS | Encounter Summary ---
Author Organization [facility] Address [address] [place] [address] Care Team Providers Care Director Operations Name Role Phone Andra Matos HOUSESMITH Unavailable [phone] Oneil Blackmon MD Unavailable [phone] Andra Matos HOUSESMITH Unavailable [phone] Shania Parikh DDS Unavailable + Aldo Picekns DMD Unavailable [phone] Kristy Sanchez HOUSESMITH Primary Care Provider [phone] Encounter Details Date Type Department Care Team (Latest Contact Info) Description 02/10/2025 Travel Social History Tobacco Use Types Packs/Day [...] How often do you attend chur or latter-day services? Never 10/31/2024 Do you belong to [...] Recorded Patient Health Questionnaire-2 Score 0 10/31/2024 [facility] of Occupat ional [facility] - Occupational Stress Questionnaire Answer Date [...] time in the past 12 m [facility], were you homeless or living in a [...] drink first t kisha in the morning (EYE-ROOM SERVICE FOOD SERVER) to steady your nerves or to get [...] Visit [place] [facility] [address], [address] [place] [address] Oneil Blackmon MD [address] [place] [address] 06/25/2025 3:00 PM EST Office Visit [facility] [place] [address] [facility], [address] [place] [address] Gustavo Rodriguez, DO [address] [place] [address] documented as of this encounter [...] documented as of this encounter Care Teams Director Operations Relationship Specialty Start Date End Date Kristy Sanchez APRN [address] [place] [address] PCP - General 10/31/24 Andra Matos APRN [address] [place] [address] Nurse Practitioner Neurosurgery 07/16/21 Oneil Blackmon MD [address] [place] [address] Surgeon Neurosurgery 08/18/21 Andra Matos APRN [address] [place] [address] Nurse Practitioner Neurosurgery 10/12/21 Shania Parikh DDS [address] [place] [address] Dentist Dentist 06/10/22 Aldo Pickens DMD [address] [place] [address] Dentist 06/10/22 documented as of this encounter
--- OUTSIDE RECORDS SUMMARY | 2025-03-14 10:06 | XMS_ITS | Encounter Summary ---
Author Organization [facility] Address [address] [place] [address] Care Team Providers Care Manager Of Environmental Services Name Role Phone Carlo Andra Neves SHELL TRIM TOOL SETTER Unavailable Oneil Blackmon MD Unavailable [phone] Andra Matos SHELL TRIM TOOL SETTER Unavailable [phone] Shania Parikh DDS Unavailable + Aldo Pickens DMD Unavailable Kristy Sanchez SHELL TRIM TOOL SETTER Primary Care Provider [phone] Encounter Details Date Type Department Care Team (Late st Contact Info) Description 02/03/2025 Telephone [place] [facility] [address], [address] [place] [address] Oneil Blackmon MD [address] [place] [address] Social History Tobacco Use Types [...] How often do you attend chur or gnosticist services? Never 10/31/2024 Do you belong to any clubs o r organizations such as methodist groups, unions, fraternal or athletic groups, or [...] Recorded Patient Health Questionnaire-2 Score 0 10/31/2024 [facility] [place] of Occupat ional Health - Occupational [...] time in the past [address] [facility], were you homeless or living [...] drink first t kisha in the morning (EYE-SOFTWARE SYSTEMS ANALYST) to steady your nerves or to get rid of a hangover? 0 10/30/2024 CAGE Questionnaire Score 0 025 Utilities Answer Date Recorded In the past 12 months has th e [employer], oil, or water [employer] threatened to shut off services in your home? No 10/31/2024 Comments No Sex and Gender Information Value Date Recorded Sex Assigned at Female 07/15/2021 9:31 AM EST Legal Sex Female 7:39 PM EDT Gender Identity Female 07/15/2021 9:31 AM EST Sexual Orientation Straight 07/15/2021 9: 31 AM EST documented as of this encounter Miscellaneous Notes * Telephone Encounter - Calvin Aden - 02/04/2025 2:09 PM EDT 02/04/2025 - Spoke to patient directly Scheduled to see Andra Matos APRN 02/13/2025 at 12:00 Noon - Patient is aware that she will need to see Radiology prior for updated basic Xrays prior - CT Imaging and MRI Imaging has been requested from [facility] today * Telephone Encounter - Liza Zuniga - 02/03/2025 12:48 PM EDT Patient Phone Message Reason for Call: [facility] is calling to schedule patient Please call Angela back at [phone] ext [phone] Thanks! Best contact number and optimal time of day to reach caller: Note: Please do not reply to this message. Follow-up communication and further actions as a result of this message need to be communicated with the patient directly, if the patient is not active onMyChart. If the patient is active on MyChart, they will receive notification of the communication/outcome via [employer]. documented in this encounter Plan of Treatment Upcoming Encounters Date Type Department Care Team (Late st Contact Info) Description 04/02/2025 2:30 PM EDT Office Visit [place] [facility] [address], [address] [place] [address] Oneil Blackmon MD [address] [place] [address] 06/25/2025 3:00 PM EST Office Visit [facility] [place] [facility] [address], [address] [place] [address] Gustavo Rodriguez, DO [address] [place] [address] documented as of this encounter [...] of this encounter Care Teams Manager Of Environmental Services Relationship Specialty Start Date End Date Kristy Sanchez APRN [address] [place] [address] PCP - General 10/31/24 Andra Matos APRN [address] [place] [address] Nurse Practitioner Neurosurgery 07/16/21 Oneil Blackmon MD [address] [place] [address] Surgeon Neurosurgery 08/18/21 Andra Matos APRN [address] [place] [address] Nurse Practitioner Neurosurgery 10/12/21 Shania Parikh DDS [address] [place] [address] Dentist Dentist 06/10/22 Aldo Pickens, DMD [address] [address] Dentist 06/10/22 documented as of this encounter
--- OUTSIDE RECORDS SUMMARY | 2025-03-14 10:06 | XMS_ITS | Encounter Summary ---
Author Organization Healthcare Address [address] [place] [address] Care Team Providers Care Anodic Operator Name Role Phone Andra Matos CLINICAL DATA COORDINATOR Unavailable [phone] Oneil Blackmon MD Unavailable [phone] Andra Matos CLINICAL DATA COORDINATOR Unavailable [phone] Shania Parikh DDS Unavailable + Aldo Pickens DMD Unavailable [phone] Pcp, No Primary Care Provider Unavailabl e Kristy Sanchez CLINICAL DATA COORDINATOR Primary Care Provider [phone] Encounter Details Date Type Department Care Team (Late st Contact Info) Description 10/14/2024 Telephone [facility] special education administrator [facility] [address] [place] [address] [address] [place] [address] Yessenia Estevez Social History Tobacco [...] drink first t kisha in the morning (EYE-RESOURCE DEVELOPMENT MANAGER) to steady your nerves or to [...] Description 04/02/2025 2:30 PM EDT Office Visit [place] [facility] [address], [address]st [place] [address] Oneil Blackmon MD [address] [place] [address] 06/25/2025 3:00 PM EST Office Visit [facility] [place] [address] [facility], [address] [place] [address] Gustavo Rodriguez, DO [address] [place] [address] documented as of this encounter [...] documented as of this encounter Care Teams Anodic Operator Relationship Specialty Start Date End Date Pcp, No [address] [place] [address] PCP - General Family Medicine 10/30/24 10/30/24 Kristy Sanchez APRN [address] [place] [address] PCP - General 10/31/24 Andra Matos APRN [address] [place] [address] Nurse Practitioner Neurosurgery 07/16/21 Oneil Blackmon MD [address] [place] [address] Surgeon Neurosurgery 08/18/21 Andra Matos APRN [address] [place] [address] Nurse Practitioner Neurosurgery 10/12/21 Shania Parikh DDS [address] [place] [address] Dentist Dentist 06/10/22 Aldo Pickens DMD [address] [place] [address] Dentist 06/10/22 documented as of this encounter
== END 2025-03-13 23:59 | disposition home or self-care (01) ==
LOC: LAB.DROPOF 03-14 10:04
PROVIDERS: PCP Family Medicine; Visit Provider Family Medicine
DX: E78.5 Hyperlipidemia, unspecified (principal)
CPT/HCPCS: 80053; 80061

== ENCOUNTER 2025-03-28 11:04 | Outpatient (CLI) | payer BC, SELFPAY ==
--- OUTSIDE RECORDS SUMMARY | 2025-02-13 10:10 | XMS_ITS | Encounter Summary ---
Author Organization Healthcare Address [address] [place] [address] Care Team Providers Care Senior Field Service Engineer Name Role Phone JedbrandonAndra HISTOLOGICAL ILLUSTRATOR Unavailable [phone] Oneil Blackmon MD Unavailable [phone] Andra Matos HISTOLOGICAL ILLUSTRATOR Unavailable [phone] Shania Parikh DDS Unavailable + Aldo Pickens DMD Unavailable [phone] Kristy Sanchez HISTOLOGICAL ILLUSTRATOR Primary Care Provider Encounter Details Date Type Department Care Team (Latest Contact Info) Description 02/13/2025 10:10 AM EDT - 02/13/2025 10:34 AM EDT Hospital Encounter [place] [facility] [address] [place] [phone] S/P cervical spinal fusion Discharge Disposition: Home [...] How often do you attend chur or mu-ism services? Never 10/31/2024 Do you [...] Recorded Patient Health Questionnaire-2 Score 0 10/31/2024 [facility] [place] of Occupat ional Health - Occupational Stress [...] any time in the past 12 m [facility], were you homeless or living in a senior living (including now)? No 10/31/2024 CAGE ASSESSMENT Answer [...] drink first t kisha in the morning (EYE-ROCK CRUSHER) to steady your nerves or to get [...] MUSCLE SPASM 20 tablet 01/17/2025 HYDROcodone-acetam inophen ([place]) 5-325 MG tablet 02/11/2025 losartan (Cozaar) 50 [...] Visit [place] [facility] [address] [place] [address] Oneil Blackmon MD [address] [place] [address] 06/25/2025 3:00 PM EST Office Visit [facility] [place] [address], [address] [place] [phone] Gustavo Rodriguez H, DO [address] [place] [address] documented as of this encounter [...] hardware. Similar demineralization. Grade 1 L1 on [id number] with associated neural foraminal narrowing, with roughly [...] documented as of this encounter Care Teams Senior Field Service Engineer Relationship Specialty Start Date End Date Kristy Sanchez APRN [address] [place] [address] PCP - General 10/31/24 Andra Matos APRN [address] [place] [address] Nurse Practitioner Neurosurgery 07/16/21 Oneil Blackmon MD [address] [place] [address] Surgeon Neurosurgery 08/18/21 Andra Matos APRN [address] [place] [address] Nurse Practitioner Neurosurgery 10/12/21 Shania Parikh DDS [address] [place] [address] Dentist Dentist 06/10/22 Aldo Pickens DMD [address] [place] [address] Dentist 06/10/22 documented as of this encounter
--- OUTSIDE RECORDS SUMMARY | 2025-02-13 10:10 | XMS_ITS | Encounter Summary ---
Author Organization [facility] Address [address] [place] [address] Care Team Providers Care Veneer Cutter Name Role Phone Andra Matos OIL REFINERY PROCESS TECHNICIAN Unavailable [phone] Oneil Blackmon MD Unavailable [phone] Andra Matos OIL REFINERY PROCESS TECHNICIAN Unavailable [phone] Shania Parikh DDS Unavailable + Aldo Pickens DMD Unavailable [phone] Kristy Sanchez OIL REFINERY PROCESS TECHNICIAN Primary Care Provider [phone] Encounter Details Date Type Department Care Team (Latest Contact Info) Description 02/13/2025 10:10 AM EDT [facility] [address], [address]st [place] [address] S/P cervical spinal fusion Discharge Disposition: Home [...] any clubs o r organizations such as restoration groups, unions, fraternal or athletic groups, or [...] Patient Health Questionnaire-2 Score 0 10/31/2024 [facility] ional Health - Occupational Stress Questionnaire Answer [...] were you homeless or living in a detention (including now)? No 10/31/2024 CAGE ASSESSMENT Answer [...] drink first t kisha in the morning (EYE-PLATE GLASS INSTALLER HELPER) to steady your nerves or to [...] MUSCLE SPASM 20 tablet 01/17/2025 HYDROcodone-acetam inophen ([place]) 5-325 MG tablet 02/11/2025 losartan (Cozaar) 50 [...] Visit [place] [facility] [address], [address] [place] [address] Oneil Blackmon MD [address] [place] [address] 06/25/2025 3:00 PM EST Office Visit [facility] [place] [address] [facility], [address] [place] [address] Gustavo Rodriguez H, DO [address] [place] [address] documented as of this encounter [...] 10:26 AM Final report signed by Ba Riuz MD on 02/13/2025 12:28 PM Narrative 02/13/2025 [...] hardware. Similar demineralization. Grade 1 L1 on [id number] with associated neural foraminal narrowing, with roughly [...] documented as of this encounter Care Teams Veneer Cutter Relationship Specialty Start Date End Date Kristy Sanchez APRN [address] [place] [address] PCP - General 10/31/24 Andra Matos APRN [address] [place] [address] Nurse Practitioner Neurosurgery 07/16/21 Oneil Blackmon MD [address] [place] [address] Surgeon Neurosurgery 08/18/21 Andra Matos APRN [address] [place] [address] Nurse Practitioner Neurosurgery 10/12/21 Shania Parikh DDS [address] [place] [address] Dentist Dentist 06/10/22 Aldo Pickens DMD [address] [place] [address] Dentist 06/10/22 documented as of this encounter
--- OUTSIDE RECORDS SUMMARY | 2025-02-13 10:35 | XMS_ITS | Encounter Summary ---
Author Organization [facility] Address [address] [place] [address] Care Team Providers Care Energy Economist Name Role Phone JedbrandonAndra DERRICK HAND Unavailable [phone] Oneil Blackmon MD Unavailable [phone] Andra Matos DERRICK HAND Unavailable [phone] Shania Parikh DDS Unavailable + Aldo Pickens DMD Unavailable [phone] Kristy Sanchez DERRICK HAND Primary Care Provider [phone] Encounter Details Date Type Department Care Team (Latest Contact Info) Description 02/13/2025 10:35 AM EDT - 02/13/2025 11:59 PM EDT Hospital Encounter [facility] [facility] [address] [place] [address] S/P cervical spinal fusion; Back pain Discharge [...] How often do you attend chur or orthodox services? Never 10/31/2024 Do you belong to any clubs o r organizations such as tenriism groups, unions, fraternal or athletic groups, or [...] Health Questionnaire-2 Score 0 10/31/2024 [facility] [place] [facility] Occupat ional Health - Occupational Stress [...] any time in the past 12 m [facility], were you homeless or living in a half-way (including now)? No 10/31/2024 CAGE ASSESSMENT Answer [...] drink first t kisha in the morning (EYE-PRIVATE DUTY RN) to steady your nerves or to get [...] MUSCLE SPASM 20 tablet 01/17/2025 HYDROcodone-aceta minophen ([place]) 5-325 MG tablet 02/11/2025 losartan (Cozaar) 50 [...] Visit [place] [facility] [address] [place] [address] Oneil Blackmon MD [address] [place] [address] 06/25/2025 3:00 PM EST Office Visit [facility] [place] [address] [facility], [address] [place] [address] Gustavo Rodriguez H, DO [address] [place] [address] documented as of this encounter [...] mass. Cardiac silhouette and lung in the jnjdr-gy-xzfv are normal. Posterior lumbar spinal fusion, incompletely [...] mass. Cardiac silhouette and lung in the eerxx-xs-xnxx arenormal. Posterior lumbar spinal fusion, incompletely evaluated. [...] MD on 02/13/2025 11:42 AM Andra Matos DERRICK HAND IMG XR PROCEDURES Final Resu lt * [...] mass. Cardiac silhouette and lung in the btjvp-yy-cpli are normal. Posterior lumbar spinal fusion, incompletely [...] mass. Cardiac silhouette and lung in the mxopk-gs-lvua arenormal. Posterior lumbar spinal fusion, incompletely evaluated. [...] documented as of this encounter Care Teams Energy Economist Relationship Specialty Start Date End Date Kristy Sanchez APRN [address] [place] [address] PCP - General 10/31/24 Andra Matos APRN [address] [place] [address] Nurse Practitioner Neurosurgery 07/16/21 Oneil Blackmon MD [address] [place] [address] Surgeon Neurosurgery 08/18/21 Andra Matos APRN [address] [place] [address] Nurse Practitioner Neurosurgery 10/12/21 Shania Parikh DDS [address] [place] [address] Dentist Dentist 06/10/22 Aldo Pickens DMD [address] [place] [address] Dentist 06/10/22 documented as of this encounter
--- OUTSIDE RECORDS SUMMARY | 2025-02-13 12:00 | XMS_ITS | Encounter Summary ---
Author Organization [facility] Address [address] [place] [address] Care Team Providers Care Phlebotomy Manager Name Role Phone Andra Matos PAPER FOLDING MACHINE OPERATOR Unavailable Oneil Blackmon MD Unavailable [phone] Andra Matos PAPER FOLDING MACHINE OPERATOR Unavailable Shania Parikh DDS Unavailable + Aldo Pickens DMD Unavailable [phone] Kristy Sanchez PAPER FOLDING MACHINE OPERATOR Primary Care Provider [phone] Encounter Details Date Type Department Care Team (Latest Contact Info) Description 02/13/2025 12:00 PM EDT Office Visit [place] [facility] [address], [address]st [place] [address] Andra Matos, PAPER FOLDING MACHINE OPERATOR [address] [place] [address] Lumbar radiculopathy (Primary Dx); Neck pain; Status post lumbar spinal arthrodesis; Cervical radiculopathy; Cervicalgia; Arm numbness; Closed fracture of thoracic vertebra, unspecified fracture morphology, unspecified thoracic vertebral level, initial encounter (CMS/[facility]); S/P cervical spinal fusion Social History Tobacco [...] week 10/31/2024 How often do you attend [facility] or uatsdin services? Never 10/31/2024 Do you belong to any clubs o r organizations such as zoroastrian groups, unions, fraternal or athletic groups, or [...] Recorded Patient Health Questionnaire-2 Score 0 10/31/2024 [facility] - Occupational [...] any time in the past 12 m [facility], were you homeless or living in a nursing home (including now)? No 10/31/2024 CAGE ASSESSMENT [...] drink first t kisha in the morning (EYE-PIT SHOVEL OPERATOR) to steady your nerves or to [...] hours PRN atorvastatin (LIPITOR) 80 mg, Daily imsmrienes-xpimulkrdoltc-afaxggvw 50-325-40 MG tablet 1 tablet, Oral, Every 4 hours PRN cholecalciferol (VITAMIN D-3) 1,000 Units, Daily citalopram (CELEXA) 20 mg, Daily cyclobenzaprine (Flexeril) 10 MG tablet TAKE 1 TABLET BY MOUTH THREE TIMES DAILY NEEDED FOR MUSCLE SPASM FOR UP TO 14 DAYS diazePAM (Valium) 2 MG tablet TAKE 1 TABLET BY MOUTH EVERY 6 HOURS NEEDED FOR SEVERE MUSCLE SPASM HYDROcodone-acetaminophen ([place]) 5-325 MG tablet losartan (COZAAR) 50 mg, [...] 12/09 12/09 C7: Triceps 12/09 12/09 C8: Inker 12/09 12/09 T1: Intrinsics 12/09 12/09 Lower [...] any issues or concerns. Andra Matos APRN [facility] Department of Neurosurgery This note was dictated using voice to text software and may contain errors 40 minutes was spent reviewing previous documentation and imaging, completion of today's documentation, xysk-ip-evcd visit, care coordination and planning [1] Past [...] Visit [place] [facility] [address], [address] [place] [address] Oneil Blackmon MD [address] [place] [address] 06/25/2025 3:00 PM EST Office Visit [facility] [place] [address], [address] [place] [address] Gustavo Rodriguez H, DO [address] [place] [address] documented as of this encounter [...] mass. Cardiac silhouette and lung in the rztjo-hn-jwlo are normal. Posterior lumbar spinal fusion, incompletely [...] mass. Cardiac silhouette and lung in the bjyau-md-vdau arenormal. Posterior lumbar spinal fusion, incompletely evaluated. [...] MD on 02/13/2025 11:42 AM Andra Matos PAPER FOLDING MACHINE OPERATOR IMG XR PROCEDURES Final Resu lt * [...] hardware. Similar demineralization. Grade 1 L1 on [id number] with associated neural foraminal narrowing, with roughly [...] MD on 512:28 PM us Andra Matos PAPER FOLDING MACHINE OPERATOR IMG XR PROCEDURES Final Resu lt * [...] hardware. Similar demineralization. Grade 1 L1 on S7szqdenwdkexfto with associated neural foraminal narrowing, with roughly [...] morphology, unspecified thoracic vertebral level, initial encounter ([facility]) S/P cervical spinal fusion Arthrodesis status S/P [...] documented as of this encounter Care Teams Phlebotomy Manager Relationship Specialty Start Date End Date Kristy Sanchez APRN [address] [place] [address] PCP - General 10/31/24 Andra Matos APRN [address] [place] [address] Nurse Practitioner Neurosurgery 07/16/21 Oneil Blackmon MD [address] [place] [address] Surgeon Neurosurgery 08/18/21 Andra Matos APRN [address] [place] [address] Nurse Practitioner Neurosurgery 10/12/21 Shania Parikh DDS [address] [place] [address] Dentist Dentist 06/10/22 Aldo Pickens DMD [address] [place] [address] Dentist 06/10/22 documented as of this encounter
[2025-03-28 22:01] LABS: Albumin Level 4.6 g/dl (3.5-5.0); Chloride 106 mmol/L (98-107); Sodium 139 mmol/L (136-145)
[2025-03-28 22:02] LABS: Potassium 4.6 mmoL/L (3.5-5.1)
[2025-03-28 22:04] LABS: Alanine Aminotransferase 17 U/L (12-78); Albumin/Globulin Ratio 1.8 (1.1-1.8); Alkaline Phosphatase 135 U/L (38-126); Anion Gap 12.6 mEq/L (5-15); Aspartate Amino Transferase 27 U/L (14-36); Bilirubin,Total 0.7 mg/dl (0.2-1.3); Blood Urea Nitrogen 17 mg/dl (7-17); Calcium 9.8 mg/dl (8.4-10.2); Carbon Dioxide 25 mmol/L (22.0-30.0); Creatinine,Serum 0.70 mg/dl (0.52-1.04); Estimated Glomerular Filt Rate 85 ml/min (>60); GFR (African American) 103 ML/MIN (>60); Globulin 2.5 g/dL (1.3-3.2); Glucose 97 mg/dl (74-100); Total Protein,Serum 7.1 g/dl (6.3-8.2)
--- OUTSIDE RECORDS SUMMARY | 2025-03-31 11:44 | XMS_ITS | Clinical Summary ---
Author Organization [facility] Address [address] [place] [address] Care Team Providers Care Campus Wellness Coordinator Name Role Phone System, Provider Not In [...] therelease of HIV test results or diagnoses. [id number] Social History Tobacco Use Types Packs/Day Years Used Date Smoking Tobacco: Never Assessed Comments Unknown Sex and Gender Information Value Date Recorded Sex Assigned at Not on file Legal Sex Female 10:49 AM EST Gender Identity Not on file Sexual Orientation Not on file Plan of Treatment Not on file Insurance EXCHANGE Care Teams Campus Wellness Coordinator Relationship Specialty Start Date End Date System, Provider Not In PCP - General 07/22/19
--- OUTSIDE RECORDS SUMMARY | 2025-03-31 11:44 | XMS_ITS | Encounter Summary ---
Author Organization Healthcare Address [address] [place] [address] Care Team Providers Care Professor Of Political Science Name Role Phone Andra Matos WARP DRAWER Unavailable [phone] Oneil Blackmon MD Unavailable [phone] Andra Matos WARP DRAWER Unavailable [phone] Shania Parikh DDS Unavailable + Aldo Pickens DMD Unavailable [phone] Pcp, No Primary Care Provider Unavailabl e Kristy Sanchez WARP DRAWER Primary Care Provider [phone] Encounter Details Date Type Department Care Team (Late st Contact Info) Description 03/24/2023 Orders Only External Location [address] [place] [address] Provider, External Social History Tobacco Use Types [...] drink first t kisha in the morning (EYE-SENIOR MANAGER QUALITY ASSURANCE) to steady your nerves or to get [...] Visit [place] [facility] [address], [address] [place] [address] Oneil Blackmon MD [address] [place] [address] 06/25/2025 3:00 PM EST Office Visit [facility] [place] [address] [facility], [address] [place] [address] Gustavo Rodriguez, DO [address] [place] [address] documented as of this encounter [...] documented as of this encounter Care Teams Professor Of Political Science Relationship Specialty Start Date End Date Pcp, [place] [address] PCP - General Family Medicine 10/30/24 10/30/24 Kristy Sanchez, WARP DRAWER [address] [place] [address] PCP - General 10/31/24 Andra Matos, WARP DRAWER [address] [place] [address] Nurse Practitioner Neurosurgery 07/16/21 Oneil Blackmon MD [address] [place] [address] Surgeon Neurosurgery 08/18/21 Andra Matos, WARP DRAWER [address] [place] [address] Nurse Practitioner Neurosurgery 10/12/21 Shania Parikh DDS [address] [place] [address] Dentist Dentist 06/10/22 Aldo Pickens DMD [address] [place] [address] Dentist 06/10/22 documented as of this encounter
--- OUTSIDE RECORDS SUMMARY | 2025-03-31 11:45 | XMS_ITS | Encounter Summary ---
Author Organization Healthcare Address [address] [place] [address] Care Team Providers Care Urology Nurse Name Role Phone Andra Matos SEO PROFESSIONAL Unavailable [phone] Oneil Blackmon MD Unavailable [phone] Andra Matos SEO PROFESSIONAL Unavailable [phone] Shania Parikh DDS Unavailable + Aldo Pickens DMD Unavailable [phone] Kristy Sanchez SEO PROFESSIONAL Primary Care Provider [phone] Encounter Details Date Type Department Care Team (Late st Contact Info) Description 02/01/2025 Orders Only External Location [address] [place] [address] Provider, External Social History Tobacco Use Types [...] any clubs o r organizations such as anabaptism groups, unions, fraternal or athletic groups, or [...] Recorded Patient Health Questionnaire-2 Score 0 10/31/2024 [facility] of Occupat ional Health - Occupational Stress [...] drink first t kisha in the morning (EYE-BOAT TESTER) to steady your nerves or to [...] Visit [place] [facility] [address], 1st [place] [address] Oneil Blackmon MD [address] [place] [address] 06/25/2025 3:00 PM EST Office Visit [facility] [place] [facility] [address] [facility], [address] [place] [address] Gustavo Rodriguez, DO [address] [place] [address] documented as of this encounter [...] documented as of this encounter Care Teams Urology Nurse Relationship Specialty Start Date End Date Kristy Sanchez APRN [address] [place] [address] PCP - General 10/31/24 Andra Matos APRN [address] [place], [place] [address] Nurse Practitioner Neurosurgery 07/16/21 Oneil Blackmon MD [address] [place] [address] Surgeon Neurosurgery 08/18/21 Andra Maots APRN [address] [place], [place] [address] Nurse Practitioner Neurosurgery 10/12/21 Shania Parikh DDS [address] [place] [address] Dentist Dentist 06/10/22 Aldo Pickens DMD [address] [place] [address] Dentist 06/10/22 documented as of this encounter
--- OUTSIDE RECORDS SUMMARY | 2025-03-31 11:45 | XMS_ITS | Encounter Summary ---
Author Organization Healthcare Address [address] [place] [address] Care Team Providers Care Pre School Teacher Name Role Phone Andra Matos TOP INSTALLER Unavailable [phone] Oneil Blackmon MD Unavailable [phone] Andra Matos TOP INSTALLER Unavailable [phone] Shania Parikh DDS Unavailable + Aldo Pickens DMD Unavailable [phone] Kristy Sanchez TOP INSTALLER Primary Care Provider [phone] Encounter Details Date Type Department Care Team (Late st Contact Info) Description 02/01/2025 Orders Only External Location [address] [place] [address] Provider, External Social History Tobacco Use Types [...] How often do you attend chur or congregation services? Never 10/31/2024 Do you [...] Recorded Patient Health Questionnaire-2 Score 0 10/31/2024 [facility] of Occupat ional Health - Occupational [...] any time in the past 12 m [facility], were you homeless or living in a [...] drink first t kisha in the morning (EYE-MECHANIC CHIEF) to steady your nerves or to get [...] Visit [place] [facility] [address], 1st [place] [address] Oneil Blackmon MD [address] [place] [address] 06/25/2025 3:00 PM EST Office Visit [facility] [place] [facility] [address] [facility], [address] [place] [address] Gustavo Rodriguez, DO [address] [place] [address] documented as of this encounter [...] documented as of this encounter Care Teams Pre School Teacher Relationship Specialty Start Date End Date Kristy Sanchez APRN [address] [place] [address] PCP - General 10/31/24 Andra Matos APRN [address] [place], [place] [address] Nurse Practitioner Neurosurgery 07/16/21 Oneil Blackmon MD [address] [place] [address] Surgeon Neurosurgery 08/18/21 Andra Matos APRN [address] [place], [place] [address] Nurse Practitioner Neurosurgery 10/12/21 Shania Parikh DDS [address] [place] [address] Dentist Dentist 06/10/22 Aldo Pickens DMD [address] [place] [address] Dentist 06/10/22 documented as of this encounter
--- OUTSIDE RECORDS SUMMARY | 2025-03-31 11:45 | XMS_ITS | Encounter Summary ---
Author Organization Healthcare Address [address] [place] [address] Care Team Providers Care Dredge Master Name Role Phone Andra Matos IN FLIGHT TECHNICIAN Unavailable [phone] Oneil Blackmon MD Unavailable [phone] Andra Matos IN FLIGHT TECHNICIAN Unavailable [phone] Shania Parikh DDS Unavailable + Aldo Pickens DMD Unavailable [phone] Kristy Sanchez IN FLIGHT TECHNICIAN Primary Care Provider [phone] Encounter Details Date Type Department Care Team (Late st Contact Info) Description 02/01/2025 Orders Only External Location [address] [place] [address] Provider, External Social History Tobacco Use Types [...] drink first t kisha in the morning (EYE-PINSETTER MECHANIC AUTOMATIC) to steady your nerves or to get [...] Visit [place] [facility] [address] [place] [address] Oneil Blackmon MD [address] [place] [address] 06/25/2025 3:00 PM EST Office Visit [facility] [place] [facility] [address] [facility], [address] [place] [address] Gustavo Rodriguez, DO [address] [place] [address] documented as of this encounter [...] documented as of this encounter Care Teams Dredge Master Relationship Specialty Start Date End Date Kristy Sanchez APRN [address] [place] [address] PCP - General 10/31/24 Andra Matos APRN [address] [place], [place] [address] Nurse Practitioner Neurosurgery 07/16/21 Oneil Blackmon MD [address] [place] [address] Surgeon Neurosurgery 08/18/21 Andra Matos APRN [address] [place], [place] [address] Nurse Practitioner Neurosurgery 10/12/21 Shania Parikh DDS [address] [place] [address] Dentist Dentist 06/10/22 Aldo Pickens DMD [address] [place] [address] Dentist 06/10/22 documented as of this encounter
--- OUTSIDE RECORDS SUMMARY | 2025-03-31 11:45 | XMS_ITS | Encounter Summary ---
Author Organization [facility] Address [address] [place] [address] Care Team Providers Care And Taxi Instructor Bus Trolley Name Role Phone Carlo Andra Neves SOCIAL SECURITY BENEFITS INTERVIEWER Unavailable Oneil Blackmon MD Unavailable Andra Matos SOCIAL SECURITY BENEFITS INTERVIEWER Unavailable Shania Parikh DDS Unavailable + Aldo Pickens DMD Unavailable [phone] Kristy Sanchez SOCIAL SECURITY BENEFITS INTERVIEWER Primary Care Provider [phone] Encounter Details Date Type Department Care Team (Late st Contact Info) Description 02/04/2025 Telephone [place] [facility] [address] [place] [address] Oneil Blackmon MD [address] [place] [address] Social History Tobacco Use Types [...] How often do you attend chur or restoration services? Never 10/31/2024 Do you belong to any clubs o r organizations such as hinduism groups, unions, fraternal or athletic groups, or [...] Recorded Patient Health Questionnaire-2 Score 0 10/31/2024 [facility] [place] of Occupat ional Health - Occupational [...] first t kisha in the morning (EYE-DUST MIXER) to steady your nerves or to get rid of a hangover? 0 10/30/2024 CAGE Questionnaire Score 0 025 Utilities Answer Date Recorded In the past 12 months has th e [employer], oil, or water [employer] threatened to shut off services in your [...] Visit [place] [facility] [address] [place] [address] Oneil Blackmon MD [address] [place] [address] 06/25/2025 3:00 PM EST Office Visit [facility] [place] [address] [facility] [place], [address] [place] [address] Gustavo Rodriguez H, DO [address] [place] [address] documented as of this encounter [...] documented as of this encounter Care Teams And Taxi Instructor Bus Trolley Relationship Specialty Start Date End Date Kristy Sanchez APRN [address] [place] [address] PCP - General 10/31/24 Andra Matos APRN [address] [place] [address] Nurse Practitioner Neurosurgery 07/16/21 Oneil Blackmon MD [address] [place] [address] Surgeon Neurosurgery 08/18/21 Andra Matos APRN [address] [place] [address] Nurse Practitioner Neurosurgery 10/12/21 Shania Parikh DDS [address] [place] [address] Dentist Dentist 06/10/22 Aldo Pickens DMD [address] [place] [address] Dentist 06/10/22 documented as of this encounter
--- OUTSIDE RECORDS SUMMARY | 2025-03-31 11:45 | XMS_ITS | Encounter Summary ---
Author Organization Healthcare Address [address] [place] [address] Care Team Providers Care Corrosion Engineer Name Role Phone Andra Matos CARE SUPPORT REPRESENTATIVE Unavailable [phone] Oneil Blackmon MD Unavailable [phone] Andra Matos CARE SUPPORT REPRESENTATIVE Unavailable [phone] Shania Parikh DDS Unavailable + Aldo Pickens DMD Unavailable [phone] Kristy Sanchez CARE SUPPORT REPRESENTATIVE Primary Care Provider Encounter Details Date Type Department Care Team (Late st Contact Info) Description 02/03/2025 Orders Only External Location [address] [place] [address] Provider, External Social History Tobacco Use Types [...] How often do you attend chur or yazidi services? Never 10/31/2024 Do you belong to any clubs o r organizations such as alevism groups, unions, fraternal or athletic groups, or [...] Recorded Patient Health Questionnaire-2 Score 0 10/31/2024 [facility] Occupat ional Health [...] in the past 12 m [facility], were you homeless or living in [...] drink first t kisha in the morning (EYE-CHRONOMETER ASSEMBLER AND ADJUSTER) to steady your nerves or to get [...] Visit [place] [facility] [address], [address] [place] [address] Oneil Blackmon MD [address] [place] [address] 06/25/2025 3:00 PM EST Office Visit [facility] [place] [facility] [address] [facility], [address] [place] [address] Gustavo Rodriguez, DO [address] [place] [address] documented as of this encounter [...] documented as of this encounter Care Teams Corrosion Engineer Relationship Specialty Start Date End Date Kristy Sanchez APRN [address] [place] [address] PCP - General 10/31/24 Andra Matos APRN [address] [place], [place] [address] Nurse Practitioner Neurosurgery 07/16/21 Oneil Blackmon MD [address] [place] [address] Surgeon Neurosurgery 08/18/21 Andra Matos APRN [address] [place] [address] Nurse Practitioner Neurosurgery 10/12/21 Shania Parikh DDS [address] [place] [address] Dentist Dentist 06/10/22 Aldo Pickens DMD [address] [place] [address] Dentist 06/10/22 documented as of this encounter
--- OUTSIDE RECORDS SUMMARY | 2025-03-31 11:45 | XMS_ITS | Encounter Summary ---
Author Organization Healthcare Address [address] [place] [address] Care Team Providers Care Director Telemetry Name Role Phone Andra Matos TRAIN EXAMINER Unavailable [phone] Oneil Blackmon MD Unavailable [phone] Andra Matos TRAIN EXAMINER Unavailable [phone] Shania Parikh DDS Unavailable + Aldo Pickens DMD Unavailable [phone] Pcp, No Primary Care Provider Unavailabl e Kristy Sanchez TRAIN EXAMINER Primary Care Provider Encounter Details Date Type Department Care Team (Late st Contact Info) Description 10/14/2024 Telephone [facility] [address] [place] [address] [address] [place] [address] Yessenia Estevez Social History Tobacco [...] drink first t kisha in the morning (EYE-CONSTRUCTION OPERATIONS MANAGER) to steady your nerves or to [...] Description 04/02/2025 2:30 PM EDT Office Visit [place] [facility] [address] [place] [address] Oneil Blackmon MD [address] [place] [address] 06/25/2025 3:00 PM EST [facility] [address] [facility], [address] [place] [address] Gustavo Rodriguez, DO [address] [place] [address] documented as of this encounter [...] as of this encounter Care Teams Director Telemetry Relationship Specialty Start Date End Date Pcp, No [address] [place] [address] PCP - General Family Medicine 10/30/24 10/30/24 Kristy Sanchez APRN [address] [place] [address] PCP - General 10/31/24 Andra Matos APRN [address] [place] [address] Nurse Practitioner Neurosurgery 07/16/21 Oneil Blackmon MD [address] [place] [address] Surgeon Neurosurgery 08/18/21 Andra Matos APRN [address] [place] [address] Nurse Practitioner Neurosurgery 10/12/21 Shania Parikh DDS [address] [place] [address] Dentist Dentist 06/10/22 Aldo Pickens DMD [address] [place] [address] Dentist 06/10/22 documented as of this encounter
--- OUTSIDE RECORDS SUMMARY | 2025-03-31 11:45 | XMS_ITS | Encounter Summary ---
Author Organization Healthcare Address [address] [place] [address] Care Team Providers Care Textile Technologist Name Role Phone Andra Matos MANAGER LEGAL Unavailable [phone] Oneil Blackmon MD Unavailable [phone] Andra Matos MANAGER LEGAL Unavailable [phone] Shania Parikh DDS Unavailable + Aldo Pickens DMD Unavailable [phone] Kristy Sanchez MANAGER LEGAL Primary Care Provider [phone] Encounter Details Date Type Department Care Team (Late st Contact Info) Description 02/01/2025 Orders Only External Location [address] [place] [address] Provider, External Social History Tobacco Use Types [...] How often do you attend chur or jehovah's witness services? Never 10/31/2024 Do you belong to any clubs o r organizations such as voodoo groups, unions, fraternal or athletic groups, or [...] Recorded Patient Health Questionnaire-2 Score 0 10/31/2024 [facility] Occupat ional Health - Occupational Stress [...] any time in the past 12 m [facility], were you homeless or living in a [...] drink first t kisha in the morning (EYE-OPERATIONAL COMMUNICATION CHIEF) to steady your nerves or to [...] Visit [place] [facility] [address], [address] [place] [address] Oneil Blackmon MD [address] [place] [address] 06/25/2025 3:00 PM EST Office Visit [facility] [place] [facility] [address] [facility], [address] [place] [address] Gustavo Rodriguez H, DO [address] [place] [address] documented as of this encounter [...] documented as of this encounter Care Teams Textile Technologist Relationship Specialty Start Date End Date Kristy Sanchez APRN [address] [place] [address] PCP - General 10/31/24 Andra Matos APRN [address] [place], [place] [address] Nurse Practitioner Neurosurgery 07/16/21 Oneil Blackmon MD [address] [place] [address] Surgeon Neurosurgery 08/18/21 Andra Matos APRN [address] [place], [place] [address] Nurse Practitioner Neurosurgery 10/12/21 Shania Parikh DDS [address] [place] [address] Dentist Dentist 06/10/22 Aldo Pickens DMD [address] [place] [address] Dentist 06/10/22 documented as of this encounter
--- OUTSIDE RECORDS SUMMARY | 2025-03-31 11:45 | XMS_ITS | Encounter Summary ---
Author Organization [facility] Address [address] [place] [address] Care Team Providers Care Tube Room Cashier Name Role Phone Andra Matos DISABILITY ADVOCATE Unavailable [phone] Oneil Blackmon MD Unavailable [phone] Andra Matos DISABILITY ADVOCATE Unavailable [phone] Shania Parikh DDS Unavailable + Aldo Pickens DMD Unavailable [phone] Kristy Sanchez DISABILITY ADVOCATE Primary Care Provider [phone] Encounter Details Date Type Department Care Team [...] 0 10/31/2024 [facility] - Occupational Stress Questionnaire Answer Date [...] drink first t kisha in the morning (EYE-GENERAL INSPECTOR) to steady your nerves or to [...] Visit [place] [facility] [address] [place] [address] Oneil Blackmon MD [address] [place] [address] 06/25/2025 3:00 PM EST Office Visit [facility] [place] [address] [facility], [address] [place] [address] Gustavo Rodriguez, DO [address] [place] [address] documented as of this encounter [...] documented as of this encounter Care Teams Tube Room Cashier Relationship Specialty Start Date End Date Kristy Sanchez APRN [address] [place] [address] PCP - General 10/31/24 Andra Matos APRN [address] [place] [address] Nurse Practitioner Neurosurgery 07/16/21 Oneil Blackmon MD [address] [place] [address] Surgeon Neurosurgery 08/18/21 Andra Matos APRN [address] [place] [address] Nurse Practitioner Neurosurgery 10/12/21 Shania Parikh DDS [address] [place] [address] Dentist Dentist 06/10/22 Aldo Pickens DMD [address] [place] [address] Dentist 06/10/22 documented as of this encounter
--- OUTSIDE RECORDS SUMMARY | 2025-03-31 11:45 | XMS_ITS | Encounter Summary ---
Author Organization [facility] Address [address] [place] [address] Care Team Providers Care Assistant At Surgery Name Role Phone Carlo Andra Neves OBIEE CONSULTANT Unavailable Oneil Blackmon MD Unavailable [phone] Andra Matos OBIEE CONSULTANT Unavailable Shania Parikh DDS Unavailable + Aldo Pickens DMD Unavailable [phone] Kristy Sanchez OBIEE CONSULTANT Primary Care Provider [phone] Encounter Details Date Type Department Care Team (Late st Contact Info) Description 02/03/2025 Telephone [place] [facility] [address] [place] [address] Oneil Blackmon MD [address] [place] [address] Social History Tobacco Use Types [...] How often do you attend chur or religion services? Never 10/31/2024 Do you belong to any clubs o r organizations such as presybeterian groups, unions, fraternal or athletic groups, or [...] Recorded Patient Health Questionnaire-2 Score 0 10/31/2024 [facility] of Occupat ional Health - Occupational Stress [...] any time in the past 12 m [facility], were you homeless or living in a [facility] (including now)? No 10/31/2024 CAGE ASSESSMENT Answer [...] drink first t kisha in the morning (EYE-PERSONAL FITNESS MANAGER) to steady your nerves or to get rid of a hangover? 0 10/30/2024 CAGE Questionnaire Score 0 025 Utilities Answer Date Recorded In the past 12 months has th e [employer], oil, or water [employer] threatened to shut off services in your [...] and MRI Imaging has been requested from [facility] today * Telephone Encounter - Liza Zuniga - 02/03/2025 12:48 PM EDT Patient Phone Message Reason for Call: [facility] to [facility] patient Please call Angela back at [phone] ext [phone] Thanks! Best contact number and optimal time of day to reach caller: Note: Please do not reply to this message. Follow-up communication and further actions as a result of this message need to be communicated with the patient directly, if the patient is not active onMyChart. If the patient is active on MyChart, they will receive notification of the communication/outcome via [employer]. documented in this encounter Plan of Treatment Upcoming Encounters Date Type Department Care Team (Late st Contact Info) Description 04/02/2025 2:30 PM EDT Office Visit [place] [facility] [address] [place] [address] Oneil Blackmon MD [address] [place] [address] 06/25/2025 3:00 PM EST Office Visit [facility] [address], [address] [place] [address] Gustavo Rodriguez, DO [address] [place] [address] documented as of this encounter [...] documented as of this encounter Care Teams Assistant At Surgery Relationship Specialty Start Date End Date Kristy Sanchez APRN [address] [place] [address] PCP - General 10/31/24 Andra Matos APRN [address] [place] [address] Nurse Practitioner Neurosurgery 07/16/21 Oneil Blackmon MD [address] [place] [address] Surgeon Neurosurgery 08/18/21 Andra Matos APRN [address] [place] [address] Nurse Practitioner Neurosurgery 10/12/21 Shania Parikh DDS [address] [place] [address] Dentist Dentist 06/10/22 Aldo Pickens, DMD [address] [address] Dentist 06/10/22 documented as of this encounter
--- OUTSIDE RECORDS SUMMARY | 2025-03-31 11:45 | XMS_ITS | Clinical Summary ---
Author Organization [facility] Address [address] [place] [address] Care Team Providers Care Plastics Bench Mechanic Name Role Phone Andra Matos WASTEWATER ANALYST Unavailable [phone] Oneil Blackmon MD Unavailable [phone] Andra Matos WASTEWATER ANALYST Unavailable [phone] Shania Parikh DDS Unavailable + Aldo Pickens DMD Unavailable [phone] Kristy Sanchez WASTEWATER ANALYST Primary Care Provider [phone] Allergies Active Allergy Reactions Criticality Noted Date [...] by mouth 1 (one) time as needed. 4 Active cholecalciferol (Vitamin D-3) 25 MCG (1000 UT) capsule Take 1 capsule (1,000 Units) by mouth daily. 3 Active Qulipta 60 MG tablet Take 60 mg by mouth daily. 4 Active atorvastatin (Lipitor) 80 MG tablet Take 1 tablet (80 mg) by mouth daily. 5 Active losartan (Cozaar) 50 MG tablet Take 1 tablet (50 mg) by mouth daily. 5 Active senna-docusate (Miriam-Colace) 8.6-50 MG tablet Take 2 tablets by mouth in the morning and 2 tablets before bedtime. 60 tablet 5 Active polyethylene glycol (Miralax) 17 g packet Take 17 g by mouth in the morning and 17 g before bedtime. 60 packet 5 Active butalbital-aceta minophen-caffein e 50-325-40 MG tablet Take 1 tablet by mouth every 4 (four) hours as needed for headaches. 30 tablet 5 Active oxyCODONE (Roxicodone) 5 MG immediate release tablet Take 1 tablet (5 mg) by mouth every 4 (four) hours as needed for moderate pain or severe pain. 55 tablet 5 Active Additional Information Patient not taking.Reported on 02/13/2025 naloxone (Narcan) 4 mg/0.1 mL nasal spray 1. Give 1 spray in nostril for no/slow breathing or cannot wake after opioid use 2. Call 911 3. Repeat in other nostril if symptoms continue 1 each 5 Active cyclobenzaprine (Flexeril) 10 MG tablet TAKE 1 TABLET BY MOUTH THREE TIMES DAILY NEEDED FOR MUSCLE SPASM FOR UP TO 14 DAYS 42 tablet 5 Active Additional Information Patient taking differently: As needed, Reported on 02/13/2025 diazePAM (Valium) 2 MG tablet TAKE 1 TABLET BY MOUTH EVERY 6 HOURS NEEDED FOR SEVERE MUSCLE SPASM 20 tablet 5 Active Repatha SureClick 140 MG/ML solution auto-injector autoinjector 5 Active HYDROcodone-acet aminophen ([place]a) 5-325 MG tablet 5 Active methylPREDNISolo ne (Medrol Dospak) 4 MG tablets Follow schedule on package instructions 21 tablet 5 Active Active Problems Problem Noted Date Diagnosed Date Dysphagia, unspecified type 11/01/2024 Periodontitis 08/09/2023 Myelopathy concurrent with a nd due to spinal stenosis of cervical region 03/14/2022 Cervical myelopathy 03/09/2022 Overview (03/09/2022): Added automatically from request for surgery [id number] Back pain 07/16/2021 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 Resolved Problems Problem Noted Date Diagnosed Date Resolved Date Intervertebral disc disorder s with radiculopathy, lumbar region 08/26/2021 09/03/2021 Overview (08/26/2021): Added automatically from request for surgery [id number] Encounters Date Type Department Care Team Description 03/28/2025 Travel 02/13/2025 12:00 PM EDT Office Visit [facility] [address], 1st [place] [address] Andra Matos APRN Lumbar radiculopathy (Primary Dx); Neck pain; Status post lumbar spinal arthrodesis; Cervical radiculopathy; Cervicalgia; Arm numbness; Closed fracture of thoracic vertebra, unspecified fracture morphology, unspecified thoracic vertebral level, initial encounter ([facility] S/P cervical spinal fusion 02/13/2025 10:35 AM EDT - 02/13/2025 11:59 PM EDT Hospital Encounter [facility] [address], [address] [place] [address] S/P cervical spinal fusion; Back pain Discharge Disposition: Home or Self Care 02/13/2025 10:10 AM EDT - 02/13/2025 10:34 AM EDT Hospital Encounter [facility] [address], [address]st [place] [address] S/P cervical spinal fusion Discharge Disposition: Home or Self Care 02/13/2025 10:10 AM EDT Hospital Encounter [facility] [address], [address] [place] [address] S/P cervical spinal fusion Discharge Disposition: Home or Self Care 02/13/2025 Travel 02/10/2025 Travel 02/04/2025 Telephone [facility] [address], [address] [place] [address] Oneil Blackmon MD 02/03/2025 Orders Only External Location [address] [facility] [place] [address] Provider, External 02/03/2025 Telephone [facility] [address], [address]st [place] [address] Oneil Blackmon MD 02/01/2025 Orders Only External Location [address] [place] [address] Provider, External 02/01/2025 Orders Only External Location [address] [place] [address] Provider, External 02/01/2025 Orders Only External Location [address] [place] [address] Provider, External 02/01/2025 Orders Only External Location [address] [place] [address] Provider, External 02/01/2025 Orders Only External Location [address] [place] [address] Provider, External 01/22/2025 2:00 PM EDT Office Visit [facility] [address], 1st [place] [address] Oneil Blackmon MD S/P cervical spinal fusion (Primary Dx); Lumbar radiculopathy; Status post lumbar spinal arthrodesis; Follow-up examination after neurological surgery 01/22/2025 1:26 PM EDT - 01/22/2025 11:59 PM EDT Hospital Encounter [facility] [address], [address] [place] [address] S/P cervical spinal fusion Discharge Disposition: Home or Self Care 01/22/2025 Travel 01/17/2025 Travel 01/16/2025 Refill [facility] [address], [address] [place] [address] Andra Matos, NEFTALI 01/03/2025 Orders Only [facility] [address], [address]st [place] [address] Andra Matos, NEFTALI S/P cervical spinal fusion (Primary Dx) from Last 3 Months Family History Medical [...] How often do you attend chur or scientology services? Never 10/31/2024 Do you belong to [...] Recorded Patient Health Questionnaire-2 Score 0 10/31/2024 [facility] - Occupational [...] any time in the past 12 m [facility], were you homeless or living in [...] drink first t kisha in the morning (EYE-COLLEGE PROFESSOR) to steady your nerves or to get rid of a hangover? 0 10/30/2024 CAGE Questionnaire Score 0 025 Utilities Answer Date Recorded In the past 12 months has [employer], gas, oil, or water [employer] threatened to shut off services in your [...] Visit [place] [facility] [address], [address]st [place] [address] Oneil Blackmon MD [address] [place] [address] 06/25/2025 3:00 PM EST Office Visit [facility] [place] [address] [facility], [address] [place] [address] Gustavo Rodriguez, DO [address] [place] [address] Health Maintenance Due Date Last [...] 10/01/2023 03/30/2023 Dental X-Ray: Bitewings 03/31/2024 03/30/2023 [id number] Vaccine ( season) 2024 07/14/2023, 05/28/2022, 12/25/2021, [...] this topic Medical Devices Implanted Type Area Interior Decorator Paperhanging Device Identifier Shelf Expiration Date Model / Serial / Lot Large Diameter 14mm - Sn/A - [id number] Implanted:Qty : 3 on 10/12/2024 by Oneil Blackmon MD at [facility] Cage N/A: Spine Cervical DePuy Spine [employer] -[id number] 10/12/2025 [id number] / N/A / One Level Plate, 16mm - Sn/A - [id number] Implanted:Qty : 1 on 10/12/2024 by Oneil Blackmon MD at [facility] Plate N/A: Spine Cervical DePuy Spine [employer] -[id number] 10/12/2025 [id number] / N/A / Pre-Lordosed Jonatan W/ Line 65mm - S. - [id number] Implanted:Qty : 2 on 08/30/2021 by Oneil Blackmon MD at [facility] Jonatan Spine Lumbar DePuy Spine [employer] -[id number] 08/30/2022 [id number] / . / Expedium 5.50 Polyaxial Screw 7.53m22jf, - S. - [id number] Implanted:Qty : 2 on 08/30/2021 by Oneil Blackmon MD at [facility] Screw Spine Lumbar DePuy Spine Sales LP-[id number] 08/30/2022 [id number] / . / Screw 5.5mm Viper Ti Fen Crtcl Polyax 7mm X 45mm - S. - [id number] Implanted:Qty : 4 on 08/30/2021 by Oneil Blackmon MD at [facility] Screw Spine Lumbar DePuy Spine Sales LP-[id number] 08/30/2022 [id number] / . / Single Inner Setscrew - S. - [id number] Implanted:Qty : 6 on 08/30/2021 by Oneil Blcakmon MD at [facility] Screw Spine Lumbar DePuy Spine [employer] LP-[id number] 08/30/2022 [id number] / . / Self Drilling Screw 14mm - Sn/A - [id number] Implanted:Qty : 1 on 10/12/2024 by Oneil Blackmon MD at [facility] Screw N/A: Spine Cervical DePuy Spine Sales LP-[id number] 10/12/2025 [id number] / N/A / Plates/Screws Bilateral: Mandible Chip Bone 20cc - [id number] Implanted:Qty : 1 on 08/30/2021 by Oneil Blackmon MD at [facility]-[id number] 05/30/2026 PCAN1/4 / / [id number] Graft Vivigen 5cc - [id number] Implanted:Qty : 1 on 08/30/2021 by Oneil Blackmon MD at [facility]-[id number] 08/11/2022 BL-1500-002 / [id number] / [id number] Graft Vivigen 5cc - [id number] Implanted:Qty : 1 on 08/30/2021 by Oneil Blackmon MD at [facility]-[id number] 08/04/2022 BL-1500-002 / [id number] / [id number] Self Drilling Screw 14mm - [id number] Implanted:Qty : 5 on 03/14/2022 by Oneil Blackmon MD at [facility] Spine Cervical DePuy Spine Sales LP-[id number] / / Large Diameter 14mm - [id number] Implanted:Qty : 1 on 03/14/2022 by Oneil Blackmon MD at [facility] Spine Cervical DePuy Spine Sales LP-[id number] / / Knee Vanguard1 Cervical Preservon 6mm - [id number] - [id number] Implanted:Qty : 1 on 03/14/2022 by Oneil Blackmon MD at [facility] Spine Cervical [facility]-[id number] 09/30/2026 [id number] / [id number] / [id number] Knee Vanguard1 Cervical Preservon 7mm - [id number] - [id number] Implanted:Qty : 1 on 03/14/2022 by Oneil Blackmon MD at [facility] Right: Spine Cervical [facility]-[id number] 12/15/2026 [id number] / [id number] / [id number] Screw Retainer 3.5mm X 12mm - [id number] Implanted:Qty : 2 on 03/14/2022 by Oneil Blackmon MD at [facility] Spine Cervical DePuy Spine Sales LP-[id number] 03.820.102 / / Nut Retainer - [id number] Implanted:Qty : 2 on 03/14/2022 by Oneil Blackmon MD at [facility] Spine Cervical DePuy Spine Sales LP-[id number] 03.820.110 / / Plate Two Level 28mm - [id number] Implanted:Qty : 1 on 03/14/2022 by Oneil Blackmon MD at [facility] Spine Cervical DePuy Spine Sales LP-[id number] / / Knee Vanguard1 Cervical Preservon 7mm - [id number] - [id number] Implanted:Qty : 1 on 10/12/2024 by Oneil Blackmon MD at [facility] Spine Cervical [facility]-656138 08/01/2029 [id number] / [id number] / [id number] Tissue Vivigen Formable 1.3cc Pk/4 - [id number] Implanted:Qty : 1 on 10/12/2024 by Oneil Blackmon MD at [facility] N/A: Spine Cervical [facility]256111 09/23/2025 [id number] / / [id number] Screw Retainer 3.5mm X 14mm - Sn/A - [id number] Implanted:Qty : 2 on 10/12/2024 by Oneil Blackmon MD at [facility] N/A: Spine Cervical DePuy Spine [employer] -[id number] 10/12/2025 03.820.103 / N/A / Nut Retainer - Sn/A - [id number] Implanted:Qty : 2 on 10/12/2024 by Oneil Blackmon MD at [facility] N/A: Spine Cervical DePuy Spine [employer] -[id number] 10/12/2025 03.820.110 / N/A / Procedures Procedure [...] AM EDT CT NEURO OUTSIDE IMAGES 02/02/20 25 11:[address] NEURO OUTSIDE IMAGES [...] mass. Cardiac silhouette and lung in the akmlw-iu-czti are normal. Posterior lumbar spinal fusion, incompletely [...] mass. Cardiac silhouette and lung in the pfanv-eg-rtna arenormal. Posterior lumbar spinal fusion, incompletely evaluated. [...] on 02/13/2025 11:42 AM us Andra Matos WASTEWATER ANALYST IMG XR PROCEDURES Final Resu lt * [...] mass. Cardiac silhouette and lung in the avqyn-gr-jbof are normal. Posterior lumbar spinal fusion, incompletely [...] mass. Cardiac silhouette and lung in the vpoai-ua-rwio arenormal. Posterior lumbar spinal fusion, incompletely evaluated. [...] on 02/13/2025 11:42 AM us Andra Matos WASTEWATER ANALYST IMG XR PROCEDURES Final Resu lt * [...] hardware. Similar demineralization. Grade 1 L1 on O1myvvifezsyqhng with associated neural foraminal narrowing, with roughly [...] MD on 2:28 PM us Andra Matos WASTEWATER ANALYST IMG XR PROCEDURES Final Resu lt * [...] hardware. Similar demineralization. Grade 1 L1 on S1trezjtpdcgtelk with associated neural foraminal narrowing, with roughly [...] MD on 2:28 PM us Andra Matos WASTEWATER ANALYST IMG XR PROCEDURES Final Resu lt * [...] MD on 01/22/2025 1:53 PM Andra Matos WASTEWATER ANALYST IMG XR PROCEDURES Final Resu lt * ED HIV 1/2 Antibody/Antigen Screen w/Reflex to HIV 1/2 Differentiation (10/30/2024 6:38 PM EDT) HIV 1 & 2 Antibody/Antigen Screen Non Reactive Non Reactive 10/30/2024 7:54 PM EDT [facility] Comment:Screening for HIV 1 & 2 antibodies, and P24 antigen is NONREACTIVE. No confirmatory testing is required. Blood Venous blood specimen / Unknown Venipuncture / Unknown 10/30/2024 6:38 PM EDT 10/30/2024 7:09 PM EDT Rogerio Marino MD LAB BLOOD ORDERABLES Final Res ult [facility] [address] [place] [address] * Hepatitis C Antibody - ED (10/30/2024 6:38 PM EDT) Hepatitis C Antibody Negative Negative 10/30/2024 7:54 PM EDT [facility] Blood Venous blood specimen / Unknown Venipuncture / Unknown 10/30/2024 6:38 PM EDT 10/30/2024 7:09 PM EDT us Rogerio Marino MD LAB BLOOD ORDERABLES Final Res ult [facility] [address] [place] [address] from Last 3 Months or Most Recently Relevant to Health Maintenance Insurance [facility] Advance Directives * Full Code (Latest Code Status on File) Date Activated Date Inactivated Comments 10/31/2024 1:17 AM 11/01/2024 4:18 PM * Full Code Date Activated Date Inactivated Comments 03/14/2022 12:00 PM 03/15/2022 5:21 PM Question Answer Comments Patient has decision-making capacity? Yes Care Teams Plastics Bench Mechanic Relationship Specialty Start Date End Date Kristy Sanchez APRN [address] [place] [address] PCP - General 10/31/24 Andra Matos APRN [address] [place] [address] Nurse Practitioner Neurosurgery 07/16/21 Oneil Blackmon MD [address] [place] [address] Surgeon Neurosurgery 08/18/21 Andra Matos APRN [address] [place] [address] Nurse Practitioner Neurosurgery 10/12/21 Shania Parikh DDS [address] [place] [address] Dentist Dentist 06/10/22 Aldo Pickens DMD [address] [place] [address] Dentist 06/10/22
--- OUTSIDE RECORDS SUMMARY | 2025-03-31 11:45 | XMS_ITS | Encounter Summary ---
Author Organization [facility] Address [address] [place] [address] Care Team Providers Care Telecommunication Tower Technician Name Role Phone Andra Matos ENGINE TESTING SUPERVISOR Unavailable [phone] Oneil Blackmon MD Unavailable [phone] Andra Matos ENGINE TESTING SUPERVISOR Unavailable [phone] Shania Parikh DDS Unavailable + Aldo Pickens DMD Unavailable [phone] Kristy Sanchez ENGINE TESTING SUPERVISOR Primary Care Provider Encounter Details Date Type [...] How often do you attend chur or restorationist services? Never 10/31/2024 Do you belong to [...] Recorded Patient Health Questionnaire-2 Score 0 10/31/2024 [facility] [...] drink first t kisha in the morning (EYE-APPRENTICE INSTRUMENT TECHNICIAN) to steady your nerves or to [...] Visit [place] [facility] [address], 1st [place] [address] Oneil Blackmon MD [address] [place] [address] 06/25/2025 3:00 PM EST Office Visit [facility] [place] [address] [facility], [address] [place] [address] Gustavo Rodriguez, DO [address] [place] [address] documented as of this encounter [...] documented as of this encounter Care Teams Telecommunication Tower Technician Relationship Specialty Start Date End Date Kristy Sanchez APRN [address] [place] [address] PCP - General 10/31/24 Andra Matos APRN [address] [place] [address] Nurse Practitioner Neurosurgery 07/16/21 Oneil Blackmon MD [address] [place] [address] Surgeon Neurosurgery 08/18/21 Andra Matos APRN [address] [place] [address] Nurse Practitioner Neurosurgery 10/12/21 Shania Parikh DDS [address] [place] [address] Dentist Dentist 06/10/22 Aldo Pickens DMD [address] [place] [address] Dentist 06/10/22 documented as of this encounter
--- OUTSIDE RECORDS SUMMARY | 2025-03-31 11:45 | XMS_ITS | Encounter Summary ---
Author Organization [facility] Address [address] [place] [address] Care Team Providers Care Gas Torch Solderer Name Role Phone Andra Matos BAKERY DEMONSTRATOR Unavailable [phone] Oneil Blackmon MD Unavailable [phone] Andra Matos BAKERY DEMONSTRATOR Unavailable [phone] Shania Parikh DDS Unavailable + Aldo Pickens DMD Unavailable [phone] Kristy Sanchez BAKERY DEMONSTRATOR Primary Care Provider [phone] Encounter Details Date Type Department Care Team (Latest Contact Info) Description 03/28/2025 Travel Social History Tobacco Use Types Packs/Day [...] How often do you attend chur or samaritan services? Never 10/31/2024 Do you belong to [...] 10/31/2024 [facility] - Occupational Stress Questionnaire Answer Date [...] any time in the past 12 m [facility], were you homeless or living in a [...] drink first t kisha in the morning (EYE-WORKPLACE RELATIONS ADVISER) to steady your nerves or to get [...] Visit [place] [facility] [address], [address]st [place] [address] Oneil Blackmon MD [address] [place] [address] 06/25/2025 3:00 PM EST Office Visit [facility] [place] [address] [facility] [address] [facility], [address] [place] [address] Gustavo Rodriguez, DO [address] [place] [address] documented as of this encounter [...] documented as of this encounter Care Teams Gas Torch Solderer Relationship Specialty Start Date End Date Kristy Sanchez APRN [address] [place] [address] PCP - General 10/31/24 Andra Matos APRN [address] [place] [address] Nurse Practitioner Neurosurgery 07/16/21 Oneil Blackmon MD [address] [place] [address] Surgeon Neurosurgery 08/18/21 Andra Matos APRN [address] [place] [address] Nurse Practitioner Neurosurgery 10/12/21 Shania Parikh DDS [address] [place] [address] Dentist Dentist 06/10/22 Aldo Pickens DMD [address] [place] [address] Dentist 06/10/22 documented as of this encounter
--- OUTSIDE RECORDS SUMMARY | 2025-03-31 11:45 | XMS_ITS | Encounter Summary ---
Author Organization Healthcare Address [address] [place] [address] Care Team Providers Care Residential Director Name Role Phone Andra Matos MANAGER PAYER Unavailable [phone] Oneil Blackmon MD Unavailable [phone] Andra Matos MANAGER PAYER Unavailable [phone] Shania Parikh DDS Unavailable + Aldo Pickens DMD Unavailable [phone] Kristy Sanchez MANAGER PAYER Primary Care Provider [phone] Encounter Details Date Type Department Care Team (Late st Contact Info) Description 02/01/2025 Orders Only External Location [address] [place] [address] Provider, External Social History Tobacco Use Types [...] How often do you attend chur or restorationism services? Never 10/31/2024 Do you belong to any clubs o r organizations such as rastafarian groups, unions, fraternal or athletic groups, or [...] Recorded Patient Health Questionnaire-2 Score 0 10/31/2024 [facility] - Occupational [...] drink first t kisha in the morning (EYE-AUTOMATIC MACHINES SUPERVISOR) to steady your nerves or to get [...] Visit [place] [facility] [address], 1st [place] [address] Oneil Blackmon MD [address] [place] [address] 06/25/2025 3:00 PM EST Office Visit [facility] [place] [address] [facility] [address] [facility], [address] [place] [address] Gustavo Rodriguez H, DO [address] [place] [address] documented as of this encounter [...] documented as of this encounter Care Teams Residential Director Relationship Specialty Start Date End Date Kristy Sanchez APRN [address] [place] [address] PCP - General 10/31/24 Andra Matos APRN [address] [place], [place] [address] Nurse Practitioner Neurosurgery 07/16/21 Oneil Blackmon MD [address] [place] [address] Surgeon Neurosurgery 08/18/21 Andra Matso APRN [address] [place], [place] [address] Nurse Practitioner Neurosurgery 10/12/21 Shania Parikh DDS [address] [place] [address] Dentist Dentist 06/10/22 Aldo Pickens DMD [address] [place] [address] Dentist 06/10/22 documented as of this encounter
== END 2025-03-28 23:59 | disposition home or self-care (01) ==
LOC: LAB.DROPOF 03-31 11:04
PROVIDERS: PCP Family Medicine; Visit Provider Family Medicine
DX: E83.52 Hypercalcemia (principal)
CPT/HCPCS: 80053

== ENCOUNTER 2025-06-13 15:01 | Outpatient (CLI) | payer BC, SELFPAY ==
--- OUTSIDE RECORDS SUMMARY | 2025-06-11 14:29 | XMS_ITS | Encounter Summary ---
Author Organization [facility] Address [address] [place] [address] Care Team Providers Care Board Certified Arts Therapist Name Role Phone Andra Matos RECORDER OF DEEDS Unavailable [phone] Oneil Blackmon MD Unavailable [phone] Andra Matos RECORDER OF DEEDS Unavailable [phone] Shania Parikh DDS Unavailable + Aldo Pickens DMD Unavailable [phone] Kristy Sanchez RECORDER OF DEEDS Primary Care Provider [phone] Reason for Referral * Imaging (Routine) - Closed Specialty Diagnoses / Procedures Referred By Contac t Referred To Contact Radiology Diagnoses Mid back pain Procedures MR Thoracic Spine wo IV Contrast Andra Matos APRN [address] [place] [address] Phone: tel: fax: Referral ID Status Reason Start Date Expiration Date Visits Re quested Visits Authorized [id number] Closed 04/24/2025 10/24/2026 1 1 Reason for Visit * Imaging (Routine) - Closed Specialty Diagnoses / Procedures Referred By Contac t Referred To Contact Radiology Diagnoses Mid back pain Procedures MR Thoracic Spine wo IV Contrast Andra Matos APRN [address] [place] [address] Phone: tel: fax: Referral ID Status Reason Start Date Expiration Date Visits Re quested Visits Authorized [id number] Closed 04/24/2025 10/24/2026 1 1 Encounter Details Date Type Department Care Team (Latest Contact Info) Description 06/11/2025 2:29 PM EST - 06/11/2025 11:59 PM EST Hospital Encounter [facility] [address] [place] [address] Mid back pain Discharge Disposition: [...] often do you attend chur ch or episcopal services? Never 10/31/2024 Do you [...] Recorded Patient Health Questionnaire-2 Score 0 10/31/2024 [facility] Occupat ional Health [...] any time in the past 12 m [facility], were you homeless or living [...] drink first t kisha in the morning (EYE-TRIGONOMETRY TEACHER) to steady your nerves or to get rid of a hangover? 0 10/30/2024 CAGE Questionnaire Score 0 025 Utilities Answer Date Recorded In the past 12 months has [employer], gas, oil, or water [employer] threatened to shut off services in your [...] MUSCLE SPASM 20 tablet 01/17/2025 HYDROcodone-aceta minophen ([place]) 5-325 MG tablet 02/11/2025 losartan (Cozaar) 50 [...] combination with mild disc bulge. This causes qgmh-dy-hhlkuigq spinal canal stenosis. Scattered levels of neural [...] endplates with mild anterior wedging, greater at H9hytft there is approximately one third height loss [...] in combination with mild disc bulge. This sfszdzewda-kc-kdzxhdgi spinal canal stenosis. Scattered levels of neuralforaminal [...] documented as of this encounter Care Teams Board Certified Arts Therapist Relationship Specialty Start Date End Date Kristy Sanchez APRN [address] [place] [address] PCP - General 10/31/24 Andra Matos APRN [address] [place] [address] Nurse Practitioner Neurosurgery 07/16/21 Oneil Blackmon MD [address] [place] [address] Surgeon Neurosurgery 08/18/21 Andra Matos APRN [address] [place] [address] Nurse Practitioner Neurosurgery 10/12/21 Shania Parikh DDS [address] [place] [address] Dentist Dentist 06/10/22 Aldo Pickens DMD [address] [place] [address] Dentist 06/10/22 documented as of this encounter
--- NOTE | 2025-06-13 15:03 | XR_ITS ---
FINAL REPORT TECHNIQUE: Chest PA & Lateral CLINICAL HISTORY: Nonspecific chest pain COMPARISON: None FINDINGS: 2 views of the chest were performed. The heart size is normal. The mediastinum is within normal limits. There is no acute cardiopulmonary process. There are no pleural effusions. There is no pneumothorax. There are healing fractures of right 4th, 5th, and 6th ribs. IMPRESSION: No acute cardiopulmonary process. Reviewed, Interpreted and Dictated by Donn Monroe MD Transcribed by Letha Cohn Authenticated and [facility]
--- OUTSIDE RECORDS SUMMARY | 2025-06-13 15:03 | XMS_ITS | Encounter Summary ---
Author Organization [facility] Address [address] [place] [address] Care Team Providers Care Workers Compensation Claims Analyst Name Role Phone Andra Matos LOG DRIVER Unavailable [phone] Oneil Blackmon MD Unavailable [phone] Andra Matos LOG DRIVER Unavailable [phone] Shania Parikh DDS Unavailable + Aldo Pickens DMD Unavailable [phone] Kristy Sanchez LOG DRIVER Primary Care Provider [phone] Encounter Details Date Type Department Care Team (Latest Contact Info) Description 06/04/2025 Travel Social History Tobacco Use Types Packs/Day [...] How often do you attend chur or yazidism services? Never 10/31/2024 Do you belong to any clubs o r organizations such as taoist groups, unions, fraternal or athletic groups, or [...] Recorded Patient Health Questionnaire-2 Score 0 10/31/2024 [facility] Occupat [facility] - Occupational Stress Questionnaire Answer Date [...] drink first t kisha in the morning (EYE-FISCAL ACCOUNTANT) to steady your nerves or to get [...] on file documented as of this encounter Visit Diagnoses [...] documented as of this encounter Care Teams Workers Compensation Claims Analyst Relationship Specialty Start Date End Date Kristy Sanchez, LOG DRIVER [address] [place] [address] PCP - General 10/31/24 Andra Matos, NEFTALI [address] [place] [address] Nurse Practitioner Neurosurgery 07/16/21 Oneil Blackmon MD [address] [place] [address] Surgeon Neurosurgery 08/18/21 Andra Matos, NEFTALI [address] [place] [address] Nurse Practitioner Neurosurgery 10/12/21 Shania Parikh DDS [address] [place] [address] Dentist Dentist 06/10/22 Aldo Pickens DMD [address] [place] [address] Dentist 06/10/22 documented as of this encounter
--- OUTSIDE RECORDS SUMMARY | 2025-06-13 15:03 | XMS_ITS | Clinical Summary ---
Author Organization [facility] Address [address] [place] [address] Care Team Providers Care Digital Media Coordinator Name Role Phone System, Provider Not [...] therelease of HIV test results or diagnoses. [id number] Social History Tobacco Use Types Packs/Day Years Used Date Smoking Tobacco: Never Assessed Comments Unknown Sex and Gender Information Value Date Recorded Sex Assigned at Not on file Legal Sex Female 10:49 AM EST Gender Identity Not on file Sexual Orientation Not on file Plan of Treatment Not on file Insurance [facility] Care Teams Digital Media Coordinator Relationship Specialty Start Date End Date System, Provider Not In PCP - General 07/22/19
--- OUTSIDE RECORDS SUMMARY | 2025-06-13 15:03 | XMS_ITS | Encounter Summary ---
Author Organization Healthcare Address [address] [place] [address] Care Team Providers Care Fiscal Clerk Name Role Phone Andra Matos THIRD SHIFT LIEUTENANT Unavailable [phone] Oneil Blackmon MD Unavailable [phone] Andra Matos THIRD SHIFT LIEUTENANT Unavailable [phone] Shania Parikh DDS Unavailable + Aldo Pickens DMD Unavailable [phone] Kristy Sanchez THIRD SHIFT LIEUTENANT Primary Care Provider [phone] Reason for Referral * Imaging (Routine) - Pending Review Specialty Diagnoses / Procedures Referred By Contshaniqua t Referred To Contact Diagnoses Bony pelvic pain Procedures MR Pelvis wo IV Contrast Andra Matos, THIRD SHIFT LIEUTENANT [address] [place] [address] Phone: tel: fax: [facility] () [address] [place] [address] Phone: tel: fax: Referral ID Status Reason Start Date Expiration Date V isits Requested Visits Authorized [id number] Pending Review 06/11/2025 12/11/2026 1 1 Encounter Details Date Type Department Care Team (Late st Contact Info) Description 06/11/2025 Orders Only [place] [facility] [address] [place] [address] Andra Matos, THIRD SHIFT LIEUTENANT [address] [place] [address] Bony pelvic pain (Primary Dx) Social History Tobacco Use Types [...] Recorded Patient Health Questionnaire-2 Score 0 10/31/2024 [facility] - Occupational Stress [...] drink first t kisha in the morning (EYE-DRAFTING LAYOUT WORKER) to steady your nerves or to [...] as of this encounter Plan of Treatment Scheduled Orders Name Type Priority Associated Diagnoses Orde r Schedule MR Pelvis wo IV Contrast Imaging Routine Bony pelvic pain Expected: 06/11/2025 (Approximate), Expires: 12/13/2026 documented as of this encounter Visit Diagnoses Diagnosis Bony pelvic pain- Primary documented in this encounter Additional Health Concerns Assessment Noted Time PHQ-9 Depression Total Score: 2 11/01/19 1:01 PM EDT A fall risk assessment has been complete d for the patient 04/02/2025 2:00 PM EDT A Body Mass Index follow-up plan has been documented for the patient 04/12/2025 7:12 PM EDT documented as of this encounter Care Teams Fiscal Clerk Relationship Specialty Start Date End Date Kristy Sanchez APRN [address] [place] [address] PCP - General 10/31/24 Andra Matos APRN [address] [place], [place] [address] Nurse Practitioner Neurosurgery 07/16/21 Oneil Blackmon MD [address] [place] [address] Surgeon Neurosurgery 08/18/21 Andra Matos APRN [address] [place], [place] [address] Nurse Practitioner Neurosurgery 10/12/21 Shania Parikh DDS [address] [place], [place] [address] Dentist Dentist 06/10/22 Aldo Pickens DMD [address] [place] [address] Dentist 06/10/22 documented as of this encounter
--- OUTSIDE RECORDS SUMMARY | 2025-06-13 15:03 | XMS_ITS | Encounter Summary ---
Author Organization [facility] Address [address] [place] [address] Care Team Providers Care Journeyman Glazier Name Role Phone Andra Matos DATA VISUALIZATION DEVELOPER Unavailable Oneil Blackmon MD Unavailable Andra Matos DATA VISUALIZATION DEVELOPER Unavailable Shania Parikh DDS Unavailable + Aldo Pickens DMD Unavailable Kristy Sanchez DATA VISUALIZATION DEVELOPER Primary Care Provider [phone] Encounter Details Date Type Department Care Team (Late st Contact Info) Description 06/10/[facility] [address] [place] [address] Andra Matos, DATA VISUALIZATION DEVELOPER [address] [place] [address] Social History Tobacco Use Types [...] How often do you attend chur or orthodoxy services? Never 10/31/2024 Do you belong to any clubs o r organizations such as lutheran groups, unions, fraternal or athletic groups, or [...] Recorded Patient Health Questionnaire-2 Score 0 10/31/2024 [facility] of Occupat ional Health - Occupational Stress [...] time in the past 12 m [facility], were you homeless or living in a [...] drink first t kisha in the morning (EYE-MANAGER DRUG) to steady your nerves or to get rid of a hangover? 0 10/30/2024 CAGE Questionnaire Score 0 025 Utilities Answer Date Recorded In the past 12 months has th e [employer], gas, oil, or water company threatened to [...] * Telephone Encounter - Calvin Aden - 06/10/2025 12:24 PM EST 06/10/2025 - 12:19PM Spoke to patient directly - She is keeping her appointment tomorrow at [facility] for MRI Thoracic - MRI Pelvis for July 2025 at has been canceled per her request. - Will need updated MRI Pelvis order to be directed towards [facility] FX#[id number] Patient has been made aware we will wait until ALL imaging has been completed and been reviewed by Andra and Dr. Blackmon to determine her POC, before scheduling a follow up - or per her request, forwarding a referral to an Orthopedic provider at [facility] for her Pelvic concerns Patient has also been made aware by canceling the MRI for July, and having to re-issue an offsite order there could be delays for insurance approval and is fine with the delay if that occurs, as long as the MRI Pelvis can be preformed at [facility]. documented in this encounter Plan of Treatment Not on [...] documented as of this encounter Care Teams Journeyman Glazier Relationship Specialty Start Date End Date Kristy Sanchez APRN [address] [place] [address] PCP - General 10/31/24 Andra Matos APRN [address] [place] [address] Nurse Practitioner Neurosurgery 07/16/21 Oneil Blackmon MD [address] [place] [address] Surgeon Neurosurgery 08/18/21 Andra Matos APRN [address] [place] [address] Nurse Practitioner Neurosurgery 10/12/21 Shania Parikh DDS [address] [place] [address] Dentist Dentist 06/10/22 Aldo Pickens DMD [address] [place] [address] Dentist 06/10/22 documented as of this encounter
--- OUTSIDE RECORDS SUMMARY | 2025-06-13 15:03 | XMS_ITS | Clinical Summary ---
Author Organization [facility] Address [address] [place] [address] Care Team Providers Care Account Liaison Name Role Phone Andra Matos SOLE TIER Unavailable [phone] Oneil Blackmon MD Unavailable [phone] Andra Matos SOLE TIER Unavailable [phone] Shania Parikh DDS Unavailable + Aldo Pickens DMD Unavailable [phone] Kristy Sanchez SOLE TIER Primary Care Provider [phone] Allergies Active Allergy Reactions Criticality Noted Date [...] Active Additional Information Patient not taking.Reported on 04/02/2025 naloxone (Narcan) 4 mg/0.1 mL nasal spray [...] Patient taking differently: As needed, Reported on 04/02/2025 diazePAM (Valium) 2 MG tablet TAKE 1 TABLET BY MOUTH EVERY 6 HOURS NEEDED FOR SEVERE MUSCLE SPASM 20 tablet 5 Active Repatha SureClick 140 MG/ML solution auto-injector autoinjector 5 Active HYDROcodone-acet aminophen (Vass) 5-325 MG tablet 5 Active methylPREDNISolo ne (Medrol Dospak) 4 MG tablets Follow schedule on package instructions 21 tablet 5 Active pregabalin (Lyrica) 75 MG capsule Take 1 capsule by mouth 2 times a day. 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 Resolved Problems Problem Noted Date Diagnosed Date Resolved Date Intervertebral disc disorder s with radiculopathy, lumbar region 08/26/2021 09/03/2021 Overview (08/26/2021): Added automatically from request for surgery [id number] Encounters Date Type Department Care Team Description 06/11/2025 2:29 PM EST - 06/11/2025 11:59 PM EST Hospital Encounter [facility] MRI [address] [place] [address] Mid back pain Discharge Disposition: Home or Self Care 06/11/2025 Travel 06/11/2025 Orders Only [facility] [address], [address] [place] [address] Andra Matos, SOLE TIER Bony pelvic pain (Primary Dx) 06/10/2025 Telephone [facility] [address], [address] [place] [address] Andra Matos, SOLE TIER 06/04/2025 Travel 05/19/2025 Orders Only [facility] [address], [address] [place] [address] Andra Matos, SOLE TIER Bony pelvic pain (Primary Dx) 04/24/2025 Orders Only [facility] [address], [address] [place] [address] Andra Matos, SOLE TIER Mid back pain (Primary Dx) 04/08/2025 Refill [facility] [address], [address] [place] [address] JedAndra [email or web address] 04/02/2025 2:30 PM EDT Office Visit [facility] [address], [address] [place] [address] Oneil Blackmon MD Lumbar radiculopathy (Primary Dx); S/P cervical spinal fusion 04/02/2025 1:47 PM EDT - 04/02/2025 11:59 PM EDT Hospital Encounter [facility] [address], [address] [place] [address] S/P cervical spinal fusion Discharge Disposition: Home or Self Care 04/02/2025 Travel 03/28/2025 Travel from Last 3 Months Family History Medical History Relation Name Comments Alcohol abuse Brother 1 Momo Price Migraines Brother 2 Mernix Alzheimer's disease Father Ervin Price COPD Father Ervin Price Cancer Father Ervin Price Hearing loss Father Ervin Price Alzheimer's disease Mother Lisa price Anesthesia problems Neg Hx Malig Hyperthermia Neg Hx Relation Name Status Comments Brother 1 Momo Price Brother 2 Mernix Alive Father Ervin Price Mother Lisa price Alive Social History Tobacco Use Types Packs/Day [...] any clubs o r organizations such as religious groups, unions, fraternal or athletic groups, or [...] drink first t kisha in the morning (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 0 10/30/2024 CAGE Questionnaire Score 0 025 Utilities Answer Date Recorded In the past 12 months has th e [employer], gas, oil, or water company threatened to [...] Reading Time Taken Comments Blood Pressure 134/90 04/02/2025 1:59 PM EDT Pulse 68 11/21/2024 3:13 PM EDT Temperature 36.4 C (97.5 F) 11/01/2024 1:56 PM EDT Respiratory Rate 13 11/21/2024 3:13 PM EDT Oxygen Saturation 96% 11/21/2024 3:13 PM EDT Inhaled Oxygen Concentration - - Weight 70.3 kg (155 lb) 06/11/2025 2:48 PM EST Height 154.9 cm (5' 1 ) 06/11/2025 2:48 PM EST Body Mass Index 29.29 06/11/2025 2:48 PM EST Plan of Treatment Health Maintenance Due Date Last Done Comments [...] 10/01/2023 03/30/2023 Dental X-Ray: Bitewings 03/31/2024 03/30/2023 [id number] Vaccine ( season) 2025 07/14/2023, 05/28/2022, 12/25/2021, Additional history exists [facility]-Influenza Vaccine (#1) 04/07/202507/14, 05/28/2022, 08/24/2020 [facility]- SDOH Screenings 05/03/2025 [facility]-Adult SDOH Screenings 05/03/2025 10/31/2024 [facility]-Depression Screening 10/31/2025 10/31/2024, 10/06 [facility]-RSV Vaccine: 60+ Years or (1 - 1-dose 75+ series) 2037 [facility]-HIV Screening Completed 10/30/2024 [facility]-Hepatitis C Screening Completed 2024, 09/25/2020, 02/16/2020 [facility]-Obesity Intervention Completed 025, 02/13/2025, 01/22/2025, Additional history exists HPV Vaccines Aged Out [...] this topic Medical Devices Implanted Type Area Guidance Adviser Device Identifier Shelf Expiration Date Model / Serial / Lot Large Diameter 14mm - Sn/A - [id number] Implanted:Qty : 3 on 10/12/2024 by Oneil Blackmon MD at [facility] Cage N/A: Spine Cervical DePuy Spine [employer] [id number] 10/12/2025 [id number] / N/A / One Level Plate, 16mm - Sn/A - [id number] Implanted:Qty : 1 on 10/12/2024 by Oneil Blackmon MD at [facility] Plate N/A: Spine Cervical De[employer] LP-[id number] 10/12/2025 [id number] / N/A / Pre-Lordosed Jonatan W/ Line 65mm - S. - [id number] Implanted:Qty : 2 on 08/30/2021 by Oneil Blackmon MD at [facility] Jonatan Spine Lumbar De[employer]uy Spine [employer] LP-[id number] 08/30/2022 [id number] / . / Expedium 5.50 Polyaxial Screw [id number], - S. - [id number] Implanted:Qty : 2 on 08/30/2021 by Oenil Blackmon MD at [facility] Screw Spine Lumbar De[employer] Sp[employer] LP-[id number] 08/30/2022 [id number] / . / Screw 5.5mm Viper Ti Fen Crtcl Polyax 7mm X 45mm - S. - [id number] Implanted:Qty : 4 on 08/30/2021 by Oneil Blackmon MD at [facility] Screw Spine Lumbar De[employer] LP-349884 08/30/2022 [id number] / . / Single Inner Setscrew - S. - [id number] Implanted:Qty : 6 on 08/30/2021 by Oneil Blackmon MD at [facility] Screw Spine Lumbar De[employer] Spine [employer] LP-[id number] 08/30/2022 [id number] / . / Self Drilling Screw 14mm - Sn/A - [id number] Implanted:Qty : 1 on 10/12/2024 by Oneil Blackmon MD at [facility] Screw N/A: Spine Cervical De[employer]uy Spine [employer] LP-[id number] 10/12/2025 [id number] / N/A / Plates/Screws Bilateral: Mandible Chip Bone 20cc - [id number] Implanted:Qty : 1 on 08/30/2021 by Oneil Blackmon MD at [facility]-732295 05/30/2026 PCAN1/4 / / [id number] Graft Vivigen 5cc - [id number] Implanted:Qty : 1 on 08/30/2021 by Oneil Blackmon MD at [facility]-[id number] 08/11/2022 BL-1500-002 / [id number] / [id number] Graft Vivigen 5cc - [id number] Implanted:Qty : 1 on 08/30/2021 by Oneil Blackmon MD at [facility]-547489 08/04/2022 BL-1500-002 / [id number] / [id number] Self Drilling Screw 14mm - [id number] Implanted:Qty : 5 on 03/14/2022 by Oneil Blackmon MD at [facility] Spine Cervical DePuy Spine [employer] LP-083313 [id number] / / Large Diameter 14mm - [id number] Implanted:Qty : 1 on 03/14/2022 by Oneil Blackmon MD at [facility] Spine Cervical DePuy Spine [employer] LP-[id number] [id number] / / Knee Vanguard1 Cervical Preservon 6mm - [id number] - [id number] Implanted:Qty : 1 on 03/14/2022 by Oneil Blackmon MD at [facility] Spine Cervical [facility]-[id number] 09/30/2026 [id number] / [id number] / [id number] Knee Vanguard1 Cervical Preservon 7mm - [id number] - [id number] Implanted:Qty : 1 on 03/14/2022 by Oneil Blackmon MD at [facility] Right: Spine Cervical [facility]-746858 12/15/2026 [id number] / [id number] / [id number] Screw Retainer 3.5mm X 12mm - [id number] Implanted:Qty : 2 on 03/14/2022 by Oneil Blackmon MD at [facility] Spine Cervical De[employer]uy [employer] LP-[id number] 03.820.102 / / Nut Retainer - [id number] Implanted:Qty : 2 on 03/14/2022 by Oneil Blackmon MD at [facility] Spine Cervical DePuy Spine [employer] LP-[id number] 03.820.110 / / Plate Two Level 28mm - [id number] Implanted:Qty : 1 on 03/14/2022 by Oneil Blackmon MD at [facility] Spine Cervical DePuy Sp[employer] LP-[id number] / / Knee Vanguard1 Cervical Preservon 7mm - [id number] - [id number] Implanted:Qty : 1 on 10/12/2024 by Oneil Blackmon MD at [facility] Spine Cervical [facility]-027934 08/01/2029 [id number] / [id number] / [id number] Tissue Vivigen Formable 1.3cc Pk/4 - [id number] Implanted:Qty : 1 on 10/12/2024 by Oneil Blackmon MD at [facility] N/A: Spine Cervical [facility]-222127 09/23/2025 [id number] / / [id number] Screw Retainer 3.5mm X 14mm - Sn/A - [id number] Implanted:Qty : 2 on 10/12/2024 by Oneil Blackmon MD at [facility] N/A: Spine Cervical DeP[employer] Sp[employer] LP-[id number] 10/12/2025 03.820.103 / N/A / Nut Retainer - Sn/A - [id number] Implanted:Qty : 2 on 10/12/2024 by Oneil Blackmno MD at [facility] N/A: Spine Cervical DePuy Spine Sales LP-[id number] 10/12/2025 03.820.110 / N/A / Procedures Procedure Name Priority Date/Time Associated Diagnosis Comments MR THORACIC SPINE WO IV CONTRAST Routine 06/11/2025 3:15 PM EST Mid back pain XR CERVICAL SPINE COMPLETE 4 TO 5 VIEWS Routine 04/02/2025 1:56 PM EDT S/P cervical spinal fusion HEPATITIS [...] Recently Relevant to Health Maintenance Results * MR Thoracic Spine wo IV [...] combination with mild disc bulge. This causes nfdi-vm-iygvbeyj spinal canal stenosis. Scattered levels of neural [...] endplates with mild anterior wedging, greater at V5qcxoq there is approximately one third height loss [...] in combination with mild disc bulge. This wnotvxsusb-zl-eyqnrxqk spinal canal stenosis. Scattered levels of neuralforaminal [...] Rodrigez on 06/11/2025 8:22 PM Andra Matos SOLE TIER IMG MRI PROCEDURES Final Res ult * XR Cervical Spine Complete 4 To 5 Views (04/02/2025 1:56 PM EDT) Anatomical Region Laterality Modality Spine, C-spine Digital Radiogra phy Impressions 04/02/2025 2:40 PM EDT Postsurgical changes as above described, without hardware complications. CRITICAL RESULT: No. COMMUNICATION: Per this written report. Drafted by Ba Ruiz MD on 04/02/2025 2:38 PM Final report signed by Ba Ruiz MD on 04/02/2025 2:40 PM Narrative 04/02/2025 2:40 PM EDT CLINICAL INDICATION: fusion TECHNIQUE: XR CERVICAL SPINE COMPLETE 4 TO 5 VIEWS COMPARISON: February 13, 2025 FINDINGS: Redemonstration of ACDF C3-C4. No hardware complications. Redemonstration of prior interbody fusion at C3-C6. Straightening of the cervical spine. Unchanged alignment and multilevel degenerative changes of the cervical spine. No evidence of dynamic instability. No acute fractures or dislocations. Redemonstration of bilateral TMJ arthroplasty. Vascular calcifications. Procedure Note Ba Mcpherson MD - 04/02/2025 CLINICAL INDICATION: fusion TECHNIQUE: XR CERVICAL SPINE COMPLETE 4 TO 5 VIEWS COMPARISON: February 13, 2025 FINDINGS: Redemonstration of ACDF C3-C4. No hardware complications. Redemonstrationof prior interbody fusion at C3-C6. Straightening of the cervical spine. Unchanged alignment and multileveldegenerative changes of the cervical spine. No evidence of dynamic instability. No acute fractures or dislocations. Redemonstration of bilateral TMJ arthroplasty. Vascular calcifications. IMPRESSION: Postsurgical changes as above described, without hardware complications. CRITICAL RESULT: No. COMMUNICATION: Per this written report. Drafted by Ba Ruiz MD on 04/02/2025 2:38 PM Final report signed by Ba Ruiz MD on 52:40 PM Andra Matos SOLE TIER IMG XR PROCEDURES Final Resu lt * ED HIV 1/2 Antibody/Antigen Screen w/Reflex to HIV 1/2 Differentiation (10/30/2024 6:38 PM EDT) HIV 1 & 2 Antibody/Antigen Screen Non Reactive Non Reactive 10/30/2024 7:54 PM EDT [facility] Comment:Screening for HIV 1 & 2 antibodies, and P24 antigen is NONREACTIVE. No confirmatory testing is required. Blood Venous blood specimen / Unknown Venipuncture / Unknown 10/30/2024 6:38 PM EDT 10/30/2024 7:09 PM EDT Rogerio Marino MD LAB BLOOD ORDERABLES Final Res ult [facility] [address] [place] [address] * Hepatitis C Antibody - ED (10/30/2024 6:38 PM EDT) Hepatitis C Antibody Negative Negative 10/30/2024 7:54 PM EDT [facility] Blood Venous blood specimen / Unknown Venipuncture / Unknown 10/30/2024 6:38 PM EDT 10/30/2024 7:09 PM EDT Rogerio Marino MD LAB BLOOD ORDERABLES Final Res ult [facility] [address] [place] [address] from Last 3 Months or Most Recently Relevant to Health Maintenance Insurance [facility] Advance Directives * Full Code (Latest Code Status on File) Date Activated Date Inactivated Comments 10/31/2024 1:17 AM 11/01/2024 4:18 PM * Full Code Date Activated Date Inactivated Comments 03/14/2022 12:00 PM 03/15/2022 5:21 PM Question Answer Comments Patient has decision-making capacity? Yes Care Teams Account Liaison Relationship Specialty Start Date End Date Kristy Sanchez APRN [address] [place] [address] PCP - General 10/31/24 Andra Matos APRN [address] [place] [address] Nurse Practitioner Neurosurgery 07/16/21 Oneil Blackmon MD [address] [place] [address] Surgeon Neurosurgery 08/18/21 Andra Matos APRN [address] [place] [address] Nurse Practitioner Neurosurgery 10/12/21 Shania Parikh DDS [address] [place] [address] Dentist Dentist 06/10/22 Aldo Pickens DMD [address] [place] [address] Dentist 06/10/22
--- OUTSIDE RECORDS SUMMARY | 2025-06-13 15:03 | XMS_ITS | Encounter Summary ---
Author Organization Healthcare Address [address] [place] [address] Care Team Providers Care Solicitor Patent Name Role Phone Andra Matos DIGITAL ASSET MANAGER Unavailable [phone] Oneil Blackmon MD Unavailable [phone] Andra Matos DIGITAL ASSET MANAGER Unavailable [phone] Shania Parikh DDS Unavailable + Aldo Pickens DMD Unavailable [phone] Pcp, No Primary Care Provider Unavailabl e Kristy Sanchez DIGITAL ASSET MANAGER Primary Care Provider [phone] Encounter Details Date Type Department Care Team (Late st Contact Info) Description 10/14/2024 Telephone [facility] [address] [place] [address] [address] [place] [address] Yessenia Estevez Social History Tobacco [...] drink first t kisha in the morning (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) to steady your nerves or to get [...] documented as of this encounter Care Teams Solicitor Patent Relationship Specialty Start Date End Date Pcp, No [address] [place] [address] PCP - General Family Medicine 10/30/24 10/30/24 Kristy Sanchez APRN [address] [place] [address] PCP - General 10/31/24 Andra Matos APRN [address] [place] [address] Nurse Practitioner Neurosurgery 07/16/21 Oneil Blackmon MD [address] [place] [address] Surgeon Neurosurgery 08/18/21 Andra Matos APRN [address] [place] [address] Nurse Practitioner Neurosurgery 10/12/21 Shania Parikh DDS [address] [place] [address] Dentist Dentist 06/10/22 Aldo Pickens DMD [address] [place] [address] Dentist 06/10/22 documented as of this encounter
--- OUTSIDE RECORDS SUMMARY | 2025-06-13 15:03 | XMS_ITS | Encounter Summary ---
Author Organization Healthcare Address [address] [place] [address] Care Team Providers Care Field Trainer Name Role Phone Andra Matos AUTOMOBILE BRAKE BONDER Unavailable [phone] Oneil Blackmon MD Unavailable [phone] Andra Matos AUTOMOBILE BRAKE BONDER Unavailable [phone] Shania Parikh DDS Unavailable + Aldo Pickens DMD Unavailable [phone] Kristy Sanchez AUTOMOBILE BRAKE BONDER Primary Care Provider [phone] Encounter Details Date Type Department Care Team (Late st Contact Info) Description 02/03/2025 Orders Only External Location [address] [place] [address] Provider, External Social History Tobacco Use Types [...] any clubs o r organizations such as confucianism groups, unions, fraternal or athletic groups, or [...] in the past 12 m [facility], were you homeless or living [...] drink first t 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) to steady your nerves or to get [...] Name Priority Date/Time Associated Diagnosis Comments MR OUTSIDE IMAGES 02/03/2025 10:35 AM EDT documented in this encounter Results * MR transfer of outside films (02/03/2025 10:35 AM EDT) Anatomical Region Laterality [...] documented as of this encounter Care Teams Field Trainer Relationship Specialty Start Date End Date Kristy Sanchez APRN [address] [place] [address] PCP - General 10/31/24 Andra Matos APRN [address] [place] [address] Nurse Practitioner Neurosurgery 07/16/21 Oneil Blackmon MD [address] [place] [address] Surgeon Neurosurgery 08/18/21 Andra Matos APRN [address] [place] [address] Nurse Practitioner Neurosurgery 10/12/21 Shania Parikh DDS [address] [facility] [address] [place] [address] Dentist Dentist 06/10/22 Aldo Pickens DMD [address] [facility] [address] [place] [address] Dentist 06/10/22 documented as of this encounter
--- OUTSIDE RECORDS SUMMARY | 2025-06-13 15:03 | XMS_ITS | Encounter Summary ---
Author Organization [facility] Address [address] [place] [address] Care Team Providers Care Program Director Scouting Name Role Phone Andra Matos APRN Unavailable [phone] Oneil Blackmon MD Unavailable [phone] Andra Matos APRN Unavailable [phone] Shania Parikh DDS Unavailable + Aldo Pickens DMD Unavailable [phone] Kristy Sanchez APRN Primary Care Provider [phone] Reason for Referral * Imaging (Routine) - Pending Review Specialty Diagnoses / Procedures Referred By Gordon zheng Referred To Contact Radiology Diagnoses Bony pelvic pain Procedures MR Pelvis wo IV Contrast Andra Matos APRN [address] [place] [address] Phone: tel: fax: Referral ID Status Reason Start Date Expiration Date V isits Requested Visits Authorized [id number] Pending Review 05/19/2025 11/18/2026 1 1 Encounter Details Date Type Department Care Team (Late st Contact Info) Description 05/19/2025 Orders Only [place] [facility] [address] [place] [address] Andra Matos, MUSIC THEORY PROFESSOR [address] [place] [address] Bony pelvic pain (Primary Dx) [...] any clubs o r organizations such as baptist groups, unions, fraternal or athletic groups, or [...] Questionnaire-2 Score 0 10/31/2024 [facility] - Occupational Stress Questionnaire Answer Date [...] drink first t kisha in the morning (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 ASSISTANT) to steady your nerves or to [...] Contrast Imaging Routine Bony pelvic pain Expected: 05/19/2025 (Approximate), Expires: 11/20/2026 documented as of this encounter Visit Diagnoses [...] documented as of this encounter Care Teams Program Director Scouting Relationship Specialty Start Date End Date Kristy Sanchez APRN [address] [place] [address] PCP - General 10/31/24 Andra Matos APRN [address] [place] [address] Nurse Practitioner Neurosurgery 07/16/21 Oneil Blackmon MD [address] [place] [address] Surgeon Neurosurgery 08/18/21 Andra Matos APRN [address] [place] [address] Nurse Practitioner Neurosurgery 10/12/21 Shania Parikh DDS [address] [place] [address] Dentist Dentist 06/10/22 Aldo Pickens DMD [address] [place] [address] Dentist 06/10/22 documented as of this encounter
--- OUTSIDE RECORDS SUMMARY | 2025-06-13 15:03 | XMS_ITS | Encounter Summary ---
Author Organization Healthcare Address [address] [place] [address] Care Team Providers Care Forestry Aid Name Role Phone Andra Matos PRESCHOOL TEACHER Unavailable [phone] Oneil Blackmon MD Unavailable [phone] Andra Matos PRESCHOOL TEACHER Unavailable [phone] Shania Parikh DDS Unavailable + Aldo Pickens DMD Unavailable [phone] Pcp, No Primary Care Provider Unavailabl e Kristy Sanchez PRESCHOOL TEACHER Primary Care Provider [phone] Encounter Details Date Type Department Care Team (Late st Contact Info) Description 03/24/2023 Orders Only External Location [address] [place] [id number] Provider, External Social History Tobacco Use Types [...] drink first t kisha in the morning (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-LIFE SPECIALIST) to steady your nerves or to [...] Computed Tomogra phy 03/24/2023 5:22 PM EDT External Provider IMG CT PROCEDURES Final Result [...] documented as of this encounter Care Teams Forestry Aid Relationship Specialty Start Date End Date Pcp, Shazia [address] [place] [address] PCP - General Family Medicine 10/30/24 10/30/24 Kristy Sanchez APRN [address] [place] [address] PCP - General 10/31/24 Andra Matos APRN [address] [place] [address] Nurse Practitioner Neurosurgery 07/16/21 Oneil Blackmon MD [address] [place] [address] Surgeon Neurosurgery 08/18/21 Andra Matos APRN [address] [place] [address] Nurse Practitioner Neurosurgery 10/12/21 Shania Parikh DDS [address] [place] [address] Dentist Dentist 06/10/22 Aldo Pickens DMD [address] [place] [address] Dentist 06/10/22 documented as of this encounter
--- OUTSIDE RECORDS SUMMARY | 2025-06-13 15:03 | XMS_ITS | Encounter Summary ---
Author Organization [facility] Address [address] [place] [address] Care Team Providers Care Entry Analyst Name Role Phone Andra Matos EMPLOYMENT INSTRUCTIONAL ASSOCIATE Unavailable [phone] Oneil Blackmon MD Unavailable [phone] Andra Matos EMPLOYMENT INSTRUCTIONAL ASSOCIATE Unavailable [phone] Shania Parikh DDS Unavailable + Aldo Pickens DMD Unavailable [phone] Kristy Sanchez EMPLOYMENT INSTRUCTIONAL ASSOCIATE Primary Care Provider [phone] Encounter Details Date Type Department Care Team (Latest Contact Info) Description 06/11/2025 Travel Social History Tobacco Use Types Packs/Day [...] How often do you attend chur or congregational services? 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-HANDLE TURNER) to steady your nerves or to get [...] documented as of this encounter Care Teams Entry Analyst Relationship Specialty Start Date End Date Kristy Sanchez, EMPLOYMENT INSTRUCTIONAL ASSOCIATE [address] [place] [address] PCP - General 10/31/24 Andra Matos, NEFTALI [address] [place] [address] Nurse Practitioner Neurosurgery 07/16/21 Oneil Blackmon MD [address] [place] [address] Surgeon Neurosurgery 08/18/21 Andra Matos, NEFTALI [address] [place] [address] Nurse Practitioner Neurosurgery 10/12/21 Shania Parikh DDS [address] [place] [address] Dentist Dentist 06/10/22 Aldo Pickens DMD [address] [place] [address] Dentist 06/10/22 documented as of this encounter
--- OUTSIDE RECORDS SUMMARY | 2025-06-13 15:03 | XMS_ITS | Encounter Summary ---
Author Organization [facility] Address [address] [place] [address] Care Team Providers Care Crushing Foreman Name Role Phone Andra Matos PHARMACY ANALYST Unavailable [phone] Oneil Blackmon MD Unavailable [phone] Andra Matos PHARMACY ANALYST Unavailable [phone] Shania Parikh DDS Unavailable + Aldo Pickens DMD Unavailable [phone] Kristy Sanchez PHARMACY ANALYST Primary Care Provider [phone] Reason for Referral * Imaging (Routine) - Closed Specialty Diagnoses / Procedures Referred By Contac t Referred To Contact Radiology Diagnoses Mid back pain Procedures MR Thoracic Spine wo IV Contrast Andra Matos APRN [address] [place] [address] Phone: tel: fax: Referral ID Status Reason Start Date Expiration Date Visits Re quested Visits Authorized [id number] Closed 04/24/2025 10/24/2026 1 1 Encounter Details Date Type Department Care Team (Late st Contact Info) Description 04/24/2025 [place] Only [place] [facility] [address], [address] [place] [address] Andra Matos APRN [address] [place] [address] Mid back pain (Primary Dx) Social History Tobacco Use [...] How often do you attend chur or adventism services? Never 10/31/2024 Do you belong to [...] Recorded Patient Health Questionnaire-2 Score 0 10/31/2024 [facility] Answer [...] any time in the past 12 m [facility], were you homeless or living in a [...] drink first t kisha in the morning (EYE-LAMINATION OPERATOR) to steady your nerves or to [...] on file documented as of this encounter Results * MR Thoracic Spine [...] combination with mild disc bulge. This causes rxgd-dj-npvrksrm spinal canal stenosis. Scattered levels of neural [...] endplates with mild anterior wedging, greater at H7fcghc there is approximately one third height loss [...] in combination with mild disc bulge. This yvgubavcxx-sc-jdsmbouw spinal canal stenosis. Scattered levels of neuralforaminal [...] this encounter Visit Diagnoses Diagnosis Mid back pain- Primary Mid back pain documented in this encounter Additional Health Concerns Assessment Noted Time PHQ-9 Depression Total Score: 2 11/01/19 25 1:01 PM EDT A fall risk assessment has been complete d for the patient 04/02/2025 2:00 PM EDT A Body Mass Index follow-up plan has been documented for the patient 04/12/2025 7:12 PM EDT documented as of this encounter Care Teams Crushing Foreman Relationship Specialty Start Date End Date Kristy Sanchez APRN [address] [place] [address] PCP - General 10/31/24 Andra Matos APRN [address] [place] [address] Nurse Practitioner Neurosurgery 07/16/21 Oneil Blackmon MD [address] [place] [address] Surgeon Neurosurgery 08/18/21 Andra Matos APRN [address] [place] [address] Nurse Practitioner Neurosurgery 10/12/21 Shania Parikh DDS [address] [place] [address] Dentist Dentist 06/10/22 Aldo Pickens DMD [address] [place] [address] Dentist 06/10/22 documented as of this encounter
== END 2025-06-13 23:59 ==
LOC: RAD 15:01
PROVIDERS: PCP Family Medicine; Visit Provider Family Medicine
DX: R07.1 Chest pain on breathing (principal); S22.41XD Multiple fractures of ribs, right side, subsequent encounter for fracture with routine healing; S20.219D Contusion of unspecified front wall of thorax, subsequent encounter; X58.XXXD Exposure to other specified factors, subsequent encounter; Z87.898 Personal history of other specified conditions
CPT/HCPCS: 71046

== ENCOUNTER 2025-07-08 08:29 | Outpatient (CLI) | payer BC, SELFPAY ==
--- OUTSIDE RECORDS SUMMARY | 2025-06-11 14:29 | XMS_ITS | Encounter Summary ---
Author Organization [facility] Address [address] [place] [address] Care Team Providers Care Sintering Plant Supervisor Name Role Phone Andra Matos BOX CLOSING MACHINE OPERATOR Unavailable [phone] Oneil Blackmon MD Unavailable [phone] Andra Matos BOX CLOSING MACHINE OPERATOR Unavailable [phone] Shania Parikh DDS Unavailable + Aldo Pickens DMD Unavailable [phone] Kristy Sanchez BOX CLOSING MACHINE OPERATOR Primary Care Provider [phone] Reason for Referral * Imaging (Routine) - Closed Specialty Diagnoses / Procedures Referred By Contac t Referred To Contact Radiology Diagnoses Mid back pain Procedures MR Thoracic Spine wo IV Contrast Andra Matos APRN [address] [place] [address] Phone: tel: fax: Referral ID Status Reason Start Date Expiration Date Visits Re quested Visits Authorized [id number] Closed 04/24/2025 10/24/2026 1 1 Reason for Visit * Imaging (Routine) - Closed Specialty Diagnoses / Procedures Referred By Contac t Referred To Contact Radiology Diagnoses Mid back pain Procedures MR Thoracic Spine wo IV Contrast Andra Matos APRN [address] [place] [address] Phone: tel: fax: Referral ID Status Reason Start Date Expiration Date Visits Re quested Visits Authorized [id number] Closed 04/24/2025 10/24/2026 1 1 Encounter Details Date Type Department Care Team (Latest Contact Info) Description 06/11/2025 2:29 PM EST - 06/11/2025 11:59 PM EST Hospital Encounter [facility] [address] [place] [address] Mid back pain Discharge Disposition: Home or Self Care [...] often do you attend chur ch or presybeterian services? Never 10/31/2024 Do you belong to [...] Recorded Patient Health Questionnaire-2 Score 0 10/31/2024 [facility] - Occupational [...] any time in the past 12 m [facility], were you homeless or living [...] drink first t kisha in the morning (EYE-RADIO SPORTSCASTER) to steady your nerves or to get rid of a hangover? 0 10/30/2024 CAGE Questionnaire Score 0 025 Utilities Answer Date Recorded In the past 12 months has [employer], gas, oil, or water [employer] threatened to shut off services in your [...] MUSCLE SPASM 20 tablet 01/17/2025 HYDROcodone-aceta minophen ([place]) 5-325 MG tablet 02/11/2025 losartan (Cozaar) 50 [...] as of this encounter Plan of Treatment Not on file documented as of this encounter Procedures Procedure Name Priority Date/Time Associated Diagnosis Comments MR THORACIC SPINE WO IV CONTRAST Routine 06/11/2025 3:15 PM EST Mid back pain documented in this encounter Results * MR Thoracic Spine wo IV Contrast (06/11/2025 3:15 PM EST) Anatomical Region Laterality Modality T-spine Magnetic Resonan ce Impressions 06/11/2025 8:22 PM EST Compression deformities of T4 and T5 superior endplates as discussed above, not significantly changed since the CT examination from January 2025 allowing for difference in imaging technique. No new or acute appearing compression deformities. CRITICAL RESULT: No. COMMUNICATION: Per this written report. Drafted by Yessenia Rodrigez on 06/11/2025 8:17 PM Final report signed by Yessenia Rodrigez on 06/11/2025 8:22 PM Narrative 06/11/2025 8:22 PM EST CLINICAL INDICATION: Mid back pain, prior compression fracture TECHNIQUE: Multiplanar multiecho sequences were obtained through the thoracic spine utilizing T1 and T2 weighting without the administration of intravenous contrast. 12 series were obtained including localizer series. COMPARISON: CT thoracic spine 02/01/2025. Thoracic spine radiographs February 13, 2025 FINDINGS: Diagnostic Quality: Adequate. Alignment: Alignment of the vertebral bodies is within normal limits. Marrow: No suspicious marrow signal abnormality. Vertebrae and Intervertebral Discs: There are compression deformities of T4 and T5 superior endplates with mild anterior wedging, greater at T5 where there is approximately one third height loss of the vertebral body anteriorly. The configuration is not significantly changed since comparison CT examination from January 2025. Remaining vertebral body heights are maintained. Varying degrees of loss of disc space height throughout the thoracic spine, greatest at T7-8 where there is moderate loss of disc space height. Spinal Cord: The spinal cord is of normal caliber without abnormal intrinsic signal. Significant findings by level: There are multiple levels of small disc bulges within the mid to lower thoracic spine which cause a mostly mild degree of spinal canal stenosis. Findings are greatest at T10-11 where there is ligamentum flavum thickening in combination with mild disc bulge. This causes gdef-qs-fvxjwwwn spinal canal stenosis. Scattered levels of neural foraminal stenosis throughout the thoracic spine, greatest at T10-11 where there is moderate neural foraminal stenosis as seen on the left. Prevertebral and Paraspinal Soft Tissues: There is no prevertebral or paraspinal soft tissue swelling or mass. Other Findings: None. Procedure Note Yessenia Rodrigez MD - 06/11/2025 CLINICAL INDICATION: Mid back pain, prior compression fracture TECHNIQUE: Multiplanar multiecho sequences were obtained through the thoracic spineutilizing T1 and T2 weighting without the administration of intravenouscontrast. 12 series were obtained including localizer series. COMPARISON: CT thoracic spine 02/01/2025. Thoracic spine radiographs February 13, 2025 FINDINGS: Diagnostic Quality: Adequate. Alignment: Alignment of the vertebral bodies is within normal limits. Marrow: No suspicious marrow signal abnormality. Vertebrae and Intervertebral Discs: There are compression deformities ofT4 and T5 superior endplates with mild anterior wedging, greater at G9klnhu there is approximately one third height loss of the vertebral bodyanteriorly. The configuration is not significantly changed sincecomparison CT examination from January 2025. Remaining vertebral body heightsare maintained. Varying degrees of loss of disc space height throughoutthe thoracic spine, greatest at T7-8 where there is moderate loss of discspace height. Spinal Cord: The spinal cord is of normal caliber without abnormalintrinsic signal. Significant findings by level: There are multiple levels of small disc bulges within the mid to lowerthoracic spine which cause a mostly mild degree of spinal canal stenosis.Findings are greatest at T10-11 where there is ligamentum flavumthickening in combination with mild disc bulge. This hjdtyeedxz-gt-furfwvvc spinal canal stenosis. Scattered levels of neuralforaminal stenosis throughout the thoracic spine, greatest at T10-11 wherethere is moderate neural foraminal stenosis as seen on the left. Prevertebral and Paraspinal Soft Tissues: There is no prevertebral orparaspinal soft tissue swelling or mass. Other Findings: None. IMPRESSION: Compression deformities of T4 and T5 superior endplates as discussedabove, not significantly changed since the CT examination from Januaryllowing for difference in imaging technique. No new or acute appearingcompression deformities. CRITICAL RESULT: No. COMMUNICATION: Per this written report. Drafted by Yessenia Rodrigez on 06/11/2025 8:17 PM Final report signed by Yessenia Rodrigez on 06/11/2025 8:22 PM Andra Matos APRN IMG MRI PROCEDURES Final Res ult documented in this encounter Visit Diagnoses Diagnosis Mid back pain documented in this encounter Additional Health Concerns Assessment Noted Time PHQ-9 Depression Total Score: 2 11/01/19 25 1:01 PM EDT A fall risk assessment has been complete d for the patient 04/02/2025 2:00 PM EDT A Body Mass Index follow-up plan has been documented for the patient 04/12/2025 7:12 PM EDT documented as of this encounter Care Teams Sintering Plant Supervisor Relationship Specialty Start Date End Date Kristy Sanchez APRN [address] [place] [address] PCP - General 10/31/24 Andra Matos APRN [address] [place] [address] Nurse Practitioner Neurosurgery 07/16/21 Oneil Blackmon MD [address] [place] [address] Surgeon Neurosurgery 08/18/21 Andra Matos APRN [address] [place] [address] Nurse Practitioner Neurosurgery 10/12/21 Shania Parikh DDS [address] [place] [address] Dentist Dentist 06/10/22 Aldo Pickens DMD [address] [place] [address] Dentist 06/10/22 documented as of this encounter
--- OUTSIDE RECORDS SUMMARY | 2025-07-08 08:31 | XMS_ITS | Clinical Summary ---
Author Organization [facility] Address [address] [place] [address] Care Team Providers Care Bore Miner Operator Name Role Phone System, Provider Not In [...] therelease of HIV test results or diagnoses. [id number] Social History Tobacco Use Types Packs/Day Years Used Date Smoking Tobacco: Never Assessed Comments Unknown Sex and Gender Information Value Date Recorded Sex Assigned at Not on file Legal Sex Female 10:49 AM EST Gender Identity Not on file Sexual Orientation Not on file Plan of Treatment Not on file Insurance [facility] [employer] Care Teams Bore Miner Operator Relationship Specialty Start Date End Date System, Provider Not In PCP - General 07/22/19
--- OUTSIDE RECORDS SUMMARY | 2025-07-08 08:31 | XMS_ITS | Encounter Summary ---
Author Organization Healthcare Address [address] [place] [address] Care Team Providers Care Stamp Machine Servicer Name Role Phone Andra Matos INVESTIGATIONS CHIEF Unavailable [phone] Oneil Blackmon MD Unavailable [phone] Andra Matos INVESTIGATIONS CHIEF Unavailable [phone] Shania Parikh DDS Unavailable + Aldo Pickens DMD Unavailable [phone] Pcp, No Primary Care Provider Unavailabl e Kristy Sanchez INVESTIGATIONS CHIEF Primary Care Provider [phone] Encounter Details Date Type Department Care Team (Late st Contact Info) Description 03/24/2023 Orders Only External Location [address] [place] [id number] Provider, External Social History Tobacco Use Types [...] drink first t kisha in the morning (EYE-TRAFFIC CLERK) to steady your nerves or to [...] documented as of this encounter Care Teams Stamp Machine Servicer Relationship Specialty Start Date End Date Pcp, Shazia [address] [place] [address] PCP - General Family Medicine 10/30/24 10/30/24 Kristy Sanchez APRN [address] [place] [address] PCP - General 10/31/24 Andra Matos APRN [address] [place] [address] Nurse Practitioner Neurosurgery 07/16/21 Oneil Blackmon MD [address] [place] [address] Surgeon Neurosurgery 08/18/21 Andra Matos APRN [address] [place] [address] Nurse Practitioner Neurosurgery 10/12/21 Shania Parikh DDS [address] [place] [address] Dentist Dentist 06/10/22 Aldo Pickens DMD [address] [place] [address] Dentist 06/10/22 documented as of this encounter
--- OUTSIDE RECORDS SUMMARY | 2025-07-08 08:31 | XMS_ITS | Encounter Summary ---
Author Organization [facility] Address [address] [place] [address] Care Team Providers Care Cardiac Nurse Practitioner Name Role Phone Andra Matos VULCANIZER RUBBER PLATE Unavailable [phone] Oneil Blackmon MD Unavailable [phone] Andra Matos VULCANIZER RUBBER PLATE Unavailable [phone] Shania Parikh DDS Unavailable + Aldo Pickens DMD Unavailable [phone] Kristy Sanchez VULCANIZER RUBBER PLATE Primary Care Provider [phone] Encounter Details Date Type Department Care Team (Late st Contact Info) Description 02/03/2025 Orders Only External Location [address] [place] [address] Provider, External Social History Tobacco Use Types [...] any clubs o r organizations such as roman catholic groups, unions, fraternal or athletic groups, [...] Recorded Patient Health Questionnaire-2 Score 0 10/31/2024 [facility] of Occupat ional Health - [...] drink first t kisha in the morning (EYE-ORACLE ADF CONSULTANT) to steady your nerves or to get [...] documented as of this encounter Care Teams Cardiac Nurse Practitioner Relationship Specialty Start Date End Date Kristy Sanchez APRN [address] [place] [address] PCP - General 10/31/24 Andra Matos APRN [address] [place] [address] Nurse Practitioner Neurosurgery 07/16/21 Oneil Blackmon MD [address] [place] [address] Surgeon Neurosurgery 08/18/21 Andra Matos APRN [address] [place] [address] Nurse Practitioner Neurosurgery 10/12/21 Shania Parikh DDS [address] [facility] [address] [place] [address] Dentist Dentist 06/10/22 Aldo Pickens DMD [address] [facility] [address] [place] [address] Dentist 06/10/22 documented as of this encounter
--- OUTSIDE RECORDS SUMMARY | 2025-07-08 08:31 | XMS_ITS | Encounter Summary ---
Author Organization [facility] Address [address] [place] [address] Care Team Providers Care Life Skills Specialist Name Role Phone Andra Matos FIELD HOCKEY COACH Unavailable [phone] Oneil Blackmon MD Unavailable [phone] Andra Matos FIELD HOCKEY COACH Unavailable [phone] Shania Parikh DDS Unavailable + Aldo Pickens DMD Unavailable [phone] Kristy Sanchez FIELD HOCKEY COACH Primary Care Provider [phone] Reason for Referral * Imaging (Routine) - Denied Specialty Diagnoses / Procedures Referred By Contac t Referred To Contact Diagnoses Bony pelvic pain Procedures MR Pelvis wo IV Contrast Andra Matos, FIELD HOCKEY COACH [address] [place] [address] Phone: tel: fax: [facility] () [address] [place] [address] Phone: tel: fax: Referral ID Status Reason Start Date Expiration Date Visits Re quested Visits Authorized [id number] Denied 06/11/2025 12/11/2026 1 0 Encounter Details Date Type Department Care Team (Late st Contact Info) Description 06/11/2025 [place] Only [place] [facility] [address] [place] [address] Andra Matos, FIELD HOCKEY COACH [address] [place] [address] Bony pelvic pain (Primary Dx) [...] Recorded Patient Health Questionnaire-2 Score 0 10/31/2024 [facility] of Occupat ional Health - [...] drink first t kisha in the morning (EYE-BACKEND TESTER) to steady your nerves or to [...] documented as of this encounter Care Teams Life Skills Specialist Relationship Specialty Start Date End Date Kristy Sanchez APRN [address] [place] [address] PCP - General 10/31/24 Andra Matos APRN [address] [place], [place] [address] Nurse Practitioner Neurosurgery 07/16/21 Oneil Blackmon MD [address] [place] [address] Surgeon Neurosurgery 08/18/21 Andra Matos APRN [address] [place] [address] Nurse Practitioner Neurosurgery 10/12/21 Shania Parikh DDS [address] [place], [place] [address] Dentist Dentist 06/10/22 Aldo Pickens DMD [address] [place] [address] Dentist 06/10/22 documented as of this encounter
--- OUTSIDE RECORDS SUMMARY | 2025-07-08 08:31 | XMS_ITS | Encounter Summary ---
Author Organization [facility] Address [address] [place] [address] Care Team Providers Care Market Analysis Director Name Role Phone Andra Matos INTERVENTIONAL CARDIOLOGIST Unavailable [phone] Oneil Blackmon MD Unavailable [phone] Andra Matos INTERVENTIONAL CARDIOLOGIST Unavailable [phone] Shania Parikh DDS Unavailable + Aldo Pickens DMD Unavailable [phone] Kristy Sanchez INTERVENTIONAL CARDIOLOGIST Primary Care Provider [phone] Encounter Details Date Type Department Care Team [...] How often do you attend chur or judaism services? Never 10/31/2024 Do you belong to [...] [facility] of Occupat ional [place] - Occupational Stress Questionnaire Answer Date Recorded [...] drink first t kisha in the morning (EYE-CLOTHES MODEL) to steady your nerves or to get [...] documented as of this encounter Care Teams Market Analysis Director Relationship Specialty Start Date End Date Kristy Sanchez, INTERVENTIONAL CARDIOLOGIST [address] [place] [address] PCP - General 10/31/24 Andra Matos, NEFTALI [address] [place] [address] Nurse Practitioner Neurosurgery 07/16/21 Oneil Blackmon MD [address] [place] [address] Surgeon Neurosurgery 08/18/21 Andra Matos, NEFTALI [address] [place] [address] Nurse Practitioner Neurosurgery 10/12/21 Shania Parikh DDS [address] [place] [address] Dentist Dentist 06/10/22 Aldo Pickens DMD [address] [place] [address] Dentist 06/10/22 documented as of this encounter
--- OUTSIDE RECORDS SUMMARY | 2025-07-08 08:31 | XMS_ITS | Encounter Summary ---
Author Organization [facility] Address [address] [place] [address] Care Team Providers Care Psychiatry Physician Name Role Phone Andra Matos PRODUCTION CONTROL TECHNOLOGIST Unavailable [phone] Oneil Blackmon MD Unavailable [phone] Andra Matos PRODUCTION CONTROL TECHNOLOGIST Unavailable [phone] Shania Parikh DDS Unavailable + Aldo Pickens DMD Unavailable [phone] Pcp, No Primary Care Provider Unavailabl e Kristy Sanchez PRODUCTION CONTROL TECHNOLOGIST Primary Care Provider [phone] Encounter Details Date Type Department Care Team (Late st Contact Info) Description 10/14/[address] [facility] ornamental ironworker helper [facility] [address] [place] [address] [address] [place] [address] TrueYessenia Social History Tobacco Use Types Packs/Day Years [...] drink first t kisha in the morning (EYE-SILK SCREENER) to steady your nerves or to get [...] documented as of this encounter Care Teams Psychiatry Physician Relationship Specialty Start Date End Date Pcp, No [address] [place] [address] PCP - General Family Medicine 10/30/24 10/30/24 Kristy Sanchez APRN [address] [place] [address] PCP - General 10/31/24 Andra Maots APRN [address] [place] [address] Nurse Practitioner Neurosurgery 07/16/21 Oneil Blackmon MD [address] [place] [address] Surgeon Neurosurgery 08/18/21 Andra Matos APRN [address] [place] [address] Nurse Practitioner Neurosurgery 10/12/21 Shania Parikh DDS [address] [place] [address] Dentist Dentist 06/10/22 Aldo Pickens DMD [address] [place] [address] Dentist 06/10/22 documented as of this encounter
--- OUTSIDE RECORDS SUMMARY | 2025-07-08 08:31 | XMS_ITS | Encounter Summary ---
Author Organization [facility] Address [address] [place] [address] Care Team Providers Care Clay Miner Name Role Phone Andra Matos PARCEL POST CARRIER Unavailable [phone] Oneil Blackmon MD Unavailable [phone] Andra Matos PARCEL POST CARRIER Unavailable [phone] Shania Parikh DDS Unavailable + Aldo Pickens DMD Unavailable [phone] Kristy Sanchez PARCEL POST CARRIER Primary Care Provider Encounter Details Date Type [...] any clubs o r organizations such as yarsani groups, unions, fraternal or athletic groups, or [...] 10/31/2024 [facility] of Occupat ional [facility] - Occupational Stress Questionnaire Answer [...] any time in the past 12 m [facility], were you homeless or living in [...] drink first t kisha in the morning (EYE-DIRECTOR TITLE) to steady your nerves or to get [...] documented as of this encounter Care Teams Clay Miner Relationship Specialty Start Date End Date Kristy Sanchez, PARCEL POST CARRIER [address] [place] [address] PCP - General 10/31/24 Andra Matos, NEFTALI [address] [place] [address] Nurse Practitioner Neurosurgery 07/16/21 Oneil Blackmon MD [address] [place] [address] Surgeon Neurosurgery 08/18/21 Andra Matos, NEFTALI [address] [place] [address] Nurse Practitioner Neurosurgery 10/12/21 Shania Parikh DDS [address] [place] [address] Dentist Dentist 06/10/22 Aldo Pickens DMD [address] [place] [address] Dentist 06/10/22 documented as of this encounter
--- OUTSIDE RECORDS SUMMARY | 2025-07-08 08:31 | XMS_ITS | Encounter Summary ---
Author Organization [facility] Address [address] [place] [address] Care Team Providers Care Planning Advisor Name Role Phone Andra Matos GOLF COURSE RANGER Unavailable Oneil Blackmon MD Unavailable [phone] Andra Matos GOLF COURSE RANGER Unavailable Shania Parikh DDS Unavailable + Aldo Pickens DMD Unavailable [phone] Kristy Sanchez GOLF COURSE RANGER Primary Care Provider [phone] Encounter Details Date Type Department Care Team (Late st Contact Info) Description 06/10/[address] [facility] [address] [place] [address] Andra Matos, GOLF COURSE RANGER [address] [place] [address] Social History Tobacco Use Types [...] How often do you attend chur or church services? Never 10/31/2024 Do you belong to any clubs o r organizations such as baptism groups, unions, fraternal or athletic groups, or [...] Recorded Patient Health Questionnaire-2 Score 0 10/31/2024 [facility] of Occupat ional Health - Occupational Stress [...] in the past [address] [facility], were you homeless or living in a [...] drink first t kisha in the morning (EYE-FUNERAL ARRANGER) to steady your nerves or to get rid of a hangover? 0 10/30/2024 CAGE Questionnaire Score 0 025 Utilities Answer Date Recorded In the past 12 months has th e [employer], gas, oil, or water company threatened to [...] She is keeping her appointment tomorrow at [facility] for MRI Thoracic - MRI Pelvis for July 2025 at has been canceled per her request. - Will need updated MRI Pelvis order to be directed towards [facility] FX#[id number] Patient has been made aware we will wait until ALL imaging has been completed and been reviewed by Andra and Dr. Blackmon to determine her POC, before scheduling a follow up - or per her request, forwarding a referral to an Orthopedic provider at [facility] for her Pelvic concerns Patient has also been made aware by canceling the MRI for July, and having to re-issue an offsite order there could be delays for insurance approval and is fine with the delay if that occurs, as long as the MRI Pelvis can be preformed at [facility]. documented in this encounter Plan of Treatment [...] documented as of this encounter Care Teams Planning Advisor Relationship Specialty Start Date End Date Kristy Sanchez APRN [address] [place] [address] PCP - General 10/31/24 Andra Matos APRN [address] [place] [address] Nurse Practitioner Neurosurgery 07/16/21 Oneil Blackmon MD [address] [place] [address] Surgeon Neurosurgery 08/18/21 Andra Matos APRN [address] [place] [address] Nurse Practitioner Neurosurgery 10/12/21 Shania Parikh DDS [address] [place] [address] Dentist Dentist 06/10/22 Aldo Pickens DMD [address] [place] [address] Dentist 06/10/22 documented as of this encounter
--- OUTSIDE RECORDS SUMMARY | 2025-07-08 08:31 | XMS_ITS | Encounter Summary ---
Author Organization [facility] Address [address] [place] [address] Care Team Providers Care Valet Parking Attendant Name Role Phone Andra Matos APRN Unavailable [phone] Oneil Blackmon MD Unavailable [phone] Andra Matos APRN Unavailable [phone] Shania Parikh DDS Unavailable + Aldo Pickens DMD Unavailable [phone] Kristy Sanchez APRN Primary Care Provider Reason for Referral * Imaging (Routine) - Pending Review Specialty Diagnoses / Procedures Referred By Gordon zheng Referred To Contact Radiology Diagnoses Bony pelvic pain Procedures MR Pelvis wo IV Contrast Andra Matos APRN [address] [place] [address] Phone: tel: fax: Referral ID Status Reason Start Date Expiration Date V isits Requested Visits Authorized [id number] Pending Review 05/19/2025 11/18/2026 1 1 Encounter Details Date Type Department Care Team (Late st Contact Info) Description 05/19/2025 Orders Only [place] [facility] [address] [place] [address] Andra Matos, AGRICULTURAL PRODUCE COMMISSION AGENT [address] [place] [address] Bony pelvic pain (Primary Dx) [...] How often do you attend chur or mormonism services? Never 10/31/2024 Do you belong to [...] Recorded Patient Health Questionnaire-2 Score 0 10/31/2024 [facility] - Occupational Stress Questionnaire Answer [...] time in the past 12 m [facility], were you homeless or living in [...] drink first t kisha in the morning (EYE-GRADE CHECKER) to steady your nerves or to [...] documented as of this encounter Care Teams Valet Parking Attendant Relationship Specialty Start Date End Date Kristy Sanchez APRN [address] [place] [address] PCP - General 10/31/24 Andra Matso APRN [address] [place] [address] Nurse Practitioner Neurosurgery 07/16/21 Oneil Blackmon MD [address] [place] [address] Surgeon Neurosurgery 08/18/21 Andra Matos APRN [address] [place] [address] Nurse Practitioner Neurosurgery 10/12/21 Shania Parikh DDS [address] [place] [address] Dentist Dentist 06/10/22 Aldo Pickens DMD [address] [place] [address] Dentist 06/10/22 documented as of this encounter
--- OUTSIDE RECORDS SUMMARY | 2025-07-08 08:32 | XMS_ITS | Clinical Summary ---
Author Organization [facility] Address [address] [place] [address] Care Team Providers Care Ip/Mosaic Technician Name Role Phone Andra Matos HEALTH SPA MANAGER Unavailable [phone] Oneil Blackmon MD Unavailable [phone] Andra Matos HEALTH SPA MANAGER Unavailable [phone] Shania Parikh DDS Unavailable + Aldo Pickens DMD Unavailable [phone] Kristy Sanchez HEALTH SPA MANAGER Primary Care Provider Allergies Active Allergy Reactions Criticality Noted Date [...] solution auto-injector autoinjector 5 Active HYDROcodone-acet aminophen ([place]) 5-325 MG tablet 5 Active methylPREDNISolo ne [...] (03/09/2022): Added automatically from request for surgery [id number] Back pain 07/16/2021 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 Resolved Problems Problem Noted Date Diagnosed Date Resolved Date Intervertebral disc disorder s with radiculopathy, lumbar region 08/26/2021 09/03/2021 Overview (08/26/2021): Added automatically from request for surgery [id number] Encounters Date Type Department Care Team Description 06/11/2025 2:29 PM EST - 06/11/2025 11:59 PM EST Hospital Encounter [facility] MRI [address] [place] [address] Mid back pain Discharge Disposition: Home or Self Care 06/11/2025 Travel 06/11/2025 Orders Only [facility] [address] [place] [address] Andra Matos, HEALTH SPA MANAGER Bony pelvic pain (Primary Dx) 06/10/2025 Telephone [facility] [address] [place] [address] Andra Matos, HEALTH SPA MANAGER 06/04/2025 Travel 05/19/2025 Orders Only [facility] [address] [place] [address] Andra Matos, HEALTH SPA MANAGER Bony pelvic pain (Primary Dx) 04/24/2025 Orders Only [facility] [address] [place] [address] Andra Matos, HEALTH SPA MANAGER Mid back pain (Primary Dx) 04/08/2025 Refill [facility] [address] [place] [id number] JedbrandonAndra, HEALTH SPA MANAGER from Last 3 Months Family History Medical [...] 2 Mernix Alive Father Ervin Price Mother Lsia priec Alive Social History Tobacco Use Types Packs/Day [...] often do you attend chur ch or mandaeism services? Never 10/31/2024 Do you belong to any clubs o r organizations such as mu-ism groups, unions, fraternal or athletic groups, or [...] Recorded Patient Health Questionnaire-2 Score 0 10/31/2024 [facility] [place] of Occupat ional Health - Occupational Stress [...] any time in the past 12 m [facility], were you homeless or [...] drink first t kisha in the morning (EYE-INSOLE AND HEEL STIFFENER) to steady your nerves or to get rid of a hangover? 0 10/30/2024 CAGE Questionnaire Score 0 025 Utilities Answer Date Recorded In the past 12 months has th [employer], gas, oil, or water [employer] threatened to shut off services in your [...] 10/01/2023 03/30/2023 Dental X-Ray: Bitewings 03/31/2024 03/30/2023 [id number] Vaccine ( - 2024- season) 2025 07/14/2023, 05/28/2022, 12/25/2021, Additional history [...] this topic Medical Devices Implanted Type Area Stroboroma Operator Device Identifier Shelf Expiration Date Model / Serial / Lot Large Diameter 14mm - Sn/A - [id number] Implanted:Qty : 3 on 10/12/2024 by Oneil Blackmon MD at [facility] [place] Cage N/A: Spine Cervical [employer] [id number] 10/12/2025 [id number] / N/A / One Level Plate, 16mm - Sn/A - [id number] Implanted:Qty : 1 on 10/12/2024 by Oneil Blackmon MD at [facility] [place] Plate N/A: Spine Cervical [employer] LP-[id number] 10/12/2025 [id number] / N/A / Pre-Lordosed Jonatan W/ Line 65mm - S. - [id number] Implanted:Qty : 2 on 08/30/2021 by Oneil Blackmon MD at [facility] [place] Jonatan Spine Lumbar [employer] [id number] 08/30/2022 [id number] / . / Expedium 5.50 Polyaxial Screw 7.83z40qa, - S. - [id number] Implanted:Qty : 2 on 08/30/2021 by Oneil Blackmon MD at [facility] [place] Screw Spine Lumbar [employer] LP-[id number] 08/30/2022 [id number] / . / Screw 5.5mm Viper Ti Fen Crtcl Polyax 7mm X 45mm - S. - [id number] Implanted:Qty : 4 on 08/30/2021 by Oneil Blackmon MD at [facility] [place] Screw Spine Lumbar [employer] LP-[id number] 08/30/2022 [id number] / . / Single Inner Setscrew - S. - [id number] Implanted:Qty : 6 on 08/30/2021 by Oneil Blackmon MD at [facility] [place] Screw Spine Lumbar [employer] [id number] 08/30/2022 [id number] / . / Self Drilling Screw 14mm - Sn/A - [id number] Implanted:Qty : 1 on 10/12/2024 by Oneil Blackmon MD at [facility] [place] Screw N/A: Spine Cervical [employer] -[id number] 10/12/2025 [id number] / N/A / Plates/Screws Bilateral: Mandible Chip Bone 20cc - [id number] Implanted:Qty : 1 on 08/30/2021 by Oneil Blackmon MD at [place] [address] 05/30/2026 PCAN1/4 / / [id number] Graft Vivigen 5cc - [id number] Implanted:Qty : 1 on 08/30/2021 by Oneil Blackmon MD at [place] [address] 08/11/2022 BL-1500-002 / [id number] / [id number] Graft Vivigen 5cc - [id number] Implanted:Qty : 1 on 08/30/2021 by Oneil Blackmon MD at [place] [id number] 08/04/2022 BL-1500-002 / [id number] / [id number] Self Drilling Screw 14mm - [id number] Implanted:Qty : 5 on 03/14/2022 by Oneil Blackmon MD at [facility] [place] Spine Cervical DePuy Spine [facility]-[id number] [id number] / / Large Diameter 14mm - [id number] Implanted:Qty : 1 on 03/14/2022 by Oneil Blackmon MD at [facility] [place] Spine Cervical DePuy Spine [facility]964603 [id number] / / Knee Vanguard1 Cervical Preservon 6mm - [id number] - [id number] Implanted:Qty : 1 on 03/14/2022 by Oneil Blackmon MD at [facility] [place] Spine [place] [id number] 09/30/2026 [id number] / [id number] / [id number] Knee Vanguard1 Cervical Preservon 7mm - [id number] - [id number] Implanted:Qty : 1 on 03/14/2022 by Oneil Blackmon MD at [facility] [place] Right: Spine Cervical [facility]672813 12/15/2026 [id number] / [id number] / [id number] Screw Retainer 3.5mm X 12mm - [id number] Implanted:Qty : 2 on 03/14/2022 by Oneil Blackmon MD at [facility] [place] Spine Cervical [employer] -[id number] 03.820.102 / / Nut Retainer - [id number] Implanted:Qty : 2 on 03/14/2022 by Oneil Blackmon MD at [facility] [place] Spine Cervical [employer] -[id number] 03.820.110 / / Plate Two Level 28mm - [id number] Implanted:Qty : 1 on 03/14/2022 by Oneil Blackmon MD at [facility] [place] Spine Cervical DePuy Spine Sales [facility]944839 [id number] / / Knee Vanguard1 Cervical Preservon 7mm - [id number] - [id number] Implanted:Qty : 1 on 10/12/2024 by Oneil Blackmon MD at [facility] [place] Spine Cervical [facility]-[id number] 08/01/2029 [id number] / [id number] / [id number] Tissue Vivigen Formable 1.3cc Sm Pk/4 - [id number] Implanted:Qty : 1 on 10/12/2024 by Oneil Blackmon MD at [facility] [place] N/A: Spine Cervical [facility]-199188 09/23/2025 [id number] / / [id number] Screw Retainer 3.5mm X 14mm - Sn/A - [id number] Implanted:Qty : 2 on 10/12/2024 by Oneil Blackmon MD at [facility] [place] N/A: Spine Cervical [employer] -[id number] 10/12/2025 03.820.103 / N/A / Nut Retainer - Sn/A - [id number] Implanted:Qty : 2 on 10/12/2024 by Oneil Blackmon MD at [facility] [place] N/A: Spine Cervical [employer] -[id number] 10/12/2025 03.820.110 / N/A / Procedures Procedure Name Priority Date/Time Associated Diagnosis Comments MR THORACIC SPINE WO IV CONTRAST Routine 06/11/2025 3:15 PM EST Mid back pain HEPATITIS C ANTIBODY - ED W/REFLEX TO [...] combination with mild disc bulge. This causes inmn-hb-othalsfb spinal canal stenosis. Scattered levels of neural [...] endplates with mild anterior wedging, greater at N0dqtgp there is approximately one third height loss [...] in combination with mild disc bulge. This jqolvdzzcn-lv-kiywmurm spinal canal stenosis. Scattered levels of neuralforaminal [...] Rodrigez on 06/11/2025 8:22 PM Andra Matos HEALTH SPA MANAGER IMG MRI PROCEDURES Final Res ult * ED HIV 1/2 Antibody/Antigen Screen w/Reflex to HIV 1/2 Differentiation (10/30/2024 6:38 PM EDT) Pathologist [facility] [place] HIV 1 & 2 Antibody/Antigen Screen Non Reactive Non Reactive 10/30/2024 7:54 PM EDT [facility] Comment:Screening for HIV 1 & 2 antibodies, and P24 antigen is NONREACTIVE. No confirmatory testing is required. Blood Venous blood specimen / Unknown Venipuncture / Unknown 10/30/2024 6:38 PM EDT 10/30/2024 7:09 PM EDT Rogerio Marino MD LAB BLOOD ORDERABLES Final Res ult [facility] [address] [place] [address] * Hepatitis C Antibody - ED (10/30/2024 6:38 PM EDT) Hepatitis C Antibody Negative Negative 10/30/2024 7:54 PM EDT [facility] Blood Venous blood specimen / Unknown Venipuncture / Unknown 10/30/2024 6:38 PM EDT 10/30/2024 7:09 PM EDT Rogerio Marino MD LAB BLOOD ORDERABLES Final Res ult [facility] [address] [place] [address] from Last 3 Months or Most Recently Relevant to Health Maintenance Insurance [facility] [place] Advance Directives * Full Code (Latest Code Status on File) Date Activated Date Inactivated Comments 10/31/2024 1:17 AM 11/01/2024 4:18 PM * Full Code Date Activated Date Inactivated Comments 03/14/2022 12:00 PM 03/15/2022 5:21 PM Question Answer Comments Patient has decision-making capacity? Yes Care Teams Ip/Mosaic Technician Relationship Specialty Start Date End Date Kristy Sanchez APRN [address] [address] PCP - General 10/31/24 Andra Matos APRN [address] [place] [address] Nurse Practitioner Neurosurgery 07/16/21 Oneil Blackmon MD [address] [place] [address] Surgeon Neurosurgery 08/18/21 Andra Matos APRN [address] [place] [address] Nurse Practitioner Neurosurgery 10/12/21 Shania Parikh DDS [address] [place] [address] Dentist Dentist 06/10/22 Aldo Pickens DMD [address] [place] [address] Dentist 06/10/22
--- NOTE | 2025-07-08 13:00 | MM_ITS ---
PROCEDURE INFORMATION: Exam: MG Bilateral Screening 3D Mammography Exam date and time: 07/08/2025 8:38 AM Age: 65 years old Clinical indication: Screening exam. TECHNIQUE: Imaging protocol: Bilateral Screening tomosynthesis and 2D mammography including computer-aided detection (CAD) when performed. COMPARISON: 1. MG MM DIG SCREENING MAMM BI W/CAD 03/16/2023 3:49 PM 2. MG MM scrn mammo BI 08/20/2019 8:26 AM FINDINGS: MAMMOGRAPHY: Breast composition: There are scattered areas of fibroglandular density. Mass: No suspicious masses. Architectural distortion: None. Calcifications: No suspicious calcifications. Asymmetric density: None. Skin thickening: None. Axillary adenopathy: None. IMPRESSION: No mammographic evidence of malignancy. Annual screening is recommended unless otherwise clinically indicated. ASSESSMENT: BI-RADS Category 1: Negative.
== END 2025-07-08 23:59 | disposition home or self-care (01) ==
LOC: RAD 08:30
PROVIDERS: PCP Family Medicine; Visit Provider Family Medicine
DX: Z12.31 Encounter for screening mammogram for malignant neoplasm of breast (principal); R92.323 Mammographic fibroglandular density, bilateral breasts
CPT/HCPCS: 77063; 77067